=== PATIENT | female | born 1955 | race African-American/Black ===

== ENCOUNTER 2019-03-20 16:33 | Emergency (ER) | payer MEDICARE ==
[2019-03-20 16:55] VITALS: BP 130/78; PULSE 84; RESP 18; TEMP 97.9
[2019-03-20] MEDS ORDERED: MORPHINE SULFATE 4 MG/ML SYRINGE IM STA (16:59)
--- NOTE | 2019-03-20 17:27 | ED ---
Back Pain HPI - General Chief Complaint: Back Pain/Injury Stated Complaint: sciatic nerve pain Source: patient Limitations: no limitations - History of Present Illness Initial Comments: 64-year-old female with history of severe rheumatoid arthritis, right-sided sciatica chronic urinary continence presents emergency department for fall with increase right leg pain. Patient states she fell 2 days ago on her right side after her house shoe got caught on a vent. She states she fell onto her right side, hitting right shoulder, and falling on her bottom. Patient states she has been able to walk since, but has been having increased pain that radiates down the right leg. Patient states is sharp and feels like her sciatica she states begins in the middle of the buttock and radiates down. Patient has a near ankle pain denies any pain of the elbows or wrists. Patient does state that she has pain in the right shoulder from her baseline RA. Pain in area has no radiation and increases with overhead ROM. Patient denies loss of bowel control, patient states that she has had incontinence to bladder for the past year and often pees on her floor at home and has to use towels to clean it up, she has discussed this with her PCP who prescribed a $7500 medication per patient that insurance has $1500 deductible and she cannot afford the medication. Patient denies loss of sensation of the LE, IVDU, hx of cancer, vaginal numbness. Denies trauma to the head or neck, upper back. Remaining ROS (-). Upon arrival patient appears uncomfortable. - Related Data Previous Rx's Medication Instructions Recorded Cyclobenzaprine [Flexeril] 10 mg PO TID PRN 7 Days #21 tab 03/20/19 HYDROcodone/APAP 7.5-325MG [[place] 1 tab PO Q4H PRN 3 Days #18 tab 03/20/19 7.5-325] Allergies Allergy/AdvReac Type Severity Reaction Status Date / Time Penicillins Allergy Unknown Verified 03/20/19 16:55 Review of Systems ROS Statement: Those systems with pertinent positive or pertinent negative responses have been documented in the HPI. ROS Other: All systems not noted in ROS Statement are negative. Past Medical History Past Medical History: Asthma, Diabetes Mellitus, Hypertension, Rheumatoid Arthritis (RA) History of Any Multi-Drug Resistant Organisms: None Reported Past Surgical History: Section, Orthopedic Surgery Additional Past Surgical History / Comment(s): carpel tunnel Past Psychological History: Anxiety, Depression Smoking Status: Never smoker Past Alcohol Use History: None Reported Past Drug Use History: None Reported General Exam - General Exam Comments Initial Comments: General: The patient is awake and alert, in no distress, and does not appear acutely ill. Eye: +3 mm pupils are equal, round and reactive to light, extra-ocular movements are intact. No nystagmus. There is normal conjunctiva bilaterally. No signs of icterus. Ears, nose, mouth and throat: There are moist mucous membranes and no oral lesions. Neck: The neck is supple, there is no tenderness or JVD. Cardiovascular: There is a regular rate and rhythm. No murmur, rub or gallop is appreciated. Respiratory: Lungs are clear to auscultation, respirations are non-labored, breath sounds are equal. No wheezes, stridor, rales, or rhonchi. Gastrointestinal: Soft, non-distended, non-tender abdomen without masses or organomegaly noted. There is no rebound or guarding present. Musculoskeletal: Normal ROM, no tenderness. Strength 5/5. Sensation intact. Pulses equal bilaterally 2+. Neurological: A&O x 3. CN II-XII intact, There are no obvious motor or sensory deficits. Coordination appears grossly intact. Speech is normal. Skin: Skin is warm and dry and no rashes or lesions are noted. Psychiatric: Cooperative, appropriate mood & affect, normal judgment. Limitations: no limitations Course Vital Signs 03/20/19 16:51 Temperature 97.9 F Pulse Rate 84 Respiratory 18 Rate Blood Pressure 130/78 O2 Sat by Pulse 98 Oximetry Disposition Clinical Impression: Radiculopathy, Fall, Back pain, Right shoulder pain Disposition: HOME SELF-CARE Condition: Good Instructions (If sedation given, give patient instructions): Acute Low Back Pain (ED) Additional Instructions: Please use medication as discussed. Please follow-up with family doctor in the next 2 days. Please return to emergency room if the symptoms increase or worsen or for any other concerns. Prescriptions: Cyclobenzaprine [Flexeril] 10 mg PO TID PRN 7 Days #21 tab PRN Reason: Muscle Spasm HYDROcodone/APAP 7.5-325MG [[place] 7.5-325] 1 tab PO Q4H PRN 3 Days #18 tab PRN Reason: Pain Is patient prescribed a controlled substance at d/c from ED?: Yes When asked, does pt state using other controlled substances?: No If prescribed controlled substance>3 days was MAPS reviewed?: Prescribed <3 Days If opioid is for acute pain is fill amount 7 days or less?: Yes If Rx opioid, was Start Talking consent form obtained?: Yes Referrals: Mariluz Becker MD [Primary Care Provider] - 1-2 days Marvin Pardo DO [Doctor of Osteopathic Medicine] - 1-2 days Time of Disposition: 19:52
--- NOTE | 2019-03-20 17:51 | XR ---
EXAMINATION TYPE: XR shoulder complete RT DATE OF EXAM: 03/20/2019 COMPARISON: 08/08/2010 HISTORY: Pain. Fall. TECHNIQUE: 3 views FINDINGS: There is 2 cm large erosion at the greater tuberosity of the humerus. There is narrowing of the subacromial joint space. I see no fracture nor dislocation. There is some erosion and spurring a t the AC joint. IMPRESSION: No fracture seen. Large erosion at the greater tuberosity and also to a lesser extent the acromion could relate to inflammatory arthritis and is a change compared to old exam.
--- NOTE | 2019-03-20 17:51 | XR ---
EXAMINATION TYPE: XR Hip Complete RT DATE OF EXAM: 03/20/2019 COMPARISON: NONE HISTORY: Pain TECHNIQUE: 2 views FINDINGS: Hip joint space is fairly normal. I see no fracture nor dislocation. Sacroiliac joint is in tact. IMPRESSION: Negative right hip exam.
--- NOTE | 2019-03-20 17:53 | XR ---
EXAMINATION TYPE: XR lumbar spine 2 or 3V DATE OF EXAM: 03/20/2019 COMPARISON: 05/26/2011 HISTORY: Pain TECHNIQUE: 3 views FINDINGS: Vertebra have normal alignment. Posterior elements are intact. There is no compression frac ture. Sacroiliac joints are intact. IMPRESSION: Negative lumbar spine exam. No fracture. No significant change compared to old exam.
[2019-03-20] MEDS ORDERED: HYDROmorphone 0.5 MG/0.5 ML SYRINGE IVP STA (18:05)
[2019-03-20] MEDS ORDERED: DIAZEPAM 2 MG TAB PO STA (18:05)
[2019-03-20] MEDS ORDERED: HYDROmorphone 0.5 MG/0.5 ML SYRINGE IM STA (18:31)
[2019-03-20] MEDS ORDERED: DIAZEPAM 5 MG TAB PO STA (18:43)
[2019-03-20] MEDS ORDERED: HYDROcodone/APAP 7.5-325MG 1 EACH TAB PO ONE (19:55)
== END 2019-03-20 20:16 | disposition home or self-care (01) ==
LOC: EC 16:33
DX: M54.10 Radiculopathy, site unspecified (principal); M54.9 Dorsalgia, unspecified; M25.511 Pain in right shoulder; M79.601 Pain in right arm; Z87.39 Personal history of other diseases of the musculoskeletal system and connective tissue; Z88.0 Allergy status to penicillin; W19.XXXA Unspecified fall, initial encounter
CPT/HCPCS: 72100; 73502; 73030; 99283; 96372 ×2; J2270; J1170

== ENCOUNTER 2019-03-22 09:05 | Emergency (ER) | payer MEDICARE ==
[2019-03-22 09:09] VITALS: BP 133/71; PULSE 71; RESP 8; TEMP 98.4
[2019-03-22] MEDS ORDERED: CEPHALEXIN 500MG STARTER PACK 4 CAP BTL PO STA (09:52)
[2019-03-22] MEDS ORDERED: DIPH,PERTUS(ACELL)TETVAC-LF 0.5 ML VIAL IM ONE (09:52)
--- NOTE | 2019-03-22 09:52 | ED ---
General Adult HPI - General Chief complaint: Skin/Abscess/Foreign Body Stated complaint: Barn[place] pickers in leg & abd Time Seen by Provider: 03/22/19 09:26 Source: patient, RN notes reviewed, old records reviewed Mode of arrival: wheelchair Limitations: no limitations - History of Present Illness Initial comments: 64 year old female presents emergency department today for concern for a injury on her right thigh and groin and lower abdomen. Patient reports that she tripped and fell yesterday into a cactus that was in her yard. Patient reports that she has numerous cactus spines within the leg still. They attempted to remove these with tweezers or unsuccessful. They're not concerned for possible infection. Patient reports no other symptoms. - Related Data Home Medications Medication Instructions Recorded Confirmed Ascorbic Acid/Ascorbate Sodium 250 mg PO TID 03/22/19 03/22/19 [Vitamin C 250 mg Tablet Chew] Atorvastatin [Lipitor] 20 mg PO DAILY 03/22/19 03/22/19 Cyanocobalamin (Vitamin B-12) 1,000 mcg PO DAILY 03/22/19 03/22/19 [Vitamin B-12] Ferrous Sulfate [Feosol] 325 mg PO DAILY 03/22/19 03/22/19 Folic Acid 1 mg PO DAILY 03/22/19 03/22/19 Glimepiride [Amaryl] 1 mg PO BID 03/22/19 03/22/19 Magnesium Oxide [Magox 400] 400 mg PO DAILY 03/22/19 03/22/19 Montelukast [Singulair] 10 mg PO HS 03/22/19 03/22/19 Pregabalin [Lyrica] 100 mg PO TID 03/22/19 03/22/19 Sertraline [Zoloft] 100 mg PO DAILY 03/22/19 03/22/19 amLODIPine [Norvasc] 5 mg PO DAILY 03/22/19 03/22/19 predniSONE See Taper PO DIRECTED 03/22/19 03/22/19 Previous Rx's Medication Instructions Recorded Cyclobenzaprine [Flexeril] 10 mg PO TID PRN 7 Days #21 tab 03/20/19 HYDROcodone/APAP 7.5-325MG [[place] 1 tab PO Q4H PRN 3 Days #18 tab 03/20/19 7.5-325] Cephalexin [Keflex] 500 mg PO Q6HR #40 cap 03/22/19 Hydrocortisone Cream 1 applic TOPICAL TID #60 gm 03/22/19 [Hydrocortisone 1% Cream] Lidocaine 5% Oint [Xylocaine 5% 1 applic TOPICAL TID #60 oint...g. 03/22/19 Oint] Mupirocin 2% Oint [Bactroban 2% 1 applic TOPICAL TID #60 gm 03/22/19 Oint] Allergies Allergy/AdvReac Type Severity Reaction Status Date / Time Penicillins Allergy Unknown Verified 03/22/19 09:25 Review of Systems ROS Statement: Those systems with pertinent positive or pertinent negative responses have been documented in the HPI. ROS Other: All systems not noted in ROS Statement are negative. Past Medical History Past Medical History: Asthma, Diabetes Mellitus, Hypertension, Rheumatoid Arthritis (RA) History of Any Multi-Drug Resistant Organisms: None Reported Past Surgical History: Section, Orthopedic Surgery Additional Past Surgical History / Comment(s): carpel tunnel Past Psychological History: Anxiety, Depression Smoking Status: Never smoker Past Alcohol Use History: None Reported Past Drug Use History: None Reported General Exam - General Exam Comments Initial Comments: 64-year-old female. Alert and oriented 3. Limitations: no limitations General appearance: alert, in no apparent distress Head exam: Present: atraumatic, normocephalic, normal inspection Eye exam: Present: normal appearance, PERRL, EOMI. Absent: scleral icterus, conjunctival injection, periorbital swelling ENT exam: Present: normal exam, mucous membranes moist Neck exam: Present: normal inspection. Absent: tenderness, meningismus, lymphadenopathy Respiratory exam: Present: normal lung sounds bilaterally. Absent: respiratory distress, wheezes, rales, rhonchi, stridor Cardiovascular Exam: Present: regular rate, normal rhythm, normal heart sounds. Absent: systolic murmur, diastolic murmur, rubs, gallop, clicks GI/Abdominal exam: Present: soft, normal bowel sounds. Absent: distended, tenderness, guarding, rebound, rigid Neurological exam: Present: alert, oriented X3, CN II-XII intact Psychiatric exam: Present: normal affect, normal mood Skin exam: Present: warm, dry, intact, normal color, rash (Patient has been erythematous papular-like lesions over the right anterior and posterior thigh into the groin area. There is evidence of embedded small hair like needles from cacti within the skin.) Course Vital Signs 03/22/19 09:06 Temperature 98.4 F Pulse Rate 71 Respiratory 8 L Rate Blood Pressure 133/71 O2 Sat by Pulse 95 Oximetry Medical Decision Making - Medical Decision Making Patient 64-year-old female with a trip and fall injury into a cactus. She has thousands of her leg needles at times to the right anterior posterior thigh and in the groin. We attempted to remove these with multiple methods including tweezers, which is mildly successful but time-consuming, as well as eventually using duct tape to stick to the leg and removed majority of the cactus needles. Patient has some surrounding dermatitis from this area. I discussed putting the Patient on multiple creams including antibiotic cream and hydrocortisone cream as well as some lidocaine cream to stop the burning. Patient will be started on Keflex as well. I discussed the Patient she should return to the emergency department if any alarming signs or symptoms occur. Disposition Clinical Impression: Plant irritant contact dermatitis Disposition: HOME SELF-CARE Condition: Good Instructions (If sedation given, give patient instructions): Contact Dermatitis (ED) Additional Instructions: Patient advised to do gentle exfoliation over the skin. Patient should apply the antibiotic cream and lidocaine cream for pain relief. Recommended completing the antibiotic prescription. Return to emergency department if any alarming signs or symptoms occur. Prescriptions: Mupirocin 2% Oint [Bactroban 2% Oint] 1 applic TOPICAL TID #60 gm Hydrocortisone Cream [Hydrocortisone 1% Cream] 1 applic TOPICAL TID #60 gm Cephalexin [Keflex] 500 mg PO Q6HR #40 cap Lidocaine 5% Oint [Xylocaine 5% Oint] 1 applic TOPICAL TID #60 oint...g. Is patient prescribed a controlled substance at d/c from ED?: No Referrals: Mariluz Becker MD [Primary Care Provider] - 1-2 days Time of Disposition: 11:46
[2019-03-22] MEDS ORDERED: ACET/COD 300 MG/30 MG STARTER PACK 6 TAB BTL PO STA (11:45)
== END 2019-03-22 11:57 | disposition home or self-care (01) ==
LOC: EC 09:05
DX: L24.7 Irritant contact dermatitis due to plants, except food (principal); S70.351A Superficial foreign body, right thigh, initial encounter; S30.851A Superficial foreign body of abdominal wall, initial encounter; J45.909 Unspecified asthma, uncomplicated; E11.9 Type 2 diabetes mellitus without complications; I10 Essential (primary) hypertension; F41.9 Anxiety disorder, unspecified; F32.9 Major depressive disorder, single episode, unspecified; Z79.84 Long term (current) use of oral hypoglycemic drugs; Z79.52 Long term (current) use of systemic steroids; Z79.899 Other long term (current) drug therapy; Z88.0 Allergy status to penicillin; Z23 Encounter for immunization; W01.0XXA Fall on same level from slipping, tripping and stumbling without subsequent striking against object, initial encounter; Y92.096 Garden or yard of other non-institutional residence as the place of occurrence of the external cause
CPT/HCPCS: 90471; 90715; 99283

== ENCOUNTER 2020-04-11 15:33 | Inpatient (IN) | payer MEDICARE, OTHER ==
[2020-04-11] MEDS ORDERED: SODIUM CHLORIDE 0.9% 1,000 ML IV STA ×2 (16:10)
[2020-04-11] MEDS ORDERED: METOCLOPRAMIDE 5 MG/ML 2 ML VIAL IVP STA (16:10)
--- NOTE | 2020-04-11 16:22 | ED ---
Nausea/Vomiting/Diarrhea HPI - General Chief complaint: Nausea/Vomiting/Diarrhea Stated complaint: Nausea vomiting Time Seen by Provider: 04/11/20 15:53 Source: patient, EMS, RN notes reviewed Mode of arrival: EMS Limitations: no limitations - History of Present Illness Initial comments: This is a 65-year-old female who began having diarrhea 5 days ago and has yesterday started having nausea and this morning multiple shows a vomiting. She has generalized abdominal cramping. She feels lightheaded dizzy and weak she's had no food intake recently no reports of abdominal surgeries no recent bad food intake no recent exposures anyone with similar symptoms MD complaint: nausea, vomiting, diarrhea, abdominal pain - Related Data Home Medications Medication Instructions Recorded Confirmed Ascorbic Acid [Vitamin C 250 mg 250 mg PO TID 03/22/19 03/22/19 Tablet Chew] Atorvastatin [Lipitor] 20 mg PO DAILY 03/22/19 03/22/19 Cyanocobalamin (Vitamin B-12) 1,000 mcg PO DAILY 03/22/19 03/22/19 [Vitamin B-12] Ferrous Sulfate [Feosol] 325 mg PO DAILY 03/22/19 03/22/19 Folic Acid 1 mg PO DAILY 03/22/19 03/22/19 Glimepiride [Amaryl] 1 mg PO BID 03/22/19 03/22/19 Magnesium Oxide [Magox 400] 400 mg PO DAILY 03/22/19 03/22/19 Montelukast [Singulair] 10 mg PO HS 03/22/19 03/22/19 Pregabalin [Lyrica] 100 mg PO TID 03/22/19 03/22/19 Sertraline [Zoloft] 100 mg PO DAILY 03/22/19 03/22/19 amLODIPine [Norvasc] 5 mg PO DAILY 03/22/19 03/22/19 predniSONE See Taper PO DIRECTED 03/22/19 03/22/19 Previous Rx's Medication Instructions Recorded Cyclobenzaprine [Flexeril] 10 mg PO TID PRN 7 Days #21 tab 03/20/19 HYDROcodone/APAP 7.5-325MG [[place] 1 tab PO Q4H PRN 3 Days #18 tab 03/20/19 7.5-325] Cephalexin [Keflex] 500 mg PO Q6HR #40 cap 03/22/19 Hydrocortisone Cream 1 applic TOPICAL TID #60 gm 03/22/19 [Hydrocortisone 1% Cream] Lidocaine 5% Oint [Xylocaine 5% 1 applic TOPICAL TID #60 oint...g. 03/22/19 Oint] Mupirocin 2% Oint [Bactroban 2% 1 applic TOPICAL TID #60 gm 03/22/19 Oint] Allergies Allergy/AdvReac Type Severity Reaction Status Date / Time Penicillins Allergy Unknown Verified 04/11/20 17:58 Review of Systems ROS Statement: Those systems with pertinent positive or pertinent negative responses have been documented in the HPI. ROS Other: All systems not noted in ROS Statement are negative. Past Medical History Past Medical History: Asthma, Diabetes Mellitus, Hypertension, Rheumatoid Arthritis (RA) History of Any Multi-Drug Resistant Organisms: None Reported Past Surgical History: Section, Orthopedic Surgery Additional Past Surgical History / Comment(s): carpel tunnel Past Psychological History: Anxiety, Depression Smoking Status: Never smoker Past Alcohol Use History: None Reported Past Drug Use History: None Reported General Exam - General Exam Comments Initial Comments: Is a well-developed well-nourished awake alert oriented 3 female she was actively vomiting Limitations: no limitations General appearance: alert, anxious, in distress Head exam: Present: atraumatic, normocephalic, normal inspection Eye exam: Present: normal appearance, PERRL, EOMI. Absent: scleral icterus, conjunctival injection, periorbital swelling ENT exam: Present: mucous membranes dry Neck exam: Present: normal inspection, full ROM. Absent: tenderness, meningismus, lymphadenopathy Respiratory exam: Present: normal lung sounds bilaterally. Absent: respiratory distress, wheezes, rales, rhonchi, stridor Cardiovascular Exam: Present: regular rate, normal rhythm, normal heart sounds. Absent: systolic murmur, diastolic murmur, rubs, gallop, clicks GI/Abdominal exam: Present: soft, tenderness (Mild generalized tenderness no guarding no rebound masses or bruits hyperactive sounds noted), normal bowel sounds. Absent: distended, guarding, rebound, rigid Rectal exam: Present: deferred Extremities exam: Present: normal inspection, full ROM, normal capillary refill. Absent: tenderness, pedal edema, joint swelling, calf tenderness Back exam: Present: normal inspection Neurological exam: Present: alert, oriented X3, CN II-XII intact Psychiatric exam: Present: normal affect, anxious Skin exam: Present: warm, dry, intact, normal color. Absent: rash Course Vital Signs 04/11/20 04/11/20 15:35 16:43 Temperature 98.4 F Pulse Rate 85 79 Respiratory 20 18 Rate Blood Pressure 165/78 147/69 O2 Sat by Pulse 99 97 Oximetry Medical Decision Making - Medical Decision Making I did discuss findings the patient family members were present patient still feeling nauseated. Patient does demonstrate evidence of clinical dehydration as well as electronic also hypomagnesemia. Patient be admitted I did discuss case with Dr. Love - Lab Data Result diagrams: 04/11/20 16:27 04/11/20 16:27 Lab Results 04/11/20 04/11/20 04/11/20 Range/Units 16:27 16:27 16:27 WBC 7.7 (3.8-10.6) k/uL RBC 4.93 (3.80-5.40) m/uL Hgb 13.8 (11.4-16.0) gm/dL Hct 44.0 (34.0-46.0) % MCV 89.1 (80.0-100.0) fL MCH 27.9 (25.0-35.0) pg MCHC 31.3 (31.0-37.0) g/dL RDW 15.4 (11.5-15.5) % Plt Count 223 (150-450) k/uL Neutrophils % 84 % Lymphocytes % 10 % Monocytes % 4 % Eosinophils % 1 % Basophils % 0 % Neutrophils # 6.5 (1.3-7.7) k/uL Lymphocytes # 0.8 L (1.0-4.8) k/uL Monocytes # 0.3 (0-1.0) k/uL Eosinophils # 0.1 (0-0.7) k/uL Basophils # 0.0 (0-0.2) k/uL Sodium 140 (137-145) mmol/L Potassium 4.0 (3.5-5.1) mmol/L Chloride 101 (98-107) mmol/L Carbon Dioxide 27 (22-30) mmol/L Anion Gap 12 mmol/L BUN 7 (7-17) mg/dL Creatinine 0.46 L (0.52-1.04) mg/dL Est GFR (CKD-EPI)AfAm >90 (>60 ml/min/1.73 sqM) Est GFR (CKD-EPI)NonAf >90 (>60 ml/min/1.73 sqM) Glucose 281 H (74-99) mg/dL Plasma Lactic Acid Bill (0.7-2.0) mmol/L Calcium 9.6 (8.4-10.2) mg/dL Magnesium 1.2 L (1.6-2.3) mg/dL Total Bilirubin 1.0 (0.2-1.3) mg/dL AST 49 H (14-36) U/L ALT 28 (4-34) U/L Alkaline Phosphatase 84 (38-126) U/L Creatine Kinase 138 H (30-135) U/L Troponin I (0.000-0.034) ng/mL Total Protein 8.5 H (6.3-8.2) g/dL Albumin 4.9 (3.5-5.0) g/dL Lipase 37 (23-300) U/L Urine Color Light Yellow Urine Appearance Clear (Clear) Urine pH 7.0 (5.0-8.0) Ur Specific [place] 1.010 (1.001-1.035) Urine Protein Trace H (Negative) Urine Glucose (UA) 4+ H (Negative) Urine Ketones 3+ H (Negative) Urine Blood Negative (Negative) Urine Nitrite Negative (Negative) Urine Bilirubin Negative (Negative) Urine Urobilinogen <2.0 (<2.0) mg/dL Ur Leukocyte Esterase Negative (Negative) 04/11/20 04/11/20 Range/Units 16:27 16:27 WBC (3.8-10.6) k/uL RBC (3.80-5.40) m/uL Hgb (11.4-16.0) gm/dL Hct (34.0-46.0) % MCV (80.0-100.0) fL MCH (25.0-35.0) pg MCHC (31.0-37.0) g/dL RDW (11.5-15.5) % Plt Count (150-450) k/uL Neutrophils % % Lymphocytes % % Monocytes % % Eosinophils % % Basophils % % Neutrophils # (1.3-7.7) k/uL Lymphocytes # (1.0-4.8) k/uL Monocytes # (0-1.0) k/uL Eosinophils # (0-0.7) k/uL Basophils # (0-0.2) k/uL Sodium (137-145) mmol/L Potassium (3.5-5.1) mmol/L Chloride (98-107) mmol/L Carbon Dioxide (22-30) mmol/L Anion Gap mmol/L BUN (7-17) mg/dL Creatinine (0.52-1.04) mg/dL Est GFR (CKD-EPI)AfAm (>60 ml/min/1.73 sqM) Est GFR (CKD-EPI)NonAf (>60 ml/min/1.73 sqM) Glucose (74-99) mg/dL Plasma Lactic Acid Bill 2.0 (0.7-2.0) mmol/L Calcium (8.4-10.2) mg/dL Magnesium (1.6-2.3) mg/dL Total Bilirubin (0.2-1.3) mg/dL AST (14-36) U/L ALT (4-34) U/L Alkaline Phosphatase (38-126) U/L Creatine Kinase (30-135) U/L Troponin I <0.012 (0.000-0.034) ng/mL Total Protein (6.3-8.2) g/dL Albumin (3.5-5.0) g/dL Lipase (23-300) U/L Urine Color Urine Appearance (Clear) Urine pH (5.0-8.0) Ur Specific [place] (1.001-1.035) Urine Protein (Negative) Urine Glucose (UA) (Negative) Urine Ketones (Negative) Urine Blood (Negative) Urine Nitrite (Negative) Urine Bilirubin (Negative) Urine Urobilinogen (<2.0) mg/dL Ur Leukocyte Esterase (Negative) - EKG Data -: EKG Interpreted by Me EKG Comments: Sinus rhythm of 76. 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
[2020-04-11 16:40] LABS: Basophils % (A) 0 %; Eosinophils # (A) 0.1 k/uL (0-0.7); Eosinophils % (A) 1 %; HGB 13.8 gm/dL (11.4-16.0); Lymphocytes # (A) 0.8 k/uL (1.0-4.8); Lymphocytes % (A) 10 %; MCH 27.9 pg (25.0-35.0); MCHC 31.3 g/dL (31.0-37.0); MCV 89.1 fL (80.0-100.0); Mean Platelet Volume 8.7; Monocytes # (A) 0.3 k/uL (0-1.0); Monocytes % (A) 4 %; Neutrophils # (A) 6.5 k/uL (1.3-7.7); Neutrophils % (A) 84 %; Platelet Count 223 k/uL (150-450); RBC 4.93 m/uL (3.80-5.40); RDW 15.4 % (11.5-15.5); WBC 7.7 k/uL (3.8-10.6)
[2020-04-11 16:45] LABS: Appearance,Urine Clear (Clear); Bilirubin,Urine Negative (Negative); Blood,Urine Negative (Negative); Color,Urine Light Yellow; Glucose,Urine (UA) 4+ (Negative); Leukocyte Esterase,Urine Negative (Negative); Nitrite,Urine Negative (Negative); Protein,Urine Trace (Negative); Urobilinogen,Urine <2.0 mg/dL (<2.0)
[2020-04-11 16:47] LABS: ALT 28 U/L (4-34); AST 49 U/L (14-36); African American GFR (CKD) >90 (>60 ml/min/1.73 sqM); Albumin 4.9 g/dL (3.5-5.0); Alkaline Phosphatase 84 U/L (38-126); Anion Gap 12 mmol/L; Blood Urea Nitrogen 7 mg/dL (7-17); Calcium 9.6 mg/dL (8.4-10.2); Carbon Dioxide 27 mmol/L (22-30); Chloride 101 mmol/L (98-107); Creatine Kinase 138 U/L (30-135); Glucose 281 mg/dL (74-99); Lipase 37 U/L (23-300); Magnesium 1.2 mg/dL (1.6-2.3); Non-African American GFR(CKD) >90 (>60 ml/min/1.73 sqM); Sodium 140 mmol/L (137-145); Total Protein 8.5 g/dL (6.3-8.2)
[2020-04-11 16:53] LABS: Ketones,Urine 3+ (Negative)
--- NOTE | 2020-04-11 17:03 | XR ---
EXAMINATION TYPE: XR KUB DATE OF EXAM: 04/11/2020 COMPARISON: 08/09/2013 HISTORY: Nausea and vomiting TECHNIQUE: 2 views upright FINDINGS: There is no sign of intestinal obstruction or pneumoperitoneum. Fecal pattern is normal. Th ere is no sign of a mass. There are no pathologic calcifications over the kidneys. Lung bases are clear. IMPRESSION: Nonacute abdomen. No adverse change.
[2020-04-11] MEDS ORDERED: PROMETHAZINE INJ 25 MG in SODIUM CHLORIDE 0.9% 50 ML IVPB STA (17:45)
[2020-04-11] MEDS: MAGNESIUM SULFATE-D5W PMX 1 GM in DEXTROSE/WATER 1 100ML.BAG IVPB SCH ×2 (18:04→19:42)
[2020-04-11] MEDS ORDERED: KETOROLAC 15 MG/ML 1 ML VIAL IVP STA (18:19)
[2020-04-11] MEDS ORDERED: NALOXONE 0.4 MG/ML 1 ML VIAL IV PRN (18:23)
[2020-04-11] MEDS ORDERED: ONDANSETRON 4 MG/2 ML VIAL IVP PRN (18:23)
[2020-04-11] MEDS: SODIUM CHLORIDE 0.9% 1,000 ML IV SCH (19:05)
[2020-04-11 20:55] LABS: Glucose,Whole Blood 253 mg/dL (75-99)
[2020-04-11] MEDS: metFORMIN 850 MG TAB PO SCH (22:55)
[2020-04-11] MEDS: GABAPENTIN 300 MG CAP PO SCH (22:55)
[2020-04-12] MEDS: SODIUM CHLORIDE 0.9% 1,000 ML IV SCH ×3 (02:08→17:06)
[2020-04-12 06:08] LABS: Glucose,Whole Blood 145 mg/dL (75-99)
[2020-04-12] MEDS: INSULIN ASPART (NovoLOG) 100 UNIT/ML VIAL SQ SCH ×4 (08:09→20:29)
[2020-04-12] MEDS: PANTOPRAZOLE 40 MG/10 ML VIAL IV SCH (08:13)
[2020-04-12] MEDS: SERTRALINE 100 MG TAB PO SCH (08:13)
[2020-04-12] MEDS: GABAPENTIN 300 MG CAP PO SCH ×3 (08:13→21:14)
[2020-04-12] MEDS: metFORMIN 850 MG TAB PO SCH ×3 (08:13→21:14)
[2020-04-12 11:55] LABS: Glucose,Whole Blood 243 mg/dL (75-99)
[2020-04-12 16:53] LABS: Glucose,Whole Blood 157 mg/dL (75-99)
[2020-04-12 19:40] LABS: Glucose,Whole Blood 151 mg/dL (75-99)
--- NOTE | 2020-04-12 21:57 | P.HPIM ---
History of Present Illness H&P Date: 04/12/20 Chief Complaint: nausea, vomiting, diarrhea Eileen Ribeiro is a 65 yo F with PMH of T2DM, HTN, HLD who presented to the ED complaining of 1 week history of worsening nausea vomiting and diarrhea. She additionally complains of abdominal pain, denies fever, chills, chest pain, robin rtness of breath. She denies rectal bleeding. Pt states she had been eating a diet high in fast foods prior to onset of her symptoms. No sick contacts. On presentation she was hypertensive, labs show elevated AST at 49 and glucose 280. She required multiple IV antiemetics to control her nausea, today she is tolerating clear liquid diet. Review of Systems All systems: negative Constitutional: Denies chills, Denies fever Eyes: denies blurred vision, denies pain Ears, nose, mouth and throat: Denies headache, Denies sore throat Cardiovascular: Denies chest pain, Denies shortness of breath Respiratory: Denies cough Gastrointestinal: Reports abdominal pain, Reports diarrhea, Reports nausea, Reports vomiting Genitourinary: Denies dysuria, Denies hematuria Musculoskeletal: Denies myalgias Integumentary: Denies pruritus, Denies rash Neurological: Denies numbness, Denies weakness Psychiatric: Denies anxiety, Denies depression Endocrine: Denies fatigue, Denies weight change Past Medical History Past Medical History: Asthma, Diabetes Mellitus, Hypertension, Rheumatoid Arthritis (RA) History of Any Multi-Drug Resistant Organisms: None Reported Past Surgical History: Section, Orthopedic Surgery Additional Past Surgical History / Comment(s): carpel tunnel Past Anesthesia/Blood Transfusion Reactions: No Reported Reaction Past Psychological History: Anxiety, Depression Smoking Status: Never smoker Past Alcohol Use History: None Reported Past Drug Use History: None Reported Medications and Allergies Home Medications Medication Instructions Recorded Confirmed Type Atorvastatin [Lipitor] 20 mg PO DAILY 03/22/19 04/11/20 History Cyanocobalamin (Vitamin B-12) 1,000 mcg PO DAILY 03/22/19 04/11/20 History [Vitamin B-12] Ferrous Sulfate [Iron (65 MG 325 mg PO TID 03/22/19 04/11/20 History Elemental)] Folic Acid 1 mg PO DAILY 03/22/19 04/11/20 History Glimepiride [Amaryl] 1 mg PO DAILY 03/22/19 04/11/20 History Magnesium Oxide [Magox 400] 400 mg PO DAILY 03/22/19 04/11/20 History Montelukast [Singulair] 10 mg PO HS 03/22/19 04/11/20 History Sertraline [Zoloft] 100 mg PO DAILY 03/22/19 04/11/20 History amLODIPine [Norvasc] 5 mg PO DAILY 03/22/19 04/11/20 History Ascorbic Acid [Vitamin C] 250 mg PO TID 04/11/20 04/11/20 History Gabapentin 300 mg PO TID 04/11/20 04/11/20 History metFORMIN HCL [Glucophage] 850 mg PO TID 04/11/20 04/11/20 History metHOTREXate sodium [Methotrexate] 25 mg PO MO 04/11/20 04/11/20 History Allergies Allergy/AdvReac Type Severity Reaction Status Date / Time Penicillins Allergy Unknown Verified 04/11/20 17:58 Physical Exam Vitals: Vital Signs Temp Pulse Resp BP Pulse Ox 04/12/20 20:09 98.6 F 72 18 139/72 95 04/12/20 14:52 98.9 F 76 14 129/66 94 L 04/12/20 08:11 98.3 F 80 14 159/67 97 04/12/20 02:10 98.1 F 75 16 123/74 95 Intake and Output 04/12/20 04/12/20 04/12/20 06:59 14:59 22:59 Intake Total 1560 200 Balance 1560 200 Intake: Intake, IV Titration 1560 Amount Sodium Chloride 0.9% 1, 1560 000 ml @ 130 mls/hr IV . Q7H42M [facility] Rx#:[id number] Oral 200 Other: Voiding Method Bedside Commode Bedside Commode # Voids 1 1 General: well nourished, well developed, NAD. Vitals reviewed Eyes: PERRL, EOMI, conjunctiva normal HENT: normocephalic, mucus membranes moist Neck: supple, no JVD Lungs: normal respiratory effort, no wheezes or rales CV: Regular rate and rhythm, no murmur. Peripheral pulses 2+ Abdomen: soft, nondistended, no organomegaly. Mild generalized tenderness Lymph: no cervical or axillary LAD Skin: warm and dry. Neuro: A&Ox3, normal mood and affect Results CBC & Chem 7: 04/11/20 16:27 04/11/20 16:27 Labs: Abnormal Lab Results - Last 24 Hours (Table) 04/12/20 04/12/20 04/12/20 Range/Units 06:06 11:53 16:52 POC Glucose (mg/dL) 145 H 243 H 157 H (75-99) mg/dL 04/12/20 Range/Units 19:37 POC Glucose (mg/dL) 151 H (75-99) mg/dL Thrombosis Risk Factor Assmnt - Choose All That Apply Any of the Below Risk Factors Present?: Yes Each Factor Represents 1 point: Obesity (BMI >25) Other Risk Factors: Yes Each Risk Factor Represents 2 Points: Age 61-74 years Other congenital or acquired thrombophilia - If yes, enter type in comment: No Thrombosis Risk Factor Assessment Total Risk Factor Score: 3 Thrombosis Risk Factor Assessment Level: Moderate Risk Assessment and Plan (1) Intractable nausea and vomiting Current Visit: Yes Status: Acute Code(s): R11.2 - NAUSEA WITH VOMITING, UNSPECIFIED SNOMED Code(s): 391610414 (2) Type 2 diabetes mellitus Current Visit: Yes Status: Acute Code(s): E11.9 - TYPE 2 DIABETES MELLITUS WITHOUT COMPLICATIONS SNOMED Code(s): 27647119 (3) Essential hypertension Current Visit: Yes Status: Acute Code(s): I10 - ESSENTIAL (PRIMARY) HYPERTE NSION SNOMED Code(s): 31061812 (4) Hyperlipidemia Current Visit: Yes Status: Acute Code(s): E78.5 - HYPERLIPIDEMIA, UNSPECIFIED SNOMED Code(s): 05834021 (5) Dehydration Current Visit: Yes Status: Acute Code(s): E86.0 - DEHYDRATION SNOMED Code(s): 54963877 (6) Gastroenteritis Current Visit: Yes Status: Acute Code(s): K52.9 - NONINFECTIVE GASTROENTERITIS AND COLITIS, UNSPECIFIED SNOMED Code(s): 47178677 Plan: 1. Nausea, vomiting and diarrhea secondary to gastroenteritis, suspect viral. IV fluids, zofran. Advance diet today 2. T2DM. Continue metformin. Accuchecks and sliding scale 3. HLD. 4. HTN. Resume norvasc
[2020-04-13] MEDS: SODIUM CHLORIDE 0.9% 1,000 ML IV SCH ×3 (01:23→17:08)
[2020-04-13 07:00] LABS: Glucose,Whole Blood 205 mg/dL (75-99)
[2020-04-13] MEDS: HYDROmorphone 1 MG/ML 1 ML SYRINGE IVP PRN ×3 (07:05→15:08)
[2020-04-13] MEDS: PANTOPRAZOLE 40 MG/10 ML VIAL IV SCH (07:40)
[2020-04-13] MEDS: GABAPENTIN 300 MG CAP PO SCH ×3 (07:40→21:14)
[2020-04-13] MEDS: INSULIN ASPART (NovoLOG) 100 UNIT/ML VIAL SQ SCH ×5 (07:40→21:14)
[2020-04-13] MEDS: SERTRALINE 100 MG TAB PO SCH (07:41)
[2020-04-13] MEDS: metFORMIN 850 MG TAB PO SCH ×3 (07:41→21:14)
[2020-04-13 11:29] LABS: Glucose,Whole Blood 167 mg/dL (75-99)
--- NOTE | 2020-04-13 12:33 | P.PN ---
Subjective On-call hospitalist covering for Dr. Love over the weekend This is a pleasant 65 years old female with past medical history of diabetes mellitus, hypertension, asthma, rheumatoid arthritis, anxiety and depression. Presents on 04/11-04/12 with persistent nausea and vomiting. 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 Associated with loose bowel movement, today she had 3 bouts of watery bowel movement but no blood. Patient had diarrhea for more than 5 days. She denies fever. She denies recent use of antibiotics or hospitalization. No chest pain or dyspnea or dizziness. No rash. Patient denies suicidal ideation or homicidal agitation or hallucination although she is also done because of her illness Vitals are stable and patient is afebrile. CBC and BMP are unremarkable, AST slightly high at 49, ALT is normal 28, creatinine kinase minimally high at 138, troponin is negative less than 0.012. Lipase is normal at 37. Magnesium was low on admission at 1.2 Urine analysis is negative for infection. EKG: Normal Sinus Rhythm at 76 with QTC of 544. KUB: Nonobstructive Gas Pattern, No Acute Abdomen. Neurologist. Patient currently in normal sinus 0.3 mL per hour as well as Zofran, Protonix. Patient is still unable to leave this morning CONSTITUTIONAL: No fever, no malaise, no fatigue. HEENT: No recent visual problems or hearing problems. Denied any sore throat. CARDIOVASCULAR: No orthopnea, PND, no palpitations, no syncope. PULMONARY: No shortness of breath, no cough, no hemoptysis. -GASTROINTESTINAL: As above NEUROLOGICAL: No headaches, no weakness, no numbness. HEMATOLOGICAL: Denies any bleeding or petechiae. GENITOURINARY: Denies any burning micturition, frequency, or urgency. MUSCULOSKELETAL/RHEUMATOLOGICAL: Denies any joint pain, swelling, or any muscle pain. ENDOCRINE: Denies any polyuria or polydipsia. Active Medications Generic Name Dose Route Start Last Admin Trade Name Freq PRN Reason Stop Dose Admin Gabapentin 300 mg 04/11/20 22:00 04/13/20 07:40 Gabapentin 300 Mg Cap PO 300 mg TID ETIENNE Administration Hydromorphone HCl 1 mg 04/11/20 18:23 04/13/20 11:18 Hydromorphone 1 Mg/Ml 1 Ml Syringe IVP 1 mg Q3HR PRN Administration Severe Pain Sodium Chloride 1,000 mls @ 130 mls/hr 04/11/20 18:30 04/13/20 11:19 Saline 0.9% IV 130 mls/hr .Q7H42M ETIENNE Administration Insulin Aspart 0 unit 04/12/20 07:30 04/13/20 12:30 Insulin Aspart (Novolog) 100 Unit/Ml Vial SQ Not Given ACHS ETIENNE Protocol Metformin HCl 850 mg 04/11/20 22:00 04/13/20 07:41 Metformin 850 Mg Tab PO 850 mg TID ETIENNE Administration Naloxone HCl 0.2 mg 04/11/20 18:23 Naloxone 0.4 Mg/Ml 1 Ml Vial IV Q2M PRN Opioid Reversal Ondansetron HCl 4 mg 04/13/20 07:31 Ondansetron 4 Mg/2 Ml Vial IVP Q6HR PRN Nausea And Vomiting Pantoprazole Sodium 40 mg 04/12/20 09:00 04/13/20 07:40 Pantoprazole 40 Mg/10 Ml Vial IV 40 mg DAILY ETIENNE Administration Sertraline HCl 100 mg 04/12/20 09:00 04/13/20 07:41 Sertraline 100 Mg Tab PO 100 mg DAILY ETIENNE Administration Objective - Vital Signs Vital signs: Vital Signs Temp 98.3 F 04/13/20 07:51 Pulse 79 04/13/20 07:51 Resp 16 04/13/20 07:51 BP 142/78 04/13/20 07:51 Pulse Ox 98 04/13/20 07:51 Intake & Output 04/12/20 04/13/20 04/13/20 18:59 06:59 18:59 Intake Total 200 300 Balance 200 300 Intake: Oral 200 300 Other: Voiding Method Bedside Commode Toilet Toilet # Voids 1 - Exam GENERAL: The patient is alert and oriented x3, not in any acute distress. Well developed, well nourished. HEENT: Pupils are round and equally reacting to light. EOMI. No scleral icterus. No conjunctival pallor. Normocephalic, atraumatic. No pharyngeal erythema. No thyromegaly. CARDIOVASCULAR: S1 and S2 present. No murmurs, rubs, or gallops. PULMONARY: Chest is clear to auscultation, no wheezing or crackles. -ABDOMEN: Soft, no abdominal tenderness with no rebound tenderness or guarding,, nondistended, normoactive bowel sounds. No palpable organomegaly. MUSCULOSKELETAL: No joint swelling or deformity. EXTREMITIES: No cyanosis, clubbing, or pedal edema. NEUROLOGICAL: Gross neurological examination did not reveal any focal deficits. SKIN: No rashes. No petechiae - Labs CBC & Chem 7: 04/11/20 16:27 04/11/20 16:27 Labs: Abnormal Lab Results - Last 24 Hours (Table) 04/12/20 04/12/20 04/13/20 Range/Units 16:52 19:37 06:58 POC Glucose (mg/dL) 157 H 151 H 205 H (75-99) mg/dL 04/13/20 Range/Units 11:28 POC Glucose (mg/dL) 167 H (75-99) mg/dL Assessment and Plan Assessment: Abdominal pain with vomiting and area suspicious for gastroenteritis Persistent nausea vomiting Hypomagnesemia Dehydration Plan: this is a pleasant 65 years old female who presents with persistent nausea and vomiting and left lateral abnormality. Continue with normal saline, continue with symptomatic treatment. Monitor electrolytes. IV hydration Check stool culture and sensitivity, check stool for C. diff. Monitor labs and order pro-calcitonin. We'll order CT of the abdomen and pelvis with IV contrast if her creatinine is normal, risk of IV contrast including but not limited to ALLERGIC reaction and permanent nephrotoxicity are explained for the patient and she verbalized understanding and acceptance to do the test Labs and medication were reviewed.. Continue same treatment. Continue with symptomatic treatment. Resume home medication. Monitor lytes and vitals. DVT and GI prophylaxis. Further recommendations depends on the clinical course of the patient DVT prophylaxis: Subcutaneous heparin GI Prophylaxis: Pepcid Prognosis is guarded Patient will need to send the hospital for more than 2 nights
[2020-04-13] MEDS: ONDANSETRON 4 MG/2 ML VIAL IVP PRN (13:07)
[2020-04-13 13:12] LABS: Basophils % (A) 1 %; Eosinophils # (A) 0.1 k/uL (0-0.7); Eosinophils % (A) 2 %; HCT 39.9 % (34.0-46.0); HGB 12.6 gm/dL (11.4-16.0); Lymphocytes # (A) 1.3 k/uL (1.0-4.8); Lymphocytes % (A) 29 %; MCH 28.3 pg (25.0-35.0); MCHC 31.7 g/dL (31.0-37.0); MCV 89.2 fL (80.0-100.0); Mean Platelet Volume 8.3; Monocytes # (A) 0.2 k/uL (0-1.0); Monocytes % (A) 5 %; Neutrophils # (A) 2.6 k/uL (1.3-7.7); Neutrophils % (A) 61 %; Platelet Count 162 k/uL (150-450); RBC 4.47 m/uL (3.80-5.40); RDW 15.5 % (11.5-15.5); WBC 4.3 k/uL (3.8-10.6)
[2020-04-13 13:21] LABS: African American GFR (CKD) >90 (>60 ml/min/1.73 sqM); Anion Gap 6 mmol/L; Blood Urea Nitrogen 14 mg/dL (7-17); Calcium 8.7 mg/dL (8.4-10.2); Carbon Dioxide 28 mmol/L (22-30); Chloride 105 mmol/L (98-107); Glucose 164 mg/dL (74-99); Magnesium 1.4 mg/dL (1.6-2.3); Non-African American GFR(CKD) >90 (>60 ml/min/1.73 sqM); Potassium 3.4 mmol/L (3.5-5.1); Sodium 139 mmol/L (137-145)
[2020-04-13] MEDS ORDERED: Magnesium Replacement Protocol 1 EACH MISC MISCELLANE PRN ×2 (13:41→14:28)
[2020-04-13] MEDS ORDERED: IOPAMIDOL CONTRAST (ORAL USE) VIAL PO PRN (13:42)
[2020-04-13] MEDS ORDERED: Potassium Replacement Protocol 1 EACH MISC MISCELLANE PRN (14:30)
--- NOTE | 2020-04-13 16:11 | CT ---
EXAMINATION TYPE: CT abdomen pelvis w con DATE OF EXAM: 04/13/2020 COMPARISON: None HISTORY: Abdominal pain CT DLP: 2253.2 mGycm Automated exposure control for dose reduction was used. CONTRAST: Performed with IV Contrast, patient injected with 100 mL of Isovue 300. Images were obtained from the diaphragm to the floor the pelvis with oral and IV contrast. Lung bases are clear of consolidation. There is no pleural effusion. Heart is borderline enlarged. There is some mild fatty infiltration of the liver. There is 1 cm cyst in the right lobe of the liver . Spleen is intact. Stomach is intact. There is no pancreatic mass. Gallbladder appears normal. There is no adrenal mass. Kidneys show satisfactory contrast opacification. There is no hydronephrosi s. Delayed images show normal renal excretion. There is 3 cm cortical cyst posterior left kidney. The re is no retroperitoneal adenopathy. Bladder distends smoothly. There is no inguinal hernia. There is no free fluid in the pelvis. There are a few small sigmoid diverticula. There is no sign of divertic ulitis. Appendix appears normal. There is no mesenteric edema. There is no ascites or free air. There is no bowel obstruction. There i s normal contrast opacification of the small bowel. Lumbar vertebra have normal alignment. The posterior elements are intact. The bony pelvis is intact. I see no bony destructive process. There is a mild relative spinal stenosis at L4-5 with facet arthro chandler. IMPRESSION: No acute abnormality of the abdomen pelvis.
[2020-04-13] MEDS: POTASSIUM CHLORIDE ER 20 MEQ TAB.ER PO SCH ×2 (16:14→17:07)
[2020-04-13] MEDS: MAGNESIUM SULFATE-D5W PMX 1 GM in DEXTROSE/WATER 1 100ML.BAG IVPB SCH ×3 (16:15→18:23)
[2020-04-13 16:58] LABS: Glucose,Whole Blood 158 mg/dL (75-99)
[2020-04-13 19:52] LABS: Glucose,Whole Blood 197 mg/dL (75-99)
[2020-04-14] MEDS: SODIUM CHLORIDE 0.9% 1,000 ML IV SCH ×2 (00:35→14:52)
[2020-04-14 06:17] LABS: Glucose,Whole Blood 152 mg/dL (75-99)
[2020-04-14 07:38] LABS: Basophils % (A) 1 %; Eosinophils # (A) 0.1 k/uL (0-0.7); Eosinophils % (A) 4 %; HCT 38.3 % (34.0-46.0); HGB 12.1 gm/dL (11.4-16.0); Lymphocytes % (A) 28 %; MCH 28.4 pg (25.0-35.0); MCHC 31.7 g/dL (31.0-37.0); MCV 89.7 fL (80.0-100.0); Monocytes # (A) 0.2 k/uL (0-1.0); Monocytes % (A) 6 %; Neutrophils # (A) 2.1 k/uL (1.3-7.7); Neutrophils % (A) 59 %; Platelet Count 172 k/uL (150-450); RBC 4.26 m/uL (3.80-5.40); RDW 15.6 % (11.5-15.5); WBC 3.6 k/uL (3.8-10.6)
[2020-04-14 07:52] LABS: African American GFR (CKD) >90 (>60 ml/min/1.73 sqM); Anion Gap 5 mmol/L; Blood Urea Nitrogen 9 mg/dL (7-17); Calcium 8.9 mg/dL (8.4-10.2); Carbon Dioxide 27 mmol/L (22-30); Chloride 107 mmol/L (98-107); Glucose 166 mg/dL (74-99); Magnesium 1.7 mg/dL (1.6-2.3); Non-African American GFR(CKD) >90 (>60 ml/min/1.73 sqM); Potassium 3.9 mmol/L (3.5-5.1); Sodium 139 mmol/L (137-145)
[2020-04-14] MEDS: INSULIN ASPART (NovoLOG) 100 UNIT/ML VIAL SQ SCH ×4 (08:15→20:53)
[2020-04-14] MEDS: metFORMIN 850 MG TAB PO SCH ×3 (08:18→20:52)
[2020-04-14] MEDS: GABAPENTIN 300 MG CAP PO SCH ×3 (08:22→20:52)
[2020-04-14] MEDS: PANTOPRAZOLE 40 MG/10 ML VIAL IV SCH (08:23)
[2020-04-14] MEDS: SERTRALINE 100 MG TAB PO SCH (08:23)
[2020-04-14 11:02] LABS: Glucose,Whole Blood 175 mg/dL (75-99)
--- NOTE | 2020-04-14 12:42 | P.PN ---
Subjective On-call hospitalist covering for Dr. Love over the weekend This is a pleasant 65 years old female with past medical history of diabetes mellitus, hypertension, asthma, rheumatoid arthritis, anxiety and depression. Presents on 04/11-04/12 with persistent nausea and vomiting. 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 Associated with loose bowel movement, today she had 3 bouts of watery bowel movement but no blood. Patient had diarrhea for more than 5 days. She denies fever. She denies recent use of antibiotics or hospitalization. No chest pain or dyspnea or dizziness. No rash. Patient denies suicidal ideation or homicidal agitation or hallucination although she is also done because of her illness Vitals are stable and patient is afebrile. CBC and BMP are unremarkable, AST slightly high at 49, ALT is normal 28, creatinine kinase minimally high at 138, troponin is negative less than 0.012. Lipase is normal at 37. Magnesium was low on admission at 1.2 Urine analysis is negative for infection. EKG: Normal Sinus Rhythm at 76 with QTC of 544. KUB: Nonobstructive Gas Pattern, No Acute Abdomen. Neurologist. Patient currently in normal sinus 0.3 mL per hour as well as Zofran, Protonix. Patient is still unable to leave this morning 04/14/2020 Patient still complaining of from lower abdominal pain and tenderness although she feels better than yesterday, she is able to eat more this morning however her nausea was slightly worse . Her watery diarrhea was stopped but she had tied off stringy bowel movement as the patient described but bowel movement is not formed, or back to normal yet.She denies any vaginal symptoms or discharge CAT scan of the abdomen and pelvis was negative yesterday. Patient is afebrile. Vitals stable. Sugar controlled and labs are unremarkable. C. diff tests came back negative. Bladder scan checked by the staff it was 0. We will switch the patient to oral [place] and Bentyl Objective - Vital Signs Vital signs: Vital Signs Temp 98.6 F 04/14/20 07:26 Pulse 80 04/14/20 08:47 Resp 16 04/14/20 08:47 BP 141/62 04/14/20 07:26 Pulse Ox 97 04/14/20 07:26 Intake & Output 04/13/20 04/14/20 04/14/20 18:59 06:59 18:59 Intake Total 2920 200 Balance 2920 200 Intake: Intake, IV Titration 1040 Amount Sodium Chloride 0.9% 1, 1040 000 ml @ 75 mls/hr IV . [id number] [facility] Rx#:[id number] Oral 1880 200 Other: Voiding Method Toilet Toilet Toilet # Voids 2 2 - Exam GENERAL: The patient is alert and oriented x3, not in any acute distress. Well developed, well nourished. HEENT: Pupils are round and equally reacting to light. EOMI. No scleral icterus. No conjunctival pallor. Normocephalic, atraumatic. No pharyngeal erythema. No thyromegaly. CARDIOVASCULAR: S1 and S2 present. No murmurs, rubs, or gallops. PULMONARY: Chest is clear to auscultation, no wheezing or crackles. -ABDOMEN: Soft, no abdominal tenderness with no rebound tenderness or guarding,, nondistended, normoactive bowel sounds. No palpable organomegaly. MUSCULOSKELETAL: No joint swelling or deformity. EXTREMITIES: No cyanosis, clubbing, or pedal edema. NEUROLOGICAL: Gross neurological examination did not reveal any focal deficits. SKIN: No rashes. No petechiae - Labs CBC & Chem 7: 04/14/20 07:12 04/14/20 07:12 Labs: Abnormal Lab Results - Last 24 Hours (Table) 04/13/20 04/13/20 04/13/20 Range/Units 12:44 16:55 19:47 WBC (3.8-10.6) k/uL RDW (11.5-15.5) % Potassium 3.4 L (3.5-5.1) mmol/L Glucose 164 H (74-99) mg/dL POC Glucose (mg/dL) 158 H 197 H (75-99) mg/dL Magnesium 1.4 L (1.6-2.3) mg/dL 04/14/20 04/14/20 04/14/20 Range/Units 06:13 07:12 07:12 WBC 3.6 L (3.8-10.6) k/uL RDW 15.6 H (11.5-15.5) % Potassium (3.5-5.1) mmol/L Glucose 166 H (74-99) mg/dL POC Glucose (mg/dL) 152 H (75-99) mg/dL Magnesium (1.6-2.3) mg/dL 04/14/20 Range/Units 11:00 WBC (3.8-10.6) k/uL RDW (11.5-15.5) % Potassium (3.5-5.1) mmol/L Glucose (74-99) mg/dL POC Glucose (mg/dL) 175 H (75-99) mg/dL Magnesium (1.6-2.3) mg/dL Microbiology - Last 24 Hours (Table) 04/14/20 09:33 Stool Culture - Preliminary Stool Assessment and Plan Assessment: Abdominal pain with vomiting and area suspicious for gastroenteritis, most likely viral versus irritable bowel syndrome Persistent nausea vomiting Hypomagnesemia Dehydration Plan: this is a pleasant 65 years old female who presents with persistent nausea and vomiting and left lateral abnormality. Continue with normal saline, continue with symptomatic treatment. Monitor electrolytes. IV hydration. Start [place] and Bentyl Check stool culture and sensitivity We'll order CT of the abdomen and pelvis with IV contrast if her creatinine is normal, risk of IV contrast including but not limited to ALLERGIC reaction and permanent nephrotoxicity are explained for the patient and she verbalized understanding and acceptance to do the test Labs and medication were reviewed.. Continue same treatment. Continue with symptomatic treatment. Resume home medication. Monitor lytes and vitals. DVT and GI prophylaxis. Further recommendations depends on the clinical course of the patient DVT prophylaxis: Subcutaneous heparin GI Prophylaxis: Pepcid Prognosis is guarded Patient will need to send the hospital for more than 2 nights
[2020-04-14] MEDS: DICYCLOMINE 20 MG TAB PO SCH ×2 (13:11→20:52)
[2020-04-14] MEDS: ONDANSETRON 4 MG/2 ML VIAL IVP PRN (13:11)
[2020-04-14 15:34] VITALS: RESP 18
[2020-04-14 16:49] LABS: Glucose,Whole Blood 128 mg/dL (75-99)
[2020-04-14 20:02] LABS: Glucose,Whole Blood 137 mg/dL (75-99)
[2020-04-15] MEDS: SODIUM CHLORIDE 0.9% 1,000 ML IV SCH (02:43)
[2020-04-15 07:19] LABS: Glucose,Whole Blood 165 mg/dL (75-99)
[2020-04-15 07:20] LABS: Basophils % (A) 1 %; Eosinophils # (A) 0.1 k/uL (0-0.7); Eosinophils % (A) 4 %; HCT 39.4 % (34.0-46.0); HGB 12.4 gm/dL (11.4-16.0); Lymphocytes # (A) 1.3 k/uL (1.0-4.8); Lymphocytes % (A) 33 %; MCH 28.2 pg (25.0-35.0); MCHC 31.5 g/dL (31.0-37.0); MCV 89.6 fL (80.0-100.0); Mean Platelet Volume 7.9; Monocytes # (A) 0.2 k/uL (0-1.0); Monocytes % (A) 6 %; Neutrophils # (A) 2.2 k/uL (1.3-7.7); Neutrophils % (A) 55 %; Platelet Count 192 k/uL (150-450); RDW 15.5 % (11.5-15.5)
[2020-04-15 07:26] LABS: African American GFR (CKD) >90 (>60 ml/min/1.73 sqM); Anion Gap 5 mmol/L; Blood Urea Nitrogen 8 mg/dL (7-17); Carbon Dioxide 29 mmol/L (22-30); Chloride 106 mmol/L (98-107); Glucose 176 mg/dL (74-99); Magnesium 1.4 mg/dL (1.6-2.3); Non-African American GFR(CKD) >90 (>60 ml/min/1.73 sqM); Potassium 3.7 mmol/L (3.5-5.1); Sodium 140 mmol/L (137-145)
[2020-04-15] MEDS: INSULIN ASPART (NovoLOG) 100 UNIT/ML VIAL SQ SCH (07:55)
[2020-04-15] MEDS: GABAPENTIN 300 MG CAP PO SCH (08:01)
[2020-04-15] MEDS: PANTOPRAZOLE 40 MG/10 ML VIAL IV SCH (08:01)
[2020-04-15] MEDS: DICYCLOMINE 20 MG TAB PO SCH (08:01)
[2020-04-15] MEDS: metFORMIN 850 MG TAB PO SCH (08:02)
[2020-04-15] MEDS: SERTRALINE 100 MG TAB PO SCH (08:02)
[2020-04-15 08:48] VITALS: PULSE 96; TEMP 98.2
[2020-04-15] MEDS ORDERED: amLODIPine 5 MG TAB PO SCH (09:00)
[2020-04-15 11:09] VITALS: BP 144/86
--- NOTE | 2020-04-16 13:08 | P.DS ---
Providers Date of admission: 04/13/20 12:50 Expected date of discharge: 04/15/20 Attending physician: Edward Love MD [facility] [place] Course: Final Diagnoses: Gastroenteritis, resolved Dehydration secondary to nausea and vomiting and diarrhea related to the above, resolved Hypomagnesemia, secondary to the above Diabetes mellitus type 2 Hypertension Hyperlipidemia Hospital course:Eileen Ribeiro is a 65 yo F with PMH of T2DM, HTN, HLD who presented to the ED complaining of 1 week history of worsening nausea vomiting and diarrhea. She additionally complains of abdominal pain, denies fever, chills, chest pain, shortness of breath. She denies rectal bleeding. Pt states she had been eating a diet high in fast foods prior to onset of her symptoms. No sick contacts. On presentation she was hypertensive, labs show elevated AST at 49 and glucose 280. She required multiple IV antiemetics to control her nausea, today she is tolerating clear liquid diet. Maintain IV fluid hydration, bentyl. Stool studies negative for C. difficile and CT reported no acute abnormality of the abdomen pelvis. Stool positive for lactoferrin, probiotics recommended. Significant clinical improvement. Patient is being discharged home today in a stable condition with guarded prognosis. Follow up labs on CBC, BMP and magnesium level outpatient. The impression and plan of care has been dictated as directed. : I performed a history and examination of this patient, discussed the same with the dictator. I agree with the dictator's note ,documented as a scribe. Any additional findings or plans will be noted. Patient Condition at Discharge: Stable Plan - Discharge Summary New Discharge Prescriptions: Pernell Pantoprazole Sodium [Protonix] 40 mg PO DAILY #[address] tablet[address] Catrachito Olson & Ld [Lactinex] 1 packet PO DAILY #1 packet Continue Magnesium Oxide [Magox 400] 400 mg PO DAILY amLODIPine [Norvasc] 5 mg PO DAILY Glimepiride [Amaryl] 1 mg PO DAILY Cyanocobalamin (Vitamin B-12) [Vitamin B-12] 1,000 mcg PO DAILY Sertraline [Zoloft] 100 mg PO DAILY Montelukast [Singulair] 10 mg PO HS Folic Acid 1 mg PO DAILY Ferrous Sulfate [Iron (65 MG Elemental)] 325 mg PO TID Atorvastatin [Lipitor] 20 mg PO DAILY metFORMIN HCL [Glucophage] 850 mg PO TID Ascorbic Acid [Vitamin C] 250 mg PO TID Gabapentin 300 mg PO TID metHOTREXate sodium [Methotrexate] 25 mg PO MO Discharge Medication List Atorvastatin [Lipitor] 20 mg PO DAILY 03/22/19 [History] Cyanocobalamin (Vitamin B-12) [Vitamin B-12] 1,000 mcg PO DAILY 03/22/19 [History] Ferrous Sulfate [Iron (65 MG Elemental)] 325 mg PO TID 03/22/19 [History] Folic Acid 1 mg PO DAILY 03/22/19 [History] Glimepiride [Amaryl] 1 mg PO DAILY 03/22/19 [History] Magnesium Oxide [Magox 400] 400 mg PO DAILY 03/22/19 [History] Montelukast [Singulair] 10 mg PO HS 03/22/19 [History] Sertraline [Zoloft] 100 mg PO DAILY 03/22/19 [History] amLODIPine [Norvasc] 5 mg PO DAILY 03/22/19 [History] Ascorbic Acid [Vitamin C] 250 mg PO TID 04/11/20 [History] Gabapentin 300 mg PO TID 04/11/20 [History] metFORMIN HCL [Glucophage] 850 mg PO TID 04/11/20 [History] metHOTREXate sodium [Methotrexate] 25 mg PO MO 04/11/20 [History] Lactobacillus Acidoph & Bulgar [Lactinex] 1 packet PO DAILY #1 packet 04/15/20 [Rx] Pantoprazole Sodium [Protonix] 40 mg PO DAILY #30 tablet. 04/15/20 [Rx] Follow up Appointment(s)/Referral(s): [facility] [NON-STAFF] - As Needed Mariluz Becker MD [Primary Care Provider] - [address],[place] [NON-STAFF] - As Needed Patient Instructions/Handouts: Dehydration (DC) Activity/Diet/Wound Care/Special Instructions: activity as tolerated low fiber diet Discharge Disposition: HOME SELF-CARE
== END 2020-04-15 11:50 | disposition home or self-care (01) | DRG 392 ==
LOC: EC 15:33 → 1SOBS 18:23 → OBSVTOIN 04-13 12:50
PROVIDERS: ADMIT Family Medicine; ATTEND Family Medicine
DX: A08.4 Viral intestinal infection, unspecified (principal); I45.2 Bifascicular block; Z68.41 Body mass index [BMI] 40.0-44.9, adult; K58.0 Irritable bowel syndrome with diarrhea; F32.9 Major depressive disorder, single episode, unspecified; F41.9 Anxiety disorder, unspecified; E86.0 Dehydration; E83.42 Hypomagnesemia; E78.5 Hyperlipidemia, unspecified; I10 Essential (primary) hypertension; J45.909 Unspecified asthma, uncomplicated; M06.9 Rheumatoid arthritis, unspecified; Z79.84 Long term (current) use of oral hypoglycemic drugs; Z79.899 Other long term (current) drug therapy; E11.65 Type 2 diabetes mellitus with hyperglycemia; Z88.0 Allergy status to penicillin; I25.2 Old myocardial infarction; E66.9 Obesity, unspecified
CPT/HCPCS: 36415; 74018; 74177; 80048; 80053; 81003; 82550; 83605; 83630; 83690; 83735; 84145; 84484; 85025; 87045; 87046; 87324; 93005; 96361; 96365; 96366; 96368; 96375; 99285

== ENCOUNTER 2020-04-19 21:56 | Inpatient (IN) | payer MEDICARE, OTHER ==
[2020-04-19] MEDS ORDERED: SODIUM CHLORIDE 0.9% 1,000 ML IV STA (22:14)
[2020-04-19] MEDS ORDERED: ONDANSETRON 4 MG/2 ML VIAL IVP STA (22:14)
--- NOTE | 2020-04-19 22:16 | ED ---
Nausea/Vomiting/Diarrhea HPI - General Chief complaint: Abdominal Pain Stated complaint: VOMITTING Time Seen by Provider: 04/19/20 22:13 Source: patient, RN notes reviewed, old records reviewed Mode of arrival: wheelchair Limitations: no limitations - History of Present Illness Initial comments: This is a 65-year-old female DF for evaluation patient does have persistent nausea and vomiting (. Abdominal pain cramping not feeling well, patient is of recent hospital admission. Denying travel history sick contacts or fevers. Patient states she was feeling better prior to discharge his been home she is progressively gone downhill again unable to take down any fluids or liquids, on able take medications. No other family members similar complaint, again patient does have prior history of same MD complaint: nausea, vomiting, diarrhea, abdominal pain -: days(s) Description of Vomiting: food contents, watery Description of Diarrhea: water Associated Abdominal Pain: Yes Location: diffuse Radiation: none Severity: moderate Severity scale (1-10): 4 Quality: aching Consistency: constant Improves with: none Worsens with: none Associated Symptoms: loss of appetite, malaise, nausea/vomiting, weakness - Related Data Home Medications Medication Instructions Recorded Confirmed Atorvastatin [Lipitor] 20 mg PO DAILY 03/22/19 04/19/20 Cyanocobalamin (Vitamin B-12) 1,000 mcg PO DAILY 03/22/19 04/19/20 [Vitamin B-12] Ferrous Sulfate [Iron (65 MG 325 mg PO TID 03/22/19 04/19/20 Elemental)] Folic Acid 1 mg PO DAILY 03/22/19 04/19/20 Glimepiride [Amaryl] 1 mg PO DAILY 03/22/19 04/19/20 Magnesium Oxide [Magox 400] 400 mg PO DAILY 03/22/19 04/19/20 Montelukast [Singulair] 10 mg PO HS 03/22/19 04/19/20 Sertraline [Zoloft] 100 mg PO DAILY 03/22/19 04/19/20 amLODIPine [Norvasc] 5 mg PO DAILY 03/22/19 04/19/20 Ascorbic Acid [Vitamin C] 250 mg PO TID 04/11/20 04/19/20 Gabapentin 300 mg PO TID 04/11/20 04/19/20 metFORMIN HCL [Glucophage] 850 mg PO TID 04/11/20 04/19/20 metHOTREXate sodium [Methotrexate] 25 mg PO MO 04/11/20 04/19/20 Previous Rx's Medication Instructions Recorded Lactobacillus Acidoph & Bulgar 1 packet PO DAILY #1 packet 04/15/20 [Lactinex] Pantoprazole Sodium [Protonix] 40 mg PO DAILY #30 tablet. 04/15/20 Allergies Allergy/AdvReac Type Severity Reaction Status Date / Time Penicillins Allergy Unknown Verified 04/19/20 22:47 Review of Systems ROS Statement: Those systems with pertinent positive or pertinent negative responses have been documented in the HPI. ROS Other: All systems not noted in ROS Statement are negative. Past Medical History Past Medical History: Asthma, Diabetes Mellitus, Hypertension, Rheumatoid Arth ritis (RA) History of Any Multi-Drug Resistant Organisms: None Reported Past Surgical History: Section, Orthopedic Surgery Additional Past Surgical History / Comment(s): carpel tunnel Past Anesthesia/Blood Transfusion Reactions: No Reported Reaction Past Psychological History: Anxiety, Depression Smoking Status: Never smoker Past Alcohol Use History: None Reported Past Drug Use History: None Reported General Exam Limitations: no limitations General appearance: alert, in no apparent distress Head exam: Present: atraumatic, normocephalic, normal inspection Eye exam: Present: normal appearance, PERRL, EOMI. Absent: scleral icterus, conjunctival injection, periorbital swelling ENT exam: Present: normal exam, mucous membranes moist Neck exam: Present: normal inspection. Absent: tenderness, meningismus, lymphadenopathy Respiratory exam: Present: normal lung sounds bilaterally. Absent: respiratory distress, wheezes, rales, rhonchi, stridor Cardiovascular Exam: Present: regular rate, normal rhythm, normal heart sounds. Absent: systolic murmur, diastolic murmur, rubs, gallop, clicks GI/Abdominal exam: Present: soft, normal bowel sounds. Absent: distended, tenderness, guarding, rebound, rigid Extremities exam: Present: normal inspection, full ROM, normal capillary refill. Absent: tenderness, pedal edema, joint swelling, calf tenderness Back exam: Present: normal inspection Neurological exam: Present: alert, oriented X3, CN II-XII intact Psychiatric exam: Present: normal affect, normal mood Skin exam: Present: warm, dry, intact, normal color. Absent: rash Course Vital Signs 04/19/20 22:07 Temperature 99.0 F Pulse Rate 93 Respiratory 20 Rate Blood Pressure 189/95 O2 Sat by Pulse 97 Oximetry - Reevaluation(s) Reevaluation #1: 04/20/20 00:49 Medical record is reviewed Reevaluation #2: 04/20/20 00:49 Mild improvement in symptoms Reevaluation #3: 04/20/20 00:49 ER visit and inpatient hospitalization are reviewed Reevaluation #4: 04/20/20 00:49 Patient is difficult blood draw and IV start Medical Decision Making - Medical Decision Making 65 female DF for evaluation persistent nausea vomiting diarrhea abdominal pain. Patient will test for coronavirus, admit for symptom relief - Lab Data Result diagrams: 04/20/20 00:50 04/20/20 00:50 Lab Results 04/20/20 04/20/20 04/20/20 Range/Units 00:50 00:50 00:50 WBC 4.7 (3.8-10.6) k/uL RBC 4.88 (3.80-5.40) m/uL Hgb 13.3 (11.4-16.0) gm/dL Hct 42.9 (34.0-46.0) % MCV 87.9 (80.0-100.0) fL MCH 27.2 (25.0-35.0) pg MCHC 31.0 (31.0-37.0) g/dL RDW 15.3 (11.5-15.5) % Plt Count 221 (150-450) k/uL Neutrophils % 83 % Lymphocytes % 11 % Monocytes % 3 % Eosinophils % 2 % Basophils % 0 % Neutrophils # 3.9 (1.3-7.7) k/uL Lymphocytes # 0.5 L (1.0-4.8) k/uL Monocytes # 0.2 (0-1.0) k/uL Eosinophils # 0.1 (0-0.7) k/uL Basophils # 0.0 (0-0.2) k/uL PT 11.2 (9.0-12.0) sec INR 1.1 (<1.2) Sodium 139 (137-145) mmol/L Potassium 3.0 L (3.5-5.1) mmol/L Chloride 101 (98-107) mmol/L Carbon Dioxide 26 (22-30) mmol/L Anion Gap 12 mmol/L BUN 10 (7-17) mg/dL Creatinine 0.59 (0.52-1.04) mg/dL Est GFR (CKD-EPI)AfAm >90 (>60 ml/min/1.73 sqM) Est GFR (CKD-EPI)NonAf >90 (>60 ml/min/1.73 sqM) Glucose 277 H (74-99) mg/dL Plasma Lactic Acid Bill (0.7-2.0) mmol/L Calcium 9.3 (8.4-10.2) mg/dL Magnesium 1.3 L (1.6-2.3) mg/dL Total Bilirubin 0.5 (0.2-1.3) mg/dL AST 31 (14-36) U/L ALT 27 (4-34) U/L Alkaline Phosphatase 73 (38-126) U/L C-Reactive Protein <5.0 (<10.0) mg/L Total Protein 7.4 (6.3-8.2) g/dL Albumin 4.5 (3.5-5.0) g/dL 04/20/20 Range/Units 00:50 WBC (3.8-10.6) k/uL RBC (3.80-5.40) m/uL Hgb (11.4-16.0) gm/dL Hct (34.0-46.0) % MCV (80.0-100.0) fL MCH (25.0-35.0) pg MCHC (31.0-37.0) g/dL RDW (11.5-15.5) % Plt Count (150-450) k/uL Neutrophils % % Lymphocytes % % Monocytes % % Eosinophils % % Basophils % % Neutrophils # (1.3-7.7) k/uL Lymphocytes # (1.0-4.8) k/uL Monocytes # (0-1.0) k/uL Eosinophils # (0-0.7) k/uL Basophils # (0-0.2) k/uL PT (9.0-12.0) sec INR (<1.2) Sodium (137-145) mmol/L Potassium (3.5-5.1) mmol/L Chloride (98-107) mmol/L Carbon Dioxide (22-30) mmol/L Anion Gap mmol/L BUN (7-17) mg/dL Creatinine (0.52-1.04) mg/dL Est GFR (CKD-EPI)AfAm (>60 ml/min/1.73 sqM) Est GFR (CKD-EPI)NonAf (>60 ml/min/1.73 sqM) Glucose (74-99) mg/dL Plasma Lactic Acid Bill 1.0 (0.7-2.0) mmol/L Calcium (8.4-10.2) mg/dL Magnesium (1.6-2.3) mg/dL Total Bilirubin (0.2-1.3) mg/dL AST (14-36) U/L ALT (4-34) U/L Alkaline Phosphatase (38-126) U/L C-Reactive Protein (<10.0) mg/L Total Protein (6.3-8.2) g/dL Albumin (3.5-5.0) g/dL - EKG Data -: EKG Interpreted by Me (EKG shows NSR 75 NH 156 QRS 116 QTc 498) - Radiology Data Radiology results: report reviewed (X-ray abdominal series and chest is negative for acute disease), image reviewed Disposition Clinical Impression: Gastroenteritis, Dehydration, Intractable nausea and vomiting, Hypomagnesemia, Hypokalemia Disposition: ADMITTED IP TO THIS HOSP Condition: Fair Is patient prescribed a controlled substance at d/c from ED?: No
[2020-04-19] MEDS ORDERED: PANTOPRAZOLE 40 MG/10 ML VIAL IVP STA (22:26)
[2020-04-19] MEDS ORDERED: MORPHINE SULFATE 4 MG/ML SYRINGE IVP STA (22:26)
--- NOTE | 2020-04-19 23:36 | XR ---
EXAMINATION TYPE: XR abdomen acute w cxr DATE OF EXAM: 04/19/2020 COMPARISON: Abdomen x-ray 04/11/2020 HISTORY: Nausea and vomiting TECHNIQUE: FINDINGS: There is no heart failure nor confluent pneumonic infiltrate. Costophrenic angles are clear . Bowel gas pattern is normal. There is no sign of intestinal obstruction or pneumoperitoneum. Fecal pattern is normal. Exam limited by patient's size. There are no pathologic calcifications over the ki dneys. There is no evidence of abdominal mass. IMPRESSION: No active cardiopulmonary disease. Nonacute abdomen. No adverse change.
[2020-04-20] MEDS ORDERED: diphenhydrAMINE 50 MG/ML 1 ML VIAL IVP STA (00:50)
[2020-04-20] MEDS ORDERED: diphenhydrAMINE 50 MG/ML 1 ML VIAL IVP PRN (00:50)
[2020-04-20] MEDS ORDERED: METOCLOPRAMIDE 5 MG/ML 2 ML VIAL IVP PRN (00:50)
[2020-04-20] MEDS ORDERED: LORazepam 2 MG/ML INJ IV PRN (00:50)
[2020-04-20] MEDS ORDERED: SODIUM CHLORIDE 0.9% 1,000 ML IV ONE (00:50)
[2020-04-20] MEDS ORDERED: METOCLOPRAMIDE 5 MG/ML 2 ML VIAL IVP STA (00:50)
[2020-04-20 00:58] LABS: Basophils % (A) 0 %; Eosinophils # (A) 0.1 k/uL (0-0.7); Eosinophils % (A) 2 %; HCT 42.9 % (34.0-46.0); HGB 13.3 gm/dL (11.4-16.0); Lymphocytes # (A) 0.5 k/uL (1.0-4.8); Lymphocytes % (A) 11 %; MCH 27.2 pg (25.0-35.0); MCV 87.9 fL (80.0-100.0); Mean Platelet Volume 8.2; Monocytes # (A) 0.2 k/uL (0-1.0); Monocytes % (A) 3 %; Neutrophils # (A) 3.9 k/uL (1.3-7.7); Neutrophils % (A) 83 %; Platelet Count 221 k/uL (150-450); RBC 4.88 m/uL (3.80-5.40); RDW 15.3 % (11.5-15.5); WBC 4.7 k/uL (3.8-10.6)
[2020-04-20 01:03] LABS: INR 1.1 (<1.2); Prothrombin Time 11.2 sec (9.0-12.0)
[2020-04-20 01:10] LABS: ALT 27 U/L (4-34); AST 31 U/L (14-36); African American GFR (CKD) >90 (>60 ml/min/1.73 sqM); Albumin 4.5 g/dL (3.5-5.0); Alkaline Phosphatase 73 U/L (38-126); Anion Gap 12 mmol/L; Blood Urea Nitrogen 10 mg/dL (7-17); C Reactive Protein <5.0 mg/L (<10.0); Calcium 9.3 mg/dL (8.4-10.2); Carbon Dioxide 26 mmol/L (22-30); Chloride 101 mmol/L (98-107); Glucose 277 mg/dL (74-99); Magnesium 1.3 mg/dL (1.6-2.3); Non-African American GFR(CKD) >90 (>60 ml/min/1.73 sqM); Sodium 139 mmol/L (137-145); Total Bilirubin 0.5 mg/dL (0.2-1.3); Total Protein 7.4 g/dL (6.3-8.2)
[2020-04-20] MEDS: MAGNESIUM SULFATE-D5W PMX 1 GM in DEXTROSE/WATER 1 100ML.BAG IVPB SCH ×3 (02:21→04:11)
[2020-04-20] MEDS: POTASSIUM CHLORIDE 20 MEQ in WATER FOR INJECTION 1 100ML.BAG IVPB SCH ×4 (05:21→11:21)
[2020-04-20 06:18] LABS: Glucose,Whole Blood 226 mg/dL (75-99)
[2020-04-20] MEDS: PANTOPRAZOLE 40 MG/10 ML VIAL IVP SCH (07:36)
[2020-04-20] MEDS: MORPHINE SULFATE 4 MG/ML SYRINGE IVP PRN ×3 (07:50→23:11)
[2020-04-20 11:36] LABS: Glucose,Whole Blood 155 mg/dL (75-99)
[2020-04-20] MEDS: IOPAMIDOL CONTRAST (ORAL USE) VIAL PO PRN ×2 (13:42→14:27)
--- NOTE | 2020-04-20 13:58 | P.HPIM ---
History of Present Illness The risks [id number] female came in with comments of nausea vomiting abdominal pain she has abdominal pain in the superpubic area and denied any dysuria. Patient is a vomiting diarrhea resolved at this time patient was eval uated for similar symptoms recently was subsequently discharged last Wednesday patient started having symptoms again last Wednesday. Patient denied any body aches fever chills. Patient had a computed tomography scan during her previous hospital physician which is within normal limits patient is tearful and wanted to know what's going on with her because of which I'll obtain a computed tomography scan of the abdomen again will also obtain, urine analysis looking for any urinary tract infection because of her suprapubic pain. Gastroenterology was consulted as well. Patient is bit hypomagnesemic and hypokalemic these was supplemented will repeat those again patient is not in renal failure Review of Systems REVIEW OF SYSTEMS: CONSTITUTIONAL: No fever, no malaise, no fatigue. HEENT: No recent visual problems or hearing problems. Denied any sore throat. CARDIOVASCULAR: No chest pain, orthopnea, PND, no palpitations, no syncope. PULMONARY: No shortness of breath, no cough, no hemoptysis. GASTROINTESTINAL: As mentioned in HPI NEUROLOGICAL: No headaches, no weakness, no numbness. HEMATOLOGICAL: Denies any bleeding or petechiae. GENITOURINARY: Denies any burning micturition, frequency, or urgency. MUSCULOSKELETAL/RHEUMATOLOGICAL: Denies any joint pain, swelling, or any muscle pain. ENDOCRINE: Denies any polyuria or polydipsia. The rest of the 14-point review of systems is negative. Past Medical History Past Medical History: Asthma, Diabetes Mellitus, Hypertension, Rheumatoid Arthritis (RA) History of Any Multi-Drug Resistant Organisms: None Reported Past Surgical History: Section, Orthopedic Surgery Additional Past Surgical History / Comment(s): carpel tunnel Past Anesthesia/Blood Transfusion Reactions: No Reported Reaction Past Psychological History: Anxiety, Depression Smoking Status: Never smoker Past Alcohol Use History: None Reported Past Drug Use History: None Reported Medications and Allergies Home Medications Medication Instructions Recorded Confirmed Type Atorvastatin [Lipitor] 20 mg PO DAILY 03/22/19 04/19/20 History Cyanocobalamin (Vitamin B-12) 1,000 mcg PO DAILY 03/22/19 04/19/20 History [Vitamin B-12] Ferrous Sulfate [Iron (65 MG 325 mg PO TID 03/22/19 04/19/20 History Elemental)] Folic Acid 1 mg PO DAILY 03/22/19 04/19/20 History Glimepiride [Amaryl] 1 mg PO DAILY 03/22/19 04/19/20 History Magnesium Oxide [Magox 400] 400 mg PO DAILY 03/22/19 04/19/20 History Montelukast [Singulair] 10 mg PO HS 03/22/19 04/19/20 History Sertraline [Zoloft] 100 mg PO DAILY 03/22/19 04/19/20 History amLODIPine [Norvasc] 5 mg PO DAILY 03/22/19 04/19/20 History Ascorbic Acid [Vitamin C] 250 mg PO TID 04/11/20 04/19/20 History Gabapentin 300 mg PO TID 04/11/20 04/19/20 History metFORMIN HCL [Glucophage] 850 mg PO TID 04/11/20 04/19/20 History metHOTREXate sodium [Methotrexate] 25 mg PO MO 04/11/20 04/19/20 History Lactobacillus Acidoph & Bulgar 1 packet PO DAILY #1 packet 04/15/20 04/19/20 Rx [Lactinex] Pantoprazole Sodium [Protonix] 40 mg PO DAILY #30 tablet. 04/15/20 04/19/20 Rx Allergies Allergy/AdvReac Type Severity Reaction Status Date / Time Penicillins Allergy Unknown Verified 04/19/20 22:47 Physical Exam Vitals: Vital Signs Temp Pulse Pulse Resp BP BP Pulse Ox 04/20/20 07:29 98.2 F 76 16 129/71 97 04/20/20 03:00 98.1 F 83 17 105/54 96 04/20/20 01:44 90 18 182/80 96 04/20/20 01:14 98.2 F 83 17 105/54 95 04/19/20 22:07 99.0 F 93 20 189/95 97 Intake and Output 04/19/20 04/20/20 04/20/20 22:59 06:59 14:59 Intake Total 650 Balance 650 Intake: Intake, IV Titration 650 Amount Magnesium Sulfate-D5w Pmx 300 1 gm In Dextrose/Water 1 100ml.bag @ 100 mls/hr IVPB Q1H [facility] Rx#: [id number] Potassium Chloride 20 meq 50 In Water For Injection 1 100ml.bag @ 50 mls/hr IVPB Q2HR [facility] Rx#: [id number] Sodium Chloride 0.9% 1, 300 000 ml @ 100 mls/hr IV . Q10H [facility] Rx#:[id number] Other: Voiding Method Toilet Toilet Weight 112.491 kg 112.491 kg PHYSICAL EXAMINATION: GENERAL: The patient is alert and oriented x3, not in any acute distress. Well developed, well nourished. HEENT: Pupils are round and equally reacting to light. EOMI. No scleral icterus. No conjunctival pallor. Normocephalic, atraumatic. No pharyngeal erythema. No thyromegaly. CARDIOVASCULAR: S1 and S2 present. No murmurs, rubs, or gallops. PULMONARY: Chest is clear to auscultation, no wheezing or crackles. ABDOMEN: Soft, patient does have suprapubic tenderness, nondistended, normoactiv e bowel sounds. No palpable organomegaly. MUSCULOSKELETAL: No joint swelling or deformity. EXTREMITIES: No cyanosis, clubbing, or pedal edema. NEUROLOGICAL: Gross neurological examination did not reveal any focal deficits. SKIN: No rashes. Results CBC & Chem 7: 04/20/20 00:50 04/20/20 00:50 Labs: Abnormal Lab Results - Last 24 Hours (Table) 04/20/20 04/20/20 04/20/20 Range/Units 00:50 00:50 06:16 Lymphocytes # 0.5 L (1.0-4.8) k/uL Potassium 3.0 L (3.5-5.1) mmol/L Glucose 277 H (74-99) mg/dL POC Glucose (mg/dL) 226 H (75-99) mg/dL Magnesium 1.3 L (1.6-2.3) mg/dL 04/20/20 Range/Units 11:33 Lymphocytes # (1.0-4.8) k/uL Potassium (3.5-5.1) mmol/L Glucose (74-99) mg/dL POC Glucose (mg/dL) 155 H (75-99) mg/dL Magnesium (1.6-2.3) mg/dL Thrombosis Risk Factor Assmnt - Choose All That Apply Any of the Below Risk Factors Present?: Yes Each Factor Represents 1 point: Obesity (BMI >25) Other Risk Factors: Yes Each Risk Factor Represents 2 Points: Age 61-74 years Other congenital or acquired thrombophilia - If yes, enter type in comment: No Thrombosis Risk Factor Assessment Total Risk Factor Score: 3 Thrombosis Risk Factor Assessment Level: Moderate Risk Assessment and Plan Plan: -Abdominal pain nausea vomiting, diarrhea patient was treated for gastroenteritis in the recent past nausea vomiting diarrhea resolves still has some suprapubic pain urine analysis will obtain CAT scan of the abdomen will be obtained as well because of her persistent symptoms. -Hypomagnesemia magnesium will be submitted -Hypokalemia secondary to hypomagnesemia which will be replaced as well Asthma without any acute exacerbation -Type 2 diabetes mellitus Hypertension -Depression For above-mentioned chronic medical problems patient will be resumed on appropriate home medications
[2020-04-20 14:46] LABS: African American GFR (CKD) >90 (>60 ml/min/1.73 sqM); Anion Gap 8 mmol/L; Blood Urea Nitrogen 12 mg/dL (7-17); Carbon Dioxide 28 mmol/L (22-30); Chloride 105 mmol/L (98-107); Glucose 174 mg/dL (74-99); Magnesium 2.3 mg/dL (1.6-2.3); Non-African American GFR(CKD) 83 (>60 ml/min/1.73 sqM); Potassium 3.8 mmol/L (3.5-5.1); Sodium 141 mmol/L (137-145)
[2020-04-20] MEDS: FERROUS SULFATE 325 MG TAB PO SCH ×2 (15:50→19:52)
[2020-04-20] MEDS: GABAPENTIN 300 MG CAP PO SCH ×2 (15:50→19:52)
--- NOTE | 2020-04-20 15:50 | CT ---
EXAMINATION TYPE: CT abdomen pelvis wo/w con DATE OF EXAM: 04/20/2020 COMPARISON: 04/13/2020 HISTORY: Abdominal pain, NVD. CT DLP: 3299.7 mGycm Automated exposure control for dose reduction was used. CONTRAST: Performed with IV Contrast, patient injected with 100 mL of Isovue 300. There is oral contrast. There is subsegmental atelectasis at the lung bases. Heart is enlarged. There is no pleural effusion. There is 1 cm granuloma in the superior right lobe of the liver. Spleen is intact. There is no eviden ce of pancreatic mass. Stomach is intact. Gallbladder appears normal. There is 2 cm hypodensity in th e left lobe of the liver there is probably a cyst. Unchanged. There is no adrenal mass. There is 2 cm cyst in the posterior left kidney. There is no hydronephrosis . There is no retroperitoneal adenopathy. Bladder distends smoothly. There is no inguinal hernia. The re is no free fluid in the pelvis. There is normal contrast opacification of the small bowel. There is no evidence of a bowel obstructio n. Appendix has contrast and appears normal. There is no mesenteric edema. There is no ascites or free air. There is no evidence of a pelvic mass. Lumbar vertebra have normal alignment. Posterior elements are intact. There is no compression fracture. Bony pelvis is intact. Hip joints are intact. IMPRESSION: Mild subsegmental atelectasis at the lung bases unchanged. No acute abnormality of the abdomen pelvis . No adverse change compared to old exam.
[2020-04-20 16:19] LABS: Appearance,Urine Clear (Clear); Bilirubin,Urine Negative (Negative); Blood,Urine Negative (Negative); Color,Urine Yellow; Glucose,Urine (UA) Negative (Negative); Ketones,Urine 1+ (Negative); Leukocyte Esterase,Urine Negative (Negative); Nitrite,Urine Negative (Negative); PH, Urine 5.5 (5.0-8.0); Protein,Urine Negative (Negative); Specific Gravity,Urine 1.038 (1.001-1.035); Urobilinogen,Urine <2.0 mg/dL (<2.0)
[2020-04-20 16:38] LABS: Glucose,Whole Blood 204 mg/dL (75-99)
[2020-04-20] MEDS: INSULIN ASPART (NovoLOG) 100 UNIT/ML VIAL SQ SCH ×2 (18:13→19:52)
[2020-04-20 19:30] LABS: Glucose,Whole Blood 226 mg/dL (75-99)
[2020-04-21 06:17] LABS: Glucose,Whole Blood 142 mg/dL (75-99)
[2020-04-21 07:50] LABS: African American GFR (CKD) >90 (>60 ml/min/1.73 sqM); Anion Gap 4 mmol/L; Blood Urea Nitrogen 9 mg/dL (7-17); Calcium 8.3 mg/dL (8.4-10.2); Carbon Dioxide 30 mmol/L (22-30); Chloride 106 mmol/L (98-107); Glucose 150 mg/dL (74-99); Non-African American GFR(CKD) >90 (>60 ml/min/1.73 sqM); Potassium 3.3 mmol/L (3.5-5.1); Sodium 140 mmol/L (137-145)
[2020-04-21] MEDS: INSULIN ASPART (NovoLOG) 100 UNIT/ML VIAL SQ SCH ×4 (07:59→21:20)
[2020-04-21] MEDS: GABAPENTIN 300 MG CAP PO SCH ×3 (08:03→21:20)
[2020-04-21] MEDS: FERROUS SULFATE 325 MG TAB PO SCH ×3 (08:04→21:19)
[2020-04-21] MEDS: PANTOPRAZOLE 40 MG/10 ML VIAL IVP SCH ×2 (08:04→21:20)
[2020-04-21] MEDS: FOLIC ACID 1 MG TAB PO SCH (08:04)
[2020-04-21] MEDS: SERTRALINE 100 MG TAB PO SCH (08:04)
[2020-04-21] MEDS: ATORVASTATIN 20 MG TAB PO SCH (08:04)
[2020-04-21] MEDS ORDERED: Potassium Replacement Protocol 1 EACH MISC MISCELLANE PRN (08:23)
[2020-04-21] MEDS: POTASSIUM CHLORIDE 10 MEQ in WATER FOR INJECTION 1 100ML.BAG IVPB SCH ×4 (09:25→13:58)
[2020-04-21] MEDS: MORPHINE SULFATE 4 MG/ML SYRINGE IVP PRN (09:35)
[2020-04-21 11:39] LABS: Glucose,Whole Blood 260 mg/dL (75-99)
[2020-04-21 11:57] LABS: Hemoglobin A1C 8.3 % (4.0-6.0)
[2020-04-21] MEDS: DICYCLOMINE 20 MG TAB PO SCH ×3 (12:00→21:19)
[2020-04-21] MEDS: traMADol 50 MG TAB PO PRN ×2 (12:11→19:00)
--- NOTE | 2020-04-21 12:39 | P.CONS ---
History of Present Illness - Reason for Consult Consult date: 04/21/20 Nausea, vomiting, diarrhea, abdominal pain Requesting physician: Helio Perry - Chief Complaint Nausea, vomiting, abdominal pain, diarrhea - History of Present Illness 65-year-old female with a medical history significant for diabetes mellitus, hypertension and rheumatoid arthritis who presented to the hospital with complaints of nausea, vomiting, abdominal pain and diarrhea. The patient reports that symptoms have been present over the past few days. She reports frequent episodes of nonbloody emesis describing vomitus which was white, green and yellow in appearance. She reports decreased oral intake secondary to her symptoms. She also reports frequent episodes of loose watery bowel movements. She reports of bowel movements accompanied her vomiting. Patient also describes associated cramping lower abdominal pain. She denies any fevers but does report some chills. She denies any sick contacts, or unusual foods or other triggers which she could think of. Last colonoscopy approximately 5 years ago per the patient report and normal. No prior EGD. The patient was recently seen approximately a week ago for similar complaints with negative workup and imaging at that time. Because of her recurrent episode the patient had extensive laboratory evaluation with normal liver enzymes with total bilirubin 0.5, alkaline phosphatase 73, AST 31 and ALT 27, CRP less than 5, hemoglobin 13.3, platelet count 221,000 with a WBC of 4.7. Repeat computed tomography scan on current admission negative for any acute intra-abdominal pathology or findings to explain symptoms. X-ray of the abdomen negative for any acute intra- abdominal processes well. Review of Systems REVIEW OF SYSTEMS: CONSTITUTIONAL: Denies any fevers, weight change or fatigue, but does report fatigue. CARDIOVASCULAR: Denies any chest pain, palpitations high or low blood pressures RESPIRATORY: Denies any shortness of breath, hemoptysis or cough. GENITOURINARY: No dysuria or hematuria. MUSCULOSKELETAL: No weakness reported. SKIN: Denies any new rashes or lesions, jaundice or pallor. PSYCHIATRIC: Denies any depression or anxiety. NEUROLOGY: Denies headache, denies any new focal deficits. EARS/NOSE/THROAT: No recent hearing change, congestion, nasal discharge or sore throat. EYES: No pain in eyes, discharge or change in vision. GASTROINTESTINAL: As per HPI. Past Medical History Past Medical History: Asthma, Diabetes Mellitus, Hypertension, Rheumatoid Arthritis (RA) History of Any Multi-Drug Resistant Organisms: None Reported Past Surgical History: Section, Orthopedic Surgery Additional Past Surgical History / Comment(s): carpel tunnel Past Anesthesia/Blood Transfusion Reactions: No Reported Reaction Past Psychological History: Anxiety, Depression Smoking Status: Never smoker Past Alcohol Use History: None Reported Past Drug Use History: None Reported Additional History: Family history: Reviewed with the patient noncontributory to current medical presentation Medications and Allergies Home Medications Medication Instructions Recorded Confirmed Type Atorvastatin [Lipitor] 20 mg PO DAILY 03/22/19 04/19/20 History Cyanocobalamin (Vitamin B-12) 1,000 mcg PO DAILY 03/22/19 04/19/20 History [Vitamin B-12] Ferrous Sulfate [Iron (65 MG 325 mg PO TID 03/22/19 04/19/20 History Elemental)] Folic Acid 1 mg PO DAILY 03/22/19 04/19/20 History Glimepiride [Amaryl] 1 mg PO DAILY 03/22/19 04/19/20 History Magnesium Oxide [Magox 400] 400 mg PO DAILY 03/22/19 04/19/20 History Montelukast [Singulair] 10 mg PO HS 03/22/19 04/19/20 History Sertraline [Zoloft] 100 mg PO DAILY 03/22/19 04/19/20 History amLODIPine [Norvasc] 5 mg PO DAILY 03/22/19 04/19/20 History Ascorbic Acid [Vitamin C] 250 mg PO TID 04/11/20 04/19/20 History Gabapentin 300 mg PO TID 04/11/20 04/19/20 History metFORMIN HCL [Glucophage] 850 mg PO TID 04/11/20 04/19/20 History metHOTREXate sodium [Methotrexate] 25 mg PO MO 04/11/20 04/19/20 History Lactobacillus Acidoph & Bulgar 1 packet PO DAILY #1 packet 04/15/20 04/19/20 Rx [Lactinex] Pantoprazole Sodium [Protonix] 40 mg PO DAILY #30 tablet. 04/15/20 04/19/20 Rx Allergies Allergy/AdvReac Type Severity Reaction Status Date / Time Penicillins Allergy Unknown Verified 04/19/20 22:47 Physical Exam Vitals: Vital Signs Temp Pulse Pulse Pulse Pulse Resp BP 04/21/20 08:26 68 77 67 04/21/20 07:47 98.6 F 72 16 04/21/20 02:31 98.2 F 79 18 119/73 04/20/20 21:00 98.3 F 65 18 99/62 04/20/20 15:35 98.7 F 67 16 129/72 BP BP BP BP Pulse Ox 04/21/20 08:26 166/85 156/82 138/72 98 04/21/20 07:47 153/85 96 04/21/20 02:31 97 04/20/20 21:00 94 L 04/20/20 15:35 97 Intake and Output 04/20/20 04/21/20 04/21/20 22:59 06:59 14:59 Intake Total 1050 800 Balance 1050 800 Intake: Intake, IV Titration 800 800 Amount Sodium Chloride 0.9% 1, 800 800 000 ml @ 100 mls/hr IV . Q10H ONE Rx#:[id number] Oral 250 Other: Voiding Method Toilet Toilet Toilet # Voids 1 2 On physical examination, patient appears comfortable in no apparent distress. HEAD: Normocephalic, atraumatic. EYES: No scleral icterus. No conjunctival injection. MOUTH: No lesions, tongue midline. NECK: Trachea midline, no gross abnormalities. CHEST: Clear to auscultation with no wheezing or rhonchi appreciated. HEART: Regular rate and rhythm. ABDOMEN: Soft, obese, nontender to palpation. Bowel sounds are positive. No organomegaly. No guarding or rigidity. EXTREMITIES: No pedal edema. SKIN: No rashes, no jaundice. NEUROLOGIC: Alert and oriented x3. No focal deficits. Results CBC & Chem 7: 04/20/20 00:50 04/21/20 07:11 Labs: Abnormal Lab Results - Last 24 Hours (Table) 04/20/20 04/20/20 04/20/20 Range/Units 11:33 14:04 16:00 Potassium (3.5-5.1) mmol/L Glucose 174 H (74-99) mg/dL POC Glucose (mg/dL) 155 H (75-99) mg/dL Calcium (8.4-10.2) mg/dL Ur Specific [place] 1.038 H (1.001-1.035) Urine Ketones 1+ H (Negative) 04/20/20 04/20/20 04/21/20 Range/Units 16:35 19:29 06:15 Potassium (3.5-5.1) mmol/L Glucose (74-99) mg/dL POC Glucose (mg/dL) 204 H 226 H 142 H (75-99) mg/dL Calcium (8.4-10.2) mg/dL Ur Specific [place] (1.001-1.035) Urine Ketones (Negative) 04/21/20 Range/Units 07:11 Potassium 3.3 L (3.5-5.1) mmol/L Glucose 150 H (74-99) mg/dL POC Glucose (mg/dL) (75-99) mg/dL Calcium 8.3 L (8.4-10.2) mg/dL Ur Specific [place] (1.001-1.035) Urine Ketones (Negative) CT scan - abdomen: report reviewed (Computed tomography scan of the abdomen negative for any acute intra-abdominal pathology) Assessment and Plan (1) Abdominal pain Narrative/Plan: 65-year-old female with medical history significant for hypertension, diabetes mellitus and rheumatoid arthritis who presented to the hospital with recurrent episodes of nonbloody emesis, diarrhea and cramping lower abdominal pain. Patient has had computed tomography scan negative for any acute intra-abdominal pathology. Laboratory evaluation has been unremarkable. Unclear etiology, may be functional in nature, related to gastroenteritis, biopsy rule out IBS, GERD testing for Shin virus/Covid 19 is pending, or other etiology. Current Visit: Yes Status: Acute Code(s): R10.9 - UNSPECIFIED ABDOMINAL PAIN SNOMED Code(s): 39540352 (2) Diarrhea Current Visit: Yes Status: Acute Code(s): R19.7 - DIARRHEA, UNSPECIFIED SNOMED Code(s): 02336986 (3) Intractable nausea and vomiting Current Visit: Yes Status: Acute Code(s): R11.2 - NAUSEA WITH VOMITING, UNSPECIFIED SNOMED Code(s): 766775818 Plan: Supportive care Patient currently on consistent carbohydrate diet Protonix increased to twice daily Bentyl added [id number] Stool studies ordered Continue to monitor symptoms, currently reporting no further episodes of nausea or vomiting or diarrhea Computed tomography scan of the abdomen reviewed Further recommendations pending clinical course Thank you for allowing us to participate in the care of the patient we will continue to follow
[2020-04-21] MEDS: ONDANSETRON 4 MG/2 ML VIAL IVP PRN (14:04)
--- NOTE | 2020-04-21 15:10 | CT ---
EXAMINATION TYPE: CT iac wo con DATE OF EXAM: 04/21/2020 COMPARISON: None HISTORY: Vertigo and right ear pain. CT DLP: 234.2 mGycm Automated exposure control for dose reduction was used. Images were obtained from the top of the orbits to the base of the skull without contrast. There is normal aeration of the mastoid sinuses. There is some debris in the right external auditory canal. There is bilateral normal aeration of the epitympanic recess. There is normal aeration of the middle ear cavity. I see no bony destructive process. The cochlea and semicircular canals appear inta ct. Temporomandibular joints are intact. The internal auditory canals appear normal. There is no sign of cerebellopontine angle mass. Fourth ventricle is midline. There is large empty sella turcica. IMPRESSION: Negative CT scan of the temporal bones.
--- NOTE | 2020-04-21 15:32 | P.PN ---
Subjective 65-year-old female came in with comments of nausea vomiting abdominal pain she has abdominal pain in the superpubic area and denied any dysuria. Patient is a vomiting diarrhea resolved at this time patient was evaluated for similar symptoms recently was subsequently discharged last Wednesday patient started having symptoms again last Wednesday. Patient denied any body aches fever chills. Patient had a computed tomography scan during her previous hospital physician which is within normal limits patient is tearful and wanted to know what's going on with her because of which I'll obtain a computed tomography scan of the abdomen again will also obtain, urine analysis looking for any urinary tract infection because of her suprapubic pain. Gastroenterology was consulted as well. Patient is bit hypomagnesemic and hypokalemic these was supplemented will repeat those again patient is not in renal failure 04/21/2020 Patient had a computed tomography scan of the head which didn't show any significant abnormality patient was evaluated by gastroenterology and as per the patient homoeopath suggested her to have an upper andlower GI endoscopy. Bentyl was added because of her cramping abdominal pain.patient UA is not consistent with urinary tract infection. Patient is complaining of fullness in the right ears and vertiginous symptoms appears to have mastoiditis and there are labyrinthitis patient is already and anticollagen medications and his Benadryl an as-needed basis which will be continued if needed meclizine can be added. As patient does have tenderness in the right mastoid area patient will be started on antibiotics and sure whether this is infectious. I will also obtain imaging of this right mastoid today. Constitutional: Denied any fatigue denied any fever. Cardio vascular: denied any chest pain, palpitations Gastrointestinal as mentioned in HPI Pulmonary: Denied any shortness of breath cough Neurologic denied any new focal deficits All inpatient medications were reviewed and appropriate changes in these medications as dictated in the interval history and assessment and plan. Objective - Vital Signs Vital signs: Vital Signs Temp 99.2 F 04/21/20 15:11 Pulse 72 04/21/20 15:11 Resp 16 04/21/20 15:11 BP 114/75 04/21/20 15:11 Pulse Ox 94 L 04/21/20 15:11 Intake & Output 04/20/20 04/21/20 04/21/20 18:59 06:59 18:59 Intake Total 1850 Balance 1850 Intake: Intake, IV Titration 1600 Amount Sodium Chloride 0.9% 1, 1600 000 ml @ 100 mls/hr IV . Q10H ONE Rx#:[id number] Oral 250 Other: Voiding Method Toilet Toilet Toilet # Voids 2 1 - Exam PHYSICAL EXAMINATION: GENERAL: The patient is alert and oriented x3, not in any acute distress.obese HEENT: Pupils are round and equally reacting to light. EOMI. No scleral icterus. No conjunctival pallor. Normocephalic, atraumatic. No pharyngeal erythema. No thyromegaly. tenderness in the right mastoid area CARDIOVASCULAR: S1 and S2 present. No murmurs, rubs, or gallops. PULMONARY: Chest is clear to auscultation, no wheezing or crackles. ABDOMEN: Soft, mild tenderness in suprapubic area, nondistended, normoactive bowel sounds. No palpable organomegaly. MUSCULOSKELETAL: No joint swelling or deformity. EXTREMITIES: No cyanosis, clubbing, or pedal edema. NEUROLOGICAL: Gross neurological examination did not reveal any focal deficits. SKIN: No rashes. - Labs CBC & Chem 7: 04/20/20 00:50 04/21/20 07:11 Labs: Abnormal Lab Results - Last 24 Hours (Table) 04/20/20 04/20/20 04/20/20 Range/Units 16:00 16:35 19:29 Potassium (3.5-5.1) mmol/L Glucose (74-99) mg/dL POC Glucose (mg/dL) 204 H 226 H (75-99) mg/dL Hemoglobin A1c (4.0-6.0) % Calcium (8.4-10.2) mg/dL Ur Specific [place] 1.038 H (1.001-1.035) Urine Ketones 1+ H (Negative) 04/21/20 04/21/20 04/21/20 Range/Units 06:15 07:11 07:11 Potassium 3.3 L (3.5-5.1) mmol/L Glucose 150 H (74-99) mg/dL POC Glucose (mg/dL) 142 H (75-99) mg/dL Hemoglobin A1c 8.3 H (4.0-6.0) % Calcium 8.3 L (8.4-10.2) mg/dL Ur Specific [place] (1.001-1.035) Urine Ketones (Negative) 04/21/20 Range/Units 11:36 Potassium (3.5-5.1) mmol/L Glucose (74-99) mg/dL POC Glucose (mg/dL) 260 H (75-99) mg/dL Hemoglobin A1c (4.0-6.0) % Calcium (8.4-10.2) mg/dL Ur Specific [place] (1.001-1.035) Urine Ketones (Negative) Assessment and Plan Plan: -Abdominal pain nausea vomiting, diarrhea patient was treated for gastroenteritis her symptoms of nausea vomiting diarrhea resolved the patient is still having abdominal pain all the workup isn't as mentioned above gastroenterology evaluated the patient patient may end up having an endoscopy -Vertigo secondary to labyrinthitis patient is already on Benadryl if needed meclizine can be added. -Possible mastoiditis patient will be started on Ceftin -Hypomagnesemia magnesiumwas replaced -Hypokalemia secondary to hypomagnesemia improved Asthma without any acute exacerbation -Type 2 diabetes mellitus Hypertension -Depression
[2020-04-21 16:41] LABS: Glucose,Whole Blood 141 mg/dL (75-99)
[2020-04-21 21:13] LABS: Glucose,Whole Blood 178 mg/dL (75-99)
[2020-04-22] MEDS: MORPHINE SULFATE 4 MG/ML SYRINGE IVP PRN ×3 (02:41→23:40)
[2020-04-22] MEDS: ONDANSETRON 4 MG/2 ML VIAL IVP PRN ×3 (02:41→13:54)
[2020-04-22 06:42] LABS: Glucose,Whole Blood 188 mg/dL (75-99)
[2020-04-22] MEDS: PANTOPRAZOLE 40 MG/10 ML VIAL IVP SCH ×2 (09:13→21:06)
[2020-04-22] MEDS: INSULIN ASPART (NovoLOG) 100 UNIT/ML VIAL SQ SCH ×4 (09:16→21:04)
[2020-04-22] MEDS: FOLIC ACID 1 MG TAB PO SCH (09:16)
[2020-04-22] MEDS: GABAPENTIN 300 MG CAP PO SCH ×3 (09:16→21:06)
[2020-04-22] MEDS: FERROUS SULFATE 325 MG TAB PO SCH ×3 (09:16→21:06)
[2020-04-22] MEDS: ATORVASTATIN 20 MG TAB PO SCH (09:16)
[2020-04-22] MEDS: SERTRALINE 100 MG TAB PO SCH (09:18)
[2020-04-22] MEDS: DICYCLOMINE 20 MG TAB PO SCH ×4 (09:18→21:16)
[2020-04-22] MEDS: LACTOBACILLUS ACIDOPH & BULGAR 1 EACH PACKET PO SCH ×3 (10:24→21:17)
[2020-04-22 11:21] LABS: Glucose,Whole Blood 146 mg/dL (75-99)
[2020-04-22] MEDS ORDERED: PEG 3350-NA SULF,BICARB,CL/KCL 4,000 ML BOTTLE PO ONE (13:06)
--- NOTE | 2020-04-22 13:20 | P.PN ---
Subjective Progress Note Date: 04/22/20 This is 65-year-old female admitted with recurrent nausea with nonbloody emesis, diarrhea and associated cramping. Complains of bilateral lower quadrant pain, worse on the left. CT of abdomen and pelvis reported non acute, no change. Also complains of dizziness, negative CT of the temporal bones. This morning reports persistent nausea, no emesis, loose soft bowel movement-jellylike stools over the last week. Evaluated by GI, stool studies ordered, discussing potential endoscopy. Maintained on Rocephin. Objective - Vital Signs Vital signs: Vital Signs Temp 98.5 F 04/22/20 08:29 Pulse 90 04/22/20 08:29 Resp 18 04/22/20 08:29 BP 161/87 04/22/20 08:29 Pulse Ox 97 04/22/20 08:29 Intake & Output 04/21/20 04/22/20 04/22/20 18:59 06:59 18:59 Other: Voiding Method Toilet Toilet # Voids 1 2 2 # Bowel Movements 1 - Exam GENERAL: The patient is alert and oriented x3, not in any acute distress, anxious HEENT: Pupils are round and equally reacting to light. EOMI. No scleral icterus. No conjunctival pallor. Normocephalic, atraumatic. No pharyngeal erythema. No thyromegaly. tenderness in the right mastoid area CARDIOVASCULAR: S1 and S2 present. No murmurs, rubs, or gallops. PULMONARY: Chest is clear to auscultation, no wheezing or crackles. ABDOMEN: Soft, mild tenderness in bilateral lower quadrants, greatest on the left, nondistended, hyperactive bowel sounds. No palpable organomegaly. EXTREMITIES: No cyanosis, clubbing, or pedal edema. NEUROLOGICAL: Gross neurological examination did not reveal any focal deficits. SKIN: Warm and dry, No rashes. - Labs CBC & Chem 7: 04/20/20 00:50 04/21/20 07:11 Labs: Abnormal Lab Results - Last 24 Hours (Table) 04/21/20 04/21/20 04/21/20 Range/Units 07:11 11:36 16:38 POC Glucose (mg/dL) 260 H 141 H (75-99) mg/dL Hemoglobin A1c 8.3 H (4.0-6.0) % 04/21/20 04/22/20 Range/Units 21:11 06:41 POC Glucose (mg/dL) 178 H 188 H (75-99) mg/dL Hemoglobin A1c (4.0-6.0) % Assessment and Plan Assessment: Abdominal pain, nausea vomiting, diarrhea, possible gastroenteritis, possible diverticulitis, possible IBS Vertigo, possible mastoiditis Hypokalemia hypomagnesemia Atelectasis, bibasilar 1 cm granuloma in the superior right lobe of the liver, 2 cm hypodensity in the left lobe of the liver, possible cyst reported per CT-unchanged. Morbid obesity, BMI 41.3 Hypertension Diabetes mellitus Rheumatoid arthritis plan: Continue on current medication regime ,monitoring and symptomatic treatment .maintain PPI, Bentyl .stool studies in progress .endoscopy currently being discussed per GI . Probiotics initiated. Labs pending. The impression and plan of care has been dictated as directed. : I performed a history and examination of this patient, discussed the same with the dictator. I agree with the dictator's note ,documented as a scribe. Any additional findings or plans will be noted.
[2020-04-22 14:28] LABS: HCT 38.9 % (34.0-46.0); HGB 12.3 gm/dL (11.4-16.0); MCHC 31.5 g/dL (31.0-37.0); Mean Platelet Volume 8.4; Platelet Count 190 k/uL (150-450); RBC 4.38 m/uL (3.80-5.40); RDW 14.8 % (11.5-15.5); WBC 4.2 k/uL (3.8-10.6)
[2020-04-22 14:43] LABS: African American GFR (CKD) >90 (>60 ml/min/1.73 sqM); Anion Gap 5 mmol/L; Blood Urea Nitrogen 4 mg/dL (7-17); Calcium 8.7 mg/dL (8.4-10.2); Carbon Dioxide 32 mmol/L (22-30); Chloride 104 mmol/L (98-107); Glucose 159 mg/dL (74-99); Magnesium 1.3 mg/dL (1.6-2.3); Non-African American GFR(CKD) >90 (>60 ml/min/1.73 sqM); Potassium 3.7 mmol/L (3.5-5.1); Sodium 141 mmol/L (137-145)
[2020-04-22] MEDS ORDERED: Magnesium Replacement Protocol 1 EACH MISC MISCELLANE PRN ×2 (14:50→14:57)
--- NOTE | 2020-04-22 15:27 | P.PN ---
Subjective Progress Note Date: 04/22/20 Principal diagnosis: Nausea, vomiting, abdominal pain, and diarrhea This is a 65-year-old female patient who was recently admitted for nausea vomiting and abdominal pain, and returned with the same complaints. She states she was having multiple episodes of nonbloody, bilious vomiting along with diarrhea. Previous clostridium difficile was negative on 04/14/2020. CT of the abdomen last admission and this admission are unremarkable. The patient reports that starting yesterday she started having dizziness, she notes it increases with position changes. She also reports increased nausea with the dizziness. She states her diarrhea has improved some, is soft but not watery. She is having lower abdominal cramping, with decreased appetite today. She den ies any vomiting today, however remains nauseated. Objective - Vital Signs Vital signs: Vital Signs Temp 98.5 F 04/22/20 15:00 Pulse 72 04/22/20 15:00 Resp 16 04/22/20 15:00 BP 171/88 04/22/20 15:00 Pulse Ox 97 04/22/20 15:00 Intake & Output 04/21/20 04/22/20 04/22/20 18:59 06:59 18:59 Intake Total 930 Balance 930 Intake: Intake, IV Titration 50 Amount cefTRIAXone 1 gm In 50 Sodium Chloride 0.9% 50 ml @ 100 mls/hr IVPB Q24HR [facility] Rx#:[id number] Oral 880 Other: Voiding Method Toilet Toilet Toilet # Voids 1 2 2 # Bowel Movements 1 - Exam General appearance: The patient is alert, oriented, in no acute distress. HET: Head is normocephalic and atraumatic. Conjunctiva pink. Sclera anicteric. Neck: Supple without lymphadenopathy. Abdomen: Soft, left-sided and lower abdominal tenderness, nondistended with bowel sounds. No guarding or rigidity. Extremities: Normal skin color and turgor. No pedal edema Neurological: No focal deficits. Alert and oriented 3. - Labs CBC & Chem 7: 04/22/20 13:50 04/22/20 13:50 Labs: Abnormal Lab Results - Last 24 Hours (Table) 04/21/20 04/21/20 04/22/20 Range/Units 16:38 21:11 06:41 Carbon Dioxide (22-30) mmol/L BUN (7-17) mg/dL Creatinine (0.52-1.04) mg/dL Glucose (74-99) mg/dL POC Glucose (mg/dL) 141 H 178 H 188 H (75-99) mg/dL Magnesium (1.6-2.3) mg/dL 04/22/20 04/22/20 Range/Units 11:19 13:50 Carbon Dioxide 32 H (22-30) mmol/L BUN 4 L (7-17) mg/dL Creatinine 0.51 L (0.52-1.04) mg/dL Glucose 159 H (74-99) mg/dL POC Glucose (mg/dL) 146 H (75-99) mg/dL Magnesium 1.3 L (1.6-2.3) mg/dL Assessment and Plan (1) Abdominal pain Narrative/Plan: 65-year-old female with medical history significant for hypertension, diabetes mellitus and rheumatoid arthritis who presented to the hospital with recurrent episodes of nonbloody emesis, diarrhea and cramping lower abdominal pain. Patient has had computed tomography scan negative for any acute intra-abdominal pathology. Laboratory evaluation has been unremarkable. Unclear etiology, may be functional in nature, related to gastroenteritis, biopsy rule out IBS, GERD testing for Shin virus/Covid 19 is pending, or other etiology. Current Visit: Yes Status: Acute Code(s): R10.9 - UNSPECIFIED ABDOMINAL PAIN SNOMED Code(s): 76408511 (2) Diarrhea Current Visit: Yes Status: Acute Code(s): R19.7 - DIARRHEA, UNSPECIFIED SNOMED Code(s): 11528174 (3) Intractable nausea and vomiting Current Visit: Yes Status: Acute Code(s): R11.2 - NAUSEA WITH VOMITING, UNSPECIFIED SNOMED Code(s): 260960537 Plan: Supportive care Clear Liquid diet, nothing by mouth after midnight Bowel prep Patient is scheduled for EGD and colonoscopy tomorrow Protonix increased to twice daily Bentyl added [id number] Zofran as needed for nausea Stool studies ordered, pending Continue to monitor symptoms Computed tomography scan of the abdomen reviewed Further recommendations pending clinical course Thank you for allowing us to participate in the care of the patient we will continue to follow The impression and plan of care has been dictated as directed. Dr. Sven Ndiaye I performed a history and examination of this patient, discussed the same with the dictator. I agree with the dictator's note ,documented as a scribe. Any additional findings or plans will be noted.
[2020-04-22] MEDS: MAGNESIUM OXIDE 400 MG TAB PO SCH (15:39)
[2020-04-22] MEDS: amLODIPine 5 MG TAB PO SCH (15:40)
[2020-04-22] MEDS: MAGNESIUM SULFATE-D5W PMX 1 GM in DEXTROSE/WATER 1 100ML.BAG IVPB SCH ×3 (15:40→17:54)
[2020-04-22 17:05] LABS: Glucose,Whole Blood 175 mg/dL (75-99)
[2020-04-22 20:04] LABS: Glucose,Whole Blood 167 mg/dL (75-99)
[2020-04-22] MEDS: MONTELUKAST 10 MG TAB PO SCH (21:06)
[2020-04-22] MEDS: metroNIDAZOLE-NS PMX 500 MG in SALINE 1 100ML.BAG IVPB SCH (23:26)
[2020-04-23] MEDS: metroNIDAZOLE-NS PMX 500 MG in SALINE 1 100ML.BAG IVPB SCH ×3 (00:32→18:10)
[2020-04-23] MEDS: MORPHINE SULFATE 4 MG/ML SYRINGE IVP PRN ×3 (04:11→12:41)
[2020-04-23 06:17] LABS: Glucose,Whole Blood 148 mg/dL (75-99)
[2020-04-23] MEDS: INSULIN ASPART (NovoLOG) 100 UNIT/ML VIAL SQ SCH ×4 (07:17→20:29)
[2020-04-23] MEDS: ONDANSETRON 4 MG/2 ML VIAL IVP PRN ×2 (07:39→16:43)
[2020-04-23] MEDS: GABAPENTIN 300 MG CAP PO SCH ×3 (07:40→20:30)
[2020-04-23] MEDS: amLODIPine 5 MG TAB PO SCH (07:40)
[2020-04-23] MEDS: FERROUS SULFATE 325 MG TAB PO SCH ×3 (07:40→20:30)
[2020-04-23] MEDS: FOLIC ACID 1 MG TAB PO SCH (07:40)
[2020-04-23] MEDS: PANTOPRAZOLE 40 MG/10 ML VIAL IVP SCH ×2 (07:40→20:30)
[2020-04-23] MEDS: MAGNESIUM OXIDE 400 MG TAB PO SCH (07:41)
[2020-04-23] MEDS: ATORVASTATIN 20 MG TAB PO SCH (07:44)
[2020-04-23] MEDS: SERTRALINE 100 MG TAB PO SCH (08:06)
[2020-04-23] MEDS: DICYCLOMINE 20 MG TAB PO SCH ×4 (08:06→20:30)
[2020-04-23 08:25] LABS: Basophils % (A) 1 %; Eosinophils # (A) 0.1 k/uL (0-0.7); Eosinophils % (A) 4 %; HCT 40.5 % (34.0-46.0); HGB 13.2 gm/dL (11.4-16.0); Lymphocytes % (A) 31 %; MCH 28.9 pg (25.0-35.0); MCHC 32.5 g/dL (31.0-37.0); MCV 88.8 fL (80.0-100.0); Mean Platelet Volume 8.2; Monocytes # (A) 0.2 k/uL (0-1.0); Monocytes % (A) 6 %; Neutrophils # (A) 1.8 k/uL (1.3-7.7); Neutrophils % (A) 56 %; Platelet Count 190 k/uL (150-450); RBC 4.56 m/uL (3.80-5.40); RDW 14.9 % (11.5-15.5); WBC 3.2 k/uL (3.8-10.6)
[2020-04-23 08:43] LABS: Anion Gap 6 mmol/L; Calcium 8.8 mg/dL (8.4-10.2); Carbon Dioxide 36 mmol/L (22-30); Chloride 99 mmol/L (98-107); Glucose 168 mg/dL (74-99); Magnesium 1.6 mg/dL (1.6-2.3); Potassium 3.2 mmol/L (3.5-5.1); Sodium 141 mmol/L (137-145)
[2020-04-23 08:45] LABS: African American GFR (CKD) >90 (>60 ml/min/1.73 sqM); Blood Urea Nitrogen 2 mg/dL (7-17); Non-African American GFR(CKD) >90 (>60 ml/min/1.73 sqM)
[2020-04-23] MEDS ORDERED: metroNIDAZOLE 500 MG TAB PO SCH (09:00)
[2020-04-23] MEDS: LACTOBACILLUS ACIDOPH & BULGAR 1 EACH PACKET PO SCH ×3 (09:23→20:30)
[2020-04-23] MEDS ORDERED: Magnesium Replacement Protocol 1 EACH MISC MISCELLANE PRN ×2 (09:35→16:44)
[2020-04-23] MEDS: 0.9% NACL WITH KCL 40 MEQ/L 1,000 ML IV SCH (10:24)
[2020-04-23] MEDS: POTASSIUM CHLORIDE 20 MEQ in WATER FOR INJECTION 1 100ML.BAG IVPB SCH ×3 (11:40→20:27)
[2020-04-23 12:00] LABS: Glucose,Whole Blood 165 mg/dL (75-99)
--- NOTE | 2020-04-23 13:02 | P.PN ---
Subjective Progress Note Date: 04/23/20 Principal diagnosis: Nausea, vomiting, abdominal pain, and diarrhea The patient was seen and examined at the bedside. The patient was scheduled to undergo an upper and lower endoscopy today, however the patient was unable to tolerate her prep. Is also found that her stool sample came back positive for Giardia. Patient is being treated with Flagyl. She states she still has continued nausea, however is only vomiting with the prep. She is denying any melena or rectal bleeding. Objective - Vital Signs Vital signs: Vital Signs Temp 98.6 F 04/23/20 07:19 Pulse 72 04/23/20 07:19 Resp 16 04/23/20 07:19 BP 155/70 04/23/20 07:19 Pulse Ox 94 L 04/23/20 07:19 Intake & Output 04/22/20 04/23/20 04/23/20 18:59 06:59 18:59 Intake Total 930 600 Balance 930 600 Intake: Intake, IV Titration 50 Amount cefTRIAXone 1 gm In 50 Sodium Chloride 0.9% 50 ml @ 100 mls/hr IVPB Q24HR [facility] Rx#:[id number] Oral 880 600 Other: Voiding Method Toilet Toilet Toilet # Voids 2 # Bowel Movements 1 - Exam General appearance: The patient is alert, oriented, in no acute distress. HET: Head is normocephalic and atraumatic. Conjunctiva pink. Sclera anicteric. Neck: Supple without lymphadenopathy. Abdomen: Soft, left-sided and lower abdominal tenderness, nondistended with bowel sounds. No guarding or rigidity. Extremities: Normal skin color and turgor. No pedal edema Neurological: No focal deficits. Alert and oriented 3. - Labs CBC & Chem 7: 04/23/20 07:58 04/23/20 07:58 Labs: Abnormal Lab Results - Last 24 Hours (Table) 04/22/20 04/22/20 04/22/20 Range/Units 09:00 13:50 17:03 WBC (3.8-10.6) k/uL Potassium (3.5-5.1) mmol/L Carbon Dioxide 32 H (22-30) mmol/L BUN 4 L (7-17) mg/dL Creatinine 0.51 L (0.52-1.04) mg/dL Glucose 159 H (74-99) mg/dL POC Glucose (mg/dL) 175 H (75-99) mg/dL Magnesium 1.3 L (1.6-2.3) mg/dL Stl Giardia Antigen Positive H (Negative) 04/22/20 04/23/20 04/23/20 Range/Units 19:59 06:11 07:58 WBC 3.2 L (3.8-10.6) k/uL Potassium (3.5-5.1) mmol/L Carbon Dioxide (22-30) mmol/L BUN (7-17) mg/dL Creatinine (0.52-1.04) mg/dL Glucose (74-99) mg/dL POC Glucose (mg/dL) 167 H 148 H (75-99) mg/dL Magnesium (1.6-2.3) mg/dL Stl Giardia Antigen (Negative) 04/23/20 04/23/20 Range/Units 07:58 11:59 WBC (3.8-10.6) k/uL Potassium 3.2 L (3.5-5.1) mmol/L Carbon Dioxide 36 H (22-30) mmol/L BUN 2 L (7-17) mg/dL Creatinine (0.52-1.04) mg/dL Glucose 168 H (74-99) mg/dL POC Glucose (mg/dL) 165 H (75-99) mg/dL Magnesium (1.6-2.3) mg/dL Stl Giardia Antigen (Negative) Microbiology - Last 24 Hours (Table) 04/22/20 09:00 Stool Culture - Preliminary Stool Assessment and Plan (1) Abdominal pain Narrative/Plan: 65-year-old female with medical history significant for hypertension, diabetes mellitus and rheumatoid arthritis who presented to the hospital with recurrent episodes of nonbloody emesis, diarrhea and cramping lower abdominal pain. Patient has had computed tomography scan negative for any acute intra-abdominal pathology. Laboratory evaluation has been unremarkable. Unclear etiology, may be functional in nature, related to gastroenteritis, biopsy rule out IBS, GERD testing for Shin virus/Covid 19 is pending, or other etiology. Current Visit: Yes Status: Acute Code(s): R10.9 - UNSPECIFIED ABDOMINAL PAIN SNOMED Code(s): 29200929 (2) Diarrhea Current Visit: Yes Status: Acute Code(s): R19.7 - DIARRHEA, UNSPECIFIED SNOMED Code(s): 29630991 (3) Intractable nausea and vomiting Current Visit: Yes Status: Acute Code(s): R11.2 - NAUSEA WITH VOMITING, UNSPECIFIED SNOMED Code(s): 096100483 Plan: Supportive care Clear Liquid diet EGD and colonoscopy canceled, can reschedule as an outpatient if symptoms do not improve. Continue protonix Bentyl added [id number] Zofran as needed for nausea Stool studies ordered, Giardia positive, Flagyl IV started Continue with IV antibiotics Continue to monitor symptoms Computed tomography scan of the abdomen reviewed If tolerating diet and vomiting/diarrhea improve okay for discharge home with follow up The impression and plan of care has been dictated as directed. Dr. Sven Ndiaye I performed a history and examination of this patient, discussed the same with the dictator. I agree with the dictator's note ,documented as a scribe. Any additional findings or plans will be noted.
--- NOTE | 2020-04-23 15:07 | P.PN ---
Subjective Progress Note Date: 04/23/20 This is 65-year-old female admitted with recurrent nausea with nonbloody emesis, diarrhea and associated cramping. Complains of bilateral lower quadrant pain, worse on the left. CT of abdomen and pelvis reported non acute, no change. Also complains of dizziness, negative CT of the temporal bones. This morning reports persistent nausea, no emesis, loose soft bowel movement-jellylike stools over the last week. Evaluated by GI, stool studies ordered, discussing potential endoscopy. Maintained on Rocephin. 04/23/2020 reports nausea with vomiting after taking morning meds .NPO, initially scheduled for both EGD and colonoscopy today, but prep not completed.Endoscopies cancelled. Potassium 3.2.Stool culture reported Giardia, Flagyl initiated last night .denies recent camping, denies drinking well water. Ambulating to and from bathroom, tolerating exertion well. Dizziness significantly improved. Denies chest pain, palpitations or shortness of breath. Objective - Vital Signs Vital signs: Vital Signs Temp 98.6 F 04/23/20 07:19 Pulse 72 04/23/20 07:19 Resp 16 04/23/20 07:19 BP 155/70 04/23/20 07:19 Pulse Ox 94 L 04/23/20 07:19 Intake & Output 04/22/20 04/23/20 04/23/20 18:59 06:59 18:59 Intake Total 930 600 Balance 930 600 Intake: Intake, IV Titration 50 Amount cefTRIAXone 1 gm In 50 Sodium Chloride 0.9% 50 ml @ 100 mls/hr IVPB Q24HR [facility] Rx#:[id number] Oral 880 600 Other: Voiding Method Toilet Toilet Toilet # Voids 2 # Bowel Movements 1 - Exam GENERAL: The patient is alert and oriented x3, not in any acute distress HEENT: Pupils are round and equally reacting to light. EOMI. No scleral icterus. No conjunctival pallor. Normocephalic, atraumatic. No pharyngeal erythema. No thyromegaly. CARDIOVASCULAR: S1 and S2 present. No murmurs, rubs, or gallops. PULMONARY: Chest is clear to auscultation, no wheezing or crackles. ABDOMEN: Soft, mild left-sided abdominal tenderness ,nondistended, positive bowel sounds. No palpable organomegaly. EXTREMITIES: No cyanosis, clubbing, or pedal edema. NEUROLOGICAL: Gross neurological examination did not reveal any focal deficits. SKIN: Warm and dry, No rashes. - Labs CBC & Chem 7: 04/23/20 07:58 04/23/20 07:58 Labs: Abnormal Lab Results - Last 24 Hours (Table) 04/22/20 04/22/20 04/22/20 Range/Units 09:00 11:19 13:50 WBC (3.8-10.6) k/uL Carbon Dioxide 32 H (22-30) mmol/L BUN 4 L (7-17) mg/dL Creatinine 0.51 L (0.52-1.04) mg/dL Glucose 159 H (74-99) mg/dL POC Glucose (mg/dL) 146 H (75-99) mg/dL Magnesium 1.3 L (1.6-2.3) mg/dL Stl Giardia Antigen Positive H (Negative) 04/22/20 04/22/20 04/23/20 Range/Units 17:03 19:59 06:11 WBC (3.8-10.6) k/uL Carbon Dioxide (22-30) mmol/L BUN (7-17) mg/dL Creatinine (0.52-1.04) mg/dL Glucose (74-99) mg/dL POC Glucose (mg/dL) 175 H 167 H 148 H (75-99) mg/dL Magnesium (1.6-2.3) mg/dL Stl Giardia Antigen (Negative) 04/23/20 Range/Units 07:58 WBC 3.2 L (3.8-10.6) k/uL Carbon Dioxide (22-30) mmol/L BUN (7-17) mg/dL Creatinine (0.52-1.04) mg/dL Glucose (74-99) mg/dL POC Glucose (mg/dL) (75-99) mg/dL Magnesium (1.6-2.3) mg/dL Stl Giardia Antigen (Negative) Microbiology - Last 24 Hours (Table) 04/22/20 09:00 Stool Culture - Preliminary Stool Assessment and Plan Assessment: Abdominal pain, nausea vomiting, diarrhea, secondary to Giardia. Vertigo, possible mastoiditis, improving. Hypokalemia hypomagnesemia Atelectasis, bibasilar 1 cm granuloma in the superior right lobe of the liver, 2 cm hypodensity in the left lobe of the liver, possible cyst reported per CT-unchanged. Morbid obesity, BMI 41.3 Hypertension Diabetes mellitus Rheumatoid arthritis plan: Continue on current medication regime ,monitoring and symptomatic treatment. Potassium supplementation as ordered. Continue with Flagyl.. Discharge planning in progress for later today pending follow-up potassium level within normal limits. The impression and plan of care has been dictated as directed. : I performed a history and examination of this patient, discussed the same with the dictator. I agree with the dictator's note ,documented as a scribe. Any additional findings or plans will be noted.
[2020-04-23 17:07] LABS: Glucose,Whole Blood 169 mg/dL (75-99)
[2020-04-23 19:55] LABS: Glucose,Whole Blood 157 mg/dL (75-99)
[2020-04-23] MEDS ORDERED: fentaNYL (PF) 50 MCG/ML 2 ML AMP IV PRN (20:04)
[2020-04-23] MEDS ORDERED: MIDAZOLAM 2 MG/2 ML VIAL IV PRN (20:04)
[2020-04-23] MEDS: MONTELUKAST 10 MG TAB PO SCH (20:29)
[2020-04-24] MEDS: MAGNESIUM SULFATE-D5W PMX 1 GM in DEXTROSE/WATER 1 100ML.BAG IVPB SCH ×2 (01:09→03:02)
[2020-04-24] MEDS: metroNIDAZOLE-NS PMX 500 MG in SALINE 1 100ML.BAG IVPB SCH ×3 (04:06→17:39)
[2020-04-24] MEDS: LACTATED RINGERS 1,000 ML IV SCH (04:12)
[2020-04-24] MEDS: 0.9% NACL WITH KCL 40 MEQ/L 1,000 ML IV SCH (05:06)
[2020-04-24 06:08] LABS: Glucose,Whole Blood 153 mg/dL (75-99)
[2020-04-24] MEDS: INSULIN ASPART (NovoLOG) 100 UNIT/ML VIAL SQ SCH ×4 (07:47→21:23)
[2020-04-24] MEDS: GABAPENTIN 300 MG CAP PO SCH ×3 (08:06→21:32)
[2020-04-24] MEDS: MAGNESIUM OXIDE 400 MG TAB PO SCH (08:06)
[2020-04-24] MEDS: amLODIPine 5 MG TAB PO SCH (08:06)
[2020-04-24] MEDS: DICYCLOMINE 20 MG TAB PO SCH ×4 (08:06→21:31)
[2020-04-24] MEDS: ATORVASTATIN 20 MG TAB PO SCH (08:06)
[2020-04-24] MEDS: FERROUS SULFATE 325 MG TAB PO SCH ×3 (08:06→21:32)
[2020-04-24] MEDS: LACTOBACILLUS ACIDOPH & BULGAR 1 EACH PACKET PO SCH ×3 (08:06→21:32)
[2020-04-24] MEDS: SERTRALINE 100 MG TAB PO SCH (08:06)
[2020-04-24] MEDS: FOLIC ACID 1 MG TAB PO SCH (08:06)
[2020-04-24] MEDS: PANTOPRAZOLE 40 MG/10 ML VIAL IVP SCH ×2 (08:18→21:31)
[2020-04-24] MEDS: ONDANSETRON 4 MG/2 ML VIAL IVP PRN (08:18)
[2020-04-24] MEDS: MORPHINE SULFATE 4 MG/ML SYRINGE IVP PRN ×3 (08:18→19:52)
[2020-04-24] MEDS ORDERED: POTASSIUM CHLORIDE 20 MEQ in WATER FOR INJECTION 1 100ML.BAG IVPB STA (08:22)
[2020-04-24] MEDS ORDERED: Potassium Replacement Protocol 1 EACH MISC MISCELLANE PRN ×2 (08:42→15:45)
[2020-04-24 09:34] LABS: African American GFR (CKD) >90 (>60 ml/min/1.73 sqM); Anion Gap 6 mmol/L; Blood Urea Nitrogen 3 mg/dL (7-17); Calcium 8.7 mg/dL (8.4-10.2); Carbon Dioxide 29 mmol/L (22-30); Chloride 104 mmol/L (98-107); Glucose 159 mg/dL (74-99); Non-African American GFR(CKD) >90 (>60 ml/min/1.73 sqM); Potassium 3.3 mmol/L (3.5-5.1); Sodium 139 mmol/L (137-145)
[2020-04-24] MEDS ORDERED: methylPREDNISolone ACETATE 80 MG/ML 1 ML VIAL IM STA (09:47)
[2020-04-24] MEDS: METOCLOPRAMIDE 5 MG/ML 2 ML VIAL IVP SCH ×2 (10:35→17:38)
--- NOTE | 2020-04-24 11:03 | P.PN ---
Subjective Progress Note Date: 04/24/20 This is 65-year-old female admitted with recurrent nausea with nonbloody emesis, diarrhea and associated cramping. Complains of bilateral lower quadrant pain, worse on the left. CT of abdomen and pelvis reported non acute, no change. Also complains of dizziness, negative CT of the temporal bones. This morning reports persistent nausea, no emesis, loose soft bowel movement-jellylike stools over the last week. Evaluated by GI, stool studies ordered, discussing potential endoscopy. Maintained on Rocephin. 04/23/2020 reports nausea with vomiting after taking morning meds .NPO, initially scheduled for both EGD and colonoscopy today, but prep not completed.Endoscopies cancelled. Potassium 3.2.Stool culture reported Giardia, Flagyl initiated last night .denies recent camping, denies drinking well water. Ambulating to and from bathroom, tolerating exertion well. Dizziness significantly improved. Denies chest pain, palpitations or shortness of breath. 04/24/2020 Maintained on IV fluid hydration, Zofran and IV Flagyl .Continues to have nausea, emesis, diarrhea. Small bilious appearing emesis this morning. Receiving potassium replacement for potassium 3.4. Denies chest pain, palpitati ons or shortness of breath. Objective - Vital Signs Vital signs: Vital Signs Temp 98.9 F 04/24/20 08:12 Pulse 81 04/24/20 08:12 Resp 16 04/24/20 08:12 BP 152/85 04/24/20 08:12 Pulse Ox 94 L 04/24/20 08:12 Intake & Output 04/23/20 04/24/20 04/24/20 18:59 06:59 18:59 Intake Total 1120 Balance 1120 Intake: Intake, IV Titration 620 Amount 0.9% NaCl with KCl 40 Meq 320 /l 1,000 ml @ 50 mls/hr IV .Q20H [facility] Rx#: [id number] Potassium Chloride 20 meq 200 In Water For Injection 1 100ml.bag @ 50 mls/hr IVPB Q2H [facility] Rx#: [id number] metroNIDAZOLE-NS PMX 500 100 mg In Saline 1 100ml.bag @ 100 mls/hr IVPB Q8H [facility] Rx#:[id number] Oral 500 Other: Voiding Method Toilet Toilet Toilet # Voids 1 1 # Bowel Movements 2 2 - Exam GENERAL: The patient is alert and oriented x3, NAD HEENT: Pupils are round and equally reacting to light. EOMI. No scleral icterus. No conjunctival pallor. Normocephalic, atraumatic. No pharyngeal erythema. No thyromegaly. CARDIOVASCULAR: S1 and S2 present. No murmurs, rubs, or gallops. PULMONARY: Chest is essentially clear no rhonchi, wheezing or crackles. ABDOMEN: Soft, diffuse abdominal tenderness ,nondistended, positive bowel sounds. No palpable organomegaly. EXTREMITIES: No cyanosis, clubbing, or pedal edema. NEUROLOGICAL: Gross neurological examination did not reveal any focal deficits. SKIN: Warm and dry, No rashes. - Labs CBC & Chem 7: 04/23/20 07:58 04/24/20 06:15 Labs: Abnormal Lab Results - Last 24 Hours (Table) 04/23/20 04/23/20 04/23/20 Range/Units 11:59 17:06 19:53 Potassium (3.5-5.1) mmol/L BUN (7-17) mg/dL Creatinine (0.52-1.04) mg/dL Glucose (74-99) mg/dL POC Glucose (mg/dL) 165 H 169 H 157 H (75-99) mg/dL 04/24/20 04/24/20 04/24/20 Range/Units 01:47 06:06 06:15 Potassium 3.4 L 3.3 L (3.5-5.1) mmol/L BUN 3 L (7-17) mg/dL Creatinine 0.49 L (0.52-1.04) mg/dL Glucose 159 H (74-99) mg/dL POC Glucose (mg/dL) 153 H (75-99) mg/dL Assessment and Plan Assessment: Abdominal pain, nausea vomiting, diarrhea, secondary to Giardia. Vertigo, possible mastoiditis, improving. Hypokalemia hypomagnesemia Atelectasis, bibasilar 1 cm granuloma in the superior right lobe of the liver, 2 cm hypodensity in the left lobe of the liver, possible cyst reported per CT-unchanged. Morbid obesity, BMI 41.3 Hypertension Diabetes mellitus Rheumatoid arthritis plan: Continue on current medication regime ,monitoring and symptomatic treatment. Reglan added to antibiotic regimen. Depo-Medrol X1. IV fluid hydration. Continue with Potassium supplementation as ordered in addition to potassium replacement protocol. Continue with Flagyl.. Discharge planning in progress for tomorrow pending clinical improvement. The impression and plan of care has been dictated as directed. : I performed a history and examination of this patient, discussed the same with the dictator. I agree with the dictator's note ,documented as a scribe. Any additional findings or plans will be noted.
[2020-04-24 11:27] LABS: Glucose,Whole Blood 142 mg/dL (75-99)
--- NOTE | 2020-04-24 11:47 | P.PN ---
Subjective Progress Note Date: 04/24/20 Principal diagnosis: Nausea, vomiting, abdominal pain, and diarrhea The patient was seen and examined at the bedside. Patient is reporting abdominal pain, nausea, vomiting, and diarrhea. Patient states she did pretty well through the night, however this morning she had bilous emesis and diarrhea she states is still very loose. Her stool sample came back positive for Giardia . Patient is being treated with Flagyl. She is denying any melena or rectal bleeding. Her potassium has been low 3.3, and is on potassium replacement protocol. Objective - Vital Signs Vital signs: Vital Signs Temp 98.9 F 04/24/20 08:12 Pulse 81 04/24/20 08:12 Resp 16 04/24/20 08:12 BP 152/85 04/24/20 08:12 Pulse Ox 94 L 04/24/20 08:12 Intake & Output 04/23/20 04/24/20 04/24/20 18:59 06:59 18:59 Intake Total 1120 Balance 1120 Intake: Intake, IV Titration 620 Amount 0.9% NaCl with KCl 40 Meq 320 /l 1,000 ml @ 50 mls/hr IV .Q20H [facility] Rx#: [id number] Potassium Chloride 20 meq 200 In Water For Injection 1 100ml.bag @ 50 mls/hr IVPB Q2H [facility] Rx#: [id number] metroNIDAZOLE-NS PMX 500 100 mg In Saline 1 100ml.bag @ 100 mls/hr IVPB Q8H [facility] Rx#:[id number] Oral 500 Other: Voiding Method Toilet Toilet Toilet # Voids 1 1 # Bowel Movements 2 2 - Exam General appearance: The patient is alert, oriented, in no acute distress. HET: Head is normocephalic and atraumatic. Conjunctiva pink. Sclera anicteric. Neck: Supple without lymphadenopathy. Abdomen: Soft, left-sided and lower abdominal tenderness, nondistended with bowel sounds. No guarding or rigidity. Extremities: Normal skin color and turgor. No pedal edema Neurological: No focal deficits. Alert and oriented 3. - Labs CBC & Chem 7: 04/23/20 07:58 04/24/20 06:15 Labs: Abnormal Lab Results - Last 24 Hours (Table) 10/27/20 10/27/20 10/27/20 Range/Units 11:59 17:06 19:53 Potassium (3.5-5.1) mmol/L POC Glucose (mg/dL) 165 H 169 H 157 H (75-99) mg/dL 04/24/20 04/24/20 Range/Units 01:47 06:06 Potassium 3.4 L (3.5-5.1) mmol/L POC Glucose (mg/dL) 153 H (75-99) mg/dL Assessment and Plan (1) Abdominal pain Narrative/Plan: 65-year-old female with medical history significant for hypertension, diabetes mellitus and rheumatoid arthritis who presented to the hospital with recurrent episodes of nonbloody emesis, diarrhea and cramping lower abdominal pain. Patient has had computed tomography scan negative for any acute intra-abdominal pathology. Potassium 3.3, patient was found to have seen him replacement protocol. Stool Studies were completed, she was positive for Giardia. She has been started on IV Flagyl. Current Visit: Yes Status: Acute Code(s): R10.9 - UNSPECIFIED ABDOMINAL PAIN SNOMED Code(s): 20897259 (2) Diarrhea Current Visit: Yes Status: Acute Code(s): R19.7 - DIARRHEA, UNSPECIFIED SNOMED Code(s): 24570923 (3) Intractable nausea and vomiting Current Visit: Yes Status: Acute Code(s): R11.2 - NAUSEA WITH VOMITING, UNSPECIFIED SNOMED Code(s): 502110327 Plan: Supportive care Advance to full liquid diet NPO after midnight Possible EGD tomorrow if no improvement in symptoms Continue protonix Bentyl added [id number] Zofran as needed for nausea Reglan ordered ATC Stool studies ordered, Giardia positive, Flagyl IV started Continue with IV antibiotics Continue to monitor symptoms Computed tomography scan of the abdomen reviewed If tolerating diet and vomiting/diarrhea improve okay for discharge home with follow up The impression and plan of care has been dictated as directed. Dr. Sven Ndiaye I performed a history and examination of this patient, discussed the same with the dictator. I agree with the dictator's note ,documented as a scribe. Any additional findings or plans will be noted.
[2020-04-24] MEDS ORDERED: POTASSIUM CHLORIDE ER 20 MEQ TAB.ER PO SCH (16:00)
[2020-04-24 17:05] LABS: Glucose,Whole Blood 178 mg/dL (75-99)
[2020-04-24] MEDS ORDERED: POTASSIUM CHLORIDE ER 20 MEQ TAB.ER PO STA ×2 (20:18)
[2020-04-24 21:12] LABS: Glucose,Whole Blood 119 mg/dL (75-99)
[2020-04-24] MEDS: MONTELUKAST 10 MG TAB PO SCH (21:31)
[2020-04-25] MEDS: METOCLOPRAMIDE 5 MG/ML 2 ML VIAL IVP SCH ×4 (00:17→17:17)
[2020-04-25] MEDS: metroNIDAZOLE-NS PMX 500 MG in SALINE 1 100ML.BAG IVPB SCH ×3 (01:19→17:18)
[2020-04-25] MEDS: 0.9% NACL WITH KCL 40 MEQ/L 1,000 ML IV SCH (01:19)
[2020-04-25 07:06] LABS: Glucose,Whole Blood 151 mg/dL (75-99)
[2020-04-25] MEDS: INSULIN ASPART (NovoLOG) 100 UNIT/ML VIAL SQ SCH ×3 (07:09→19:08)
[2020-04-25 07:53] LABS: ALT 24 U/L (4-34); AST 30 U/L (14-36); African American GFR (CKD) >90 (>60 ml/min/1.73 sqM); Albumin 3.9 g/dL (3.5-5.0); Alkaline Phosphatase 71 U/L (38-126); Anion Gap 7 mmol/L; Blood Urea Nitrogen 4 mg/dL (7-17); Carbon Dioxide 27 mmol/L (22-30); Chloride 105 mmol/L (98-107); Glucose 169 mg/dL (74-99); Non-African American GFR(CKD) >90 (>60 ml/min/1.73 sqM); Sodium 139 mmol/L (137-145); Total Bilirubin 0.4 mg/dL (0.2-1.3); Total Protein 6.8 g/dL (6.3-8.2)
[2020-04-25] MEDS: SERTRALINE 100 MG TAB PO SCH (08:32)
[2020-04-25] MEDS: FERROUS SULFATE 325 MG TAB PO SCH ×2 (08:33→16:02)
[2020-04-25] MEDS: GABAPENTIN 300 MG CAP PO SCH ×2 (08:33→16:02)
[2020-04-25] MEDS: DICYCLOMINE 20 MG TAB PO SCH ×3 (08:33→16:02)
[2020-04-25] MEDS: ATORVASTATIN 20 MG TAB PO SCH (08:34)
[2020-04-25] MEDS: LACTOBACILLUS ACIDOPH & BULGAR 1 EACH PACKET PO SCH ×2 (08:34→16:01)
[2020-04-25] MEDS: PANTOPRAZOLE 40 MG/10 ML VIAL IVP SCH (08:34)
[2020-04-25] MEDS: LACTATED RINGERS 1,000 ML IV SCH (08:38)
[2020-04-25] MEDS: MAGNESIUM OXIDE 400 MG TAB PO SCH (09:28)
[2020-04-25] MEDS: amLODIPine 5 MG TAB PO SCH (09:28)
[2020-04-25] MEDS: FOLIC ACID 1 MG TAB PO SCH (09:28)
[2020-04-25] MEDS: MORPHINE SULFATE 4 MG/ML SYRINGE IVP PRN (10:03)
[2020-04-25 12:21] VITALS: RESP 16
[2020-04-25 12:30] LABS: Glucose,Whole Blood 163 mg/dL (75-99)
[2020-04-25 13:04] VITALS: BMI 41.2
--- NOTE | 2020-04-25 13:59 | P.DS ---
Providers Date of admission: 04/20/20 00:51 Expected date of discharge: 04/25/20 Attending physician: Edward Love MD Consults: 04/20/20 13:19 Consult Physician Routine Consulting Provider: Philippe Dubois Consult Reason/Comments: Nausea, Vominting, dirrhea Do you want consulting provider notified?: Yes Primary care physician: [facility] Course: Final Diagnoses: Abdominal pain, nausea vomiting, diarrhea, secondary to Giardia. EGD pending Vertigo, possible mastoiditis, improving. Hypokalemia hypomagnesemia Atelectasis, bibasilar 1 cm granuloma in the superior right lobe of the liver, 2 cm hypodensity in the left lobe of the liver, possible cyst reported per CT-unchanged. Morbid obesity, BMI 41.3 Hypertension Diabetes mellitus Rheumatoid arthritis Hospital course:This is 65-year-old female admitted with recurrent nausea with nonbloody emesis, diarrhea and associated cramping. Complains of bilateral lower quadrant pain, worse on the left. CT of abdomen and pelvis reported non acute, no change. Also complains of dizziness, negative CT of the temporal bones. This morning reports persistent nausea, no emesis, loose soft bowel movement-jellylike stools over the last week. Evaluated by GI, stool studies ordered, discussing potential endoscopy. Maintained on Rocephin. 04/23/2020 reports nausea with vomiting after taking morning meds .NPO, in itially scheduled for both EGD and colonoscopy today, but prep not completed.Endoscopies cancelled. Potassium 3.2.Stool culture reported Giardia, Flagyl initiated last night .denies recent camping, denies drinking well water. Ambulating to and from bathroom, tolerating exertion well. Dizziness significantly improved. Denies chest pain, palpitations or shortness of breath. 04/24/2020 Maintained on IV fluid hydration, Zofran and IV Flagyl .Continues to have nausea, emesis, diarrhea. Small bilious appearing emesis this morning. Receiving potassium replacement for potassium 3.4. Denies chest pain, palpitations or shortness of breath. Significant clinical improvement. Diarrhea improving, becoming more formed, no nausea or emesis. Denies chills. Right lower quadrant tenderness impro ving.NPO, scheduled for EGD this morning. Patient will be discharged home today in a stable condition with guarded prognosis pending EGD results, final DC recommendations and clearance from GI. The impression and plan of care has been dictated as directed. : I performed a history and examination of this patient, discussed the same with the dictator. I agree with the dictator's note ,documented as a scribe. Any additional findings or plans will be noted. Patient Condition at Discharge: Stable Plan - Discharge Summary Discharge Rx Participant: Yes New Discharge Prescriptions: New metroNIDAZOLE [Flagyl] 500 mg PO TID #15 tab Continue Magnesium Oxide [Magox 400] 400 mg PO DAILY amLODIPine [Norvasc] 5 mg PO DAILY Glimepiride [Amaryl] 1 mg PO DAILY Cyanocobalamin (Vitamin B-12) [Vitamin B-12] 1,000 mcg PO DAILY Sertraline [Zoloft] 100 mg PO DAILY Montelukast [Singulair] 10 mg PO HS Folic Acid 1 mg PO DAILY Ferrous Sulfate [Iron (65 MG Elemental)] 325 mg PO TID Atorvastatin [Lipitor] 20 mg PO DAILY metFORMIN HCL [Glucophage] 850 mg PO TID Ascorbic Acid [Vitamin C] 250 mg PO TID Gabapentin 300 mg PO TID metHOTREXate sodium [Methotrexate] 25 mg PO MO Pantoprazole Sodium [Protonix] 40 mg PO DAILY #30 tablet.dr Catrachito Olson & Ld [Lactinex] 1 packet PO DAILY #1 packet Discharge Medication List Atorvastatin [Lipitor] 20 mg PO DAILY 03/22/19 [History] Cyanocobalamin (Vitamin B-12) [Vitamin B-12] 1,000 mcg PO DAILY 03/22/19 [History] Ferrous Sulfate [Iron (65 MG Elemental)] 325 mg PO TID 03/22/19 [History] Folic Acid 1 mg PO DAILY 03/22/19 [History] Glimepiride [Amaryl] 1 mg PO DAILY 03/22/19 [History] Magnesium Oxide [Magox 400] 400 mg PO DAILY 03/22/19 [History] Montelukast [Singulair] 10 mg PO HS 03/22/19 [History] Sertraline [Zoloft] 100 mg PO DAILY 03/22/19 [History] amLODIPine [Norvasc] 5 mg PO DAILY 03/22/19 [History] Ascorbic Acid [Vitamin C] 250 mg PO TID 04/11/20 [History] Gabapentin 300 mg PO TID 04/11/20 [History] metFORMIN HCL [Glucophage] 850 mg PO TID 04/11/20 [History] metHOTREXate sodium [Methotrexate] 25 mg PO MO 04/11/20 [History] Lactobacillus Acidoph & Bulgar [Lactinex] 1 packet PO DAILY #1 packet 04/15/20 [Rx] Pantoprazole Sodium [Protonix] 40 mg PO DAILY #30 tablet. 04/15/20 [Rx] metroNIDAZOLE [Flagyl] 500 mg PO TID #15 tab 04/23/20 [Rx] Follow up Appointment(s)/Referral(s): [facility] [facility] [NON-STAFF] - Edward Love MD [STAFF PHYSICIAN] - [address],[place] [NON-STAFF] - Activity/Diet/Wound Care/Special Instructions: Pending EGD results, final DC recommendations and clearance from [facility] at discharge for rx
[2020-04-25] MEDS ORDERED: PROPOFOL 10 MG/ML 20 ML VIAL IV ONE (14:55)
[2020-04-25] MEDS ORDERED: LIDOCAINE 1% INJ 10MG/ML (20 ML MDV) ONE (14:55)
--- NOTE | 2020-04-25 15:06 | P.PCN ---
Date of Procedure: 04/25/20 Procedure(s) Performed: BRIEF HISTORY: Patient is a 66-year-old, pleasant, white female admitted hospital with acute onset of nausea, vomiting abdominal pain and diarrhea for the last few days duration. While in the hospital she was subsequently diagnosed with Giardia started on Flagyl 500 mg 3 times daily.. She continues to remain symptomatic/intermittent nausea vomiting and hence scheduled for an upper endoscopy to evaluate further. PROCEDURE PERFORMED: Esophagogastroduodenoscopy with biopsy. PREOPERATIVE DIAGNOSIS: Acute onset of nausea vomiting for the last 1 week duration. IV sedation per anesthesia. PROCEDURE: After informed consent was obtained, the patient was brought into the endoscopy unit. IV sedation was administered by Anesthesia under continuous monitoring. Initially the Olympus GIF-140 video endoscope was inserted into the mouth. Esophagus intubated without any difficulty. It was gradually advanced into the stomach and duodenum and carefully examined. The bulb and the second part of the duodenum appeared normal. I see were done from the duodenum. The scope at this time was withdrawn to the stomach, adequately insufflated with air, and upon careful examination, mucosa of the antrum, diffuse gastritis and biopsies were done from this area. The body, cardia and the fundus appeared normal. The scope was then withdrawn into the esophagus. The GE junction was located at 39 cm from the incisors. Moderate size hiatal hernia noted. The esophagus appeared normal. There were no erosions or ulcerations seen and the patient tolerated the procedure well. IMPRESSION: 1. Moderate size hiatal hernia. 2. Diffuse antral gastritis. RECOMMENDATIONS: The findings of this examination were discussed with the patient well as her family. She was advised to follow with the biopsy results. Diet will be advanced as tolerated. Continue with Protonix and antiemetics as needed..
[2020-04-25 17:06] VITALS: TEMP 98.1
[2020-04-25 17:25] VITALS: BP 150/70; PULSE 73
== END 2020-04-25 20:17 | disposition home or self-care (01) | DRG 372 ==
LOC: EC 21:56 → OBSVTOIN 04-20 00:51 → 1SOBS 04-20 00:51 → 6PED 04-24 19:08
PROVIDERS: ADMIT Family Medicine; ATTEND Family Medicine
PROC: 0DB78ZX Excision of Stomach, Pylorus, Via Natural or Artificial Opening Endoscopic, Diagnostic (ICD-10-PCS; principal; 2020-04-25 13:20)
DX: A07.1 Giardiasis [lambliasis] (principal); J98.11 Atelectasis; Z68.41 Body mass index [BMI] 40.0-44.9, adult; H70.90 Unspecified mastoiditis, unspecified ear; K76.89 Other specified diseases of liver; E11.9 Type 2 diabetes mellitus without complications; E66.01 Morbid (severe) obesity due to excess calories; Z20.828 Contact with and (suspected) exposure to other viral communicable diseases; E83.42 Hypomagnesemia; E86.0 Dehydration; E87.6 Hypokalemia; F32.9 Major depressive disorder, single episode, unspecified; F41.9 Anxiety disorder, unspecified; H83.09 Labyrinthitis, unspecified ear; I10 Essential (primary) hypertension; J45.909 Unspecified asthma, uncomplicated; K29.70 Gastritis, unspecified, without bleeding; K44.9 Diaphragmatic hernia without obstruction or gangrene; M06.9 Rheumatoid arthritis, unspecified; R42 Dizziness and giddiness; Z79.84 Long term (current) use of oral hypoglycemic drugs; Z79.899 Other long term (current) drug therapy; Z88.0 Allergy status to penicillin; Z98.890 Other specified postprocedural states
CPT/HCPCS: 36415; 43239; 70480; 74022; 74178; 80048; 80053; 81003; 83036; 83605; 83630; 83735; 84132; 85025; 85027; 85610; 86140; 87045; 87046; 87324; 87328; 87329; 88305; 93005; 96361; 96374; 96375; 99285

== ENCOUNTER → 2020-05-20 | Outpatient (CLI) | payer MEDICARE, OTHER | END | disposition home or self-care (01) | LOC: LABWHC1 12:55 | PROVIDERS: ATTEND Family Medicine | DX: A07.1 Giardiasis [lambliasis] (principal) | CPT/HCPCS: 87329 ==

== ENCOUNTER 2020-08-08 14:03 | Emergency (ER) | payer MEDICARE, OTHER ==
[2020-08-08 14:27] VITALS: TEMP 98.9
[2020-08-08] MEDS ORDERED: SODIUM CHLORIDE 0.9% 500 ML 500 ML IV STA (15:18)
[2020-08-08] MEDS ORDERED: MORPHINE SULFATE 4 MG/ML SYRINGE IVP STA (15:22)
--- NOTE | 2020-08-08 15:25 | ED ---
General Adult HPI - General Chief complaint: Fall Stated complaint: fall Time Seen by Provider: 08/08/20 14:58 Source: patient Mode of arrival: wheelchair Limitations: no limitations - History of Present Illness Initial comments: 65-year-old female with a past medical history of asthma, diabetes mellitus, hypertension, rheumatoid arthritis presents to the emergency room for several complaints. Patient reports that she fell 4 days ago while in the bathtub. Since she has bruising to her right buttock and pain in her tailbone. States her left foot is also hurting her. Patient states she did hit her head, denies loss of consciousness or blood thinners. Patient reports that yesterday she started to have nausea vomiting diarrhea. States she was up all night with this. States the diarrhea appears black. Patient saw her primary care provider today who recommended she come to the emergency room. Patient denies fevers. Admits to generalized slight abdominal pain. Denies cough or shortness of breath.Patient has no other complaints at this time including shortness of breath, chest pain, headache, or visual changes. - Related Data Home Medications Medication Instructions Recorded Confirmed Cyanocobalamin (Vitamin B-12) 1,000 mcg PO DAILY 03/22/19 08/08/20 [Vitamin B-12] Ferrous Sulfate [Iron (65 MG 325 mg PO TID 03/22/19 08/08/20 Elemental)] Folic Acid 1 mg PO DAILY 03/22/19 08/08/20 Glimepiride [Amaryl] 1 mg PO BID 03/22/19 08/08/20 Magnesium Oxide [Magox 400] 400 mg PO DAILY 03/22/19 08/08/20 Montelukast [Singulair] 10 mg PO HS 03/22/19 08/08/20 Sertraline [Zoloft] 100 mg PO DAILY 03/22/19 08/08/20 amLODIPine [Norvasc] 5 mg PO DAILY 03/22/19 08/08/20 Ascorbic Acid [Vitamin C] 250 mg PO TID 04/11/20 08/08/20 Gabapentin 300 mg PO TID 04/11/20 08/08/20 metFORMIN HCL [Glucophage] 850 mg PO TID 04/11/20 08/08/20 metHOTREXate sodium [Methotrexate] 25 mg PO MO 04/11/20 08/08/20 predniSONE See Taper PO DAILY 08/08/20 08/08/20 Previous Rx's Medication Instructions Recorded Ondansetron [Zofran ODT] 4 mg PO Q8HR PRN #15 tab 08/08/20 Allergies Allergy/AdvReac Type Severity Reaction Status Date / Time Penicillins Allergy Unknown Verified 08/08/20 15:52 Review of Systems ROS Statement: Those systems with pertinent positive or pertinent negative responses have been documented in the HPI. ROS Other: All systems not noted in ROS Statement are negative. Past Medical History Past Medical History: Asthma, Diabetes Mellitus, Hypertension, Rheumatoid Arthritis (RA) History of Any Multi-Drug Resistant Organisms: None Reported Past Surgical History: Section, Orthopedic Surgery Additional Past Surgical History / Comment(s): carpel tunnel Past Anesthesia/Blood Transfusion Reactions: No Reported Reaction Past Psychological History: Anxiety, Depression Smoking Status: Never smoker Past Alcohol Use History: None Reported Past Drug Use History: None Reported General Exam - General Exam Comments Initial Comments: Left foot: Patient has medial deviation of the left second toe with erythema. DP pulse 2+. No tenderness in the rest of the left foot. Full range of motion of the left lower extremity, sensation intact. Patient has ecchymosis noted of the left buttock with tenderness. Limitations: no limitations General appearance: alert, in no apparent distress Head exam: Present: atraumatic Eye exam: Present: normal appearance, PERRL, EOMI. Absent: scleral icterus ENT exam: Present: normal exam, mucous membranes moist Neck exam: Present: normal inspection, full ROM. Absent: tenderness Respiratory exam: Present: normal lung sounds bilaterally. Absent: respiratory distress, wheezes Cardiovascular Exam: Present: regular rate, normal rhythm, normal heart sounds GI/Abdominal exam: Present: soft, tenderness (Minimal generalized abdominal tenderness.), normal bowel sounds. Absent: distended, guarding, rebound, rigid Back exam: Absent: CVA tenderness (R), CVA tenderness (L), vertebral tenderness Neurological exam: Present: alert Course Vital Signs 08/08/20 08/08/20 14:21 17:15 Temperature 98.9 F Pulse Rate 95 96 Respiratory 20 18 Rate Blood Pressure 100/60 155/87 O2 Sat by Pulse 99 96 Oximetry Medical Decision Making - Medical Decision Making Vitals are stable. Patient is well-appearing. She does have some bruising to her buttock. Diffuse scattered bruises on the legs however ambulatory without pain here. CBC obtained, unremarkable. Hemoglobin 15.5. White blood cell count was normal. CMP is unremarkable. Slight hypokalemia, treated orally. Patient does have hyperglycemia with a history of diabetes. She was given fluids. Urinalysis does show some mild evidence of dehydration. Rotavirus negative and occult blood is negative. CT brain shows no acute fracture or dislocation, no acute intracranial hemorrhage mass effect or midline shift. X- ray of the left toe shows an acute second toe proximal phalanx fracture. Checks x-ray reveals no acute process. No acute displaced fracture of the pelvis or sacrum/coccyx CT abdomen and pelvis showed a questionable nondisplaced fracture of the coccyx otherwise no acute abnormality. This is clinically consistent with patient's presentation. At this time patient was reevaluated after pain medication and had significant improvement in symptoms. Tolerating oral intake. Patient is comfortably discharged home to follow-up with her primary care provider tomorrow. She likely has a gastroenteritis. She will return here for any worsening symptoms. She'll be given Zofran for home as well as pain medication. I discussed this case with attending Dr. Jeffrey who agrees with this assessment and treatment plan. - Lab Data Result diagrams: 08/08/20 16:27 08/08/20 16:26 Lab Results 08/08/20 08/08/20 08/08/20 Range/Units 16:00 16:26 16:26 WBC (3.8-10.6) k/uL RBC (3.80-5.40) m/uL Hgb (11.4-16.0) gm/dL Hct (34.0-46.0) % MCV (80.0-100.0) fL MCH (25.0-35.0) pg MCHC (31.0-37.0) g/dL RDW (11.5-15.5) % Plt Count (150-450) k/uL MPV Neutrophils % % Lymphocytes % % Monocytes % % Eosinophils % % Basophils % % Neutrophils # (1.3-7.7) k/uL Lymphocytes # (1.0-4.8) k/uL Monocytes # (0-1.0) k/uL Eosinophils # (0-0.7) k/uL Basophils # (0-0.2) k/uL Anisocytosis Sodium 138 (137-145) mmol/L Potassium 3.3 L (3.5-5.1) mmol/L Chloride 97 L (98-107) mmol/L Carbon Dioxide 27 (22-30) mmol/L Anion Gap 14 mmol/L BUN 15 (7-17) mg/dL Creatinine 1.01 (0.52-1.04) mg/dL Est GFR (CKD-EPI)AfAm 67 (>60 ml/min/1.73 sqM) Est GFR (CKD-EPI)NonAf 58 (>60 ml/min/1.73 sqM) Glucose 259 H (74-99) mg/dL Plasma Lactic Acid Bill (0.7-2.0) mmol/L Calcium 10.0 (8.4-10.2) mg/dL Total Bilirubin 0.9 (0.2-1.3) mg/dL AST 37 H (14-36) U/L ALT 37 H (4-34) U/L Alkaline Phosphatase 100 (38-126) U/L NT-Pro-B Natriuret Pep pg/mL Total Protein 9.0 H (6.3-8.2) g/dL Albumin 5.1 H (3.5-5.0) g/dL Amylase 80 (30-110) U/L Lipase 52 (23-300) U/L Urine Color Yellow Urine Appearance Cloudy H (Clear) Urine pH 6.0 (5.0-8.0) Ur Specific Clements 1.020 (1.001-1.035) Urine Protein 3+ H (Negative) Urine Glucose (UA) 3+ H (Negative) Urine Ketones 1+ H (Negative) Urine Blood Small H (Negative) Urine Nitrite Negative (Negative) Urine Bilirubin 1+ H (Negative) Urine Urobilinogen 2.0 (<2.0) mg/dL Ur Leukocyte Esterase Negative (Negative) Urine RBC 4 (0-5) /hpf Urine WBC 9 H (0-5) /hpf Ur Squamous Epith Cells 6 H (0-4) /hpf Hyaline Casts 58 H (0-2) /lpf Urine Mucus Few H (None) /hpf Stool Occult Blood (Negative) Coronavirus (PCR) Not Detected (Not Detectd) 08/08/20 08/08/20 08/08/20 Range/Units 16:26 16:26 16:27 WBC 8.3 (3.8-10.6) k/uL RBC 5.57 H (3.80-5.40) m/uL Hgb 15.5 (11.4-16.0) gm/dL Hct 46.9 H (34.0-46.0) % MCV 84.2 (80.0-100.0) fL MCH 27.8 (25.0-35.0) pg MCHC 33.0 (31.0-37.0) g/dL RDW 16.6 H (11.5-15.5) % Plt Count 195 (150-450) k/uL MPV 7.8 Neutrophils % 82 % Lymphocytes % 11 % Monocytes % 5 % Eosinophils % 2 % Basophils % 0 % Neutrophils # 6.8 (1.3-7.7) k/uL Lymphocytes # 0.9 L (1.0-4.8) k/uL Monocytes # 0.4 (0-1.0) k/uL Eosinophils # 0.1 (0-0.7) k/uL Basophils # 0.0 (0-0.2) k/uL Anisocytosis Slight Sodium (137-145) mmol/L Potassium (3.5-5.1) mmol/L Chloride (98-107) mmol/L Carbon Dioxide (22-30) mmol/L Anion Gap mmol/L BUN (7-17) mg/dL Creatinine (0.52-1.04) mg/dL Est GFR (CKD-EPI)AfAm (>60 ml/min/1.73 sqM) Est GFR (CKD-EPI)NonAf (>60 ml/min/1.73 sqM) Glucose (74-99) mg/dL Plasma Lactic Acid Bill 2.0 (0.7-2.0) mmol/L Calcium (8.4-10.2) mg/dL Total Bilirubin (0.2-1.3) mg/dL AST (14-36) U/L ALT (4-34) U/L Alkaline Phosphatase (38-126) U/L NT-Pro-B Natriuret Pep 258 pg/mL Total Protein (6.3-8.2) g/dL Albumin (3.5-5.0) g/dL Amylase (30-110) U/L Lipase (23-300) U/L Urine Color Urine Appearance (Clear) Urine pH (5.0-8.0) Ur Specific Clements (1.001-1.035) Urine Protein (Negative) Urine Glucose (UA) (Negative) Urine Ketones (Negative) Urine Blood (Negative) Urine Nitrite (Negative) Urine Bilirubin (Negative) Urine Urobilinogen (<2.0) mg/dL Ur Leukocyte Esterase (Negative) Urine RBC (0-5) /hpf Urine WBC (0-5) /hpf Ur Squamous Epith Cells (0-4) /hpf Hyaline Casts (0-2) /lpf Urine Mucus (None) /hpf Stool Occult Blood (Negative) Coronavirus (PCR) (Not Detectd) 08/08/20 Range/Units 16:27 WBC (3.8-10.6) k/uL RBC (3.80-5.40) m/uL Hgb (11.4-16.0) gm/dL Hct (34.0-46.0) % MCV (80.0-100.0) fL MCH (25.0-35.0) pg MCHC (31.0-37.0) g/dL RDW (11.5-15.5) % Plt Count (150-450) k/uL MPV Neutrophils % % Lymphocytes % % Monocytes % % Eosinophils % % Basophils % % Neutrophils # (1.3-7.7) k/uL Lymphocytes # (1.0-4.8) k/uL Monocytes # (0-1.0) k/uL Eosinophils # (0-0.7) k/uL Basophils # (0-0.2) k/uL Anisocytosis Sodium (137-145) mmol/L Potassium (3.5-5.1) mmol/L Chloride (98-107) mmol/L Carbon Dioxide (22-30) mmol/L Anion Gap mmol/L BUN (7-17) mg/dL Creatinine (0.52-1.04) mg/dL Est GFR (CKD-EPI)AfAm (>60 ml/min/1.73 sqM) Est GFR (CKD-EPI)NonAf (>60 ml/min/1.73 sqM) Glucose (74-99) mg/dL Plasma Lactic Acid Bill (0.7-2.0) mmol/L Calcium (8.4-10.2) mg/dL Total Bilirubin (0.2-1.3) mg/dL AST (14-36) U/L ALT (4-34) U/L Alkaline Phosphatase (38-126) U/L NT-Pro-B Natriuret Pep pg/mL Total Protein (6.3-8.2) g/dL Albumin (3.5-5.0) g/dL Amylase (30-110) U/L Lipase (23-300) U/L Urine Color Urine Appearance (Clear) Urine pH (5.0-8.0) Ur Specific Clements (1.001-1.035) Urine Protein (Negative) Urine Glucose (UA) (Negative) Urine Ketones (Negative) Urine Blood (Negative) Urine Nitrite (Negative) Urine Bilirubin (Negative) Urine Urobilinogen (<2.0) mg/dL Ur Leukocyte Esterase (Negative) Urine RBC (0-5) /hpf Urine WBC (0-5) /hpf Ur Squamous Epith Cells (0-4) /hpf Hyaline Casts (0-2) /lpf Urine Mucus (None) /hpf Stool Occult Blood Negative (Negative) Coronavirus (PCR) (Not Detectd) Disposition Clinical Impression: Fall, Fracture of coccyx, Diarrhea, Toe fracture, left Disposition: HOME SELF-CARE Condition: Good Instructions (If sedation given, give patient instructions): Acute Diarrhea (ED), Coccyx Injury (ED) Additional Instructions: Please take Tylenol [address] while taking this as it may make you drowsy. Please take Zofran as needed for nausea. You can guilherme tape your toes together for comfort as you did break your second toe. Follow-up with Dr. Becker tomorrow morning. If you are having worsening symptoms make sure you return to the emergency room. Prescriptions: Ondansetron [Zofran ODT] 4 mg PO Q8HR PRN #15 tab PRN Reason: Nausea Is patient prescribed a controlled substance at d/c from ED?: No Referrals: Mariluz Becker MD [Primary Care Provider] - 1-2 days Time of Disposition: 18:58
[2020-08-08 16:31] LABS: Anisocytosis Slight; Basophils % (A) 0 %; Eosinophils # (A) 0.1 k/uL (0-0.7); Eosinophils % (A) 2 %; HCT 46.9 % (34.0-46.0); HGB 15.5 gm/dL (11.4-16.0); Lymphocytes # (A) 0.9 k/uL (1.0-4.8); Lymphocytes % (A) 11 %; MCH 27.8 pg (25.0-35.0); MCV 84.2 fL (80.0-100.0); Mean Platelet Volume 7.8; Monocytes # (A) 0.4 k/uL (0-1.0); Monocytes % (A) 5 %; Neutrophils # (A) 6.8 k/uL (1.3-7.7); Neutrophils % (A) 82 %; Platelet Count 195 k/uL (150-450); RBC 5.57 m/uL (3.80-5.40); RDW 16.6 % (11.5-15.5); WBC 8.3 k/uL (3.8-10.6)
[2020-08-08 16:40] LABS: Albumin 5.1 g/dL (3.5-5.0); Potassium 3.3 mmol/L (3.5-5.1); Total Bilirubin 0.9 mg/dL (0.2-1.3)
--- NOTE | 2020-08-08 16:57 | CT ---
EXAMINATION TYPE: CT brain cspine wo con DATE OF EXAM: 08/08/2020 COMPARISON: None available. HISTORY: Fall with head and neck pain. CT DLP: 1636.6 mGycm Automated exposure control for dose reduction was used. TECHNIQUE: CT scan of the head and cervical spine are performed without contrast. FINDINGS: There is no acute intracranial hemorrhage, mass effect, or midline shift identified. The ventricles and sulci are within normal limits in size. The globes are intact and the visualized sin uses are clear. Cervical spine is visualized in its entirety from C1 through upper thoracic levels and demonstrates s atisfactory alignment without evidence of acute fracture or dislocation. Prevertebral soft tissue ap pears within normal limits. The C1-C2 articulation is unremarkable. There is mild cervical spondylo sis. IMPRESSION: 1. There is no acute fracture or dislocation evident in the cervical spine. 2. No acute intracranial hemorrhage, mass effect, or midline shift is seen.
--- NOTE | 2020-08-08 16:58 | XR ---
EXAMINATION TYPE: XR chest 1V portable DATE OF EXAM: 08/08/2020 COMPARISON: NONE HISTORY: Pain status post fall. TECHNIQUE: Single frontal view of the chest is obtained. FINDINGS: There is no focal air space opacity, pleural effusion, or pneumothorax seen. The cardiac silhouette size is within normal limits. The osseous structures are without acute abnormality. Mode rate to severe degenerative changes of the left glenohumeral joint is seen. IMPRESSION: No acute process.
--- NOTE | 2020-08-08 17:02 | XR ---
RESULT: HISTORY: pain TECHNIQUE: 3 views of the left foot were obtained. COMPARISON: None. FINDINGS: There is acute minimally displaced fracture of the second toe proximal phalangeal shaft. There are sc attered moderate to severe degenerative changes most notable of the first MTP joint. Also degenerativ e medial subluxation of the first and second MTP joint. There is moderate plantar calcaneal enthesopa thy. Pes planus is seen. IMPRESSION: Acute second toe proximal phalanx fracture.
--- NOTE | 2020-08-08 17:08 | XR ---
RESULT: HISTORY: fall TECHNIQUE: AP view of pelvis. 4 views of the sacrum/coccyx. COMPARISON: None. FINDINGS: There is limited evaluation of the sacrum/coccyx due to overlapping soft tissues. There is no acute d isplaced fracture or dislocation of the pelvis, sacrum or coccyx. There are mild degenerative changes of the bilateral hips. IMPRESSION: No acute displaced fracture.
[2020-08-08 17:20] VITALS: RESP 18
[2020-08-08 17:36] LABS: Appearance,Urine Cloudy (Clear); Bilirubin,Urine 1+ (Negative); Blood,Urine Small (Negative); Color,Urine Yellow; Glucose,Urine (UA) 3+ (Negative); Hyaline Casts,Urine 58 /lpf (0-2); Ketones,Urine 1+ (Negative); Leukocyte Esterase,Urine Negative (Negative); Mucus,Urine Few /hpf; Nitrite,Urine Negative (Negative); Protein,Urine 3+ (Negative); RBC,Urine 4 /hpf (0-5); Squamous Epithelial Cell,Urine 6 /hpf (0-4); WBC,Urine 9 /hpf (0-5)
--- NOTE | 2020-08-08 18:19 | CT ---
EXAMINATION TYPE: CT abdomen pelvis w con DATE OF EXAM: 08/08/2020 COMPARISON: 04/20/2020. HISTORY: Pain after fall on back. CT DLP: 1399.5 mGycm Automated exposure control for dose reduction was used. TECHNIQUE: Helical acquisition of images was performed from the lung bases through the pelvis. CONTRAST: Performed without Oral Contrast and with IV Contrast, patient injected with 80 mL of Isovue 300. FINDINGS: LUNG BASES: No significant abnormality is appreciated. LIVER/GB: No acute abnormality is appreciated. 2 low attenuating hepatic foci compatible with benign cysts and measuring up to 1.8 cm. PANCREAS: No significant abnormality is seen. SPLEEN: No acute abnormality is seen. A 1.1 cm isoattenuating cystic structure within the posterior s pleen are without suspicious features, most compatible with benign etiology such as cyst. ADRENALS: No significant abnormality is seen. KIDNEYS: No significant abnormality is seen. A benign-appearing 2.2 cm left renal cyst is present. FREE AIR: No free air is visualized. RETROPERITONEAL ADENOPATHY: None visualized REPRODUCTIVE ORGANS: No significant abnormality is seen URINARY BLADDER: Partially decompressed with moderate wall thickening. PELVIC ADENOPATHY: None visualized. OSSEOUS STRUCTURES: Questionable nondisplaced fracture of the second coccyx. BOWEL: No significant abnormality is seen. OTHER: None. IMPRESSION: Questionable nondisplaced fracture of the coccyx. OTHERWISE NO ACUTE ABNORMALITY. CHRONIC AND INCIDENTAL FINDINGS ABOVE.
[2020-08-08] MEDS ORDERED: ACET/COD 300 MG/30 MG STARTER PACK 6 TAB BTL PO STA (19:00)
[2020-08-08] MEDS ORDERED: POTASSIUM CHLORIDE ER 20 MEQ TAB.ER PO STA (19:02)
[2020-08-08 19:33] VITALS: BP 153/77; PULSE 92
== END 2020-08-08 19:33 | disposition home or self-care (01) ==
LOC: EC 14:03 → SUPCPDRO 14:03 → EC 19:33
DX: S32.2XXA Fracture of coccyx, initial encounter for closed fracture (principal); S92.512A Displaced fracture of proximal phalanx of left lesser toe(s), initial encounter for closed fracture; R19.7 Diarrhea, unspecified; E11.65 Type 2 diabetes mellitus with hyperglycemia; J45.909 Unspecified asthma, uncomplicated; I10 Essential (primary) hypertension; M06.9 Rheumatoid arthritis, unspecified; F41.9 Anxiety disorder, unspecified; F32.9 Major depressive disorder, single episode, unspecified; Z79.52 Long term (current) use of systemic steroids; Z79.899 Other long term (current) drug therapy; Z79.84 Long term (current) use of oral hypoglycemic drugs; Z88.0 Allergy status to penicillin; W17.89XA Other fall from one level to another, initial encounter; Y93.89 Activity, other specified
CPT/HCPCS: 36415; 83880; 80053; 82150; 83605; 83690; 85025; 82272; 81001; 87635; 72170; 72220; 73630; 71045; 72125; 70450; 74177; 99284; 96374; J2270; Q9967

== ENCOUNTER 2020-11-25 15:16 | Inpatient (IN) | payer MEDICARE, OTHER ==
[2020-11-25] MEDS ORDERED: METOCLOPRAMIDE 5 MG/ML 2 ML VIAL IVP STA (16:06)
[2020-11-25] MEDS ORDERED: SODIUM CHLORIDE 0.9% 1,000 ML IV STA ×2 (16:06→19:54)
[2020-11-25] MEDS ORDERED: FAMOTIDINE 20 MG/2 ML VIAL IV STA (16:08)
--- NOTE | 2020-11-25 16:18 | ED ---
Nausea/Vomiting/Diarrhea HPI - General Source: patient, RN notes reviewed Mode of arrival: ambulatory Limitations: no limitations - History of Present Illness MD complaint: nausea, vomiting, diarrhea -: hour(s) (8) Description of Vomiting: bilious Description of Diarrhea: water Associated Abdominal Pain: Yes Location: RLQ, epigastric Radiation: none Severity: severe Severity scale (1-10): 8 Quality: other ("hurting") Consistency: constant Improves with: none Worsens with: other (Abdominal palpation) Associated Symptoms: nausea/vomiting <Gen Pradhan - Last Filed: 11/25/20 19:45> <Hubert Jeffrey - Last Filed: 11/25/20 20:12> - General Chief complaint: Nausea/Vomiting/Diarrhea Stated complaint: N/V/D Time Seen by Provider: 11/25/20 15:28 - History of Present Illness Initial comments: 65-year-old female presents to the emergency room with nausea vomiting and diarrhea that started at 8:00 this morning. Patient states that she has vomited twice here in the ER, but 10 times prior. has had at least 5 episodes of diarrhea at home. Patient denies hematochezia or hematemesis. States has not been able to eat at all today. Vomit is yellow in color and watery. Patient describes the pain as "hurting". Cramping to the right lower quadrant. Denies sick exposures, lives alone. Patient received the Covid vaccine in September. Patient has a history of asthma, diabetes, hypertension, rheumatoid arthritis. Patient denies any history of gallbladder disease. Patient is afebrile at 98.2, heart rate 86, blood pressure 151/81, oxygen saturation 98%. (Gen Pradhan) - Related Data Home Medications Medication Instructions Recorded Confirmed Cyanocobalamin (Vitamin B-12) 1,000 mcg PO DAILY 03/22/19 08/08/20 [Vitamin B-12] Ferrous Sulfate [Iron (65 MG 325 mg PO TID 03/22/19 08/08/20 Elemental)] Folic Acid 1 mg PO DAILY 03/22/19 08/08/20 Glimepiride [Amaryl] 1 mg PO BID 03/22/19 08/08/20 Magnesium Oxide [Magox 400] 400 mg PO DAILY 03/22/19 08/08/20 Montelukast [Singulair] 10 mg PO HS 03/22/19 08/08/20 Sertraline [Zoloft] 100 mg PO DAILY 03/22/19 08/08/20 amLODIPine [Norvasc] 5 mg PO DAILY 03/22/19 08/08/20 Ascorbic Acid [Vitamin C] 250 mg PO TID 04/11/20 08/08/20 Gabapentin 300 mg PO TID 04/11/20 08/08/20 metFORMIN HCL [Glucophage] 850 mg PO TID 04/11/20 08/08/20 metHOTREXate sodium [Methotrexate] 25 mg PO MO 04/11/20 08/08/20 predniSONE See Taper PO DAILY 08/08/20 08/08/20 Previous Rx's Medication Instructions Recorded Ondansetron [Zofran ODT] 4 mg PO Q8HR PRN #15 tab 08/08/20 Allergies Allergy/AdvReac Type Severity Reaction Status Date / Time Penicillins Allergy Unknown Verified 11/25/20 15:26 Review of Systems ROS Other: All systems not noted in ROS Statement are negative. <Gen Pradhan - Last Filed: 11/25/20 19:45> ROS Other: All systems not noted in ROS Statement are negative. <Hubert Jeffrey - Last Filed: 11/25/20 20:12> ROS Statement: Those systems with pertinent positive or pertinent negative responses have been documented in the HPI. Past Medical History Past Medical History: Asthma, Diabetes Mellitus, Hypertension, Rheumatoid Arthritis (RA) History of Any Multi-Drug Resistant Organisms: None Reported Past Surgical History: Section, Orthopedic Surgery Additional Past Surgical History / Comment(s): carpel tunnel Past Anesthesia/Blood Transfusion Reactions: No Reported Reaction Past Psychological History: Anxiety, Depression Smoking Status: Never smoker Past Alcohol Use History: None Reported Past Drug Use History: None Reported <Gen Pradhan - Last Filed: 11/25/20 19:45> General Exam Limitations: no limitations General appearance: alert, obese Head exam: Present: atraumatic, normocephalic, normal inspection Eye exam: Present: normal appearance, PERRL, EOMI. Absent: scleral icterus, conjunctival injection, periorbital swelling ENT exam: Present: normal exam, mucous membranes moist Neck exam: Present: normal inspection, full ROM. Absent: tenderness, meningismus, lymphadenopathy Respiratory exam: Present: normal lung sounds bilaterally, decreased breath sounds (Diminished at bases due to poor respiratory effort). Absent: respiratory distress, wheezes, rales, rhonchi, stridor Cardiovascular Exam: Present: regular rate, normal rhythm, normal heart sounds. Absent: systolic murmur, diastolic murmur, rubs, gallop, clicks, JVD GI/Abdominal exam: Present: soft, tenderness (Right lower quadrant), normal bowel sounds. Absent: distended, guarding, rebound, rigid, mass, pulsatile mass, hernia Rectal exam: Present: deferred Extremities exam: Present: normal inspection, full ROM, normal capillary refill. Absent: tenderness, pedal edema, joint swelling, calf tenderness Back exam: Present: normal inspection. Absent: full ROM, tenderness, CVA tenderness (R), CVA tenderness (L), paraspinal tenderness, vertebral tenderness, rash noted Neurological exam: Present: alert, oriented X3, CN II-XII intact Psychiatric exam: Present: normal affect, normal mood Skin exam: Present: warm, dry, intact, normal color. Absent: rash, cyanosis, diaphoretic, erythema, pallor, mottled <Gen Pradhan - Last Filed: 11/25/20 19:45> Course - Reevaluation(s) Time: 18:00 Time: 19:21 <Gen Pradhan - Last Filed: 11/25/20 19:45> Vital Signs 11/25/20 15:23 Temperature 98.2 F Pulse Rate 86 Respiratory 18 Rate Blood Pressure 151/81 O2 Sat by Pulse 98 Oximetry - Reevaluation(s) Reevaluation #1: 11/25/20 18:17 Phlebotomy at bedside, and labs (Gen Pradhan) Reevaluation #2: 11/25/20 19:21 Patient continues to have nausea. CT and labs within normal limits. Will check magnesium level of prolonged QTC of 0.559. Patient is on Mag-Ox. Troponin is negative at 0.012. Patient states if we can get her nausea and vomiting under control she be willing to be discharged home (Gen Pradhan) Medical Decision Making - Lab Data Result diagrams: 11/25/20 17:47 11/25/20 17:47 - EKG Data EKG shows normal: sinus rhythm, intervals (Ventricular rate of 85, TX interval of 0.176, QRS 0.156, prolonged QTC 0.559 in 03/2020 QTC 0.498) When compared to previous EKG there are: no significant change, other (Review by Dr. Jeffrey) <Gen Pradhan - Last Filed: 11/25/20 19:45> - Lab Data Result diagrams: 11/25/20 17:47 11/25/20 17:47 <Hubert Jeffrey - Last Filed: 11/25/20 20:12> - Medical Decision Making CT the abdomen and pelvis shows diverticulosis without diverticulitis, no other organomegaly no hydronephrosis, a normal appendix, no bowel obstruction. Patient has a hiatal hernia which she is aware of. WBC count 6.5, hemoglobin and hematocrit is 12 and 38 respectively, potassium is 3.5 and a troponin is negative at 0.012. EKG is sinus rhythm with a prolonged QTC 0.559, patient has a previous QTC of 0.498 in March 2020.. Magnesium is 1.4.. Lactic acid is negative at 1.0. Glucose is 219. Patient is a diabetic. Patient is afebrile and 98.2 blood pressures 151/81. Patient chart reviewed and shows in March 2020, Dr. Cheema seen patient for similar complaints of nausea vomiting diarrhea secondary to Giardia. Was scheduled for EGD at that time. Patient had biopsy 03/2020 showing benign esophageal mucosa. Pt signed out to Dr Jeffrey to follow at 1940. (Gen Pradhan) Patient care was signed out to me by Doctorate of nursing, nurse practitioner Gen Pradhan. Patient today presents with intractable nausea and vomiting. Her emesis is bilious. Laboratory evaluation showed mild leukocytosis likely secondary to stress. No concerns for infection given that she had a benign computed tomography scan of the abdomen and pelvis. Repeat EKG was performed showing confirmation of prolonged QT. Her magnesium is slightly low at 1.4. He is concerned that perhaps her prolonged QT is secondary to electrolyte derangement. Patient will be admitted for QT monitoring, IV hydration, nausea c ontrol. Case discussed with Dr. Love who is willing to accept patients care. Request that patient be tested for giardiasis. Cardiology will be consulted for prolonged qt. (Hubert Jeffrey) - Lab Data Lab Results 11/25/20 11/25/20 11/25/20 Range/Units 17:47 17:47 17:47 WBC 6.5 (3.8-10.6) k/uL RBC 4.51 (3.80-5.40) m/uL Hgb 12.6 (11.4-16.0) gm/dL Hct 38.9 (34.0-46.0) % MCV 86.2 (80.0-100.0) fL MCH 28.0 (25.0-35.0) pg MCHC 32.5 (31.0-37.0) g/dL RDW 16.1 H (11.5-15.5) % Plt Count 239 (150-450) k/uL MPV 9.7 Neutrophils % 81 % Lymphocytes % 10 % Monocytes % 7 % Eosinophils % 0 % Basophils % 0 % Neutrophils # 5.3 (1.3-7.7) k/uL Lymphocytes # 0.7 L (1.0-4.8) k/uL Monocytes # 0.5 (0-1.0) k/uL Eosinophils # 0.0 (0-0.7) k/uL Basophils # 0.0 (0-0.2) k/uL Anisocytosis Slight PT 10.5 (9.0-12.0) sec INR 1.0 (<1.2) APTT 21.4 L (22.0-30.0) sec Sodium 139 (137-145) mmol/L Potassium 3.5 (3.5-5.1) mmol/L Chloride 101 (98-107) mmol/L Carbon Dioxide 24 (22-30) mmol/L Anion Gap 14 mmol/L BUN 11 (7-17) mg/dL Creatinine 0.44 L (0.52-1.04) mg/dL Est GFR (CKD-EPI)AfAm >90 (>60 ml/min/1.73 sqM) Est GFR (CKD-EPI)NonAf >90 (>60 ml/min/1.73 sqM) Glucose 219 H (74-99) mg/dL Plasma Lactic Acid Bill (0.7-2.0) mmol/L Calcium 10.0 (8.4-10.2) mg/dL Magnesium (1.6-2.3) mg/dL Total Bilirubin 0.5 (0.2-1.3) mg/dL AST 30 (14-36) U/L ALT 19 (4-34) U/L Alkaline Phosphatase 92 (38-126) U/L Troponin I (0.000-0.034) ng/mL Total Protein 8.0 (6.3-8.2) g/dL Albumin 5.0 (3.5-5.0) g/dL Amylase 57 (30-110) U/L Lipase 40 (23-300) U/L 11/25/20 11/25/20 11/25/20 Range/Units 17:47 17:47 17:47 WBC (3.8-10.6) k/uL RBC (3.80-5.40) m/uL Hgb (11.4-16.0) gm/dL Hct (34.0-46.0) % MCV (80.0-100.0) fL MCH (25.0-35.0) pg MCHC (31.0-37.0) g/dL RDW (11.5-15.5) % Plt Count (150-450) k/uL MPV Neutrophils % % Lymphocytes % % Monocytes % % Eosinophils % % Basophils % % Neutrophils # (1.3-7.7) k/uL Lymphocytes # (1.0-4.8) k/uL Monocytes # (0-1.0) k/uL Eosinophils # (0-0.7) k/uL Basophils # (0-0.2) k/uL Anisocytosis PT (9.0-12.0) sec INR (<1.2) APTT (22.0-30.0) sec Sodium (137-145) mmol/L Potassium (3.5-5.1) mmol/L Chloride (98-107) mmol/L Carbon Dioxide (22-30) mmol/L Anion Gap mmol/L BUN (7-17) mg/dL Creatinine (0.52-1.04) mg/dL Est GFR (CKD-EPI)AfAm (>60 ml/min/1.73 sqM) Est GFR (CKD-EPI)NonAf (>60 ml/min/1.73 sqM) Glucose (74-99) mg/dL Plasma Lactic Acid Bill 1.0 (0.7-2.0) mmol/L Calcium (8.4-10.2) mg/dL Magnesium 1.4 L (1.6-2.3) mg/dL Total Bilirubin (0.2-1.3) mg/dL AST (14-36) U/L ALT (4-34) U/L Alkaline Phosphatase (38-126) U/L Troponin I <0.012 (0.000-0.034) ng/mL Total Protein (6.3-8.2) g/dL Albumin (3.5-5.0) g/dL Amylase (30-110) U/L Lipase (23-300) U/L Disposition <Gen Pradhan - Last Filed: 11/25/20 19:45> <Hubert Jeffrey - Last Filed: 11/25/20 20:12> Clinical Impression: Intractable nausea and vomiting, Prolonged QT interval Clinical Impression: (Ruled Out): Viral gastroenteritis Disposition: ADMITTED IP TO THIS HOSP Condition: Fair Referrals: Mariluz Becker MD [Primary Care Provider] - 1-2 days
[2020-11-25 18:21] LABS: ALT 19 U/L (4-34); AST 30 U/L (14-36); African American GFR (CKD) >90 (>60 ml/min/1.73 sqM); Alkaline Phosphatase 92 U/L (38-126); Amylase 57 U/L (30-110); Anion Gap 14 mmol/L; Blood Urea Nitrogen 11 mg/dL (7-17); Carbon Dioxide 24 mmol/L (22-30); Chloride 101 mmol/L (98-107); Glucose 219 mg/dL (74-99); Lipase 40 U/L (23-300); Non-African American GFR(CKD) >90 (>60 ml/min/1.73 sqM); Potassium 3.5 mmol/L (3.5-5.1); Sodium 139 mmol/L (137-145); Total Bilirubin 0.5 mg/dL (0.2-1.3)
[2020-11-25 18:26] LABS: Partial Thromboplastin Time 21.4 sec (22.0-30.0); Prothrombin Time 10.5 sec (9.0-12.0)
[2020-11-25 18:27] LABS: Anisocytosis Slight; Basophils % (A) 0 %; Eosinophils % (A) 0 %; HCT 38.9 % (34.0-46.0); HGB 12.6 gm/dL (11.4-16.0); Lymphocytes # (A) 0.7 k/uL (1.0-4.8); Lymphocytes % (A) 10 %; MCHC 32.5 g/dL (31.0-37.0); MCV 86.2 fL (80.0-100.0); Mean Platelet Volume 9.7; Monocytes # (A) 0.5 k/uL (0-1.0); Monocytes % (A) 7 %; Neutrophils # (A) 5.3 k/uL (1.3-7.7); Neutrophils % (A) 81 %; Platelet Count 239 k/uL (150-450); RBC 4.51 m/uL (3.80-5.40); RDW 16.1 % (11.5-15.5); WBC 6.5 k/uL (3.8-10.6)
--- NOTE | 2020-11-25 18:38 | CT ---
EXAMINATION TYPE: CT abdomen pelvis wo con DATE OF EXAM: 11/25/2020 COMPARISON: 08/08/2020 HISTORY: Abdominal pain, nausea, vomiting, and diarrhea. CT DLP: 928.6 mGycm Automated exposure control for dose reduction was used. TECHNIQUE: Helical acquisition of images was performed from the lung bases through the pelvis. CONTRAST: Performed without Oral Contrast and without intravenous contrast. Lack of contrast limits evaluation of the abdominal pelvic viscera and the vasculature. FINDINGS: LUNG BASES: Normal. LIVER: Hepatic cysts. BILIARY SYSTEM: Normal. PANCREAS: Normal. SPLEEN: Normal. ADRENALS: Normal. KIDNEYS: No hydronephrosis or nephrolithiasis. Redemonstrated left renal cyst. BOWEL: Small to moderate hiatal hernia. No evidence of bowel obstruction. Colonic diverticulosis. No acute diverticulitis. Normal appendix. PERITONEUM: No pneumoperitoneum. No free fluid. Redemonstrated round benign-appearing calcifications near the diaphragmatic crura and left upper quadrant mesentery. LYMPH NODES: Nonenlarged prominent inguinal and external iliac lymph nodes redemonstrated. PELVIS: Normal urinary bladder. Status post hysterectomy. VASCULATURE: No abdominal aortic aneurysm. MUSCULOSKELETAL: Degenerative changes of the spine.. 1 anterolisthesis of L4 on L5. IMPRESSION: 1. Small to moderate hiatal hernia. 2. Colonic diverticulosis. No acute diverticulitis.
[2020-11-25] MEDS ORDERED: TRIMETHOBENZAMIDE 100 MG/ML 2 ML VIAL IM STA (19:15)
[2020-11-25] MEDS ORDERED: NALOXONE 0.4 MG/ML 1 ML VIAL IV PRN (20:09)
[2020-11-25] MEDS: MAGNESIUM SULFATE-D5W PMX 1 GM in DEXTROSE/WATER 1 100ML.BAG IVPB SCH ×2 (20:17→22:38)
[2020-11-25 23:18] LABS: Appearance,Urine Clear (Clear); Bilirubin,Urine Negative (Negative); Blood,Urine Negative (Negative); Color,Urine Light Yellow; Glucose,Urine (UA) 3+ (Negative); Hyaline Casts,Urine 1 /lpf (0-2); Leukocyte Esterase,Urine Negative (Negative); Mucus,Urine Rare /hpf; Nitrite,Urine Negative (Negative); PH, Urine 5.5 (5.0-8.0); Protein,Urine 1+ (Negative); Specific Gravity,Urine 1.018 (1.001-1.035); Squamous Epithelial Cell,Urine <1 /hpf (0-4); Urobilinogen,Urine <2.0 mg/dL (<2.0); WBC,Urine <1 /hpf (0-5)
[2020-11-25 23:36] LABS: Ketones,Urine 4+ (Negative)
[2020-11-26] MEDS ORDERED: ONDANSETRON 4 MG/2 ML VIAL IVP PRN (08:57)
[2020-11-26] MEDS ORDERED: SERTRALINE 100 MG TAB PO SCH (09:00)
[2020-11-26 09:07] LABS: Glucose,Whole Blood 158 mg/dL (75-99)
[2020-11-26] MEDS: amLODIPine 5 MG TAB PO SCH (09:49)
[2020-11-26] MEDS: MAGNESIUM OXIDE 400 MG TAB PO SCH (09:49)
[2020-11-26] MEDS: GABAPENTIN 400 MG CAP PO SCH ×3 (09:49→21:44)
[2020-11-26] MEDS: HYDROcodone/APAP 5-325MG 1 EACH TAB PO SCH ×3 (09:49→21:45)
[2020-11-26] MEDS: GLIMEPIRIDE 1 MG TAB PO SCH ×2 (09:49→21:44)
[2020-11-26] MEDS: HYOSCYAMINE SULFATE 0.125 MG TAB PO SCH ×4 (09:49→21:44)
[2020-11-26 11:07] LABS: Glucose,Whole Blood 142 mg/dL (75-99)
[2020-11-26 11:22] LABS: African American GFR (CKD) >90 (>60 ml/min/1.73 sqM); Anion Gap 10 mmol/L; Blood Urea Nitrogen 11 mg/dL (7-17); C Reactive Protein <0.5 mg/dL (<1.0); Calcium 9.7 mg/dL (8.4-10.2); Carbon Dioxide 28 mmol/L (22-30); Chloride 101 mmol/L (98-107); Glucose 154 mg/dL (74-99); Non-African American GFR(CKD) >90 (>60 ml/min/1.73 sqM); Potassium 3.5 mmol/L (3.5-5.1); Sodium 139 mmol/L (137-145)
--- NOTE | 2020-11-26 13:13 | P.CRDCN ---
History of Present Illness History of present illness: HISTORY OF PRESENTING ILLNESS This is a pleasant 65-year-old -Al[place]ian female past medical history significant for hypertension, diabetes mellitus, asthma and rheumatoid arthritis. She denies prior history of coronary artery disease and does not follow in the office with a associate professor of theology. We have been asked to see in consultation for prolonged QT. She presented to the hospital with symptoms of nausea, vomiting and diarrhea for the previous 24 hours. She denies symptoms of chest pain, shortness of breath, dizziness or palpitations. She has no history of syncope. EKG on arrival reveals sinus mechanism heart rate of 85 with right bundle branch block and QTC of [address] of abdomen and pelvis reveals a small to moderate hiatal hernia with colonic diverticulosis and no acute diverticulitis. Laboratory data reviewed, CBC unremarkable, sodium 139, potassium 3.5, creatinine 0.51, magnesium 1.4, troponin negative 1. REVIEW OF SYSTEMS At the time of my exam: CONSTITUTIONAL: Denies fever or chills. CARDIOVASCULAR: Denies chest pain, shortness of breath, orthopnea, PND or palpitations. RESPIRATORY: Denies cough. GASTROINTESTINAL: Complains of abdominal pain, nausea, vomiting and diarrhea. Denies constipation. MUSCULOSKELETAL: Denies myalgias. NEUROLOGIC: Denies numbness, tingling, headacbe or weakness. ENDOCRINE: Denies fatigue, weight change, polydipsia or polyurina. GENITOURINARY: Denies burning, hematuria or urgency with micturation. HEMATOLOGIC: Denies history of anemia or bleeding. PHYSICAL EXAMINATION Blood pressure 164/85 heart rate 107 afebrile and maintaining oxygen saturation on room air. CONSTITUTIONAL: No apparent distress. HEENT: Head is normocephalic. Pupils are equal, round. Sclerae anicteric. Mucous membranes of the mouth are moist. No JVD. No carotid bruit. CHEST EXAMINATION: Lungs are clear to auscultation. No chest wall tenderness is noted on palpation or with deep breathing. HEART EXAMINATION: Regular rate and rhythm. S1, S2 heard. No murmurs, gallops or rub. ABDOMEN: Soft, nontender. Positive bowel sounds. EXTREMITIES: 2+ peripheral pulses, no lower extremity edema and no calf tenderness. NEUROLOGIC EXAMINATION: Patient is awake, alert and oriented x3. ASSESSMENT Prolonged QT interval Hypomagnesemia Vomiting and diarrhea Dehydration Hypertension Diabetes mellitus PLAN Avoid QT prolonging medications such as zoloft and zofran. Apply shelter monitor. Repeat EKG in the morning. Obtain 2D echocardiogram and doppler study to assess cardiac structure and function. Given her history of diabetes mellitus, recommend initiation of atorvastatin 40 mg daily and lisinopril 5 mg daily. Further recommendations to follow based on clinical course. Thank you kindly for this consultation. Nurse Practitioner note has been reviewed, I agree with a documented findings and plan of care. Patient was seen and examined. Past Medical History Past Medical History: Asthma, Diabetes Mellitus, Hypertension, Rheumatoid Arthritis (RA) History of Any Multi-Drug Resistant Organisms: None Reported Past Surgical History: Section, Orthopedic Surgery Additional Past Surgical History / Comment(s): carpel tunnel Past Anesthesia/Blood Transfusion Reactions: No Reported Reaction Past Psychological History: Anxiety, Depression Smoking Status: Never smoker Past Alcohol Use History: None Reported Past Drug Use History: None Reported - Past Family History Mother Family Medical History: CVA/TIA, Dementia Medications and Allergies Home Medications Medication Instructions Recorded Confirmed Type Cyanocobalamin (Vitamin B-12) 1,000 mcg PO DAILY 03/22/19 11/25/20 History [Vitamin B-12] Ferrous Sulfate [Iron (65 MG 325 mg PO TID 03/22/19 11/25/20 History Elemental)] Folic Acid 1 mg PO DAILY 03/22/19 11/25/20 History Glimepiride [Amaryl] 1 mg PO BID 03/22/19 11/25/20 History Magnesium Oxide [Magox 400] 400 mg PO DAILY 03/22/19 11/25/20 History Montelukast [Singulair] 10 mg PO HS 03/22/19 11/25/20 History Sertraline [Zoloft] 100 mg PO DAILY 03/22/19 11/25/20 History amLODIPine [Norvasc] 5 mg PO DAILY 03/22/19 11/25/20 History Ascorbic Acid [Vitamin C] 250 mg PO TID 04/11/20 11/25/20 History metFORMIN HCL [Glucophage] 850 mg PO TID 04/11/20 11/25/20 History Gabapentin [Neurontin] 400 mg PO TID 11/25/20 11/25/20 History HYDROcodone/APAP 5-325MG [[place] 1 tab PO TID 11/25/20 11/25/20 History 5-325] Allergies Allergy/AdvReac Type Severity Reaction Status Date / Time Penicillins Allergy Unknown Verified 11/25/20 21:12 Physical Exam Vitals: Vital Signs Temp Pulse Pulse Resp BP BP Pulse Ox 11/26/20 09:20 98.8 F 107 H 19 164/85 97 11/26/20 07:55 101 H 18 159/83 94 L 11/25/20 23:04 88 16 177/76 97 11/25/20 15:23 98.2 F 86 18 151/81 98 Intake and Output 11/25/20 11/26/20 11/26/20 22:59 06:59 14:59 Other: Weight 98.43 kg Results 11/25/20 17:47 11/26/20 10:31 Cardiac Enzymes 11/25/20 11/25/20 Range/Units 17:47 17:47 AST 30 (14-36) U/L Troponin I <0.012 (0.000-0.034) ng/mL Coagulation 11/25/20 Range/Units 17:47 PT 10.5 (9.0-12.0) sec APTT 21.4 L (22.0-30.0) sec CBC 11/25/20 Range/Units 17:47 WBC 6.5 (3.8-10.6) k/uL RBC 4.51 (3.80-5.40) m/uL Hgb 12.6 (11.4-16.0) gm/dL Hct 38.9 (34.0-46.0) % Plt Count 239 (150-450) k/uL Comprehensive Metabolic Panel 11/25/20 11/26/20 Range/Units 17:47 10:31 Sodium 139 139 (137-145) mmol/L Potassium 3.5 3.5 (3.5-5.1) mmol/L Chloride 101 101 (98-107) mmol/L Carbon Dioxide 24 28 (22-30) mmol/L BUN 11 11 (7-17) mg/dL Creatinine 0.44 L 0.51 L (0.52-1.04) mg/dL Glucose 219 H 154 H (74-99) mg/dL Calcium 10.0 9.7 (8.4-10.2) mg/dL AST 30 (14-36) U/L ALT 19 (4-34) U/L Alkaline Phosphatase 92 (38-126) U/L Total Protein 8.0 (6.3-8.2) g/dL Albumin 5.0 (3.5-5.0) g/dL Current Medications Generic Name Dose Route Start Last Admin Trade Name Freq PRN Reason Stop Dose Admin Hydrocodone Bitart/Acetaminophen 1 each 11/26/20 09:00 11/26/20 09:49 Hydrocodone/Apap 5-325mg 1 Each Tab PO Not Given TID [facility] Amlodipine Besylate 5 mg 11/26/20 09:00 11/26/20 09:49 Amlodipine 5 Mg Tab PO Not Given DAILY ETIENNE Gabapentin 400 mg 11/26/20 09:00 11/26/20 09:49 Gabapentin 400 Mg Cap PO Not Given TID ETIENNE Glimepiride 1 mg 11/26/20 09:00 11/26/20 09:49 Glimepiride 1 Mg Tab PO Not Given BID ETIENNE Hyoscyamine 0.125 mg 11/26/20 09:00 11/26/20 09:49 Hyoscyamine Sulfate 0.125 Mg Tab PO Not Given Q4H [facility] Magnesium Oxide 400 mg 11/26/20 09:00 11/26/20 09:49 Magnesium Oxide 400 Mg Tab PO Not Given DAILY [facility] Montelukast Sodium 10 mg 11/26/20 21:00 Montelukast 10 Mg Tab PO HS [facility] Naloxone HCl 0.2 mg 11/25/20 20:09 Naloxone 0.4 Mg/Ml 1 Ml Vial IV Q2M PRN Opioid Reversal Intake and Output 11/25/20 11/26/20 11/26/20 22:59 06:59 14:59 Other: Weight 98.43 kg 11/25/20 17:47 11/26/20 10:31
[2020-11-26] MEDS: lisinopriL 5 MG TAB PO SCH (13:47)
[2020-11-26 16:45] LABS: Glucose,Whole Blood 161 mg/dL (75-99)
--- NOTE | 2020-11-26 17:25 | ECHOF ---
Referral Reason:prolonged QT MEASUREMENTS -------- HEIGHT: 167.6 cm WEIGHT: 98.4 kg BP: 164/85 RVIDd: 4.2 cm (< 3.3) IVSd: 1.4 cm (0.6 - 1.1) LVIDd: 4.0 cm (3.9 - 5.3) LVPWd: 1.7 cm (0.6 - 1.1) IVSs: 1.8 cm LVIDs: 2.2 cm LVPWs: 1.7 cm LAESV Index (A-L): 29.16 ml/m MV EXCURSION: 18.162 mm (> 18.000) MV EF SLOPE: 62 mm/s (70 - 150) EPSS: 0.8 cm MV E Janak: 0.42 m/s MV DecT: 193 ms MV A Janak: 1.06 m/s MV E/A Ratio: 0.39 RAP: 5.00 mmHg RVSP: 15.95 mmHg FINDINGS -------- This was a technically adequate study. The left ventricular size is normal. There is moderate concentric left ventricular hypertrophy. O verall left ventricular systolic function is normal with, an EF between 55 - 60 %. The right ventricle is moderately enlarged. LA is midly dilated 29-33ml/m2. The right atrial size is normal. Interatrial and interventricular septum intact. There is no evidence of aortic regurgitation. There is no evidence of aortic stenosis. No mitral regurgitation. Mild tricuspid regurgitation present. There is no evidence of pulmonary hypertension. The right v entricular systolic pressure, as measured by Doppler, is 15.95mmHg. There is no pulmonic regurgitation present. The aortic root size is normal. IVC Not well visulized. There is no pericardial effusion. CONCLUSIONS -------- 1. The left ventricular size is normal. 2. There is moderate concentric left ventricular hypertrophy. 3. Overall left ventricular systolic function is normal with, an EF between 55 - 60 %. 4. The right ventricle is moderately enlarged. 5. LA is midly dilated 29-33ml/m2. 6. Mild tricuspid regurgitation present. CUTTER OPERATOR HELPER: Mamta Arellano [facility]
[2020-11-26 21:33] LABS: Glucose,Whole Blood 157 mg/dL (75-99)
[2020-11-26] MEDS: MONTELUKAST 10 MG TAB PO SCH (21:44)
[2020-11-26] MEDS: ATORVASTATIN 40 MG TAB PO SCH (21:44)
--- NOTE | 2020-11-26 22:51 | P.HPIM ---
History of Present Illness H&P Date: 11/26/20 Eileen Ribeiro is a 65 yo F with PMH of T2DM, RA who presented to the ED complaining of 1 day history of severe nausea, vomiting and diarrhea. She complains that she experience nausea with multiple episodes of vomiting throughout the day as well as diarrhea. She denies bloody stool, fever, chills or malaise. She denies any worsening of her symptoms with food. On presentation vitals stable, labs signifi cant for WBC 6.5k, CRP <0.5, lipase, amylase wnl. CT abd/pelvis showing diverticulosis without diverticulitis. Review of Systems All systems: negative Constitutional: Reports malaise, Reports weakness, Denies chills, Denies fever Eyes: denies blurred vision, denies pain Ears, nose, mouth and throat: Denies headache, Denies sore throat Cardiovascular: Denies chest pain, Denies shortness of breath Respiratory: Denies cough Gastrointestinal: Reports abdominal pain, Reports nausea, Reports vomiting, Denies diarrhea Genitourinary: Denies dysuria, Denies hematuria Musculoskeletal: Denies myalgias Integumentary: Denies pruritus, Denies rash Neurological: Denies numbness, Denies weakness Psychiatric: Denies anxiety, Denies depression Endocrine: Denies fatigue, Denies weight change Past Medical History Past Medical History: Asthma, Diabetes Mellitus, Hypertension, Rheumatoid Arthritis (RA) History of Any Multi-Drug Resistant Organisms: None Reported Past Surgical History: Section, Orthopedic Surgery Additional Past Surgical History / Comment(s): carpel tunnel Past Anesthesia/Blood Transfusion Reactions: No Reported Reaction Past Psychological History: Anxiety, Depression Smoking Status: Never smoker Past Alcohol Use History: None Reported Past Drug Use History: None Reported - Past Family History Mother Family Medical History: CVA/TIA, Dementia Medications and Allergies Home Medications Medication Instructions Recorded Confirmed Type Cyanocobalamin (Vitamin B-12) 1,000 mcg PO DAILY 03/22/19 11/25/20 History [Vitamin B-12] Ferrous Sulfate [Iron (65 MG 325 mg PO TID 03/22/19 11/25/20 History Elemental)] Folic Acid 1 mg PO DAILY 03/22/19 11/25/20 History Glimepiride [Amaryl] 1 mg PO BID 03/22/19 11/25/20 History Magnesium Oxide [Magox 400] 400 mg PO DAILY 03/22/19 11/25/20 History Montelukast [Singulair] 10 mg PO HS 03/22/19 11/25/20 History Sertraline [Zoloft] 100 mg PO DAILY 03/22/19 11/25/20 History amLODIPine [Norvasc] 5 mg PO DAILY 03/22/19 11/25/20 History Ascorbic Acid [Vitamin C] 250 mg PO TID 04/11/20 11/25/20 History metFORMIN HCL [Glucophage] 850 mg PO TID 04/11/20 11/25/20 History Gabapentin [Neurontin] 400 mg PO TID 11/25/20 11/25/20 History HYDROcodone/APAP 5-325MG [[place] 1 tab PO TID 11/25/20 11/25/20 History 5-325] Allergies Allergy/AdvReac Type Severity Reaction Status Date / Time Penicillins Allergy Unknown Verified 11/25/20 21:12 Physical Exam Vitals: Vital Signs Temp Pulse Pulse Resp BP BP Pulse Ox 11/26/20 20:00 98.3 F 87 18 158/86 96 11/26/20 14:00 98.4 F 80 18 150/82 93 L 11/26/20 09:20 98.8 F 107 H 19 164/85 97 11/26/20 07:55 101 H 18 159/83 94 L 11/25/20 23:04 88 16 177/76 97 Intake and Output 11/26/20 11/26/20 11/26/20 06:59 14:59 22:59 Intake Total 0 Balance 0 Intake: Oral 0 Other: # Voids 3 General: well nourished, well developed, NAD. Vitals reviewed Eyes: PERRL, EOMI, conjunctiva normal HENT: normocephalic, mucus membranes moist Neck: supple, no JVD Lungs: normal respiratory effort, no wheezes or rales CV: Regular rate and rhythm, no murmur. Peripheral pulses 2+ Abdomen: soft, nondistended, no organomegaly. Tenderness diffuse Lymph: no cervical or axillary LAD Skin: warm and dry. Neuro: A&Ox3, normal mood and affect Results CBC & Chem 7: 11/25/20 17:47 11/26/20 10:31 Labs: Abnormal Lab Results - Last 24 Hours (Table) 11/25/20 11/26/20 11/26/20 Range/Units 23:04 09:06 10:31 Creatinine 0.51 L (0.52-1.04) mg/dL Glucose 154 H (74-99) mg/dL POC Glucose (mg/dL) 158 H (75-99) mg/dL Urine Protein 1+ H (Negative) Urine Glucose (UA) 3+ H (Negative) Urine Ketones 4+ H (Negative) Urine Mucus Rare H (None) /hpf 11/26/20 11/26/20 11/26/20 Range/Units 11:06 16:43 21:32 Creatinine (0.52-1.04) mg/dL Glucose (74-99) mg/dL POC Glucose (mg/dL) 142 H 161 H 157 H (75-99) mg/dL Urine Protein (Negative) Urine Glucose (UA) (Negative) Urine Ketones (Negative) Urine Mucus (None) /hpf Thrombosis Risk Factor Assmnt - Choose All That Apply Any of the Below Risk Factors Present?: Yes Each Factor Represents 1 point: Obesity (BMI >25) Other Risk Factors: Yes Each Risk Factor Represents 2 Points: Age 61-74 years Other congenital or acquired thrombophilia - If yes, enter type in comment: No Thrombosis Risk Factor Assessment Total Risk Factor Score: 3 Thrombosis Risk Factor Assessment Level: Moderate Risk Assessment and Plan Plan: 1. Abdominal pain. Suspect functional, check stool studies, consider HIDA scan. Cardiology consult for further evaluation 2. T2DM. Continue home medications 3. RA. Continue home [place]
[2020-11-27] MEDS: HYOSCYAMINE SULFATE 0.125 MG TAB PO SCH ×6 (00:55→21:58)
[2020-11-27 06:57] LABS: Glucose,Whole Blood 142 mg/dL (75-99)
[2020-11-27] MEDS: HYDROcodone/APAP 5-325MG 1 EACH TAB PO SCH ×3 (08:26→21:59)
[2020-11-27] MEDS: amLODIPine 5 MG TAB PO SCH (08:26)
[2020-11-27] MEDS: GABAPENTIN 400 MG CAP PO SCH ×3 (08:26→21:58)
[2020-11-27] MEDS: SENNOSIDES 8.6 MG TAB PO SCH (08:26)
[2020-11-27] MEDS: lisinopriL 5 MG TAB PO SCH (08:26)
[2020-11-27] MEDS: MAGNESIUM OXIDE 400 MG TAB PO SCH (08:26)
[2020-11-27] MEDS: GLIMEPIRIDE 1 MG TAB PO SCH ×2 (08:27→21:59)
[2020-11-27 11:34] LABS: Glucose,Whole Blood 124 mg/dL (75-99)
[2020-11-27] MEDS: polyethylene glycoL 3350 17 GM POWD.PACK PO SCH ×2 (11:49→21:58)
[2020-11-27] MEDS: PANTOPRAZOLE 40 MG/10 ML VIAL IVP SCH ×2 (11:49→21:59)
--- NOTE | 2020-11-27 12:32 | P.PN ---
Subjective HISTORY OF PRESENTING ILLNESS This is a pleasant 65-year-old -[place] female past medical history significant for hypertension, diabetes mellitus, asthma and rheumatoid arthritis. 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 We have been asked to see in consultation for prolonged QT. She presented to the hospital with symptoms of nausea, vomiting and diarrhea for the previous 24 hours. She denies symptoms of chest pain, shortness of breath, dizziness or palpitations. She has no history of syncope. EKG on arrival reveals sinus mechanism heart rate of 85 with right bundle branch block and QTC of [address] of abdomen and pelvis reveals a small to moderate hiatal hernia with colonic diverticulosis and no acute diverticulitis. Laboratory data reviewed, CBC unremarkable, sodium 139, potassium 3.5, creatinine 0.51, magnesium 1.4, troponin negative 1. 11/27/2020 Patient seen and examined laying flat resting comfortably in bed in no acute distress. Repeat EKG this morning reveals ongoing QT prolongation greater than 500 ms. The patient denies symptoms of dizziness or syncope. She did have an episode this morning of discomfort in the chest described as sharp sensation that was exacerbated by deep breathing. Echocardiogram obtained revealed preserved LV systolic function with EF 55-60% with mild TR. PHYSICAL EXAMINATION CONSTITUTIONAL: No apparent distress. HEENT: Head is normocephalic. Pupils are equal, round. Sclerae anicteric. Mucous membranes of the mouth are moist. No JVD. No carotid bruit. CHEST EXAMINATION: Lungs are clear to auscultation. No chest wall tenderness is noted on palpation or with deep breathing. HEART EXAMINATION: Regular rate and rhythm. S1, S2 heard. No murmurs, gallops or rub. EXTREMITIES: 2+ peripheral pulses, no lower extremity edema and no calf tenderness. ASSESSMENT Prolonged QT interval Hypomagnesemia Vomiting and diarrhea Dehydration Hypertension Diabetes mellitus PLAN Avoid QT prolonging medications such as zoloft and zofran. If the patient is medially stable she can be discharged from cardiac perspective as well. If she is still here we will repeat an EKG in the morning. Follow up with Dr. Ndiaye in the office upon discharge for repeat EKG. Nurse Practitioner note has been reviewed, I agree with a documented findings and plan of care. Patient was seen and examined. Objective - Vital Signs Vital signs: Vital Signs Temp 98.5 F 11/27/20 07:37 Pulse 97 11/27/20 08:42 Resp 17 11/27/20 07:37 BP 114/77 11/27/20 08:42 Pulse Ox 98 11/27/20 08:42 Intake & Output 11/26/20 11/27/20 11/27/20 18:59 06:59 18:59 Intake Total 0 Balance 0 Intake: Oral 0 Other: Voiding Method Bedside Commode Bedside Commode # Voids 3 - Labs CBC & Chem 7: 11/25/20 17:47 11/26/20 10:31 Labs: Abnormal Lab Results - Last 24 Hours (Table) 11/26/20 11/26/20 11/27/20 Range/Units 16:43 21:32 06:44 POC Glucose (mg/dL) 161 H 157 H 142 H (75-99) mg/dL 11/27/20 Range/Units 11:31 POC Glucose (mg/dL) 124 H (75-99) mg/dL
--- NOTE | 2020-11-27 15:36 | P.PN ---
Subjective Progress Note Date: 11/27/20 Eileen Ribeiro is a 65 yo F with PMH of T2DM, RA who presented to the ED complaining of 1 day history of severe nausea, vomiting and diarrhea. She complains that she experience nausea with multiple episodes of vomiting throughout the day as well as diarrhea. She denies bloody stool, fever, chills or malaise. She denies any worsening of her symptoms with food. On presentation vitals stable, labs significant for WBC 6.5k, CRP <0.5, lipase, amylase wnl. CT abd/pelvis showing diverticulosis without diverticulitis. 11/27/2020 complains of ongoing abdominal pain with eating, history of hiatal hernia. Denies nausea, vomiting or diarrhea. Complains of constipation, reports no bowel movement since admission, dry heaves. Earlier this morning, staff reported chest pain times a few minutes, burped, resolved. Repeat EKG pending. Echo reporting moderate concentric left ventricle hypertrophy, normal LV function, EF 55-60%. Currently denies chest pain, palpitations, shortness of breath. Denies lightheadedness dizziness or focal deficits. Objective - Vital Signs Vital signs: Vital Signs Temp 98.9 F 11/27/20 14:00 Pulse 78 11/27/20 14:00 Resp 17 11/27/20 14:00 BP 98/61 11/27/20 14:00 Pulse Ox 96 11/27/20 14:00 Intake & Output 11/26/20 11/27/20 11/27/20 18:59 06:59 18:59 Intake Total 0 Balance 0 Intake: Oral 0 Other: Voiding Method Bedside Commode Bedside Commode # Voids 3 - Exam General: Sitting up in chair, NAD. Vitals reviewed Eyes: PERRL, EOMI, conjunctiva normal HENT: normocephalic, mucus membranes moist Neck: supple, no JVD Lungs: normal respiratory effort,CTA, no wheezes or rales CV: Regular rate and rhythm, no murmur. Peripheral pulses 2+, no edema. Abdomen: soft, nondistended, no organomegaly. Mid epigastric tenderness radiating to suprapubic and RLQ, positive bowel sounds Skin: warm and dry. Neuro: A&Ox3, normal mood and affect - Labs CBC & Chem 7: 11/25/20 17:47 11/26/20 10:31 Labs: Abnormal Lab Results - Last 24 Hours (Table) 11/26/20 11/26/20 11/27/20 Range/Units 16:43 21:32 06:44 POC Glucose (mg/dL) 161 H 157 H 142 H (75-99) mg/dL 11/27/20 Range/Units 11:31 POC Glucose (mg/dL) 124 H (75-99) mg/dL Assessment and Plan Assessment: Abdominal pain in a patient with history of small umbilical hernia Complaints of vomiting and diarrhea initially prior to admission, resolved. Constipation, possibly opioid-induced Diabetes mellitus type 2 Rheumatoid arthritis Prolonged QT interval, Zoloft, Zofran discontinued Hypertension Hypomagnesemia Plan: Continue on current medication regime ,monitoring and symptomatic treatment. Follow magnesium level ordered. MiraLAX ordered for constipation .GI consulted /evaluated patient with recommendations noted and appreciated; surgical consult initiated, PPI twice a day. The impression and plan of care has been dictated as directed. : I performed a history and examination of this patient, discussed the same with the dictator. I agree with the dictator's note ,documented as a scribe. Any additional findings or plans will be noted.
[2020-11-27 16:36] LABS: Glucose,Whole Blood 113 mg/dL (75-99)
[2020-11-27 20:48] LABS: Glucose,Whole Blood 164 mg/dL (75-99)
[2020-11-27] MEDS: MONTELUKAST 10 MG TAB PO SCH (21:58)
[2020-11-27] MEDS: ATORVASTATIN 40 MG TAB PO SCH (21:59)
--- NOTE | 2020-11-27 22:17 | P.CONS ---
History of Present Illness - Reason for Consult Consult date: 11/27/20 Abdominal pain Requesting physician: Edward Love - Chief Complaint Abdominal pain - History of Present Illness 65-year-old female with a medical history significant for diabetes mellitus, rheumatoid arthritis, hiatal hernia and gastritis who presented to the hospital due to complaints of abdominal pain. The patient described 3 days of abdominal pain occurring in the epigastric region of her abdomen in the periumbilical region. She complains of she described as abdominal muscle pain worse with movement and mowing the lawn. She also reported some recent episodes of nonbloody nonbilious emesis occurring approximately 3 days ago with some associated dry heaving. She recently also suffered from some constipation and subsequently some loose bowel movements which she reports has resolved. Previously she has undergone EGD in 03/2020 with findings of a moderate size hiatal hernia and diffuse antral gastritis. Laboratory evaluation on presentation significant for WBC of 6.5, hemoglobin 12.6, platelet count 239,000, total bilirubin 0.5, alkaline phosphatase 92, AST 30 and ALT 19. Computed tomography scan of the abdomen performed evaluation showed a small to moderate size hiatal hernia with colonic diverticulosis. Review of Systems REVIEW OF SYSTEMS: CONSTITUTIONAL: Denies any fevers, chills, weight change or fatigue. CARDIOVASCULAR: Denies any chest pain, palpitations high or low blood pressures RESPIRATORY: Denies any shortness of breath, hemoptysis or cough. GENITOURINARY: No dysuria or hematuria. MUSCULOSKELETAL: No weakness reported, but she does report joint pain. SKIN: Denies any new rashes or lesions, jaundice or pallor. PSYCHIATRIC: Denies any depression or anxiety. NEUROLOGY: Denies headache, denies any new focal deficits. EARS/NOSE/THROAT: No recent hearing change, congestion, nasal discharge or sore throat. EYES: No pain in eyes, discharge or change in vision. GASTROINTESTINAL: As per HPI. Past Medical History Past Medical History: Asthma, Diabetes Mellitus, Hypertension, Rheumatoid Arthritis (RA) History of Any Multi-Drug Resistant Organisms: None Reported Past Surgical History: Section, Orthopedic Surgery Additional Past Surgical History / Comment(s): carpel tunnel Past Anesthesia/Blood Transfusion Reactions: No Reported Reaction Past Psychological History: Anxiety, Depression Smoking Status: Never smoker Past Alcohol Use History: None Reported Past Drug Use History: None Reported - Past Family History Mother Family Medical History: CVA/TIA, Dementia Medications and Allergies Home Medications Medication Instructions Recorded Confirmed Type Cyanocobalamin (Vitamin B-12) 1,000 mcg PO DAILY 03/22/19 11/25/20 History [Vitamin B-12] Ferrous Sulfate [Iron (65 MG 325 mg PO TID 03/22/19 11/25/20 History Elemental)] Folic Acid 1 mg PO DAILY 03/22/19 11/25/20 History Glimepiride [Amaryl] 1 mg PO BID 03/22/19 11/25/20 History Magnesium Oxide [Magox 400] 400 mg PO DAILY 03/22/19 11/25/20 History Montelukast [Singulair] 10 mg PO HS 03/22/19 11/25/20 History Sertraline [Zoloft] 100 mg PO DAILY 03/22/19 11/25/20 History amLODIPine [Norvasc] 5 mg PO DAILY 03/22/19 11/25/20 History Ascorbic Acid [Vitamin C] 250 mg PO TID 04/11/20 11/25/20 History metFORMIN HCL [Glucophage] 850 mg PO TID 04/11/20 11/25/20 History Gabapentin [Neurontin] 400 mg PO TID 11/25/20 11/25/20 History HYDROcodone/APAP 5-325MG [[place] 1 tab PO TID 11/25/20 11/25/20 History 5-325] Allergies Allergy/AdvReac Type Severity Reaction Status Date / Time Penicillins Allergy Unknown Verified 11/25/20 21:12 Physical Exam Vitals: Vital Signs Temp Pulse Pulse Resp BP BP Pulse Ox 11/27/20 14:00 98.9 F 78 17 98/61 96 11/27/20 08:42 97 114/77 98 11/27/20 07:37 98.5 F 87 17 111/76 95 11/27/20 01:08 98.8 F 84 152/79 94 L 11/26/20 20:00 98.3 F 87 18 158/86 96 Intake and Output 11/27/20 11/27/20 11/27/20 06:59 14:59 22:59 Other: Voiding Method Bedside Commode # Voids 4 On physical examination, patient appears comfortable in no apparent distress. HEAD: Normocephalic, atraumatic. EYES: No scleral icterus. No conjunctival injection. MOUTH: No lesions, tongue midline. NECK: Trachea midline, no gross abnormalities. CHEST: Clear to auscultation with no wheezing or rhonchi appreciated. HEART: Regular rate and rhythm. ABDOMEN: Soft, obese, with a small umbilical hernia noted with some tenderness on palpation as well as a small ventral wall hernia. Bowel sounds are positive. No organomegaly. No guarding or rigidity. EXTREMITIES: No pedal edema. SKIN: No rashes, no jaundice. NEUROLOGIC: Alert and oriented x3. No focal deficits. Results CBC & Chem 7: 11/25/20 17:47 11/26/20 10:31 Labs: Abnormal Lab Results - Last 24 Hours (Table) 11/26/20 11/27/20 11/27/20 Range/Units 21:32 06:44 11:31 POC Glucose (mg/dL) 157 H 142 H 124 H (75-99) mg/dL 11/27/20 Range/Units 16:31 POC Glucose (mg/dL) 113 H (75-99) mg/dL CT scan - abdomen: report reviewed (Computed tomography scan of the abdomen with findings of small to moderate sized hiatal hernia and colonic diverticulosis) Assessment and Plan (1) Abdominal pain Narrative/Plan: 65-year-old female presenting to the hospital with complaints of abdominal pain in the periumbilical and epigastric region of her abdomen described as worse with movement such as depression along more. She had some vomiting approximately 3 days ago and was also suffering from some constipation followed by diarrhea which is resolved. Computed tomography scan of the abdomen on pre sentation showed a small to moderate size hiatal hernia with colonic diverticulosis. Previous EGD performed in 03/2020 significant for moderate size hiatal hernia with diffuse antral gastritis. Normal liver enzymes and hemoglobin on presentation. Physical exam was significant for a small umbilical hernia with what appeared to be a ventral wall hernia both tender to palpation. Unclear etiology of symptoms, may be related to uncontrolled reflux in the setting of hiatal hernia, gastroenteritis, pain from the above-noted umbilical and ventral hernia or other etiology. Current Visit: No Status: Acute Code(s): R10.9 - UNSPECIFIED ABDOMINAL PAIN SNOMED Code(s): 27720489 (2) Nausea and vomiting Current Visit: Yes Status: Acute Code(s): R11.2 - NAUSEA WITH VOMITING, UNSPECIFIED SNOMED Code(s): 19913022 (3) Gastritis Current Visit: Yes Status: Acute Code(s): K29.70 - GASTRITIS, UNSPECIFIED, WITHOUT BLEEDING SNOMED Code(s): 6166904 (4) Hiatal hernia Current Visit: Yes Status: Acute Code(s): K44.9 - DIAPHRAGMATIC HERNIA WITHOUT OBSTRUCTION OR GANGRENE SNOMED Code(s): 93346753 (5) Type 2 diabetes mellitus Current Visit: No Status: Acute Code(s): E11.9 - TYPE 2 DIABETES MELLITUS WITHOUT COMPLICATIONS SNOMED Code(s): 26318231 Plan: Supportive care Okay for diet as tolerated Continue to monitor CBC, BMP, LFTs Protonix 40 mg twice daily added MiraLAX bowel regimen CT imaging reviewed Report from EGD in 04/16 reviewed Surgical consult, await the recommendations Thank you for allowing us to participate in the care of the patient
[2020-11-28] MEDS: HYOSCYAMINE SULFATE 0.125 MG TAB PO SCH ×6 (01:08→20:34)
[2020-11-28 07:05] LABS: Glucose,Whole Blood 159 mg/dL (75-99)
[2020-11-28] MEDS: lisinopriL 5 MG TAB PO SCH (07:53)
[2020-11-28] MEDS: amLODIPine 5 MG TAB PO SCH (07:53)
[2020-11-28] MEDS: PANTOPRAZOLE 40 MG/10 ML VIAL IVP SCH ×2 (08:43→20:34)
[2020-11-28] MEDS: polyethylene glycoL 3350 17 GM POWD.PACK PO SCH ×2 (08:43→20:34)
[2020-11-28] MEDS: HYDROcodone/APAP 5-325MG 1 EACH TAB PO SCH ×3 (08:43→22:26)
[2020-11-28] MEDS: GABAPENTIN 400 MG CAP PO SCH ×3 (08:43→22:26)
[2020-11-28] MEDS: MAGNESIUM OXIDE 400 MG TAB PO SCH (08:43)
[2020-11-28] MEDS: SENNOSIDES 8.6 MG TAB PO SCH (08:43)
[2020-11-28] MEDS: SODIUM CHLORIDE 0.9% 1,000 ML IV SCH ×2 (08:44→20:32)
[2020-11-28 09:00] LABS: African American GFR (CKD) 16 (>60 ml/min/1.73 sqM); Anion Gap 10 mmol/L; Blood Urea Nitrogen 49 mg/dL (7-17); Carbon Dioxide 28 mmol/L (22-30); Chloride 96 mmol/L (98-107); Glucose 135 mg/dL (74-99); Non-African American GFR(CKD) 14 (>60 ml/min/1.73 sqM); Potassium 3.5 mmol/L (3.5-5.1); Sodium 134 mmol/L (137-145)
[2020-11-28] MEDS: GLIMEPIRIDE 1 MG TAB PO SCH ×2 (10:12→20:33)
[2020-11-28] MEDS ORDERED: LEVOFLOXACIN 500MG-D5W PMX 500 MG in DEXTROSE/WATER 1 100ML.BAG IVPB ONE (11:00)
[2020-11-28 11:43] LABS: Glucose,Whole Blood 195 mg/dL (75-99)
--- NOTE | 2020-11-28 11:51 | P.GSCN ---
History of Present Illness Consult date: 11/28/20 History of present illness: 65-year-old female with a medical history significant for diabetes mellitus, rheumatoid arthritis, hiatal hernia and gastritis who presented to the hospital due to complaints of abdominal pain. She states that for a few days prior to her arrival in the emergency department, she was having nausea and vomiting along with loose stool. She states that after she began having nausea and vomiting, she began noticing pain in the epigastrium and periumbilical region. Patient states that nausea has improved since yesterday and she is now tomas ating a diet. CT of the abdomen and pelvis was also performed that did show a small hiatal hernia and colonic diverticulosis. She is being followed by gastroenterology and cardiology. Currently, patient states she has had some improvement of pain. She states that she did have a bowel movement today. She has no additional complaints at this time. Review of Systems All systems: negative Past Medical History Past Medical History: Asthma, Diabetes Mellitus, Hypertension, Rheumatoid Arthritis (RA) History of Any Multi-Drug Resistant Organisms: None Reported Past Surgical History: Section, Orthopedic Surgery Additional Past Surgical History / Comment(s): carpel tunnel Past Anesthesia/Blood Transfusion Reactions: No Reported Reaction Past Psychological History: Anxiety, Depression Smoking Status: Never smoker Past Alcohol Use History: None Reported Past Drug Use History: None Reported - Past Family History Mother Family Medical History: CVA/TIA, Dementia Medications and Allergies Home Medications Medication Instructions Recorded Confirmed Type Cyanocobalamin (Vitamin B-12) 1,000 mcg PO DAILY 03/22/19 11/25/20 History [Vitamin B-12] Ferrous Sulfate [Iron (65 MG 325 mg PO TID 03/22/19 11/25/20 History Elemental)] Folic Acid 1 mg PO DAILY 03/22/19 11/25/20 History Glimepiride [Amaryl] 1 mg PO BID 03/22/19 11/25/20 History Magnesium Oxide [Magox 400] 400 mg PO DAILY 03/22/19 11/25/20 History Montelukast [Singulair] 10 mg PO HS 03/22/19 11/25/20 History Sertraline [Zoloft] 100 mg PO DAILY 03/22/19 11/25/20 History amLODIPine [Norvasc] 5 mg PO DAILY 03/22/19 11/25/20 History Ascorbic Acid [Vitamin C] 250 mg PO TID 04/11/20 11/25/20 History metFORMIN HCL [Glucophage] 850 mg PO TID 04/11/20 11/25/20 History Gabapentin [Neurontin] 400 mg PO TID 11/25/20 11/25/20 History HYDROcodone/APAP 5-325MG [[place] 1 tab PO TID 11/25/20 11/25/20 History 5-325] Allergies Allergy/AdvReac Type Severity Reaction Status Date / Time Penicillins Allergy Unknown Verified 11/25/20 21:12 Surgical - Exam Osteopathic Statement: *. No significant issues noted on an osteopathic structural exam other than those noted in the History and Physical/Consult. Vital Signs Temp Pulse Resp BP Pulse Ox 98.2 F 86 18 151/81 98 11/25/20 15:23 11/25/20 15:23 11/25/20 15:23 11/25/20 15:23 11/25/20 15:23 - General well developed, well nourished, no distress - Eyes PERRL - ENT no hearing loss - Neck trachea midline - Respiratory normal respiratory effort - Abdomen Soft, nontender, nondistended, no rebound, no guarding, diastases recti noted, small umbilical hernia noted that is palpable and reducible - Psychiatric oriented to time, oriented to person, oriented to place Results - Labs 11/25/20 17:47 11/28/20 07:07 Abnormal Lab Results - Last 24 Hours (Table) 11/27/20 11/27/20 11/28/20 Range/Units 16:31 20:46 06:46 Sodium (137-145) mmol/L Chloride (98-107) mmol/L BUN (7-17) mg/dL Creatinine (0.52-1.04) mg/dL Glucose (74-99) mg/dL POC Glucose (mg/dL) 113 H 164 H 159 H (75-99) mg/dL 11/28/20 11/28/20 Range/Units 07:07 11:35 Sodium 134 L (137-145) mmol/L Chloride 96 L (98-107) mmol/L BUN 49 H (7-17) mg/dL Creatinine 3.34 H (0.52-1.04) mg/dL Glucose 135 H (74-99) mg/dL POC Glucose (mg/dL) 195 H (75-99) mg/dL Diabetes panel 11/28/20 Range/Units 07:07 Sodium 134 L (137-145) mmol/L Potassium 3.5 (3.5-5.1) mmol/L Chloride 96 L (98-107) mmol/L Carbon Dioxide 28 (22-30) mmol/L BUN 49 H (7-17) mg/dL Creatinine 3.34 H (0.52-1.04) mg/dL Glucose 135 H (74-99) mg/dL Calcium 9.0 (8.4-10.2) mg/dL Calcium panel 11/28/20 Range/Units 07:07 Calcium 9.0 (8.4-10.2) mg/dL Pituitary panel 11/28/20 Range/Units 07:07 Sodium 134 L (137-145) mmol/L Potassium 3.5 (3.5-5.1) mmol/L Chloride 96 L (98-107) mmol/L Carbon Dioxide 28 (22-30) mmol/L BUN 49 H (7-17) mg/dL Creatinine 3.34 H (0.52-1.04) mg/dL Glucose 135 H (74-99) mg/dL Calcium 9.0 (8.4-10.2) mg/dL Adrenal panel 11/28/20 Range/Units 07:07 Sodium 134 L (137-145) mmol/L Potassium 3.5 (3.5-5.1) mmol/L Chloride 96 L (98-107) mmol/L Carbon Dioxide 28 (22-30) mmol/L BUN 49 H (7-17) mg/dL Creatinine 3.34 H (0.52-1.04) mg/dL Glucose 135 H (74-99) mg/dL Calcium 9.0 (8.4-10.2) mg/dL Assessment and Plan Plan: 65-year-old female with recent nausea, vomiting and loose stool. She has had improvement in her nausea and vomiting episodes. She is now tolerating a diet. Surgery was consulted based on concern for a small periumbilical hernia. This is noted and is palpable and reducible. Based on CT findings, there does not appear to be any bowel contained within the hernia. She also was noted to have a diastases. She has some soreness in the epigastrium that could be related to musculoskeletal his comfort after nausea and vomiting for [address] an abdominal binder for comfort. Periumbilical hernia can be treated as an outpatient. Patient was agreeable with this plan. She is to follow-up with me once discharged to discuss surgical planning for umbilical hernia repair.
[2020-11-28 12:11] LABS: Basophils # (A) 0.03 X 10*3/uL (0.00-0.10); Basophils % (A) 0.6 %; Eosinophils # (A) 0.15 X 10*3/uL (0.04-0.35); Eosinophils % (A) 2.8 %; HCT 38.2 % (37.2-46.3); Lymphocytes # (A) 1.34 X 10*3/uL (0.90-5.00); Lymphocytes % (A) 25.4 %; MCH 27.3 pg (27.0-32.0); MCHC 31.4 g/dL (32.0-37.0); Mean Platelet Volume 10.6 fL (9.5-12.2); Monocytes % (A) 9.5 %; Neutrophils # (A) 3.25 X 10*3/uL (1.80-7.70); Neutrophils % (A) 61.5 %; Platelet Count 298 X 10*3/uL (140-440); RBC 4.39 X 10*6/uL (4.10-5.20); RDW 15.9 % (11.5-14.5); WBC 5.28 X 10*3/uL (4.50-10.00)
--- NOTE | 2020-11-28 12:27 | P.PN ---
Subjective HISTORY OF PRESENTING ILLNESS This is a pleasant 65-year-old -[place] female past medical history significant for hypertension, diabetes mellitus, asthma and rheumatoid arthritis. She denies prior history of coronary artery disease and does not follow in the office with a log chain feeder. We have been asked to see in consultation for prolonged QT. She presented to the hospital with symptoms of nausea, vomiting and diarrhea for the previous 24 hours. She denies symptoms of chest pain, shortness of breath, dizziness or palpitations. She has no history of syncope. EKG on arrival reveals sinus mechanism heart rate of 85 with right bundle branch block and QTC of [address] of abdomen and pelvis reveals a small to moderate hiatal hernia with colonic diverticulosis and no acute diverticulitis. Laboratory data reviewed, CBC unremarkable, sodium 139, potassium 3.5, creatinine 0.51, magnesium 1.4, troponin negative 1. 11/27/2020 Patient seen and examined laying flat resting comfortably in bed in no acute distress. Repeat EKG this morning reveals improved QTc at 450 ms. She denies chest pain, dizziness, shortness of breath or palpitations. Blood pressure 85/56 heart rate 78 afebrile and maintaining oxygen saturation on room air. Laboratory data reviewed, WBC 5.2, hgb 12, plt 298, sodium 1345, potassium 3.5, creatinine 3.34 PHYSICAL EXAMINATION CONSTITUTIONAL: No apparent distress. HEENT: Head is normocephalic. Pupils are equal, round. Sclerae anicteric. Mucous membranes of the mouth are moist. No JVD. No carotid bruit. CHEST EXAMINATION: Lungs are clear to auscultation. No chest wall tenderness is noted on palpation or with deep breathing. HEART EXAMINATION: Regular rate and rhythm. S1, S2 heard. No murmurs, gallops or rub. EXTREMITIES: 2+ peripheral pulses, no lower extremity edema and no calf tenderness. ASSESSMENT Prolonged QT interval Hypomagnesemia Vomiting and diarrhea Acute kidney injury Dehydration Hypertension Diabetes mellitus PLAN Avoid QT prolonging medications such as zoloft and zofran. Discontinue lisinopril due to RED. Hold amlodipine secondary to hypotension. Surgical consult pending. Stable for discharge from a cardiac perspective. We will follow along as needed, follow up in the office with Dr. Ndiaye. Nurse Practitioner note has been reviewed, I agree with a documented findings and plan of care. Patient was seen and examined. Objective - Vital Signs Vital signs: Vital Signs Temp 98.4 F 11/28/20 07:35 Pulse 78 11/28/20 07:35 Resp 17 11/28/20 07:35 BP 85/56 11/28/20 07:35 Pulse Ox 97 11/28/20 07:35 Intake & Output 11/27/20 11/28/20 11/28/20 18:59 06:59 18:59 Other: Voiding Method Bedside Commode Bedside Commode # Voids 4 - Labs CBC & Chem 7: 11/28/20 07:07 11/28/20 07:07 Labs: Abnormal Lab Results - Last 24 Hours (Table) 11/27/20 11/27/20 11/28/20 Range/Units 16:31 20:46 06:46 MCHC (32.0-37.0) g/dL RDW (11.5-14.5) % Sodium (137-145) mmol/L Chloride (98-107) mmol/L BUN (7-17) mg/dL Creatinine (0.52-1.04) mg/dL Glucose (74-99) mg/dL POC Glucose (mg/dL) 113 H 164 H 159 H (75-99) mg/dL 11/28/20 11/28/20 11/28/20 Range/Units 07:07 07:07 11:35 MCHC 31.4 L (32.0-37.0) g/dL RDW 15.9 H (11.5-14.5) % Sodium 134 L (137-145) mmol/L Chloride 96 L (98-107) mmol/L BUN 49 H (7-17) mg/dL Creatinine 3.34 H (0.52-1.04) mg/dL Glucose 135 H (74-99) mg/dL POC Glucose (mg/dL) 195 H (75-99) mg/dL
--- NOTE | 2020-11-28 12:36 | P.PN ---
Subjective Progress Note Date: 11/28/20 Principal diagnosis: abdominal pain She is seen and examined lying in bed. States she just got up and she felt a little bit dizzy otherwise no complaints. She states that she has no further nausea or vomiting. She ate breakfast this morning without any problems. She still says she has abdominal pain it is in the ventral region and umbilical mostly with movement. Objective - Vital Signs Vital signs: Vital Signs Temp 98.4 F 11/28/20 07:35 Pulse 78 11/28/20 07:35 Resp 17 11/28/20 07:35 BP 85/56 11/28/20 07:35 Pulse Ox 97 11/28/20 07:35 Intake & Output 11/27/20 11/28/20 11/28/20 18:59 06:59 18:59 Other: Voiding Method Bedside Commode Bedside Commode # Voids 4 - Exam General appearance: The patient is alert, oriented, appears in no acute distress. HET: Head is normocephalic and atraumatic. Conjunctiva pink. Sclera anicteric. Neck: Supple without lymphadenopathy. Abdomen: Soft, umbilical tenderness and mid abdomen tenderness, small umbilical hernia reducible, as well as ventral wall hernia nondistended with bowel sounds. No guarding or rigidity. Extremities: Normal skin color and turgor. No pedal edema Skin: No rashes, no jaundice Neurological: No focal deficits. Alert and oriented 3. - Labs CBC & Chem 7: 11/28/20 07:07 11/28/20 07:07 Labs: Abnormal Lab Results - Last 24 Hours (Table) 11/27/20 11/27/20 11/27/20 Range/Units 11:31 16:31 20:46 Sodium (137-145) mmol/L Chloride (98-107) mmol/L BUN (7-17) mg/dL Creatinine (0.52-1.04) mg/dL Glucose (74-99) mg/dL POC Glucose (mg/dL) 124 H 113 H 164 H (75-99) mg/dL 11/28/20 11/28/20 Range/Units 06:46 07:07 Sodium 134 L (137-145) mmol/L Chloride 96 L (98-107) mmol/L BUN 49 H (7-17) mg/dL Creatinine 3.34 H (0.52-1.04) mg/dL Glucose 135 H (74-99) mg/dL POC Glucose (mg/dL) 159 H (75-99) mg/dL Assessment and Plan (1) Abdominal pain Narrative/Plan: 65-year-old female presented to the hospital with complaints of abdominal pain in the. Umbilical and epigastric region for abdomen described as worse with movement such as with pushing her lawnmower. She did have some vomiting approximately 2-3 days ago along with constipation followed by diarrhea which is resolved. CT scan of the abdomen on presentation showed small to moderate size hiatal hernia with colonic diverticulosis. Previous EGD performed in 03/2020 which was significant for moderate size hiatal hernia with diffuse antral gastritis. Normal liver enzymes and hemoglobin on presentation. Physical exam was significant for a small umbilical hernia and what appeared to be a ventral wall hernia both tender to palpation. Unclear etiology of symptoms, may be related to uncontrolled reflux in the setting of hiatal hernia, gastroenteritis, pain from the above-noted umbilical and ventral hernia or other etiology. Current Visit: No Status: Acute Code(s): R10.9 - UNSPECIFIED ABDOMINAL PAIN SNOMED Code(s): 67584270 Plan: 1. Surgical services consult, appreciate their recommendations 2. Diabetes tolerated 3. Continue Protonix 40 mg twice a day 4. Patient underwent recent endoscopic evaluation in April 2020, reports reviewed 5. No plans on endoscopic evaluation, abdominal pain likely musculoskeletal and hernia related Thank you for this consultation, we will sign off at this time Dr. Dubois I agree with the dictator's note, documented as a scribe by Mariluz Bobo.
[2020-11-28] MEDS: metroNIDAZOLE-NS PMX 500 MG in SALINE 1 100ML.BAG IVPB SCH ×3 (12:48→23:58)
[2020-11-28 12:49] LABS: African American GFR (CKD) 15 (>60 ml/min/1.73 sqM); Anion Gap 11 mmol/L; Blood Urea Nitrogen 56 mg/dL (7-17); Calcium 9.1 mg/dL (8.4-10.2); Carbon Dioxide 28 mmol/L (22-30); Chloride 95 mmol/L (98-107); Glucose 145 mg/dL (74-99); Non-African American GFR(CKD) 13 (>60 ml/min/1.73 sqM); Potassium 3.8 mmol/L (3.5-5.1); Sodium 134 mmol/L (137-145)
[2020-11-28 16:16] LABS: Glucose,Whole Blood 150 mg/dL (75-99)
--- NOTE | 2020-11-28 17:36 | P.PN ---
Subjective Progress Note Date: 11/28/20 Eileen Ribeiro is a 65 yo F with PMH of T2DM, RA who presented to the ED complaining of 1 day history of severe nausea, vomiting and diarrhea. She complains that she experience nausea with multiple episodes of vomiting throughout the day as well as diarrhea. She denies bloody stool, fever, chills or malaise. She denies any worsening of her symptoms with food. On presentation vitals stable, labs significant for WBC 6.5k, CRP <0.5, lipase, amylase wnl. CT abd/pelvis showing diverticulosis without diverticulitis. 11/27/2020 complains of ongoing abdominal pain with eating, history of hiatal hernia. Denies nausea, vomiting or diarrhea. Complains of constipation, reports no bowel movement since admission, dry heaves. Earlier this morning, staff reported chest pain times a few minutes, burped, resolved. Repeat EKG pending. Echo reporting moderate concentric left ventricle hypertrophy, normal LV function, EF 55-60%. Currently denies chest pain, palpitations, shortness of breath. Denies lightheadedness dizziness or focal deficits. 11/28/2020 abdominal pain unchanged, umbilical & bilateral lower quadrants. Positive bowel movement this morning. Tolerated diet with no nausea vomiting or diarrhea. Renal function worsened, creatinine up to 3.34. Reports urine dark. Asymptomatic hypotension with systolic blood pressure this morning currently in the 80s to 90s. Reports cold sweats during the night. Afebrile, normal WBC. Objective - Vital Signs Vital signs: Vital Signs Temp 98.5 F 11/28/20 14:00 Pulse 79 11/28/20 14:00 Resp 17 11/28/20 14:00 BP 102/64 11/28/20 14:00 Pulse Ox 94 L 11/28/20 14:00 Intake & Output 11/27/20 11/28/20 11/28/20 18:59 06:59 18:59 Other: Voiding Method Bedside Commode Bedside Commode # Voids 4 1 # Bowel Movements 1 - Exam General: Sitting up in chair, NAD. Vitals reviewed Eyes: PERRL, EOMI, conjunctiva normal HENT: normocephalic, mucus membranes moist Neck: supple, no JVD Lungs: normal respiratory effort,CTA, no wheezes or rales CV: Regular rate and rhythm, no murmur. Peripheral pulses 2+, no edema. Abdomen: soft, nondistended, no organomegaly. Mid epigastric tenderness radiating to suprapubic and bilateral lower quadrants, positive bowel sounds Skin: warm and dry. Neuro: A&Ox3, normal mood and affect - Labs CBC & Chem 7: 11/28/20 07:07 11/28/20 11:44 Labs: Abnormal Lab Results - Last 24 Hours (Table) 11/27/20 11/28/20 11/28/20 Range/Units 20:46 06:46 07:07 MCHC 31.4 L (32.0-37.0) g/dL RDW 15.9 H (11.5-14.5) % Sodium (137-145) mmol/L Chloride (98-107) mmol/L BUN (7-17) mg/dL Creatinine (0.52-1.04) mg/dL Glucose (74-99) mg/dL POC Glucose (mg/dL) 164 H 159 H (75-99) mg/dL 11/28/20 11/28/20 11/28/20 Range/Units 07:07 11:35 11:44 MCHC (32.0-37.0) g/dL RDW (11.5-14.5) % Sodium 134 L 134 L (137-145) mmol/L Chloride 96 L 95 L (98-107) mmol/L BUN 49 H 56 H (7-17) mg/dL Creatinine 3.34 H 3.44 H (0.52-1.04) mg/dL Glucose 135 H 145 H (74-99) mg/dL POC Glucose (mg/dL) 195 H (75-99) mg/dL 11/28/20 Range/Units 16:11 MCHC (32.0-37.0) g/dL RDW (11.5-14.5) % Sodium (137-145) mmol/L Chloride (98-107) mmol/L BUN (7-17) mg/dL Creatinine (0.52-1.04) mg/dL Glucose (74-99) mg/dL POC Glucose (mg/dL) 150 H (75-99) mg/dL Assessment and Plan Assessment: Abdominal pain in a patient with history of small umbilical hernia, possible acute diverticulitis. Asymptomatic hypotension Complaints of vomiting and diarrhea initially prior to admission, resolved. Constipation, possibly opioid-induced Diabetes mellitus type 2 Rheumatoid arthritis Prolonged QT interval, Zoloft, Zofran discontinued Hypertension Hypomagnesemia Plan: Continue on current medication regime , PPI, monitoring and symptomatic treatment. IV fluid bolus ordered. Repeat BMP at noon regarding increased creatinine. Surgical evaluation pending. Flagyl and Levaquin initiated for possible diverticulitis. The impression and plan of care has been dictated as directed. : I performed a history and examination of this patient, discussed the same with the dictator. I agree with the dictator's note ,documented as a scribe. Any additional findings or plans will be noted.
[2020-11-28 20:20] LABS: Glucose,Whole Blood 116 mg/dL (75-99)
[2020-11-28] MEDS: ATORVASTATIN 40 MG TAB PO SCH (20:33)
[2020-11-28] MEDS: MONTELUKAST 10 MG TAB PO SCH (20:34)
[2020-11-29] MEDS: HYOSCYAMINE SULFATE 0.125 MG TAB PO SCH ×5 (01:28→20:52)
[2020-11-29] MEDS: SODIUM CHLORIDE 0.9% 1,000 ML IV SCH ×2 (05:19→18:42)
[2020-11-29 07:13] LABS: Glucose,Whole Blood 134 mg/dL (75-99)
[2020-11-29] MEDS: MAGNESIUM OXIDE 400 MG TAB PO SCH (07:59)
[2020-11-29] MEDS: PANTOPRAZOLE 40 MG/10 ML VIAL IVP SCH ×2 (07:59→20:52)
[2020-11-29] MEDS: HYDROcodone/APAP 5-325MG 1 EACH TAB PO SCH ×3 (07:59→20:53)
[2020-11-29] MEDS: GABAPENTIN 400 MG CAP PO SCH ×3 (07:59→20:53)
[2020-11-29] MEDS: metroNIDAZOLE-NS PMX 500 MG in SALINE 1 100ML.BAG IVPB SCH ×2 (07:59→17:33)
[2020-11-29] MEDS: SENNOSIDES 8.6 MG TAB PO SCH (07:59)
[2020-11-29] MEDS: polyethylene glycoL 3350 17 GM POWD.PACK PO SCH ×2 (08:00→20:53)
[2020-11-29] MEDS: GLIMEPIRIDE 1 MG TAB PO SCH ×2 (08:00→20:52)
[2020-11-29] MEDS ORDERED: LEVOFLOXACIN 250MG-D5W PMX 250 MG in DEXTROSE/WATER 1 50ML.BAG IVPB SCH (09:00)
[2020-11-29 11:37] LABS: Glucose,Whole Blood 123 mg/dL (75-99)
[2020-11-29 16:54] LABS: Glucose,Whole Blood 94 mg/dL (75-99)
--- NOTE | 2020-11-29 20:04 | P.PN ---
Subjective Progress Note Date: 11/29/20 Eileen Ribeiro is a 65 yo F with PMH of T2DM, RA who presented to the ED complaining of 1 day history of severe nausea, vomiting and diarrhea. She complains that she experience nausea with multiple episodes of vomiting throughout the day as well as diarrhea. She denies bloody stool, fever, chills or malaise. She denies any worsening of her symptoms with food. On presentation vitals stable, labs significant for WBC 6.5k, CRP <0.5, lipase, amylase wnl. CT abd/pelvis showing diverticulosis without diverticulitis. 11/27/2020 complains of ongoing abdominal pain with eating, history of hiatal hernia. Denies nausea, vomiting or diarrhea. Complains of constipation, reports no bowel movement since admission, dry heaves. Earlier this morning, staff reported chest pain times a few minutes, burped, resolved. Repeat EKG pending. Echo reporting moderate concentric left ventricle hypertrophy, normal LV function, EF 55-60%. Currently denies chest pain, palpitations, shortness of breath. Denies lightheadedness dizziness or focal deficits. 11/28/2020 abdominal pain unchanged, umbilical & bilateral lower quadrants. Positive bowel movement this morning. Tolerated diet with no nausea vomiting or diarrhea. Renal function worsened, creatinine up to 3.34. Reports urine dark. Asymptomatic hypotension with systolic blood pressure this morning currently in the 80s to 90s. Reports cold sweats during the night. Afebrile, normal WBC. 11/29/2020 labs pending. Maintained on Flagyl for suspected div erticulitis/Levaquin discontinued related to prolongation QT properties. Evaluated by surgery with recommendations noted and appreciated. Wearing an abdominal binder. Feels better with this morning. Reports less abdominal pain. Tolerating diet with no nausea vomiting or diarrhea. Denies chest pain, palpitations or shortness of breath. Afebrile. Vital signs stable, maintaining O2 sats in the 90s on room air. Objective - Vital Signs Vital signs: Vital Signs Temp 98 F 11/29/20 14:00 Pulse 72 11/29/20 14:00 Resp 16 11/29/20 14:00 BP 109/66 11/29/20 14:00 Pulse Ox 100 11/29/20 14:00 Intake & Output 11/29/20 11/29/20 11/30/20 06:59 18:59 06:59 Intake Total 800 708 Output Total 300 Balance 500 708 Intake: Intake, IV Titration 800 Amount Sodium Chloride 0.9% 1, 800 000 ml @ 100 mls/hr IV . Q10H ETIENNE Rx#:[id number] Oral 708 Output: Urine 300 Other: Voiding Method Bedside Commode # Voids 1 1 - Labs CBC & Chem 7: 11/28/20 07:07 11/28/20 11:44 Labs: Abnormal Lab Results - Last 24 Hours (Table) 11/28/20 11/29/20 11/29/20 Range/Units 20:10 07:12 11:35 POC Glucose (mg/dL) 116 H 134 H 123 H (75-99) mg/dL Assessment and Plan Assessment: Abdominal pain in a patient with history of small umbilical hernia, possible acute diverticulitis. Small periumbilical hernia, diastasis, Gen. surgery following. Further follow- up with surgery outpatient. Asymptomatic hypotension, resolved Complaints of vomiting and diarrhea initially prior to admission, resolved. Constipation, possibly opioid-induced, resolved Diabetes mellitus type 2, controlled Rheumatoid arthritis Prolonged QT interval, Zoloft, Zofran discontinued Hypertension Hypomagnesemia Plan: Continue on current medication regime , PPI, monitoring and symptomatic treatment. Labs/creatinine pending. Continue on Flagyl for suspected diverticulitis. Increase activity as tolerated. Discharge planning in progress possibly this weekend. The impression and plan of care has been dictated as directed. : I performed a history and examination of this patient, discussed the same with the dictator. I agree with the dictator's note ,documented as a scribe. Any additional findings or plans will be noted.
[2020-11-29] MEDS: MONTELUKAST 10 MG TAB PO SCH (20:52)
[2020-11-29] MEDS: ATORVASTATIN 40 MG TAB PO SCH (20:52)
[2020-11-29 21:06] LABS: Glucose,Whole Blood 177 mg/dL (75-99)
[2020-11-29 21:54] LABS: African American GFR (CKD) >90 (>60 ml/min/1.73 sqM); Non-African American GFR(CKD) 79 (>60 ml/min/1.73 sqM)
[2020-11-30] MEDS: metroNIDAZOLE-NS PMX 500 MG in SALINE 1 100ML.BAG IVPB SCH ×3 (00:22→16:09)
[2020-11-30] MEDS: SODIUM CHLORIDE 0.9% 1,000 ML IV SCH ×3 (00:23→21:14)
[2020-11-30] MEDS: HYOSCYAMINE SULFATE 0.125 MG TAB PO SCH ×6 (01:29→21:15)
[2020-11-30 04:12] LABS: African American GFR (CKD) 45.3 (60.0-200.0); Anion Gap 14.5 mmol/L (4.00-12.00); BUN/Creat Ratio 36.43 Ratio (12.00-20.00); Calcium 8.3 mg/dL (8.7-10.3); Carbon Dioxide 23.5 mmol/L (21.6-31.8); Non-African American GFR(CKD) 39.1 (60.0-200.0); Potassium 3.3 mmol/L (3.5-5.5)
[2020-11-30 06:50] LABS: Glucose,Whole Blood 107 mg/dL (75-99)
[2020-11-30] MEDS: MAGNESIUM OXIDE 400 MG TAB PO SCH (08:28)
[2020-11-30] MEDS: PANTOPRAZOLE 40 MG/10 ML VIAL IVP SCH ×2 (08:28→21:14)
[2020-11-30] MEDS: GLIMEPIRIDE 1 MG TAB PO SCH ×2 (08:29→21:14)
[2020-11-30] MEDS: GABAPENTIN 400 MG CAP PO SCH ×3 (08:29→21:14)
[2020-11-30] MEDS: SENNOSIDES 8.6 MG TAB PO SCH (08:29)
[2020-11-30] MEDS: HYDROcodone/APAP 5-325MG 1 EACH TAB PO SCH ×3 (08:29→21:14)
[2020-11-30] MEDS: polyethylene glycoL 3350 17 GM POWD.PACK PO SCH ×2 (08:30→21:14)
[2020-11-30 09:29] LABS: African American GFR (CKD) >90 (>60 ml/min/1.73 sqM); Anion Gap 8 mmol/L; Blood Urea Nitrogen 24 mg/dL (7-17); Carbon Dioxide 25 mmol/L (22-30); Chloride 109 mmol/L (98-107); Glucose 191 mg/dL (74-99); Non-African American GFR(CKD) >90 (>60 ml/min/1.73 sqM); Potassium 3.6 mmol/L (3.5-5.1); Sodium 142 mmol/L (137-145)
[2020-11-30 11:46] LABS: Glucose,Whole Blood 91 mg/dL (75-99)
--- NOTE | 2020-11-30 15:51 | PN ---
PROGRESS NOTE DATE OF SERVICE: 11/30/2020 I am covering for Dr. Love. INTERVAL HISTORY: This is a 65-year-old woman who was admitted with abdominal pain and possible acute diverticulitis. The patient is being closely monitored. No chest pain. No palpitation. Surgery has also seen the patient for small umbilical hernia, as well as Gastroenterology. PHYSICAL EXAMINATION: GENERAL: Patient is alert and oriented times three. VITAL SIGNS: Pulse 93, blood pressure 143/88, respirations 18, temperature 97.8, pulse ox 100% on room air. HEENT: Conjunctivae normal. Oral mucosa moist. NECK: No jugular venous distention. No carotid bruits. No lymph node enlargement. RESPIRATORY: Breath sounds diminished at the bases. No rhonchi, no crackles. HEART: S1 and S2, muffled. ABDOMEN: Soft, mild diffuse tenderness. EXTREMITIES: No edema, no swelling. NERVOUS: No focal deficits. LABORATORY DATA: CBC within normal limits. Potassium 3.6 and creatinine were 0.56. ASSESSMENT: 1. Abdominal pain with possible acute diverticulitis. 2. Small periumbilical hernia. 3. Asymptomatic hypotension. 4. Constipation. 5. Diabetes mellitus type 2. 6. Rheumatoid arthritis. 7. Prolonged QT interval. 8. Hypertension. 9. Hypomagnesemia. 10.Hyponatremia, mild. 11.History of asthma. 12.Diabetes mellitus type 2. 13.History of rheumatoid arthritis. 14.History of anxiety and depression. 15.FULL CODE. 16.Obesity with body mass index of 35. RECOMMENDATION AND DISCUSSION: This is a 65-year-old woman who presented with multiple complex medical issues, we will monitor the patient closely. Continue the current management and symptomatic treatment. The patient is on Flagyl. Will continue to monitor. Continue the proton pump inhibitors. Further recommendations to follow. Repeat labs will be ordered tomorrow. MMODL / IJN: [id number] /
[2020-11-30 16:33] LABS: Glucose,Whole Blood 109 mg/dL (75-99)
[2020-11-30 20:38] LABS: Glucose,Whole Blood 133 mg/dL (75-99)
[2020-11-30] MEDS: MONTELUKAST 10 MG TAB PO SCH (21:14)
[2020-11-30] MEDS: ATORVASTATIN 40 MG TAB PO SCH (21:14)
[2020-12-01] MEDS: HYOSCYAMINE SULFATE 0.125 MG TAB PO SCH ×7 (00:01→23:00)
[2020-12-01] MEDS: metroNIDAZOLE-NS PMX 500 MG in SALINE 1 100ML.BAG IVPB SCH ×4 (00:02→23:00)
[2020-12-01] MEDS: SODIUM CHLORIDE 0.9% 1,000 ML IV SCH ×2 (04:59→16:07)
[2020-12-01 07:07] LABS: Glucose,Whole Blood 107 mg/dL (75-99)
[2020-12-01] MEDS: FOLIC ACID 1 MG TAB PO SCH (08:04)
[2020-12-01] MEDS: MAGNESIUM OXIDE 400 MG TAB PO SCH (08:04)
[2020-12-01] MEDS: SENNOSIDES 8.6 MG TAB PO SCH (08:04)
[2020-12-01] MEDS: GLIMEPIRIDE 1 MG TAB PO SCH ×2 (08:04→19:58)
[2020-12-01] MEDS: GABAPENTIN 400 MG CAP PO SCH ×3 (08:04→19:58)
[2020-12-01] MEDS: CYANOCOBALAMIN 500 MCG TAB PO SCH (08:04)
[2020-12-01] MEDS: PANTOPRAZOLE 40 MG/10 ML VIAL IVP SCH (08:05)
[2020-12-01] MEDS: HYDROcodone/APAP 5-325MG 1 EACH TAB PO SCH ×3 (08:05→19:58)
[2020-12-01] MEDS: polyethylene glycoL 3350 17 GM POWD.PACK PO SCH ×2 (08:08→19:58)
[2020-12-01 11:32] LABS: Glucose,Whole Blood 161 mg/dL (75-99)
[2020-12-01 12:24] LABS: Basophils # (A) 0.03 X 10*3/uL (0.00-0.10); Basophils % (A) 0.8 %; Eosinophils # (A) 0.23 X 10*3/uL (0.04-0.35); Eosinophils % (A) 6.1 %; HGB 10.4 g/dL (12.0-15.0); Lymphocytes # (A) 1.16 X 10*3/uL (0.90-5.00); Lymphocytes % (A) 30.6 %; MCH 27.6 pg (27.0-32.0); MCHC 30.6 g/dL (32.0-37.0); MCV 90.2 fL (80.0-97.0); Mean Platelet Volume 11.6 fL (9.5-12.2); Monocytes # (A) 0.31 X 10*3/uL (0.20-1.00); Monocytes % (A) 8.2 %; Neutrophils # (A) 2.05 X 10*3/uL (1.80-7.70); Platelet Count 231 X 10*3/uL (140-440); RBC 3.77 X 10*6/uL (4.10-5.20); RDW 15.5 % (11.5-14.5); WBC 3.79 X 10*3/uL (4.50-10.00)
[2020-12-01 12:47] LABS: African American GFR (CKD) 116.9 (60.0-200.0); Albumin 3.7 g/dL (3.80-4.90); Albumin/Globulin Ratio 1.48 (1.60-3.17); Anion Gap 8.5 mmol/L (4.00-12.00); Calcium 8.8 mg/dL (8.7-10.3); Carbon Dioxide 28.5 mmol/L (21.6-31.8); Globulin 2.5 g/dL (1.6-3.3); Non-African American GFR(CKD) 100.9 (60.0-200.0); Potassium 3.5 mmol/L (3.5-5.5); Total Bilirubin 0.3 mg/dL (0.3-1.2); Total Protein 6.2 g/dL (6.2-8.2)
[2020-12-01 16:26] LABS: Glucose,Whole Blood 127 mg/dL (75-99)
[2020-12-01] MEDS: PANTOPRAZOLE 40 MG TABLET PO SCH (17:00)
[2020-12-01] MEDS: ATORVASTATIN 40 MG TAB PO SCH (19:58)
[2020-12-01] MEDS: MONTELUKAST 10 MG TAB PO SCH (19:58)
--- NOTE | 2020-12-01 20:54 | PN ---
PROGRESS NOTE DATE OF SERVICE: 12/01/2020 I am covering for Dr. Love. This 65-year-old woman who was being admitted with abdominal pain, possible acute diverticulitis is being closely monitored. No chest pain. No palpitations. No fever. The patient is on antibiotics. PHYSICAL EXAMINATION: Alert and oriented times three. Pulse 74, blood pressure 112/75, respirations 17, temperature 98.2, pulse ox 94% on room air. HEENT: Conjunctivae normal. NECK: No JVD. CARDIOVASCULAR: S1, S2, muffled. No S3, no S4, RESPIRATORY: Breath sounds diminished at the bases. No rhonchi. No crackles. ABDOMEN: Soft, mild diffuse tenderness. Legs: No edema. No swelling. NERVOUS SYSTEM: No focal deficits. LABS: WBC 3.7, hemoglobin 10.4. Other labs are noted. ASSESSMENT: 1. Abdominal pain with possible acute diverticulitis. 2. Small periumbilical hernia. 3. Symptomatic hypotension. 4. Constipation. 5. Diabetes mellitus type 2. 6. Rheumatoid arthritis. 7. Prolonged QT interval. 8. Hypertension. 9. Hypomagnesemia. 10.Hyponatremia, mild. 11.History of asthma. 12.Diabetes mellitus type 2. 13.History of rheumatoid arthritis. 14.History of anxiety, depression. 15.Obesity with body mass index of 35. 16.FULL CODE. RECOMMENDATIONS AND DISCUSSION: Recommend to continue current medications, symptomatic treatment. Otherwise at this time I recommend continue the antibiotics and Dr. Love will follow in the morning. Further recommendations to follow. Patient copy dictation my office thank you know no C[facility]. Creatinine. #3 the coagulopathy treatment would be injury about the kidney failure and also the report x5 right PE. The lungs are reviewed: A small 1 monitoring and negative for any bright red blood with the current therapy and came indications for surgery. The right symptomatic because of the high I had CT scan showed no rhonchi abdomen: No swelling. The cephalic and swelling lighting were the following medications and continue to monitor. I would avoid this partly like medical treatment and monitor creatinine. #2 and for the bed no other going to both [facility] in the rehab otherwise and all other medications Vitamin E 400 mg daily and by the day and 09/15/2019 09/16/2011 the date is April 05 0 6. This is a 57 on the day and oriented during this is aortic root is 600 mg 4 mg IV daily for the next week for the patient's other CV no family they exam we do not being Cardiology RO PE in the last 40 minute. Dorothy in the ED labs improved medically. CP. The pain closely so he is maintained surgery. Any med for of surgery is CAD an about 28 medications: Please see above: [facility] admitted 5 proper. #2 recent this fall in the in the alf: Intact. 1. .. MMODL / IJN: [id number] /
[2020-12-01 21:34] LABS: Glucose,Whole Blood 143 mg/dL (75-99)
[2020-12-02] MEDS: HYOSCYAMINE SULFATE 0.125 MG TAB PO SCH ×5 (05:43→21:37)
[2020-12-02 06:47] LABS: Glucose,Whole Blood 112 mg/dL (75-99)
[2020-12-02] MEDS: PANTOPRAZOLE 40 MG TABLET PO SCH ×2 (07:55→16:46)
[2020-12-02] MEDS: CYANOCOBALAMIN 500 MCG TAB PO SCH (07:57)
[2020-12-02] MEDS: FOLIC ACID 1 MG TAB PO SCH (07:57)
[2020-12-02] MEDS: SENNOSIDES 8.6 MG TAB PO SCH (07:57)
[2020-12-02] MEDS: HYDROcodone/APAP 5-325MG 1 EACH TAB PO SCH ×3 (07:57→21:38)
[2020-12-02] MEDS: GABAPENTIN 400 MG CAP PO SCH ×3 (07:59→21:38)
[2020-12-02] MEDS: MAGNESIUM OXIDE 400 MG TAB PO SCH (07:59)
[2020-12-02] MEDS: polyethylene glycoL 3350 17 GM POWD.PACK PO SCH ×2 (07:59→21:39)
[2020-12-02] MEDS: metroNIDAZOLE-NS PMX 500 MG in SALINE 1 100ML.BAG IVPB SCH (08:00)
[2020-12-02] MEDS: GLIMEPIRIDE 1 MG TAB PO SCH ×2 (08:04→21:37)
[2020-12-02 11:56] LABS: Glucose,Whole Blood 151 mg/dL (75-99)
--- NOTE | 2020-12-02 13:17 | P.PN ---
Subjective Progress Note Date: 12/02/20 Eileen Ribeiro is a 65 yo F with PMH of T2DM, RA who presented to the ED complaining of 1 day history of severe nausea, vomiting and diarrhea. She complains that she experience nausea with multiple episodes of vomiting throughout the day as well as diarrhea. She denies bloody stool, fever, chills or malaise. She denies any worsening of her symptoms with food. On presentation vitals stable, labs significant for WBC 6.5k, CRP <0.5, lipase, amylase wnl. CT abd/pelvis showing diverticulosis without diverticulitis. 11/27/2020 complains of ongoing abdominal pain with eating, history of hiatal hernia. Denies nausea, vomiting or diarrhea. Complains of constipation, reports no bowel movement since admission, dry heaves. Earlier this morning, staff reported chest pain times a few minutes, burped, resolved. Repeat EKG pending. Echo reporting moderate concentric left ventricle hypertrophy, normal LV function, EF 55-60%. Currently denies chest pain, palpitations, shortness of breath. Denies lightheadedness dizziness or focal deficits. 11/28/2020 abdominal pain unchanged, umbilical & bilateral lower quadrants. Positive bowel movement this morning. Tolerated diet with no nausea vomiting or diarrhea. Renal function worsened, creatinine up to 3.34. Reports urine dark. Asymptomatic hypotension with systolic blood pressure this morning currently in the 80s to 90s. Reports cold sweats during the night. Afebrile, normal WBC. 11/29/2020 labs pending. Maintained on Flagyl for suspected div erticulitis/Levaquin discontinued related to prolongation QT properties. Evaluated by surgery with recommendations noted and appreciated. Wearing an abdominal binder. Feels better with this morning. Reports less abdominal pain. Tolerating diet with no nausea vomiting or diarrhea. Denies chest pain, palpitations or shortness of breath. Afebrile. Vital signs stable, maintaining O2 sats in the 90s on room air. 12/12/2020 maintained on Flagyl.significant clinical improvement. Labs pending. Abdominal pain improved. Good diet intake with no nausea vomiting or diarrhea. Continues on MiraLAX, reports positive bowel movement this morning. Denies chest pain, palpitations or shortness of breath. Objective - Vital Signs Vital signs: Vital Signs Temp 98.4 F 12/02/20 08:18 Pulse 80 12/02/20 08:18 Resp 16 12/02/20 08:18 BP 144/85 12/02/20 08:18 Pulse Ox 98 12/02/20 08:18 Intake & Output 12/01/20 12/02/20 12/02/20 18:59 06:59 18:59 Intake Total 400 Output Total 300 Balance 100 Intake: Intake, IV Titration 100 Amount metroNIDAZOLE-NS PMX 500 100 mg In Saline 1 100ml.bag @ 100 mls/hr IVPB Q8HR ETIENNE Rx#:[id number] Oral 300 Output: Urine 300 Other: Voiding Method Bedside Commode # Voids 3 2 # Bowel Movements 1 - Exam General: Sitting up in chair, NAD. Vitals reviewed Eyes: PERRL, EOMI, conjunctiva normal HENT: normocephalic, mucus membranes moist Neck: supple, no JVD Lungs: normal respiratory effort,CTA, no wheezes or rales CV: Regular rate and rhythm, no murmur. Peripheral pulses 2+, no edema. Abdomen: soft, nondistended, no organomegaly. minimal mid epigastric tenderness radiating to suprapubic and bilateral lower quadrants, positive bowel sounds Skin: warm and dry. Neuro: A&Ox3, normal mood and affect - Labs CBC & Chem 7: 12/01/20 06:41 12/01/20 06:41 Labs: Abnormal Lab Results - Last 24 Hours (Table) 12/01/20 12/01/20 12/02/20 Range/Units 16:25 21:32 06:46 POC Glucose (mg/dL) 127 H 143 H 112 H (75-99) mg/dL 12/02/20 Range/Units 11:54 POC Glucose (mg/dL) 151 H (75-99) mg/dL Assessment and Plan Assessment: Abdominal pain , possible acute diverticulitis. Small periumbilical hernia, diastasis, Gen. surgery following. Further follow- up with surgery outpatient. Asymptomatic hypotension, resolved Acute renal failure, resolved Complaints of vomiting and diarrhea initially prior to admission, resolved. Constipation, possibly opioid-induced, resolved Diabetes mellitus type 2, controlled Rheumatoid arthritis Prolonged QT interval, Zoloft, Zofran discontinued Hypertension Hypomagnesemia Plan: Continue on current medication regime , PPI, monitoring and symptomatic treatment. Labs pending. Continue on Flagyl for suspected diverticulitis. Increase activity as tolerated. Completed antibiotic therapy, Flagyl discontinued. Discharge planning in progress for tomorrow. The impression and plan of care has been dictated as directed. : I performed a history and examination of this patient, discussed the same with the dictator. I agree with the dictator's note ,documented as a scribe. Any additional findings or plans will be noted.
[2020-12-02 13:51] LABS: African American GFR (CKD) >90 (>60 ml/min/1.73 sqM); Anion Gap 6 mmol/L; Blood Urea Nitrogen 14 mg/dL (7-17); Calcium 9.7 mg/dL (8.4-10.2); Carbon Dioxide 32 mmol/L (22-30); Chloride 101 mmol/L (98-107); Glucose 156 mg/dL (74-99); Non-African American GFR(CKD) >90 (>60 ml/min/1.73 sqM); Potassium 4.3 mmol/L (3.5-5.1); Sodium 139 mmol/L (137-145)
[2020-12-02 13:59] VITALS: BMI 35.0
[2020-12-02 16:55] LABS: Glucose,Whole Blood 104 mg/dL (75-99)
[2020-12-02 21:14] LABS: Glucose,Whole Blood 120 mg/dL (75-99)
[2020-12-02] MEDS: ATORVASTATIN 40 MG TAB PO SCH (21:38)
[2020-12-02] MEDS: MONTELUKAST 10 MG TAB PO SCH (21:38)
[2020-12-02 22:10] LABS: Hemoglobin A1C 6.9 % (4.0-6.0)
[2020-12-03] MEDS: HYOSCYAMINE SULFATE 0.125 MG TAB PO SCH ×3 (01:24→09:00)
[2020-12-03 01:30] VITALS: RESP 18
[2020-12-03 07:00] LABS: Glucose,Whole Blood 124 mg/dL (75-99)
[2020-12-03] MEDS: CYANOCOBALAMIN 500 MCG TAB PO SCH (09:00)
[2020-12-03] MEDS: FOLIC ACID 1 MG TAB PO SCH (09:00)
[2020-12-03] MEDS: MAGNESIUM OXIDE 400 MG TAB PO SCH (09:00)
[2020-12-03] MEDS: HYDROcodone/APAP 5-325MG 1 EACH TAB PO SCH (09:00)
[2020-12-03] MEDS: GLIMEPIRIDE 1 MG TAB PO SCH (09:00)
[2020-12-03] MEDS: PANTOPRAZOLE 40 MG TABLET PO SCH (09:00)
[2020-12-03] MEDS: GABAPENTIN 400 MG CAP PO SCH (09:00)
[2020-12-03] MEDS: SENNOSIDES 8.6 MG TAB PO SCH (09:00)
[2020-12-03] MEDS: polyethylene glycoL 3350 17 GM POWD.PACK PO SCH (09:00)
[2020-12-03 10:07] VITALS: BP 146/79; PULSE 73; TEMP 98.1
[2020-12-03 11:02] LABS: Basophils # (A) 0.02 X 10*3/uL (0.00-0.10); Basophils % (A) 0.5 %; Eosinophils # (A) 0.17 X 10*3/uL (0.04-0.35); Eosinophils % (A) 4.5 %; HCT 33.3 % (37.2-46.3); HGB 10.3 g/dL (12.0-15.0); Lymphocytes # (A) 1.14 X 10*3/uL (0.90-5.00); Lymphocytes % (A) 30.2 %; MCH 27.6 pg (27.0-32.0); MCHC 30.9 g/dL (32.0-37.0); MCV 89.3 fL (80.0-97.0); Mean Platelet Volume 11.6 fL (9.5-12.2); Monocytes # (A) 0.37 X 10*3/uL (0.20-1.00); Monocytes % (A) 9.8 %; Neutrophils # (A) 2.06 X 10*3/uL (1.80-7.70); Neutrophils % (A) 54.5 %; Platelet Count 227 X 10*3/uL (140-440); RBC 3.73 X 10*6/uL (4.10-5.20); RDW 15.3 % (11.5-14.5); WBC 3.78 X 10*3/uL (4.50-10.00)
[2020-12-03 12:28] LABS: African American GFR (CKD) 104.6 (60.0-200.0); Anion Gap 9.2 mmol/L (4.00-12.00); BUN/Creat Ratio 24.29 Ratio (12.00-20.00); Calcium 9.2 mg/dL (8.7-10.3); Carbon Dioxide 29.8 mmol/L (21.6-31.8); Non-African American GFR(CKD) 90.3 (60.0-200.0)
--- NOTE | 2020-12-04 18:02 | P.DS ---
Providers Date of admission: 11/25/20 20:09 Expected date of discharge: 12/03/20 Attending physician: Edward Love MD Consults: 11/25/20 19:53 Consult Physician Routine Consulting Provider: David Horner Consult Reason/Comments: prolonged qt Do you want consulting provider notified?: Yes 11/27/20 10:16 Consult Physician Urgent Consulting Provider: Josephine Aldrich Consult Reason/Comments: abdominal pain, small umbilical hernia, hx of moderate HH Do you want consulting provider notified?: Yes Primary care physician: [facility] Course: Final Diagnoses: Abdominal pain , possible acute diverticulitis-completed antibiotic therapy. Small periumbilical hernia, diastasis, Gen. surgery following. Further follow- up with surgery outpatient. Asymptomatic hypotension, resolved Acute renal failure, resolved Complaints of vomiting and diarrhea initially prior to admission, resolved. Constipation, possibly opioid-induced, resolved Diabetes mellitus type 2, controlled Rheumatoid arthritis Prolonged QT interval, Zoloft, Zofran discontinued Hypertension Hypomagnesemia Hospital course:Eileen Ribeiro is a 65 yo F with PMH of T2DM, RA who presented to the ED complaining of 1 day history of severe nausea, vomiting and diarrhea. She complains that she experience nausea with multiple episodes of vomiting throughout the day as well as diarrhea. She denies bloody stool, fever, chills or malaise. She denies any worsening of her symptoms with food. On presentation vitals stable, labs significant for WBC 6.5k, CRP <0.5, lipase, amylase wnl. CT abd/pelvis showing diverticulosis without diverticulitis. 11/27/2020 complains of ongoing abdominal pain with eating, history of hiatal hernia. Denies nausea, vomiting or diarrhea. Complains of constipation, reports no bowel movement since admission, dry heaves. Earlier this morning, staff reported chest pain times a few minutes, burped, resolved. Repeat EKG pending. Echo reporting moderate concentric left ventricle hypertrophy, normal LV function, EF 55-60%. Currently denies chest pain, palpitations, shortness of breath. Denies lightheadedness dizziness or focal deficits. 11/28/2020 abdominal pain unchanged, umbilical & bilateral lower quadrants. Positive bowel movement this morning. Tolerated diet with no nausea vomiting or diarrhea. Renal function worsened, creatinine up to 3.34. Reports urine dark. Asymptomatic hypotension with systolic blood pressure this morning currently in the 80s to 90s. Reports cold sweats during the night. Afebrile, normal WBC. 11/29/2020 labs pending. Maintained on Flagyl for suspected diverticulitis/Levaquin discontinued related to prolongation QT properties. Evaluated by surgery with recommendations noted and appreciated. Wearing an abdominal binder. Feels better with this morning. Reports less abdominal pain. Tolerating diet with no nausea vomiting or diarrhea. Denies chest pain, palpitations or shortness of breath. Afebrile. Vital signs stable, maintaining O2 sats in the 90s on room air. 12/12/2020 maintained on Flagyl.significant clinical improvement. Labs pending. Abdominal pain improved. Good diet intake with no nausea vomiting or diarrhea. Continues on MiraLAX, reports positive bowel movement this morning. Denies chest pain, palpitations or shortness of breath. Significant clinical improvement. Cleared by all consults for discharge. Patient has completed antibiotic therapy. Patient will be discharged home today in a stable condition with guarded prognosis. The impression and plan of care has been dictated as directed. : I performed a history and examination of this patient, discussed the same with the dictator. I agree with the dictator's note ,documented as a scribe. Any additional findings or plans will be noted. Patient Condition at Discharge: Stable Plan - Discharge Summary Discharge Rx Participant: Yes New Discharge Prescriptions: New Pantoprazole [Protonix] 40 mg PO AC-BID #60 tablet. Atorvastatin [Lipitor] 40 mg PO HS #30 tab polyethylene glycoL 3350 [Miralax] 17 gm PO Q48H powd.pack Sennosides [Senokot] 8.6 mg PO DAILY tab Continue Magnesium Oxide [Magox 400] 400 mg PO DAILY amLODIPine [Norvasc] 5 mg PO DAILY Glimepiride [Amaryl] 1 mg PO BID Cyanocobalamin (Vitamin B-12) [Vitamin B-12] 1,000 mcg PO DAILY Sertraline [Zoloft] 100 mg PO DAILY Montelukast [Singulair] 10 mg PO HS Folic Acid 1 mg PO DAILY Ferrous Sulfate [Iron (65 MG Elemental)] 325 mg PO TID metFORMIN HCL [Glucophage] 850 mg PO TID Ascorbic Acid [Vitamin C] 250 mg PO TID Gabapentin [Neurontin] 400 mg PO TID HYDROcodone/APAP 5-325MG [[place] 5-325] 1 tab PO TID Discharge Medication List Cyanocobalamin (Vitamin B-12) [Vitamin B-12] 1,000 mcg PO DAILY 03/22/19 [History] Ferrous Sulfate [Iron (65 MG Elemental)] 325 mg PO TID 03/22/19 [History] Folic Acid 1 mg PO DAILY 03/22/19 [History] Glimepiride [Amaryl] 1 mg PO BID 03/22/19 [History] Magnesium Oxide [Magox 400] 400 mg PO DAILY 03/22/19 [History] Montelukast [Singulair] 10 mg PO HS 03/22/19 [History] Sertraline [Zoloft] 100 mg PO DAILY 03/22/19 [History] amLODIPine [Norvasc] 5 mg PO DAILY 03/22/19 [History] Ascorbic Acid [Vitamin C] 250 mg PO TID 04/11/20 [History] metFORMIN HCL [Glucophage] 850 mg PO TID 04/11/20 [History] Gabapentin [Neurontin] 400 mg PO TID 11/25/20 [History] HYDROcodone/APAP 5-325MG [[place] 5-325] 1 tab PO TID 11/25/20 [History] Atorvastatin [Lipitor] 40 mg PO HS #30 tab 12/03/20 [Rx] Pantoprazole [Protonix] 40 mg PO AC-BID #60 tablet.dr 12/03/20 [Rx] Sennosides [Senokot] 8.6 mg PO DAILY tab 12/03/20 [Rx] polyethylene glycoL 3350 [Miralax] 17 gm PO Q48H powd.pack 12/03/20 [Rx] Follow up Appointment(s)/Referral(s): Edward Love MD [STAFF PHYSICIAN] - 3 Days [facility], [NON-STAFF] - Josephine Aldrich DO [Doctor of Osteopathic Medicine] - 12/18/20 10:00 am Augusto Ndiaye MD [STAFF PHYSICIAN] - 2 Weeks (office unavailable at this time patient to call and schedule appointment after D/C) Activity/Diet/Wound Care/Special Instructions: Completed antibiotic tx. Discharge Disposition: HOME SELF-CARE
== END 2020-12-03 11:09 | disposition home or self-care (01) | DRG 392 ==
LOC: EC 15:16 → 4SSUR 20:09
PROVIDERS: ADMIT Family Medicine; ATTEND Family Medicine
DX: K57.30 Diverticulosis of large intestine without perforation or abscess without bleeding (principal); E87.1 Hypo-osmolality and hyponatremia; N17.9 Acute kidney failure, unspecified; K59.03 Drug induced constipation; E11.9 Type 2 diabetes mellitus without complications; M06.9 Rheumatoid arthritis, unspecified; J45.909 Unspecified asthma, uncomplicated; F32.9 Major depressive disorder, single episode, unspecified; K44.9 Diaphragmatic hernia without obstruction or gangrene; Z20.822 Contact with and (suspected) exposure to COVID-19; Z79.84 Long term (current) use of oral hypoglycemic drugs; E83.42 Hypomagnesemia; E86.0 Dehydration; I95.9 Hypotension, unspecified; K42.9 Umbilical hernia without obstruction or gangrene; E66.9 Obesity, unspecified; Z68.35 Body mass index [BMI] 35.0-35.9, adult; I44.0 Atrioventricular block, first degree; T40.605A Adverse effect of unspecified narcotics, initial encounter; I45.10 Unspecified right bundle-branch block; I11.9 Hypertensive heart disease without heart failure; F41.9 Anxiety disorder, unspecified; Z79.899 Other long term (current) drug therapy
CPT/HCPCS: 36415; 74176; 80048; 80053; 81001; 82150; 82565; 83036; 83605; 83690; 83735; 84484; 85025; 85610; 85730; 86140; 87635; 93005; 93306; 96361; 96372; 96374; 96375; 99285

== ENCOUNTER 2022-10-24 04:44 | Inpatient (IN) | payer MEDICARE, OTHER ==
[2022-10-24] MEDS ORDERED: ALBUTEROL NEBULIZED 2.5 MG/3 ML INHALATION STA (05:26)
[2022-10-24] MEDS ORDERED: MORPHINE SULFATE 4 MG/ML SYRINGE IV STA ×2 (05:26→08:52)
--- NOTE | 2022-10-24 05:29 | ED ---
General Adult HPI - General Chief complaint: Upper Respiratory Infection Stated complaint: cough Time Seen by Provider: 10/24/22 05:18 Source: patient Mode of arrival: ambulatory Limitations: no limitations - History of Present Illness Initial comments: 's patient is a 67-year-old woman who presents with respiratory complaints that she states is been going on for nearly a week's time. She initially had onset of cough, this was followed by shortness of breath and now she is having bilateral rib pains associated with cough. She states that the cough went from being productive of some yellowish sputum now it is bringing up some light pink sputum. She has not noted fever or chills. There is no chest pain prior to the onset of the rib pain. She states she is also having some associated leg swelling. She has not had change in urination or bowel movements. -: days(s) Location: chest Quality: aching Consistency: constant Improves with: none Worsens with: other (Cough) Associated Symptoms: cough, shortness of breath - Related Data Home Medications Medication Instructions Recorded Confirmed Ferrous Sulfate [Iron (65 MG 325 mg PO DAILY 03/22/19 10/24/22 Elemental)] Folic Acid 1 mg PO DAILY 03/22/19 10/24/22 Magnesium Oxide [Magox 400] 400 mg PO HS 03/22/19 10/24/22 Montelukast [Singulair] 10 mg PO HS 03/22/19 10/24/22 Gabapentin [Neurontin] 400 mg PO TID 11/25/20 10/24/22 Ascorbic Acid [Vitamin C] 500 mg PO DAILY 10/24/22 10/24/22 Cholecalciferol [Vitamin D3 (25 50 mcg PO DAILY 10/24/22 10/24/22 Mcg = 1000 Iu)] Ergocalciferol (Vitamin D2) 1,250 mcg PO WE 10/24/22 10/24/22 [Drisdol (50,000 Iu)] Furosemide [Lasix] 40 mg PO DAILY 10/24/22 10/24/22 HYDROcodone/APAP 10-325MG [[place] 1 tab PO TID 10/24/22 10/24/22 10-325] carBAMazepine [carBAMazepine ER] 100 mg PO BID 10/24/22 10/24/22 Previous Rx's Medication Instructions Recorded Budesonide-Formot 160-4.5 Mcg 2 puff INHALATION RT-BID 30 Days 10/30/22 [Symbicort 160-4.5 Mcg Inhaler] #1 each Insulin Detemir (Levemir) [Levemir] 40 unit SQ DAILY@0700 30 Days #5 10/30/22 each Lactulose [Cephulac] 10 gm PO DAILY #300 ml 10/30/22 amLODIPine [Norvasc] 5 mg PO DAILY #30 tab 10/30/22 guaiFENesin SYRUP 100MG/5ML 200 mg PO Q6HR PRN #240 ml 10/30/22 [Robitussin] predniSONE 10 mg PO DIRECTED #30 tab 10/30/22 Allergies Allergy/AdvReac Type Severity Reaction Status Date / Time Penicillins Allergy Rash/Hives/ Verified 10/24/22 11:27 Itching Review of Systems ROS Statement: Those systems with pertinent positive or pertinent negative responses have been documented in the HPI. ROS Other: All systems not noted in ROS Statement are negative. Constitutional: Denies: fever, chills Respiratory: Reports: cough, dyspnea, wheezes, hemoptysis Cardiovascular: Reports: chest pain, orthopnea, edema. Denies: palpitations, syncope Gastrointestinal: Denies: abdominal pain, nausea, vomiting Genitourinary: Denies: dysuria, hematuria Musculoskeletal: Denies: back pain Skin: Denies: rash Neurological: Denies: headache, weakness, numbness Past Medical History Past Medical History: Asthma, Diabetes Mellitus, Hypertension, Rheumatoid Arthritis (RA) History of Any Multi-Drug Resistant Organisms: None Reported Past Surgical History: Section, Joint Replacement, Orthopedic Surgery Additional Past Surgical History / Comment(s): carpel tunnel, bilat knee replace ment Past Anesthesia/Blood Transfusion Reactions: No Reported Reaction Past Psychological History: Anxiety, Depression Smoking Status: Never smoker Past Alcohol Use History: None Reported Past Drug Use History: None Reported - Past Family History Mother Family Medical History: CVA/TIA, Dementia General Exam Limitations: no limitations General appearance: alert, in no apparent distress Head exam: Present: atraumatic, normocephalic Eye exam: Present: normal appearance. Absent: scleral icterus, conjunctival injection Respiratory exam: Present: wheezes, chest wall tenderness, accessory muscle use, decreased breath sounds. Absent: respiratory distress, rales, rhonchi, stridor Cardiovascular Exam: Present: regular rate, normal rhythm, normal heart sounds. Absent: systolic murmur, diastolic murmur, rubs, gallop GI/Abdominal exam: Present: soft. Absent: distended, tenderness, guarding, rebound, rigid, mass Extremities exam: Present: normal inspection, normal capillary refill, pedal edema. Absent: calf tenderness Back exam: Present: normal inspection. Absent: CVA tenderness (R), CVA tenderness (L) Neurological exam: Present: alert Skin exam: Present: warm, dry, intact, normal color. Absent: rash Course Vital Signs 10/24/22 10/24/22 10/24/22 04:58 05:18 05:59 Temperature 99.2 F 98.8 F Pulse Rate 87 87 80 Respiratory 18 19 Rate Blood Pressure 135/81 145/84 O2 Sat by Pulse 94 L 94 L Oximetry 10/24/22 10/24/22 10/24/22 06:03 06:11 06:42 Temperature 98.5 F Pulse Rate 79 84 Respiratory 20 20 Rate Blood Pressure 118/58 O2 Sat by Pulse 92 L Oximetry 10/24/22 10/24/22 10/24/22 10:00 11:35 11:48 Temperature Pulse Rate 76 74 71 Respiratory 20 Rate Blood Pressure 123/56 O2 Sat by Pulse 95 Oximetry 10/24/22 10/24/22 10/24/22 15:20 15:32 17:30 Temperature 98.3 F Pulse Rate 76 76 74 Respiratory 22 Rate Blood Pressure 142/76 O2 Sat by Pulse 95 Oximetry EKG Findings - EKG Results: EKG: interpreted by ERMD, sinus rhythm (Rate 83 bpm) - Blocks, [place], Hypertrophy, ST Abn: AV and intraventricular conduction: right bundle branch block (fixed/intermittent, complete/incomplete), left anterior fascicular block - [place], Pacemaker, Normal: Myocardial infarction: inferior OK (old age indeterminate) Medical Decision Making - Medical Decision Making This patient is 67-year-old woman with respiratory symptoms whose workup here included chest x-ray that I interpreted as showing basilar infiltrate. The patient is admitted to the medical service with consultation to pulmonology. In addition computed tomography scan was pending at the time of shift change to rule out pulmonary embolism. Was pt. sent in by a medical professional or institution (, PA, PROJECT SCIENTIST, urgent care, hospital, or long term...) When possible be specific @ -[No] Did you speak to anyone other than the patient for history (EMS, parent, family, police, friend...)? What history was obtained from this source @ -[No] Did you review nursing and triage notes (agree or disagree)? Why? @ -[I reviewed and agree with nursing and triage notes] Were old charts reviewed (outside hosp., previous admission, EMS record, old EKG, old radiological studies, urgent care reports/EKG's, long term records)? Report findings @ -[No old charts were reviewed] Differential Diagnosis (chest pain, altered mental status, abdominal pain women, abdominal pain men, vaginal bleeding, weakness, fever, dyspnea, syncope, headache, dizziness, GI bleed, back pain, seizure, CVA, palpatations, mental health, musculoskeletal)? @ -[Differential Dyspnea: Coronary syndrome, arrhythmia, tamponade, asthma, COPD, pulmonary embolism, pneumonia, pneumothorax, pulmonary effusion, anaphylaxis, diabetic ketoacidosis, flailed chest, pulmonary contusion, diaphragmatic rupture, anemia, neuromuscular, this is not meant to be an all-inclusive list. EKG interpreted by me (3pts min.). @ -[As above] X-rays interpreted by me (1pt min.). @ -[As above CT interpreted by me (1pt min.). @ -[None done] U/S interpreted by me (1pt. min.). @ -[None done] What testing was considered but not performed or refused? (CT, X-rays, U/S, labs)? Why? @ -[None] What meds were considered but not given or refused? Why? @ -[None] Did you discuss the management of the patient with other professionals (professionals i.e. , PA, PROJECT SCIENTIST, lab, RT, psych nurse, certified social workers in health care, blasting gang miner, te acher, police officer crime prevention, watch caser)? Give summary @ -[Admitting physician Was smoking cessation discussed for >3mins.? @ -[No] Was critical care preformed (if so, how long)? @ -[No] Were there social determinants of health that impacted care today? How? (Homelessness, low income, unemployed, alcoholism, drug addiction, transportation, low edu. Level, literacy, decrease access to med. care, penitentiary, rehab)? @ -[No] Was there de-escalation of care discussed even if they declined (Discuss DNR or withdrawal of care, Hospice)? DNR status @ -[No] What co-morbidities impacted this encounter? (DM, HTN, Smoking, COPD, CAD, Cancer, CVA, ARF, Chemo, Hep., AIDS, mental health diagnosis, sleep apnea, morbid obesity)? @ -[None] Was patient admitted / discharged? Hospital course, mention meds given and route, prescriptions, significant lab abnormalities, going to OR and other pertinent info. @ -[Patient is admitted for antibiotic therapy and pulmonology consultation Undiagnosed new problem with uncertain prognosis? @ -[No] Drug Therapy requiring intensive monitoring for toxicity (Heparin, Nitro, Insulin, Cardizem)? @ -[No] Were any procedures done? @ -[No] Diagnosis/symptom? @ -[Acute pneumonia Hyperglycemia Acute, or Chronic, or Acute on Chronic? @ -[default] Uncomplicated (without systemic symptoms) or Complicated (systemic symptoms)? @ -[Uncomplicated Side effects of treatment? @ -[No] Exacerbation, Progression, or Severe Exacerbation? @ -[No] Poses a threat to life or bodily function? How? (Chest pain, [place], [place], pneumonia, PE, COPD, DKA, ARF, appy, cholecystitis, CVA, Diverticulitis, Homicidal, Suicidal, threat to staff... and all critical care pts) @ -[No] - Lab Data Result diagrams: 10/26/22 06:20 10/26/22 06:20 Lab Results 10/24/22 10/24/22 10/24/22 Range/Units 05:33 05:33 05:33 WBC 9.3 (3.8-10.6) k/uL RBC 4.65 (3.80-5.40) m/uL Hgb 13.4 (11.4-16.0) gm/dL Hct 39.7 (34.0-46.0) % MCV 85.4 (80.0-100.0) fL MCH 28.8 (25.0-35.0) pg MCHC 33.7 (31.0-37.0) g/dL RDW 14.7 (11.5-15.5) % Plt Count 143 L (150-450) k/uL MPV 8.9 Neutrophils % 77 % Lymphocytes % 14 % Monocytes % 4 % Eosinophils % 3 % Basophils % 0 % Neutrophils # 7.2 (1.3-7.7) k/uL Lymphocytes # 1.3 (1.0-4.8) k/uL Monocytes # 0.3 (0-1.0) k/uL Eosinophils # 0.3 (0-0.7) k/uL Basophils # 0.0 (0-0.2) k/uL PT 10.2 (9.0-12.0) sec INR 1.0 (<1.2) APTT 19.6 L (22.0-30.0) sec D-Dimer 1.39 H (<0.60) mg/L FEU Sodium (137-145) mmol/L Potassium (3.5-5.1) mmol/L Chloride (98-107) mmol/L Carbon Dioxide (22-30) mmol/L Anion Gap mmol/L BUN (7-17) mg/dL Creatinine (0.52-1.04) mg/dL Est GFR (CKD-EPI)AfAm (>60 ml/min/1.73 sqM) Est GFR (CKD-EPI)NonAf (>60 ml/min/1.73 sqM) Glucose (74-99) mg/dL Estimated Ave Glu mg/dL Hemoglobin A1c (0.0-6.0) % Plasma Lactic Acid Bill (0.7-2.0) mmol/L Calcium (8.4-10.2) mg/dL Total Bilirubin (0.2-1.3) mg/dL AST (14-36) U/L ALT (4-34) U/L Alkaline Phosphatase (38-126) U/L Troponin I (0.000-0.034) ng/mL Total Protein (6.3-8.2) g/dL Albumin (3.5-5.0) g/dL Procalcitonin (0.02-0.09) ng/mL Influenza Type A (PCR) Not Detected (Not Detectd) Influenza Type B (PCR) Not Detected (Not Detectd) RSV (PCR) Not Detected (Not Detectd) SARS-CoV-2 (PCR) Not Detected (Not Detectd) 10/24/22 10/24/22 10/24/22 Range/Units 05:33 05:33 05:33 WBC (3.8-10.6) k/uL RBC (3.80-5.40) m/uL Hgb (11.4-16.0) gm/dL Hct (34.0-46.0) % MCV (80.0-100.0) fL MCH (25.0-35.0) pg MCHC (31.0-37.0) g/dL RDW (11.5-15.5) % Plt Count (150-450) k/uL MPV Neutrophils % % Lymphocytes % % Monocytes % % Eosinophils % % Basophils % % Neutrophils # (1.3-7.7) k/uL Lymphocytes # (1.0-4.8) k/uL Monocytes # (0-1.0) k/uL Eosinophils # (0-0.7) k/uL Basophils # (0-0.2) k/uL PT (9.0-12.0) sec INR (<1.2) APTT (22.0-30.0) sec D-Dimer (<0.60) mg/L FEU Sodium 135 L (137-145) mmol/L Potassium 4.4 (3.5-5.1) mmol/L Chloride 98 (98-107) mmol/L Carbon Dioxide 31 H (22-30) mmol/L Anion Gap 6 mmol/L BUN 13 (7-17) mg/dL Creatinine 0.46 L (0.52-1.04) mg/dL Est GFR (CKD-EPI)AfAm >90 (>60 ml/min/1.73 sqM) Est GFR (CKD-EPI)NonAf >90 (>60 ml/min/1.73 sqM) Glucose 288 H (74-99) mg/dL Estimated Ave Glu mg/dL Hemoglobin A1c (0.0-6.0) % Plasma Lactic Acid Bill 2.0 (0.7-2.0) mmol/L Calcium 8.7 (8.4-10.2) mg/dL Total Bilirubin 0.7 (0.2-1.3) mg/dL AST 39 H (14-36) U/L ALT 32 (4-34) U/L Alkaline Phosphatase 88 (38-126) U/L Troponin I 0.027 (0.000-0.034) ng/mL Total Protein 6.7 (6.3-8.2) g/dL Albumin 3.9 (3.5-5.0) g/dL Procalcitonin (0.02-0.09) ng/mL Influenza Type A (PCR) (Not Detectd) Influenza Type B (PCR) (Not Detectd) RSV (PCR) (Not Detectd) SARS-CoV-2 (PCR) (Not Detectd) 10/24/22 10/24/22 Range/Units 05:33 05:33 WBC (3.8-10.6) k/uL RBC (3.80-5.40) m/uL Hgb (11.4-16.0) gm/dL Hct (34.0-46.0) % MCV (80.0-100.0) fL MCH (25.0-35.0) pg MCHC (31.0-37.0) g/dL RDW (11.5-15.5) % Plt Count (150-450) k/uL MPV Neutrophils % % Lymphocytes % % Monocytes % % Eosinophils % % Basophils % % Neutrophils # (1.3-7.7) k/uL Lymphocytes # (1.0-4.8) k/uL Monocytes # (0-1.0) k/uL Eosinophils # (0-0.7) k/uL Basophils # (0-0.2) k/uL PT (9.0-12.0) sec INR (<1.2) APTT (22.0-30.0) sec D-Dimer (<0.60) mg/L FEU Sodium (137-145) mmol/L Potassium (3.5-5.1) mmol/L Chloride (98-107) mmol/L Carbon Dioxide (22-30) mmol/L Anion Gap mmol/L BUN (7-17) mg/dL Creatinine (0.52-1.04) mg/dL Est GFR (CKD-EPI)AfAm (>60 ml/min/1.73 sqM) Est GFR (CKD-EPI)NonAf (>60 ml/min/1.73 sqM) Glucose (74-99) mg/dL Estimated Ave Glu mg/dL 318 Hemoglobin A1c 12.7 H (0.0-6.0) % Plasma Lactic Acid Bill (0.7-2.0) mmol/L Calcium (8.4-10.2) mg/dL Total Bilirubin (0.2-1.3) mg/dL AST (14-36) U/L ALT (4-34) U/L Alkaline Phosphatase (38-126) U/L Troponin I (0.000-0.034) ng/mL Total Protein (6.3-8.2) g/dL Albumin (3.5-5.0) g/dL Procalcitonin 0.10 H (0.02-0.09) ng/mL Influenza Type A (PCR) (Not Detectd) Influenza Type B (PCR) (Not Detectd) RSV (PCR) (Not Detectd) SARS-CoV-2 (PCR) (Not Detectd) Disposition Clinical Impression: Pneumonia Disposition: ADMITTED IP TO THIS HOSP Condition: Fair
[2022-10-24 06:25] LABS: Basophils % (A) 0 %; Eosinophils # (A) 0.3 k/uL (0-0.7); Eosinophils % (A) 3 %; HCT 39.7 % (34.0-46.0); HGB 13.4 gm/dL (11.4-16.0); Lymphocytes # (A) 1.3 k/uL (1.0-4.8); Lymphocytes % (A) 14 %; MCH 28.8 pg (25.0-35.0); MCHC 33.7 g/dL (31.0-37.0); MCV 85.4 fL (80.0-100.0); Mean Platelet Volume 8.9; Monocytes # (A) 0.3 k/uL (0-1.0); Monocytes % (A) 4 %; Neutrophils # (A) 7.2 k/uL (1.3-7.7); Neutrophils % (A) 77 %; Platelet Count 143 k/uL (150-450); RBC 4.65 m/uL (3.80-5.40); RDW 14.7 % (11.5-15.5); WBC 9.3 k/uL (3.8-10.6)
[2022-10-24 06:58] LABS: ALT 32 U/L (4-34); African American GFR (CKD) >90 (>60 ml/min/1.73 sqM); Anion Gap 6 mmol/L; Blood Urea Nitrogen 13 mg/dL (7-17); Calcium 8.7 mg/dL (8.4-10.2); Carbon Dioxide 31 mmol/L (22-30); Chloride 98 mmol/L (98-107); Glucose 288 mg/dL (74-99); Non-African American GFR(CKD) >90 (>60 ml/min/1.73 sqM); Sodium 135 mmol/L (137-145); Total Bilirubin 0.7 mg/dL (0.2-1.3)
[2022-10-24 07:03] LABS: Prothrombin Time 10.2 sec (9.0-12.0)
[2022-10-24 07:06] LABS: Partial Thromboplastin Time 19.6 sec (22.0-30.0)
[2022-10-24 07:30] LABS: Potassium 4.4 mmol/L (3.5-5.1)
[2022-10-24 07:31] LABS: AST 39 U/L (14-36); Albumin 3.9 g/dL (3.5-5.0); Alkaline Phosphatase 88 U/L (38-126); Total Protein 6.7 g/dL (6.3-8.2)
--- NOTE | 2022-10-24 07:32 | XR ---
EXAM: XR Chest, 2 Views CLINICAL HISTORY: ITS.REASON XR Reason: cough TECHNIQUE: Frontal and lateral views of the chest. COMPARISON: August 08, 2020 FINDINGS: Lungs: Consolidative opacity at the right lung base consistent with pneumonia. Pleural space: No pleural effusion. No pneumothorax. Heart: Unremarkable. No cardiomegaly. Bones/joints: Unremarkable. No fracture or malalignment. IMPRESSION: Consolidative opacity at the right lung base consistent with pneumonia.
[2022-10-24] MEDS ORDERED: PNEUMONIA PROTOCOL UTILIZED 1 EACH MISC PO PRN (07:46)
[2022-10-24] MEDS ORDERED: DEXTROSE 50% SYRINGE 50 ML IVP PRN ×2 (07:55)
--- NOTE | 2022-10-24 09:10 | P.HPIM ---
History of Present Illness This is a pleasant 67 years old female with past medical history of anxiety depression, Asthma, Diabetes Mellitus, Hypertension, Rheumatoid Arthritis Patient presents because of dyspnea and recurrent severe and is bothering the patient she is in mild distress due to pain Also she is coughing and bringing up pinkish phlegm. She denies change in urine or bowel habits. Neurologic dizziness weakness or numbness She denies smoking alcohol or illicit drugs She is not on home oxygen Also patient complaining of from bilateral leg pain and swelling Patient is saturating 92% on room air. Postop Vitas looks stable. She has unremarkable CBC, BMP and liver enzymes. Glucose is elevated to 88. D-dimer is 1.39 elevated. Bilirubin and liver enzymes not significantly elevated. Troponin is negative. Viruses and detected including influenza,RSV, sanchez vv Chest x-ray showing significant right lower lobe infiltrate suspicious for p neumonia Patient was started on antibiotic and sent for CTA of the chest which is pending for now Review of Systems Review of systems CONSTITUTIONAL: No fever, no malaise, no fatigue. HEENT: No recent visual problems or hearing problems. Denied any sore throat. CARDIOVASCULAR: No orthopnea, PND, no palpitations, no syncope. PULMONARY: No chest wall tenderness, no hemoptysis. GASTROINTESTINAL: No diarrhea, no nausea, no vomiting, no abdominal pain. Normoactive bowel sounds. NEUROLOGICAL: No headaches, no weakness, no numbness. HEMATOLOGICAL: Denies any bleeding or petechiae. GENITOURINARY: Denies any burning micturition, frequency, or urgency. MUSCULOSKELETAL/RHEUMATOLOGICAL: Denies any joint pain, swelling, or any muscle pain. ENDOCRINE: Denies any polyuria or polydipsia. Past Medical History Past Medical History: Asthma, Diabetes Mellitus, Hypertension, Rheumatoid Arthritis (RA) History of Any Multi-Drug Resistant Organisms: None Reported Past Surgical History: Section, Joint Replacement, Orthopedic Surgery Additional Past Surgical History / Comment(s): carpel tunnel, bilat knee replacement Past Anesthesia/Blood Transfusion Reactions: No Reported Reaction Past Psychological History: Anxiety, Depression Smoking Status: Never smoker Past Alcohol Use History: None Reported Past Drug Use History: None Reported - Past Family History Mother Family Medical History: CVA/TIA, Dementia Medications and Allergies Home Medications Medication Instructions Recorded Confirmed Type Cyanocobalamin (Vitamin B-12) 1,000 mcg PO DAILY 03/22/19 11/25/20 History [Vitamin B-12] Ferrous Sulfate [Iron (65 MG 325 mg PO TID 03/22/19 11/25/20 History Elemental)] Folic Acid 1 mg PO DAILY 03/22/19 11/25/20 History Glimepiride [Amaryl] 1 mg PO BID 03/22/19 11/25/20 History Magnesium Oxide [Magox 400] 400 mg PO DAILY 03/22/19 11/25/20 History Montelukast [Singulair] 10 mg PO HS 03/22/19 11/25/20 History Sertraline [Zoloft] 100 mg PO DAILY 03/22/19 11/25/20 History amLODIPine [Norvasc] 5 mg PO DAILY 03/22/19 11/25/20 History Ascorbic Acid [Vitamin C] 250 mg PO TID 04/11/20 11/25/20 History metFORMIN HCL [Glucophage] 850 mg PO TID 04/11/20 11/25/20 History Gabapentin [Neurontin] 400 mg PO TID 11/25/20 11/25/20 History HYDROcodone/APAP 5-325MG [[place] 1 tab PO TID 11/25/20 11/25/20 History 5-325] Atorvastatin [Lipitor] 40 mg PO HS #30 tab 12/03/20 Rx Pantoprazole [Protonix] 40 mg PO AC-BID #60 tablet.dr 12/03/20 Rx Sennosides [Senokot] 8.6 mg PO DAILY tab 12/03/20 Rx polyethylene glycoL 3350 [Miralax] 17 gm PO Q48H powd.pack 12/03/20 Rx Allergies Allergy/AdvReac Type Severity Reaction Status Date / Time Penicillins Allergy Unknown Verified 11/25/20 21:12 Physical Exam Vitals: Vital Signs Temp Pulse Resp BP Pulse Ox 10/24/22 06:42 20 10/24/22 06:11 84 10/24/22 06:03 98.5 F 79 20 118/58 92 L 10/24/22 05:59 80 10/24/22 05:18 98.8 F 87 19 145/84 94 L 10/24/22 04:58 99.2 F 87 18 135/81 94 L Intake and Output 10/23/22 10/24/22 10/24/22 22:59 06:59 14:59 Other: Weight 102.058 kg -GENERAL: The patient is alert and oriented x3, not in any acute distress. Obese HEENT: Pupils are round and equally reacting to light. EOMI. No scleral icterus. No conjunctival pallor. Normocephalic, atraumatic. No pharyngeal erythema. No thyromegaly. CARDIOVASCULAR: S1 and S2 present. No murmurs, rubs, or gallops. -PULMONARY: Chest is clear to auscultation, no crackles. Expiratory wheezing ABDOMEN: Soft, nontender, nondistended, normoactive bowel sounds. No palpable organomegaly. MUSCULOSKELETAL: No joint swelling or deformity. EXTREMITIES: No cyanosis, clubbing, or pedal edema. NEUROLOGICAL: Gross neurological examination did not reveal any focal deficits. SKIN: No rashes. no petechiae. Results CBC & Chem 7: 10/24/22 05:33 10/24/22 05:33 Labs: Abnormal Lab Results - Last 24 Hours (Table) 10/24/22 10/24/22 10/24/22 Range/Units 05:33 05:33 05:33 Plt Count 143 L (150-450) k/uL APTT 19.6 L (22.0-30.0) sec D-Dimer 1.39 H (<0.60) mg/L FEU Sodium 135 L (137-145) mmol/L Carbon Dioxide 31 H (22-30) mmol/L Creatinine 0.46 L (0.52-1.04) mg/dL Glucose 288 H (74-99) mg/dL AST 39 H (14-36) U/L Assessment and Plan Assessment: Right lower lobe pneumonia, community-acquired Acute hypoxic respiratory failure secondary to above Diabetes mellitus Hypertension History of rheumatoid arthritis History of asthma History of anxiety and depression Plan: continue with ceftriaxone and Zithromax. Steroids, start Solu-Medrol Continue with gentle hydration Follow-up CTA of the chest Pain management Check ultrasound of the leg Pulmonary consult Labs and medication were reviewed.. Continue same treatment. Continue with symptomatic treatment. Resume home medication. Monitor labs and vitals. DVT and GI prophylaxis. Further recommendations as per clinical course of the patient DVT prophylaxis: Subcutaneous heparin GI Prophylaxis: Pepcid PT/OT: Pending Prognosis is guarded
--- NOTE | 2022-10-24 09:22 | CT ---
EXAMINATION TYPE: CT chest angio for PE DATE OF EXAM: 10/24/2022 COMPARISON: None HISTORY: Difficulty breathing, elevated d-dimer CT DLP: 832 mGycm Automated exposure control for dose reduction was used. CONTRAST: CT Chest for pulmonary embolism performed with with IV Contrast, patient injected with 100 mL of Isov ue 370. The post processing was performed. FINDINGS: There are large consolidative airspace densities in the right mid lower lung zones consistent with pn eumonia. There is a small right pleural effusion. The left lung is clear. The great vessels chest are normal and there is no mediastinal, hilar or axillary adenopathy There are no filling defects within the pulmonary artery or branches to suggest pulmonary embolism. Limited scanning the upper abdomen reveals no gross abnormality. The osseous structures are intact. IMPRESSION: 1. No evidence of pulmonary embolus. 2. Consolidative infiltrates in the right mid and lower lung zone with small pleural effusion. Findin gs most consistent with a pneumonic process and clinical correlation is recommended.
[2022-10-24] MEDS: SODIUM CHLORIDE 0.9% 1,000 ML IV SCH ×2 (09:36→10:04)
[2022-10-24 09:44] LABS: Glucose,Whole Blood 266 mg/dL (70-110)
[2022-10-24] MEDS: INSULIN ASPART (NovoLOG) 100 UNIT/ML VIAL SQ SCH ×4 (10:30→21:43)
[2022-10-24] MEDS: FAMOTIDINE 20 MG/2 ML VIAL IV SCH ×2 (10:31→21:43)
[2022-10-24] MEDS: methylPREDNISolone SOD SUCCI 40 MG/ML 1 ML VIAL IV SCH ×3 (10:31→23:39)
[2022-10-24] MEDS: AZITHROMYCIN 500 MG TAB PO SCH (10:32)
[2022-10-24] MEDS: HEPARIN SODIUM,PORCINE/PF 5,000 UNIT/0.5 ML SYRINGE SQ SCH ×3 (10:36→23:39)
--- NOTE | 2022-10-24 10:42 | US ---
EXAMINATION TYPE: US venous doppler duplex LE DATE OF EXAM: 10/24/2022 10:25 AM COMPARISON: NONE CLINICAL INDICATION: Female, 67 years old with history of leg swelling; Leg swelling x 1 month, no h/ o dvt SIDE PERFORMED: Bilateral TECHNIQUE: The lower extremity deep venous system is examined utilizing real time linear array sonog kyara with graded compression, doppler sonography and color-flow sonography. VESSELS IMAGED: Common Femoral Vein Deep Femoral Vein Greater Saphenous Vein * Femoral Vein Popliteal Vein Small Saphenous Vein * Proximal Calf Veins (* superficial vessels) Limited views in left groin due to pain and unable to visualize peroneal vs bilaterally due to edema. Right Leg: Negative for DVT Left Leg: Negative for DVT IMPRESSION: 1. Limited evaluation left groin due to groin pain and limited evaluation of the calf veins due to ed sandra. 2. Within the limits of the exam there is no evidence of lower extremity DVT.
[2022-10-24] MEDS: IPRATROPIUM-ALBUTEROL 3 ML NEB INHALATION SCH ×4 (11:34→19:58)
[2022-10-24 12:23] LABS: Glucose,Whole Blood 259 mg/dL (70-110)
--- NOTE | 2022-10-24 12:54 | P.CNPUL ---
History of Present Illness Consult date: 10/24/22 Requesting physician: Luis Meyer Reason for consult: dyspnea, abnormal CXR/CT Chief complaint: Shortness of breath, chills, productive cough History of present illness: This is a pleasant 67-year-old female patient who has a history of asthma, diabetes mellitus, hypertension, rheumatoid arthritis maintained on methotrexate and Orencia infusions, anxiety/depression. Lifelong nonsmoker. She presented here to the emergency room early this morning with complaints of bilateral rib pain, back pain, cough congestion and pink productive sputum. This started 1-2 days prior. Chest x-ray reveals a consolidative opacity in the right lung base. Computed tomography scan revealed no evidence of pulmonary embolism. There is consolidative infiltrates in the right mid and lower lung kline. Small pleural effusion. Dopplers of the bilateral lower extremities ruled out DVT. White count 9.3. Hemoglobin 13.4. Platelets 143. D-dimer 1.39. Sodium 135. Potassium 4.4. Bicarb 31. BUN 13. Creatinine 0.46. Glucose 288. AST 39. ALT 32. Troponin 0.027. Influenza screen negative. RSV screen negative. COVID-19 screen negative. She's been initiated on ceftriaxone and azithromycin along with bronchodilators and IV Solu-Medrol. Heparin for DVT prophylaxis. We'll saline at 75 ML's per hour. She is seen today in consultation in the emergency department. She is currently resting fairly comfortable on the stretcher. She is maintaining O2 saturation in the 90s on 3 L/m per nasal cannula. She's afebrile. Hemodynamically stable. Review of Systems REVIEW OF SYSTEMS: CONSTITUTIONAL: Denies any recent significant weight loss or weight gain. EYES: Denies change in vision. EARS, NOSE, MOUTH, THROAT: Denies headaches, denies sore throat. CARDIOVASCULAR: Positive for rib and chest pain, no palpitations or syncopal episodes. RESPIRATORY: Positive for shortness of breath, cough, congestion no hemoptysis. GASTROINTESTINAL: Denies change in appetite, denies abdominal pain GENITOURINARY: Denies hematuria, denies infections. MUSKULOSKELETAL: Denies pain, denies swelling. INTEGUMENTARY: Denies rash, denies eczema. NEUROLOGICAL: Denies recent memory loss, no recent seizure activity. PSYCHIATRIC: Denies anxiety, denies depression. HEMATOLOGIC/LYMPHATIC: Denies anemia, denies enlarged lymph nodes. Past Medical History Past Medical History: Asthma, Diabetes Mellitus, Hypertension, Rheumatoid Arthritis (RA) History of Any Multi-Drug Resistant Organisms: None Reported Past Surgical History: Section, Joint Replacement, Orthopedic Surgery Additional Past Surgical History / Comment(s): carpel tunnel, bilat knee replacement Past Anesthesia/Blood Transfusion Reactions: No Reported Reaction Past Psychological History: Anxiety, Depression Smoking Status: Never smoker Past Alcohol Use History: None Reported Past Drug Use History: None Reported - Past Family History Mother Family Medical History: CVA/TIA, Dementia Medications and Allergies Home Medications Medication Instructions Recorded Confirmed Type Ferrous Sulfate [Iron (65 MG 325 mg PO DAILY 03/22/19 10/24/22 History Elemental)] Folic Acid 1 mg PO DAILY 03/22/19 10/24/22 History Magnesium Oxide [Magox 400] 400 mg PO HS 03/22/19 10/24/22 History Montelukast [Singulair] 10 mg PO HS 03/22/19 10/24/22 History Gabapentin [Neurontin] 400 mg PO TID 11/25/20 10/24/22 History Ascorbic Acid [Vitamin C] 500 mg PO DAILY 10/24/22 10/24/22 History Cholecalciferol [Vitamin D3 (25 50 mcg PO DAILY 10/24/22 10/24/22 History Mcg = 1000 Iu)] Ergocalciferol (Vitamin D2) 1,250 mcg PO WE 10/24/22 10/24/22 History [Drisdol (50,000 Iu)] Furosemide [Lasix] 40 mg PO DAILY 10/24/22 10/24/22 History HYDROcodone/APAP 10-325MG [[place] 1 tab PO TID 10/24/22 10/24/22 History 10-325] carBAMazepine [carBAMazepine ER] 100 mg PO BID 10/24/22 10/24/22 History Allergies Allergy/AdvReac Type Severity Reaction Status Date / Time Penicillins Allergy Rash/Hives/ Verified 10/24/22 11:27 Itching Physical Exam Vitals: Vital Signs Temp Pulse Resp BP Pulse Ox 10/24/22 11:48 71 10/24/22 11:35 74 10/24/22 06:42 20 10/24/22 06:11 84 10/24/22 06:03 98.5 F 79 20 118/58 92 L 10/24/22 05:59 80 10/24/22 05:18 98.8 F 87 19 145/84 94 L 10/24/22 04:58 99.2 F 87 18 135/81 94 L Intake and Output 10/23/22 10/24/22 10/24/22 22:59 06:59 14:59 Other: Weight 102.058 kg GENERAL EXAM: Alert, pleasant 67-year-old female, on 3 L nasal cannula, comfortable in no apparent distress. HEAD: Normocephalic. EYES: Normal reaction of pupils, equal size. NOSE: Clear with pink turbinates. THROAT: No erythema or exudates. NECK: No masses, no JVD. CHEST: No chest wall deformity. LUNGS: Equal air entry with crackles in the right lung base CVS: S1 and S2 normal with no audible murmur, regular rhythm. ABDOMEN: No hepatosplenomegaly, normal bowel sounds, no guarding or rigidity. SPINE: No scoliosis or deformity SKIN: No rashes CENTRAL NERVOUS SYSTEM: No focal deficits, tone is normal in all 4 extremities. EXTREMITIES: There is no peripheral edema. No clubbing, no cyanosis. Peripheral pulses are intact. Results - Laboratory Findings CBC and BMP: 10/24/22 05:33 10/24/22 05:33 PT/INR, D-dimer PT 10.2 sec (9.0-12.0) 10/24/22 05:33 INR 1.0 (<1.2) 10/24/22 05:33 D-Dimer 1.39 mg/L FEU (<0.60) H 10/24/22 05:33 Abnormal lab findings: Abnormal Labs 10/24/22 10/24/22 10/24/22 05:33 05:33 05:33 Plt Count 143 L APTT 19.6 L D-Dimer 1.39 H Sodium 135 L Carbon Dioxide 31 H Creatinine 0.46 L Glucose 288 H POC Glucose (mg/dL) AST 39 H 10/24/22 10/24/22 09:34 12:18 Plt Count APTT D-Dimer Sodium Carbon Dioxide Creatinine Glucose POC Glucose (mg/dL) 266 H 259 H AST - Diagnostic Findings Chest x-ray: image reviewed CT scan - chest: image reviewed Assessment and Plan Assessment: Acute hypoxemic respiratory failure secondary to acute community-acquired pneumonia involving the right mid and lower lung Rheumatoid arthritis maintained on methotrexate and Orencia Lifelong nonsmoker History of asthma History of diabetes mellitus Hypertension History of anxiety/depression Plan: The patient was seen and evaluated Chest x-ray, CAT scan, medications and labs reviewed Procalcitonin pending Continue ceftriaxone and azithromycin Continue bronchodilators and steroids Titrate the FiO2 as tolerated Obtain a sputum sample We will continue to follow and make further recommendations based on her clinical status I have personally seen and examined the patient, performed the documentation and the assessment and plan as written. Number of minutes spent on the visit: 20.
[2022-10-24 16:35] LABS: Glucose,Whole Blood 382 mg/dL (70-110)
[2022-10-24] MEDS: MORPHINE SULFATE 4 MG/ML SYRINGE IV PRN (19:45)
[2022-10-24 20:40] LABS: Glucose,Whole Blood 364 mg/dL (70-110)
[2022-10-24] MEDS: carBAMazepine 100 MG TAB.ER.12H PO SCH (21:43)
[2022-10-24] MEDS: GABAPENTIN 400 MG CAP PO SCH (21:43)
[2022-10-24] MEDS: MONTELUKAST 10 MG TAB PO SCH (21:43)
[2022-10-25] MEDS: SODIUM CHLORIDE 0.9% 1,000 ML IV SCH ×3 (05:03→17:23)
[2022-10-25] MEDS: MORPHINE SULFATE 4 MG/ML SYRINGE IV PRN ×5 (05:04→23:49)
[2022-10-25 05:24] LABS: Glucose,Whole Blood 331 mg/dL (70-110)
[2022-10-25] MEDS: INSULIN ASPART (NovoLOG) 100 UNIT/ML VIAL SQ SCH ×4 (06:37→21:35)
--- NOTE | 2022-10-25 07:04 | XR ---
EXAMINATION TYPE: XR chest 1V portable DATE OF EXAM: 10/25/2022 COMPARISON: 10/24/2022 HISTORY: Follow-up pneumonia TECHNIQUE: Single frontal view of the chest is obtained. FINDINGS: There is a persistent consolidative opacity in the right mid and lower lung zone essentially unchange d compared to previous. There is minimal atelectasis in the left lung base. There is prominence right hilum which could reflect adenopathy. The heart and pulmonary vasculature are normal. There are marked degenerative changes of the glenohum eral joints. IMPRESSION: 1. No change in the right lung infiltrate. 2. Prominence of the right hilum adenopathy. Clinical correlation and short-term follow-up to [facility], [place] is recommended. Consider CT chest for further evaluation.
[2022-10-25] MEDS: GABAPENTIN 400 MG CAP PO SCH ×3 (07:46→21:35)
[2022-10-25] MEDS: FOLIC ACID 1 MG TAB PO SCH (07:46)
[2022-10-25] MEDS: FERROUS SULFATE 325 MG TAB PO SCH (07:46)
[2022-10-25] MEDS: carBAMazepine 100 MG TAB.ER.12H PO SCH ×2 (07:46→21:35)
[2022-10-25] MEDS: CHOLECALCIFEROL 25 MCG (1000 IU) TABLET PO SCH (07:46)
[2022-10-25] MEDS: ASCORBIC ACID 500 MG TAB PO SCH (07:46)
[2022-10-25] MEDS: HEPARIN SODIUM,PORCINE/PF 5,000 UNIT/0.5 ML SYRINGE SQ SCH ×3 (07:46→23:28)
[2022-10-25] MEDS: AZITHROMYCIN 500 MG TAB PO SCH (07:46)
[2022-10-25] MEDS: FUROSEMIDE 40 MG TAB PO SCH (07:46)
[2022-10-25] MEDS: methylPREDNISolone SOD SUCCI 40 MG/ML 1 ML VIAL IV SCH ×3 (08:08→23:29)
[2022-10-25] MEDS: FAMOTIDINE 20 MG/2 ML VIAL IV SCH ×2 (09:08→21:35)
[2022-10-25] MEDS: amLODIPine 5 MG TAB PO SCH (09:08)
[2022-10-25] MEDS ORDERED: INSULIN DETEMIR (LEVEMIR) 100 UNIT/ML SYR SQ SCH (09:30)
[2022-10-25] MEDS: IPRATROPIUM-ALBUTEROL 3 ML NEB INHALATION SCH ×4 (10:15→21:38)
[2022-10-25] MEDS: guaiFENesin-DM 100-10MG/5ML 10 ML CUP PO SCH ×3 (11:09→23:49)
[2022-10-25 11:32] LABS: Glucose,Whole Blood 360 mg/dL (70-110)
--- NOTE | 2022-10-25 12:09 | P.PN ---
Subjective Progress Note Date: 10/25/22 This is a pleasant 67-year-old female patient who has a history of asthma, diabetes mellitus, hypertension, rheumatoid arthritis maintained on methotrexate and Orencia infusions, anxiety/depression. Lifelong nonsmoker. She presented here to the emergency room early this morning with complaints of bilateral rib pain, back pain, cough congestion and pink productive sputum. This started 1-2 days prior. Chest x-ray reveals a consolidative opacity in the right lung base. Computed tomography scan revealed no evidence of pulmonary embolism. There is consolidative infiltrates in the right mid and lower lung kline. Small pleural effusion. Dopplers of the bilateral lower extremities ruled out DVT. White count 9.3. Hemoglobin 13.4. Platelets 143. D-dimer 1.39. Sodium 135. Potassium 4.4. Bicarb 31. BUN 13. Creatinine 0.46. Glucose 288. AST 39. ALT 32. Troponin 0.027. Influenza screen negative. RSV screen negative. COVID-19 screen negative. She's been initiated on ceftriaxone and azithromycin along with bronchodilators and IV Solu-Medrol. Heparin for DVT prophylaxis. We'll saline at 75 ML's per hour. She is seen today in consultation in the emergency department. She is currently resting fairly comfortable on the stretcher. She is maintaining O2 saturation in the 90s on 3 L/m per nasal cannula. She's afebrile. Hemodynamically stable. The patient is seen today 10/25/2022 in follow-up on the regular medical floor. She is awake and alert in no acute distress. She is maintaining O2 saturations in the 90s on 2 L/m per nasal cannula. Follow-up chest x-ray reveals no change in the right lung infiltrate. Prominence of the right hilum adenopathy noted. She has normal saline at 30 MLS per hour. Her pro-calcitonin was 0.10. Blood glucose 360. She is being treated for right mid and lower lung pneumonia. She is continued on ceftriaxone and azithromycin along with bronchodilators and IV Solu-Medrol. Heparin for DVT prophylaxis. Remains on oral diuretics. Objective - Vital Signs Vital signs: Vital Signs Temp 98.2 F 10/25/22 06:57 Pulse 76 10/25/22 10:54 Resp 20 10/25/22 06:57 BP 155/95 10/25/22 06:57 Pulse Ox 94 L 10/25/22 10:44 FiO2 Intake & Output 10/24/22 10/25/22 10/25/22 18:59 06:59 18:59 Intake Total 720 Balance 720 Weight 102.058 kg Intake: Oral 240 Blood Product 480 Other: Voiding Method Bedside Commode # Voids 1 1 # Bowel Movements 1 - Exam GENERAL EXAM: Alert, oriented 67-year-old female, on 2 L nasal cannula, comfortable in no apparent distress. HEAD: Normocephalic. EYES: Normal reaction of pupils, equal size. NOSE: Clear with pink turbinates. THROAT: No erythema or exudates. NECK: No masses, no JVD. CHEST: No chest wall deformity. LUNGS: Equal air entry with crackles in the right lung base CVS: S1 and S2 normal with no audible murmur, regular rhythm. ABDOMEN: No hepatosplenomegaly, normal bowel sounds, no guarding or rigidity. SPINE: No scoliosis or deformity SKIN: No rashes CENTRAL NERVOUS SYSTEM: No focal deficits, tone is normal in all 4 extremities. EXTREMITIES: There is no peripheral edema. No clubbing, no cyanosis. Periphera l pulses are intact. - Labs CBC & Chem 7: 10/24/22 05:33 10/24/22 05:33 Labs: Abnormal Lab Results - Last 24 Hours (Table) 10/24/22 10/24/22 10/24/22 Range/Units 05:33 05:33 12:18 POC Glucose (mg/dL) 259 H (70-110) mg/dL Hemoglobin A1c 12.7 H (0.0-6.0) % Procalcitonin 0.10 H (0.02-0.09) ng/mL 10/24/22 10/24/22 10/25/22 Range/Units 16:34 20:38 05:23 POC Glucose (mg/dL) 382 H 364 H 331 H (70-110) mg/dL Hemoglobin A1c (0.0-6.0) % Procalcitonin (0.02-0.09) ng/mL 10/25/22 Range/Units 11:31 POC Glucose (mg/dL) 360 H (70-110) mg/dL Hemoglobin A1c (0.0-6.0) % Procalcitonin (0.02-0.09) ng/mL Assessment and Plan Assessment: Acute hypoxemic respiratory failure secondary to acute community-acquired pne umonia involving the right mid and lower lung. Pro-calcitonin 0.10. Currently on ceftriaxone and azithromycin Rheumatoid arthritis maintained on methotrexate and Orencia Lifelong nonsmoker History of asthma History of diabetes mellitus Hypertension History of anxiety/depression Plan: The patient was seen and evaluated Medications, chest x-ray and labs reviewed Continue ceftriaxone and azithromycin Continue bronchodilators and steroids Titrate the FiO2 as tolerated We will continue to follow I have personally seen and examined the patient, performed the documentation and the assessment and plan as written. Number of minutes spent on the visit: 10.
--- NOTE | 2022-10-25 15:56 | P.PN ---
Subjective This is a pleasant 67 years old female with past medical history of anxiety depression, Asthma, Diabetes Mellitus, Hypertension, Rheumatoid Arthritis Patient presents because of dyspnea and recurrent severe and is bothering the patient she is in mild distress due to pain Also she is coughing and bringing up pinkish phlegm. She denies change in urine or bowel habits. Neurologic dizziness weakness or numbness She denies smoking alcohol or illicit drugs She is not on home oxygen Also patient complaining of from bilateral leg pain and swelling Patient is saturating 92% on room air. Postop Vitas looks stable. She has unremarkable CBC, BMP and liver enzymes. Glucose is elevated to 88. D-dimer is 1.39 elevated. Bilirubin and liver enzymes not significantly elevated. Troponin is negative. Viruses and detected including influenza,RSV, sanchez vv Chest x-ray showing significant right lower lobe infiltrate suspicious for pneumonia Patient was started on antibiotic and sent for CTA of the chest which is pending for now 10/25/2022 Patient breathing is better, her oxygen saturation is acceptable 95% on 3 L. She still have extensive coughing, almost on the stump and she still have wheezing. She still feels weak and malaise. Treatments once ceftriaxone and Zithromax and normal saline 75 mm/h, also she is on Solu-Medrol 40 mg We added Robitussin for her coughing. Also started her on Levemir 15 units while she is on steroids for hyperglycemia and added Norvasc 5 mg for high blood pressure. Objective - Vital Signs Vital signs: Vital Signs Temp 98.2 F 10/25/22 06:57 Pulse 72 10/25/22 10:44 Resp 20 10/25/22 06:57 BP 155/95 10/25/22 06:57 Pulse Ox 94 L 10/25/22 10:44 FiO2 Intake & Output 10/24/22 10/25/22 10/25/22 18:59 06:59 18:59 Intake Total 720 Balance 720 Weight 102.058 kg Intake: Oral 240 Blood Product 480 Other: Voiding Method Bedside Commode # Voids 1 1 # Bowel Movements 1 - Exam -GENERAL: The patient is alert and oriented x3, not in any acute distress. Obese HEENT: Pupils are round and equally reacting to light. EOMI. No scleral icterus. No conjunctival pallor. Normocephalic, atraumatic. No pharyngeal erythema. No thyromegaly. CARDIOVASCULAR: S1 and S2 present. No murmurs, rubs, or gallops. -PULMONARY: Chest is clear to auscultation, no crackles. Expiratory wheezing ABDOMEN: Soft, nontender, nondistended, normoactive bowel sounds. No palpable organomegaly. MUSCULOSKELETAL: No joint swelling or deformity. EXTREMITIES: No cyanosis, clubbing, or pedal edema. NEUROLOGICAL: Gross neurological examination did not reveal any focal deficits. SKIN: No rashes. no petechiae. - Labs CBC & Chem 7: 10/24/22 05:33 10/24/22 05:33 Labs: Abnormal Lab Results - Last 24 Hours (Table) 10/24/22 10/24/22 10/24/22 Range/Units 05:33 05:33 12:18 POC Glucose (mg/dL) 259 H (70-110) mg/dL Hemoglobin A1c 12.7 H (0.0-6.0) % Procalcitonin 0.10 H (0.02-0.09) ng/mL 10/24/22 10/24/22 10/25/22 Range/Units 16:34 20:38 05:23 POC Glucose (mg/dL) 382 H 364 H 331 H (70-110) mg/dL Hemoglobin A1c (0.0-6.0) % Procalcitonin (0.02-0.09) ng/mL Assessment and Plan Assessment: Right lower lobe pneumonia, community-acquired Acute hypoxic respiratory failure secondary to above Diabetes mellitus Hypertension History of rheumatoid arthritis History of asthma History of anxiety and depression Plan: continue with ceftriaxone and Zithromax. Steroids, start Solu-Medrol Continue with gentle hydration Pain management Pulmonary consult Labs and medication were reviewed.. Continue same treatment. Continue with symptomatic treatment. Resume home medication. Monitor labs and vitals. DVT and GI prophylaxis. Further recommendations as per clinical course of the patient DVT prophylaxis: Subcutaneous heparin GI Prophylaxis: Pepcid PT/OT: Pending Prognosis is guarded
[2022-10-25] MEDS ORDERED: INSULIN DETEMIR (LEVEMIR) 100 UNIT/ML SYR SQ ONE (16:16)
[2022-10-25 16:34] LABS: Glucose,Whole Blood 416 mg/dL (70-110)
[2022-10-25 21:26] LABS: Glucose,Whole Blood 475 mg/dL (70-110)
[2022-10-25] MEDS: MONTELUKAST 10 MG TAB PO SCH (21:35)
[2022-10-25 23:07] LABS: Glucose,Whole Blood 517 mg/dL (70-110)
[2022-10-25] MEDS ORDERED: INSULIN ASPART (NovoLOG) 100 UNIT/ML VIAL SQ ONE (23:10)
[2022-10-26] MEDS: ALBUTEROL NEBULIZED 2.5 MG/3 ML INHALATION PRN ×2 (00:45→04:52)
[2022-10-26 01:42] LABS: Glucose,Whole Blood 395 mg/dL (70-110)
[2022-10-26] MEDS: MORPHINE SULFATE 4 MG/ML SYRINGE IV PRN ×4 (06:02→20:28)
[2022-10-26] MEDS: guaiFENesin-DM 100-10MG/5ML 10 ML CUP PO SCH ×4 (06:03→20:47)
[2022-10-26] MEDS: SODIUM CHLORIDE 0.9% 1,000 ML IV SCH ×3 (06:04→21:14)
[2022-10-26 06:12] LABS: Glucose,Whole Blood 358 mg/dL (70-110)
[2022-10-26] MEDS: INSULIN ASPART (NovoLOG) 100 UNIT/ML VIAL SQ SCH ×6 (06:35→20:48)
[2022-10-26] MEDS ORDERED: INSULIN DETEMIR (LEVEMIR) 100 UNIT/ML SYR SQ SCH (07:00)
[2022-10-26] MEDS: methylPREDNISolone SOD SUCCI 40 MG/ML 1 ML VIAL IV SCH ×2 (08:24→16:00)
[2022-10-26] MEDS: FAMOTIDINE 20 MG/2 ML VIAL IV SCH ×2 (08:24→21:13)
[2022-10-26] MEDS: carBAMazepine 100 MG TAB.ER.12H PO SCH ×2 (08:25→20:48)
[2022-10-26] MEDS: FUROSEMIDE 40 MG TAB PO SCH (08:25)
[2022-10-26] MEDS: CHOLECALCIFEROL 25 MCG (1000 IU) TABLET PO SCH (08:25)
[2022-10-26] MEDS: FOLIC ACID 1 MG TAB PO SCH (08:25)
[2022-10-26] MEDS: ASCORBIC ACID 500 MG TAB PO SCH (08:25)
[2022-10-26] MEDS: amLODIPine 5 MG TAB PO SCH (08:25)
[2022-10-26] MEDS: GABAPENTIN 400 MG CAP PO SCH ×3 (08:25→20:48)
[2022-10-26] MEDS: FERROUS SULFATE 325 MG TAB PO SCH (08:25)
[2022-10-26] MEDS: HEPARIN SODIUM,PORCINE/PF 5,000 UNIT/0.5 ML SYRINGE SQ SCH ×2 (08:25→17:05)
[2022-10-26] MEDS: AZITHROMYCIN 500 MG TAB PO SCH (08:25)
[2022-10-26] MEDS: IPRATROPIUM-ALBUTEROL 3 ML NEB INHALATION SCH ×4 (09:44→21:31)
[2022-10-26 11:07] LABS: Basophils # (A) 0.03 X 10*3/uL (0.00-0.10); Basophils % (A) 0.3 %; Eosinophils # (A) 0.14 X 10*3/uL (0.04-0.35); Eosinophils % (A) 1.2 %; HCT 38.7 % (37.2-46.3); HGB 12.5 g/dL (12.0-15.0); Immature Grans, Automated 1.3 %; Lymphocytes # (A) 1.03 X 10*3/uL (0.90-5.00); Lymphocytes % (A) 9.1 %; MCH 28.5 pg (27.0-32.0); MCHC 32.3 g/dL (32.0-37.0); MCV 88.4 fL (80.0-97.0); Mean Platelet Volume 11.9 fL (9.5-12.2); Monocytes # (A) 0.37 X 10*3/uL (0.20-1.00); Monocytes % (A) 3.3 %; NRBC Per 100 WBC 0 /100 WBCS (0.0-0.0); Neutrophils # (A) 9.58 X 10*3/uL (1.80-7.70); Neutrophils % (A) 84.8 %; Platelet Count 178 X 10*3/uL (140-440); RBC 4.38 X 10*6/uL (4.10-5.20); RDW 14.1 % (11.5-14.5)
[2022-10-26 11:22] LABS: African American GFR (CKD) 112.3 (60.0-200.0); Anion Gap 12.6 mmol/L (10.00-18.00); BUN/Creat Ratio 31.24 Ratio (12.00-20.00); Blood Urea Nitrogen 16.9 mg/dL (9.0-27.0); Calcium 8.9 mg/dL (8.7-10.3); Carbon Dioxide 26.7 mmol/L (20.0-27.5); Non-African American GFR(CKD) 96.9 (60.0-200.0); Potassium 4.4 mmol/L (3.5-5.5)
[2022-10-26 12:13] LABS: Glucose,Whole Blood 444 mg/dL (70-110)
[2022-10-26] MEDS ORDERED: DEXTROSE 50% SYRINGE 50 ML IVP PRN ×2 (12:18)
[2022-10-26] MEDS ORDERED: INSULIN DETEMIR (LEVEMIR) 100 UNIT/ML SYR SQ ONE (12:30)
[2022-10-26 12:32] VITALS: BMI 42.5
--- NOTE | 2022-10-26 14:29 | P.PN ---
Subjective Progress Note Date: 10/26/22 This is a 67-year-old female with history of rheumatoid arthritis ,admitted with right lower lobe pneumonia, community-acquired, acute hypoxic respiratory failure multiple other medical issues. Maintained on ceftriaxone ,Zithromax, IV steroids. Blood sugars uncontrolled.Breathing improving, oxygen requirements decreased to 2 L nasal cannula maintaining O2 sats in the 90s. Afebrile. Objective - Vital Signs Vital signs: Vital Signs Temp 97.7 F 10/26/22 07:41 Pulse 80 10/26/22 12:54 Resp 18 10/26/22 07:41 BP 120/65 10/26/22 07:41 Pulse Ox 94 L 10/26/22 09:49 FiO2 Intake & Output 10/25/22 10/26/22 10/26/22 18:59 06:59 18:59 Weight 102.058 kg Other: Voiding Method Bedside Commode # Voids 3 3 # Bowel Movements 1 - Exam -GENERAL: Well-nourished, alert and oriented x3, NAD. HEENT: Normocephalic, atraumatic ,Pupils are round and equal,reacting to light,conjunctival normal CARDIOVASCULAR: S1 and S2 present. No murmurs, rubs, or gallops. -PULMONARY: Unlabored, equal air entry, scattered rhonchi ABDOMEN: Soft, nontender, nondistended, normoactive bowel sounds. No guarding, no rigidity. EXTREMITIES: No cyanosis, clubbing, or pedal edema. NEUROLOGICAL: Cranial nerves II through XII grossly intact, no focal deficits. SKIN: No rashes noted, warm and dry. - Labs CBC & Chem 7: 10/26/22 06:20 10/26/22 06:20 Labs: Abnormal Lab Results - Last 24 Hours (Table) 10/25/22 10/25/22 10/25/22 Range/Units 16:31 21:23 23:04 WBC (4.50-10.00) X 10*3/uL Immature Gran # (0.00-0.04) X 10*3/uL Neutrophils # (1.80-7.70) X 10*3/uL Creatinine (0.6-1.5) mg/dL BUN/Creatinine Ratio (12.00-20.00) Ratio Glucose (70-110) mg/dL POC Glucose (mg/dL) 416 H 475 H 517 H (70-110) mg/dL 10/26/22 10/26/22 10/26/22 Range/Units 01:41 06:10 06:20 WBC 11.30 H (4.50-10.00) X 10*3/uL Immature Gran # 0.15 H (0.00-0.04) X 10*3/uL Neutrophils # 9.58 H (1.80-7.70) X 10*3/uL Creatinine (0.6-1.5) mg/dL BUN/Creatinine Ratio (12.00-20.00) Ratio Glucose (70-110) mg/dL POC Glucose (mg/dL) 395 H 358 H (70-110) mg/dL 10/26/22 10/26/22 Range/Units 06:20 12:11 WBC (4.50-10.00) X 10*3/uL Immature Gran # (0.00-0.04) X 10*3/uL Neutrophils # (1.80-7.70) X 10*3/uL Creatinine 0.5 L (0.6-1.5) mg/dL BUN/Creatinine Ratio 31.24 H (12.00-20.00) Ratio Glucose 355 H (70-110) mg/dL POC Glucose (mg/dL) 444 H (70-110) mg/dL Microbiology - Last 24 Hours (Table) 10/25/22 10:55 Gram Stain - Preliminary Sputum Sputum Culture - Preliminary 10/24/22 09:15 Blood Culture - Preliminary Blood 10/24/22 09:30 Blood Culture - Preliminary Blood 10/25/22 10:56 Legionella Culture - Preliminary Sputum Assessment and Plan Assessment: Acute right mid and lower lobe pneumonia, community-acquired Acute hypoxic respiratory failure secondary to the above Diabetes mellitus, hyperglycemic, multifactorial including steroids Hypertension History of rheumatoid arthritis, maintained on methotrexate, Orencia History of asthma Anxiety Depression Plan: Continue on current medication regime ,monitoring and symptomatic treatment. Aggressive pulmonary toileting, continue with nebulized bronchodilators, steroids, antibiotics. Incentive spirometer ordered. Dictator control of blood sugars, NovoLog added. Female with parameters in addition to sliding scale, Lantus dose increased, close monitoring of Accu-Cheks. The impression and plan of care has been dictated as directed. : I performed a history and examination of this patient, discussed the same with the dictator. I agree with the dictator's note ,documented as a scribe. Any additional findings or plans will be noted.
--- NOTE | 2022-10-26 15:52 | P.PN ---
Subjective Progress Note Date: 10/26/22 Principal diagnosis: Pneumonia. This is a pleasant 67-year-old female patient who has a history of asthma, diabetes mellitus, hypertension, rheumatoid arthritis maintained on methotrexate and Orencia infusions, anxiety/depression. Lifelong nonsmoker. She presented here to the emergency room early this morning with complaints of bilateral rib pain, back pain, cough congestion and pink productive sputum. This started 1-2 days prior. Chest x-ray reveals a consolidative opacity in the right lung base. Computed tomography scan revealed no evidence of pulmonary embolism. There is consolidative infiltrates in the right mid and lower lung kline. Small pleural effusion. Dopplers of the bilateral lower extremities ruled out DVT. White count 9.3. Hemoglobin 13.4. Platelets 143. D-dimer 1.39. Sodium 135. Potassium 4.4. Bicarb 31. BUN 13. Creatinine 0.46. Glucose 288. AST 39. ALT 32. Troponin 0.027. Influenza screen negative. RSV screen negative. COVID-19 screen negative. She's been initiated on ceftriaxone and azithromycin along with bronchodilators and IV Solu-Medrol. Heparin for DVT prophylaxis. We'll saline at 75 ML's per hour. She is seen today in consultation in the emergency department. She is currently resting fairly comfortable on the stretcher. She is maintaining O2 saturation in the 90s on 3 L/m per nasal cannula. She's afebrile. Hemodynamically stable. The patient is seen today 10/25/2022 in follow-up on the regular medical floor. She is awake and alert in no acute distress. She is maintaining O2 saturations in the 90s on 2 L/m per nasal cannula. Follow-up chest x-ray reveals no change in the right lung infiltrate. Prominence of the right hilum adenopathy noted. She has normal saline at 30 MLS per hour. Her pro-calcitonin was 0.10. Blood glucose 360. She is being treated for right mid and lower lung pneumonia. She is continued on ceftriaxone and azithromycin along with bronchodilators and IV Solu-Medrol. Heparin for DVT prophylaxis. Remains on oral diuretics. Progress note dated 10/26/2022. The patient is seen today in room 456. She remains on oxygen at 3 L. She's getting saline at 75 mL an hour. She was admitted with a diagnosis of possible right middle lobe and right lower lobe pneumonia. The patient continues to have a very harsh cough. Her pro-calcitonin level was 0.10. She continues on appropriate medications including Rocephin, azithromycin, and bronchodilators. The patient is admitting to pain in the right chest, when she coughs. Today's labs include a white count of 0.3, hemoglobin 12.5, hematocrit 38.7, and a normal platelet count. Sodium 136, potassium 4.4, chlorides 97, CO2 27, BUN 17, creatinine 0.5. Glucose is 355. Thus far, culture data is negative. X-rays are reviewed. Objective - Vital Signs Vital signs: Vital Signs Temp 97.9 F 10/26/22 14:51 Pulse 90 10/26/22 14:51 Resp 18 10/26/22 14:51 BP 167/77 10/26/22 14:51 Pulse Ox 94 L 10/26/22 14:51 FiO2 Intake & Output 10/25/22 10/26/22 10/26/22 18:59 06:59 18:59 Weight 102.058 kg Other: Voiding Method Bedside Commode # Voids 3 3 3 # Bowel Movements 1 - Exam No acute distress, oriented 3. The patient has a very harsh, paroxysmal cough. HEENT examination is grossly unremarkable. Neck supple. Full range of motion. No adenopathy thyromegaly or neck vein distention. Cardiovascular examination reveals regular rhythm rate. S1-S2 normal. No S3 or S4. No discernible murmur noted. Heart sounds are distant. Heart rate 80 bpm. Lungs reveal scattered rhonchi and wheezes, particularly in the right lung, and right lower lobe. No crackles. Left lung is relatively clear. 3 L saturation is 94%. Abdomen soft bowel sounds are heard. No masses or tenderness. Extremities are intact. No cyanosis clubbing or edema. Skin is without rash or lesion. Neurologic examination is brief but nonfocal. - Labs CBC & Chem 7: 10/26/22 06:20 10/26/22 06:20 Labs: Abnormal Lab Results - Last 24 Hours (Table) 10/25/22 10/25/22 10/25/22 Range/Units 16:31 21:23 23:04 WBC (4.50-10.00) X 10*3/uL Immature Gran # (0.00-0.04) X 10*3/uL Neutrophils # (1.80-7.70) X 10*3/uL Creatinine (0.6-1.5) mg/dL BUN/Creatinine Ratio (12.00-20.00) Ratio Glucose (70-110) mg/dL POC Glucose (mg/dL) 416 H 475 H 517 H (70-110) mg/dL 10/26/22 10/26/22 10/26/22 Range/Units 01:41 06:10 06:20 WBC 11.30 H (4.50-10.00) X 10*3/uL Immature Gran # 0.15 H (0.00-0.04) X 10*3/uL Neutrophils # 9.58 H (1.80-7.70) X 10*3/uL Creatinine (0.6-1.5) mg/dL BUN/Creatinine Ratio (12.00-20.00) Ratio Glucose (70-110) mg/dL POC Glucose (mg/dL) 395 H 358 H (70-110) mg/dL 10/26/22 10/26/22 Range/Units 06:20 12:11 WBC (4.50-10.00) X 10*3/uL Immature Gran # (0.00-0.04) X 10*3/uL Neutrophils # (1.80-7.70) X 10*3/uL Creatinine 0.5 L (0.6-1.5) mg/dL BUN/Creatinine Ratio 31.24 H (12.00-20.00) Ratio Glucose 355 H (70-110) mg/dL POC Glucose (mg/dL) 444 H (70-110) mg/dL Microbiology - Last 24 Hours (Table) 10/25/22 10:55 Gram Stain - Preliminary Sputum Sputum Culture - Preliminary 10/24/22 09:15 Blood Culture - Preliminary Blood 10/24/22 09:30 Blood Culture - Preliminary Blood 10/25/22 10:56 Legionella Culture - Preliminary Sputum Assessment and Plan Assessment: Acute hypoxemic respiratory failure secondary to acute community-acquired pneumonia involving the right mid and lower lung. Rheumatoid arthritis maintained on methotrexate and Orencia. Lifelong nonsmoker. History of asthma. History of diabetes mellitus. Hypertension. History of anxiety/depression. Plan: Plan dated 10/26/2022. The patient continues on antibiotics, bronchodilators, and corticosteroids. She remains on 2-3 L of oxygen. The patient complains of pain when she coughs, particularly the right lower chest area. Her adventitious lung sounds are located in the right lower lung area. We will continue to follow, and make recommendations along the way. Prognosis is guarded. She remains on appropriate medications. Time with Patient: Less than 30
[2022-10-26 16:15] LABS: Glucose,Whole Blood 485 mg/dL (70-110)
[2022-10-26] MEDS ORDERED: INSULIN ASPART (NovoLOG) 100 UNIT/ML VIAL SQ ONE (16:40)
[2022-10-26] MEDS: HYDROcodone/APAP 10-325MG 1 EACH TAB PO SCH ×2 (17:03→20:47)
[2022-10-26 20:25] LABS: Glucose,Whole Blood 384 mg/dL (70-110)
[2022-10-26] MEDS: MONTELUKAST 10 MG TAB PO SCH (20:47)
[2022-10-26] MEDS: FORMOTEROL FUMARATE 20 MCG/2 ML NEBU INHALATION SCH (21:31)
[2022-10-26] MEDS: BUDESONIDE 1 MG/2 ML NEBU INHALATION SCH (21:31)
[2022-10-27] MEDS: MORPHINE SULFATE 4 MG/ML SYRINGE IV PRN ×4 (00:22→17:50)
[2022-10-27] MEDS: guaiFENesin-DM 100-10MG/5ML 10 ML CUP PO SCH ×5 (00:23→23:34)
[2022-10-27] MEDS: methylPREDNISolone SOD SUCCI 40 MG/ML 1 ML VIAL IV SCH ×4 (00:23→23:34)
[2022-10-27] MEDS: HEPARIN SODIUM,PORCINE/PF 5,000 UNIT/0.5 ML SYRINGE SQ SCH ×4 (00:23→23:34)
[2022-10-27 06:00] LABS: Glucose,Whole Blood 474 mg/dL (70-110)
[2022-10-27] MEDS ORDERED: INSULIN ASPART (NovoLOG) 100 UNIT/ML VIAL SQ ONE (06:09)
[2022-10-27] MEDS: INSULIN ASPART (NovoLOG) 100 UNIT/ML VIAL SQ SCH ×7 (06:14→20:56)
[2022-10-27] MEDS: INSULIN DETEMIR (LEVEMIR) 100 UNIT/ML SYR SQ SCH (06:39)
[2022-10-27] MEDS ORDERED: INSULIN DETEMIR (LEVEMIR) 100 UNIT/ML SYR SQ SCH (07:00)
[2022-10-27] MEDS: FAMOTIDINE 20 MG/2 ML VIAL IV SCH ×2 (07:57→22:10)
[2022-10-27] MEDS: GABAPENTIN 400 MG CAP PO SCH ×3 (07:58→20:55)
[2022-10-27] MEDS: HYDROcodone/APAP 10-325MG 1 EACH TAB PO SCH ×3 (07:58→20:55)
[2022-10-27] MEDS: FUROSEMIDE 40 MG TAB PO SCH (07:58)
[2022-10-27] MEDS: FOLIC ACID 1 MG TAB PO SCH (08:00)
[2022-10-27] MEDS: CHOLECALCIFEROL 25 MCG (1000 IU) TABLET PO SCH (08:00)
[2022-10-27] MEDS: amLODIPine 5 MG TAB PO SCH (08:02)
[2022-10-27] MEDS: FERROUS SULFATE 325 MG TAB PO SCH (08:02)
[2022-10-27] MEDS: ASCORBIC ACID 500 MG TAB PO SCH (08:03)
[2022-10-27] MEDS: carBAMazepine 100 MG TAB.ER.12H PO SCH ×2 (08:03→20:55)
--- NOTE | 2022-10-27 08:13 | XR ---
EXAMINATION TYPE: XR chest 2V DATE OF EXAM: 10/27/2022 7:06 AM COMPARISON: Chest radiographs from 10/25/2022 TECHNIQUE: XR chest 2V Frontal and lateral views of the chest. CLINICAL INDICATION:Female, 67 years old with history of Right lung pneumonia; FINDINGS: Lungs/Pleura: Improved aeration of lungs on today's exam with persistent airspace opacities scattered throughout right lower lung. No evidence of pneumothorax or large pleural effusion. Pulmonary vascularity: Unremarkable. Heart/mediastinum: Cardiomediastinal silhouette is unremarkable. Musculoskeletal: No acute osseous pathology. IMPRESSION: Improved aeration of the right lower lung with persistent multifocal airspace opacities.
[2022-10-27] MEDS: IPRATROPIUM-ALBUTEROL 3 ML NEB INHALATION SCH ×4 (09:06→20:33)
[2022-10-27] MEDS: FORMOTEROL FUMARATE 20 MCG/2 ML NEBU INHALATION SCH ×2 (09:06→20:33)
[2022-10-27] MEDS: BUDESONIDE 1 MG/2 ML NEBU INHALATION SCH ×2 (09:06→20:34)
--- NOTE | 2022-10-27 11:06 | P.PN ---
Subjective Progress Note Date: 10/27/22 This is a 67-year-old female with history of rheumatoid arthritis ,admitted with right lower lobe pneumonia, community-acquired, acute hypoxic respiratory failure multiple other medical issues. Maintained on ceftriaxone ,Zithromax, IV steroids. Blood sugars uncontrolled.Breathing improving, oxygen requirements decreased to 2 L nasal cannula maintaining O2 sats in the 90s. Afebrile. 10/27/22 maintained on nebulized medical dilators, IV steroids, antibiotics with breathing improving, but still tight. Reports chest tightness with deep breaths.Nonproductive cough; bronchospasms with deep inspiration. Oxygen requirements have decreased ,maintaining O2 sats of 94-95% on room air. Afebrile. Hyperglycemic, in a patient with hemoglobin A1c of 12.7, on steroids- further adjusted diabetic regimen. [place] resumed, pain better controlled.Much less anxiety. Objective - Vital Signs Vital signs: Vital Signs Temp 98.5 F 10/27/22 07:54 Pulse 76 10/27/22 09:39 Resp 17 10/27/22 07:54 BP 148/77 10/27/22 07:54 Pulse Ox 95 10/27/22 09:09 FiO2 Intake & Output 10/26/22 10/27/22 10/27/22 18:59 06:59 18:59 Weight 102.058 kg Other: # Voids 3 1 - Exam -GENERAL: Sitting up at side of bed, alert and oriented x3, NAD. HEENT: Normocephalic, atraumatic ,Pupils are round and equal,reacting to light,conjunctival normal, neck supple, no JVD. CARDIOVASCULAR: S1 and S2 present. No murmurs, rubs, or gallops. -PULMONARY: Unlabored, equal air entry, scattered expiratory wheezes and rhonchi throughout ABDOMEN: Soft, nontender, nondistended, normoactive bowel sounds. No guarding, no rigidity. EXTREMITIES: No cyanosis, clubbing, or pedal edema. NEUROLOGICAL: Cranial nerves II through XII grossly intact, no focal deficits. SKIN: No rashes noted, warm and dry. - Labs CBC & Chem 7: 10/26/22 06:20 10/26/22 06:20 Labs: Abnormal Lab Results - Last 24 Hours (Table) 05/01/23 05/01/23 05/01/23 Range/Units 06:20 06:20 12:11 WBC 11.30 H (4.50-10.00) X 10*3/uL Immature Gran # 0.15 H (0.00-0.04) X 10*3/uL Neutrophils # 9.58 H (1.80-7.70) X 10*3/uL Creatinine 0.5 L (0.6-1.5) mg/dL BUN/Creatinine Ratio 31.24 H (12.00-20.00) Ratio Glucose 355 H (70-110) mg/dL POC Glucose (mg/dL) 444 H (70-110) mg/dL 10/26/22 10/26/22 10/27/22 Range/Units 16:03 20:24 05:59 WBC (4.50-10.00) X 10*3/uL Immature Gran # (0.00-0.04) X 10*3/uL Neutrophils # (1.80-7.70) X 10*3/uL Creatinine (0.6-1.5) mg/dL BUN/Creatinine Ratio (12.00-20.00) Ratio Glucose (70-110) mg/dL POC Glucose (mg/dL) 485 H 384 H 474 H (70-110) mg/dL Microbiology - Last 24 Hours (Table) 10/24/22 09:15 Blood Culture - Preliminary Blood 10/24/22 09:30 Blood Culture - Preliminary Blood 10/25/22 10:55 Gram Stain - Final Sputum Sputum Culture - Final Assessment and Plan Assessment: Acute right mid and lower lobe pneumonia, community-acquired Acute hypoxic respiratory failure secondary to the above Diabetes mellitus, uncontrolled, hyperglycemic, multifactorial including steroids. Hemoglobin A1c 12.7, further diabetic education recommended outpatient in clinic with PCP Hypertension History of rheumatoid arthritis, maintained on methotrexate, Orencia History of asthma Anxiety Depression Plan: Continue on current medication regime ,monitoring and symptomatic treatment. Diabetic regimen further increase with close monitoring of Accu- Cheks. Hemoglobin A1c 12.7 and will need further diabetic education including after discharge. Aggressive pulmonary toileting, continue with nebulized bronchodilators, steroids, antibiotics. Discharge planning in progress tentatively for tomorrow, pending continued improvement and clearance from pulmonary. The impression and plan of care has been dictated as directed. : I performed a history and examination of this patient, discussed the same with the dictator. I agree with the dictator's note ,documented as a scribe. Any additional findings or plans will be noted.
[2022-10-27 11:55] LABS: Glucose,Whole Blood 321 mg/dL (70-110)
--- NOTE | 2022-10-27 13:31 | P.PN ---
Subjective Progress Note Date: 10/27/22 Principal diagnosis: Pneumonia. This is a pleasant 67-year-old female patient who has a history of asthma, diabetes mellitus, hypertension, rheumatoid arthritis maintained on methotrexate and Orencia infusions, anxiety/depression. Lifelong nonsmoker. She presented here to the emergency room early this morning with complaints of bilateral rib pain, back pain, cough congestion and pink productive sputum. This started 1-2 days prior. Chest x-ray reveals a consolidative opacity in the right lung base. Computed tomography scan revealed no evidence of pulmonary embolism. There is consolidative infiltrates in the right mid and lower lung kline. Small pleural effusion. Dopplers of the bilateral lower extremities ruled out DVT. White count 9.3. Hemoglobin 13.4. Platelets 143. D-dimer 1.39. Sodium 135. Potassium 4.4. Bicarb 31. BUN 13. Creatinine 0.46. Glucose 288. AST 39. ALT 32. Troponin 0.027. Influenza screen negative. RSV screen negative. COVID-19 screen negative. She's been initiated on ceftriaxone and azithromycin along with bronchodilators and IV Solu-Medrol. Heparin for DVT prophylaxis. We'll saline at 75 ML's per hour. She is seen today in consultation in the emergency department. She is currently resting fairly comfortable on the stretcher. She is maintaining O2 saturation in the 90s on 3 L/m per nasal cannula. She's afebrile. Hemodynamically stable. The patient is seen today 10/25/2022 in follow-up on the regular medical floor. She is awake and alert in no acute distress. She is maintaining O2 saturations in the 90s on 2 L/m per nasal cannula. Follow-up chest x-ray reveals no change in the right lung infiltrate. Prominence of the right hilum adenopathy noted. She has normal saline at 30 MLS per hour. Her pro-calcitonin was 0.10. Blood glucose 360. She is being treated for right mid and lower lung pneumonia. She is continued on ceftriaxone and azithromycin along with bronchodilators and IV Solu-Medrol. Heparin for DVT prophylaxis. Remains on oral diuretics. Progress note dated 10/26/2022. The patient is seen today in room 456. She remains on oxygen at 3 L. She's getting saline at 75 mL an hour. She was admitted with a diagnosis of possible right middle lobe and right lower lobe pneumonia. The patient continues to have a very harsh cough. Her pro-calcitonin level was 0.10. She continues on appropriate medications including Rocephin, azithromycin, and bronchodilators. The patient is admitting to pain in the right chest, when she coughs. Today's labs include a white count of 0.3, hemoglobin 12.5, hematocrit 38.7, and a normal platelet count. Sodium 136, potassium 4.4, chlorides 97, CO2 27, BUN 17, creatinine 0.5. Glucose is 355. Thus far, culture data is negative. X-rays are reviewed. Progress note dated 10/27/2022. The patient is seen today again in room 456. The patient is currently on room air. She's getting saline at 20 mL an hour. Her chest x-ray from today looks better than the previous chest x-ray. Clinically, she feels better. She's doing better on her incentive spirometer. She's not coughing as much. She can take deeper breaths. Labs today only included glucose of 321. Her microbiologic data currently is on negative. As mentioned, her chest x-rays improved. Objective - Vital Signs Vital signs: Vital Signs Temp 98.5 F 10/27/22 07:54 Pulse 76 10/27/22 09:39 Resp 17 10/27/22 07:58 BP 148/77 10/27/22 07:54 Pulse Ox 95 10/27/22 09:09 FiO2 Intake & Output 10/26/22 10/27/22 10/27/22 18:59 06:59 18:59 Weight 102.058 kg Other: # Voids 3 1 - Exam No acute distress, oriented 3. The patient has a very harsh, paroxysmal cough. HEENT examination is grossly unremarkable. Neck supple. Full range of motion. No adenopathy thyromegaly or neck vein distention. Cardiovascular examination reveals regular rhythm rate. S1-S2 normal. No S3 or S4. No discernible murmur noted. Heart sounds are distant. Heart rate 76 bpm. Lungs reveal scattered rhonchi and wheezes, particularly in the right lung, and right lower lobe. No crackles. Left lung is relatively clear. Room air saturation is 95%. Abdomen soft bowel sounds are heard. No masses or tenderness. Extremities are intact. No cyanosis clubbing or edema. Skin is without rash or lesion. Neurologic examination is brief but nonfocal. - Labs CBC & Chem 7: 10/26/22 06:20 10/26/22 06:20 Labs: Abnormal Lab Results - Last 24 Hours (Table) 10/26/22 10/26/22 10/27/22 Range/Units 16:03 20:24 05:59 POC Glucose (mg/dL) 485 H 384 H 474 H (70-110) mg/dL 10/27/22 Range/Units 11:53 POC Glucose (mg/dL) 321 H (70-110) mg/dL Microbiology - Last 24 Hours (Table) 10/24/22 09:15 Blood Culture - Preliminary Blood 10/24/22 09:30 Blood Culture - Preliminary Blood 10/25/22 10:55 Gram Stain - Final Sputum Sputum Culture - Final Assessment and Plan Assessment: Acute hypoxemic respiratory failure secondary to acute community-acquired pneumonia involving the right mid and lower lung. Rheumatoid arthritis maintained on methotrexate and Orencia. Lifelong nonsmoker. History of asthma. History of diabetes mellitus. Hypertension. History of anxiety/depression. Plan: Plan dated 10/26/2022. The patient continues on antibiotics, bronchodilators, and corticosteroids. She remains on 2-3 L of oxygen. The patient complains of pain when she coughs, particularly the right lower chest area. Her adventitious lung sounds are located in the right lower lung area. We will continue to follow, and make recommendations along the way. Prognosis is guarded. She remains on appropriate medications. Plan dated 10/27/2022. The patient appears to be doing much better both clinically and radi ographically. She remains on antibiotics, bronchodilators, corticosteroids. Yesterday, she was on oxygen, and today she is on room air. She's doing better with her incentive spirometer. She can take deep breaths without coughing. We will continue to follow make recommendations along the way. She probably in the hospital for another 2 days or so. No additional recommendations are made. Time with Patient: Less than 30
[2022-10-27 17:00] LABS: Glucose,Whole Blood 408 mg/dL (70-110)
[2022-10-27] MEDS ORDERED: INSULIN DETEMIR (LEVEMIR) 100 UNIT/ML SYR SQ ONE (19:15)
[2022-10-27 20:47] LABS: Glucose,Whole Blood 299 mg/dL (70-110)
[2022-10-27] MEDS: MONTELUKAST 10 MG TAB PO SCH (20:56)
[2022-10-28 06:32] LABS: Glucose,Whole Blood 318 mg/dL (70-110)
[2022-10-28] MEDS: guaiFENesin-DM 100-10MG/5ML 10 ML CUP PO SCH ×2 (06:48→13:11)
[2022-10-28] MEDS: INSULIN DETEMIR (LEVEMIR) 100 UNIT/ML SYR SQ SCH (06:48)
[2022-10-28] MEDS: INSULIN ASPART (NovoLOG) 100 UNIT/ML VIAL SQ SCH ×7 (06:49→20:48)
[2022-10-28] MEDS: HEPARIN SODIUM,PORCINE/PF 5,000 UNIT/0.5 ML SYRINGE SQ SCH ×3 (07:59→23:20)
[2022-10-28] MEDS: MORPHINE SULFATE 4 MG/ML SYRINGE IV PRN ×3 (08:01→16:37)
[2022-10-28] MEDS: CHOLECALCIFEROL 25 MCG (1000 IU) TABLET PO SCH (08:02)
[2022-10-28] MEDS: FAMOTIDINE 20 MG/2 ML VIAL IV SCH ×2 (08:02→20:49)
[2022-10-28] MEDS: GABAPENTIN 400 MG CAP PO SCH ×3 (08:04→20:47)
[2022-10-28] MEDS: HYDROcodone/APAP 10-325MG 1 EACH TAB PO SCH ×3 (08:04→20:48)
[2022-10-28] MEDS: amLODIPine 5 MG TAB PO SCH (08:04)
[2022-10-28] MEDS: FUROSEMIDE 40 MG TAB PO SCH (08:04)
[2022-10-28] MEDS: FERROUS SULFATE 325 MG TAB PO SCH (08:04)
[2022-10-28] MEDS: FOLIC ACID 1 MG TAB PO SCH (08:04)
[2022-10-28] MEDS: ASCORBIC ACID 500 MG TAB PO SCH (08:04)
[2022-10-28] MEDS: methylPREDNISolone SOD SUCCI 40 MG/ML 1 ML VIAL IV SCH (08:05)
[2022-10-28] MEDS: IPRATROPIUM-ALBUTEROL 3 ML NEB INHALATION SCH ×4 (08:34→21:20)
[2022-10-28] MEDS: BUDESONIDE 1 MG/2 ML NEBU INHALATION SCH ×2 (08:34→21:20)
[2022-10-28] MEDS: FORMOTEROL FUMARATE 20 MCG/2 ML NEBU INHALATION SCH ×2 (08:34→21:20)
[2022-10-28] MEDS: carBAMazepine 100 MG TAB.ER.12H PO SCH ×2 (09:05→20:49)
[2022-10-28] MEDS: SODIUM CHLORIDE 0.9% 1,000 ML IV SCH (10:34)
[2022-10-28 11:19] LABS: Glucose,Whole Blood 278 mg/dL (70-110)
[2022-10-28] MEDS: methylPREDNISolone SOD SUCCI 125 MG/2 ML VIAL IV SCH ×3 (13:55→23:20)
--- NOTE | 2022-10-28 14:22 | P.PN ---
Subjective Progress Note Date: 10/28/22 This is a pleasant 67-year-old female patient who has a history of asthma, diabetes mellitus, hypertension, rheumatoid arthritis maintained on methotrexate and Orencia infusions, anxiety/depression. Lifelong nonsmoker. She presented here to the emergency room early this morning with complaints of bilateral rib pain, back pain, cough congestion and pink productive sputum. This started 1-2 days prior. Chest x-ray reveals a consolidative opacity in the right lung base. Computed tomography scan revealed no evidence of pulmonary embolism. There is consolidative infiltrates in the right mid and lower lung kline. Small pleural effusion. Dopplers of the bilateral lower extremities ruled out DVT. White count 9.3. Hemoglobin 13.4. Platelets 143. D-dimer 1.39. Sodium 135. Potassium 4.4. Bicarb 31. BUN 13. Creatinine 0.46. Glucose 288. AST 39. ALT 32. Troponin 0.027. Influenza screen negative. RSV screen negative. COVID-19 screen negative. She's been initiated on ceftriaxone and azithromycin along with bronchodilators and IV Solu-Medrol. Heparin for DVT prophylaxis. We'll saline at 75 ML's per hour. She is seen today in consultation in the emergency department. She is currently resting fairly comfortable on the stretcher. She is maintaining O2 saturation in the 90s on 3 L/m per nasal cannula. She's afebrile. Hemodynamically stable. The patient is seen today 10/25/2022 in follow-up on the regular medical floor. She is awake and alert in no acute distress. She is maintaining O2 saturations in the 90s on 2 L/m per nasal cannula. Follow-up chest x-ray reveals no change in the right lung infiltrate. Prominence of the right hilum adenopathy noted. She has normal saline at 30 MLS per hour. Her pro-calcitonin was 0.10. Blood glucose 360. She is being treated for right mid and lower lung pneumonia. She is continued on ceftriaxone and azithromycin along with bronchodilators and IV Solu-Medrol. Heparin for DVT prophylaxis. Remains on oral diuretics. Progress note dated 10/26/2022. The patient is seen today in room 456. She remains on oxygen at 3 L. She's getting saline at 75 mL an hour. She was admitted with a diagnosis of possible right middle lobe and right lower lobe pneumonia. The patient continues to have a very harsh cough. Her pro-calcitonin level was 0.10. She continues on appropriate medications including Rocephin, azithromycin, and bronchodilators. The patient is admitting to pain in the right chest, when she coughs. Today's labs include a white count of 0.3, hemoglobin 12.5, hematocrit 38.7, and a normal platelet count. Sodium 136, potassium 4.4, chlorides 97, CO2 27, BUN 17, creatinine 0.5. Glucose is 355. Thus far, culture data is negative. X-rays are reviewed. Progress note dated 10/27/2022. The patient is seen today again in room 456. The patient is currently on room air. She's getting saline at 20 mL an hour. Her chest x-ray from today looks better than the previous chest x-ray. Clinically, she feels better. She's doing better on her incentive spirometer. She's not coughing as much. She can take deeper breaths. Labs today only included glucose of 321. Her microbiologic data currently is on negative. As mentioned, her chest x-rays improved. The patient is seen today 10/28/2022 in follow-up on the regular medical floor. She is currently resting comfortably in bed. Awake and alert in no acute distress. She is maintaining good O2 saturations in the 90s on room air. She is still somewhat bronchospastic and wheezing. She has a loose nonproductive cough. Normal saline 20 ML's per hour. She is continued on DuoNeb inhalations, Pulmicort and Perforomist inhalations, IV Solu-Medrol. Completed a course of antibiotics. Heparin for DVT prophylaxis. Remains on oral diuretics. Objective - Vital Signs Vital signs: Vital Signs Temp 98.2 F 10/28/22 07:21 Pulse 80 10/28/22 11:51 Resp 16 10/28/22 11:51 BP 173/89 10/28/22 07:21 Pulse Ox 94 L 10/28/22 08:34 FiO2 Intake & Output 10/27/22 10/28/22 10/28/22 18:59 06:59 18:59 Other: Voiding Method Toilet # Voids 2 3 - Exam GENERAL EXAM: Alert, oriented 67-year-old female, sitting comfortably in bed, on room air, comfortable in no apparent distress. HEAD: Normocephalic. EYES: Normal reaction of pupils, equal size. NOSE: Clear with pink turbinates. THROAT: No erythema or exudates. NECK: No masses, no JVD. CHEST: No chest wall deformity. LUNGS: Equal air entry with crackles in the right lung base CVS: S1 and S2 normal with no audible murmur, regular rhythm. ABDOMEN: No hepatosplenomegaly, normal bowel sounds, no guarding or rigidity. SPINE: No scoliosis or deformity SKIN: No rashes CENTRAL NERVOUS SYSTEM: No focal deficits, tone is normal in all 4 extremities. EXTREMITIES: There is no peripheral edema. No clubbing, no cyanosis. Peripheral pulses are intact. - Labs CBC & Chem 7: 10/26/22 06:20 10/26/22 06:20 Labs: Abnormal Lab Results - Last 24 Hours (Table) 10/27/22 10/27/22 10/28/22 Range/Units 16:58 20:46 06:30 POC Glucose (mg/dL) 408 H 299 H 318 H (70-110) mg/dL 10/28/22 Range/Units 11:17 POC Glucose (mg/dL) 278 H (70-110) mg/dL Microbiology - Last 24 Hours (Table) 10/24/22 09:15 Blood Culture - Preliminary Blood 10/24/22 09:30 Blood Culture - Preliminary Blood Assessment and Plan Assessment: Acute hypoxemic respiratory failure secondary to acute community-acquired pneumonia involving the right mid and lower lung. Pro-calcitonin 0.10. Completed ceftriaxone and azithromycin Rheumatoid arthritis maintained on methotrexate and Orencia Lifelong nonsmoker History of asthma History of diabetes mellitus Hypertension History of anxiety/depression Plan: The patient was seen and evaluated Medications reviewed Completed ceftriaxone and azithromycin Continue bronchodilators Increase Solu-Medrol to 60 mg every 6 hours Increase her activity as tolerate We will continue to follow I have personally seen and examined the patient, performed the documentation and the assessment and plan as written. Number of minutes spent on the visit: 10.
--- NOTE | 2022-10-28 16:07 | P.PN ---
Subjective Progress Note Date: 10/28/22 This is a 67-year-old female with history of rheumatoid arthritis ,admitted with right lower lobe pneumonia, community-acquired, acute hypoxic respiratory failure multiple other medical issues. Maintained on ceftriaxone ,Zithromax, IV steroids. Blood sugars uncontrolled.Breathing improving, oxygen requirements decreased to 2 L nasal cannula maintaining O2 sats in the 90s. Afebrile. 10/27/22 maintained on nebulized medical dilators, IV steroids, antibiotics with breathing improving, but still tight. Reports chest tightness with deep breaths.Nonproductive cough; bronchospasms with deep inspiration. Oxygen requirements have decreased ,maintaining O2 sats of 94-95% on room air. Afebrile. Hyperglycemic, in a patient with hemoglobin A1c of 12.7, on steroids- further adjusted diabetic regimen. [place] resumed, pain better controlled.Much less anxiety. 10/28/2022 maintained on IV steroids, nebulized bronchodilators, perform his, Pulmicort and oral diuretics, maintaining O2 sats in the 90s on room air. Decreasing wheezing and rhonchi ,continues to have significant bronchospasms, nonproductive cough. Reports significant exertional shortness of breath. Denies headache this morning. Completed antibiotic therapy of ceftriaxone and azithromycin. Afebrile. Slept better last night, reports 4 hours. Blood sugars improving with further adjustments. Objective - Vital Signs Vital signs: Vital Signs Temp 98.2 F 10/28/22 13:35 Pulse 80 10/28/22 15:52 Resp 16 10/28/22 13:35 BP 161/85 10/28/22 13:35 Pulse Ox 92 L 10/28/22 13:35 FiO2 Intake & Output 10/27/22 10/28/22 10/28/22 18:59 06:59 18:59 Other: Voiding Method Toilet # Voids 2 3 - Exam -GENERAL: Sitting up at side of bed, alert and oriented x3, NAD. HEENT: Normocephalic, atraumatic ,Pupils are round and equal,reacting to light,conjunctival normal, neck supple, no JVD. CARDIOVASCULAR: S1 and S2 present. No murmurs, rubs, or gallops. -PULMONARY: Unlabored, equal air entry, scattered decreased expiratory wheezes and rhonchi throughout ABDOMEN: Soft, nontender, nondistended, normoactive bowel sounds. No guarding, no rigidity. EXTREMITIES: No cyanosis, clubbing, or pedal edema. NEUROLOGICAL: Cranial nerves II through XII grossly intact, no focal deficits. SKIN: No rashes noted, warm and dry. - Labs CBC & Chem 7: 10/26/22 06:20 10/26/22 06:20 Labs: Abnormal Lab Results - Last 24 Hours (Table) 10/27/22 10/27/22 10/28/22 Range/Units 16:58 20:46 06:30 POC Glucose (mg/dL) 408 H 299 H 318 H (70-110) mg/dL 10/28/22 Range/Units 11:17 POC Glucose (mg/dL) 278 H (70-110) mg/dL Microbiology - Last 24 Hours (Table) 10/25/22 10:56 Legionella Culture - Preliminary Sputum 10/24/22 09:15 Blood Culture - Preliminary Blood 10/24/22 09:30 Blood Culture - Preliminary Blood Assessment and Plan Assessment: Acute right mid and lower lobe pneumonia, community-acquired Acute hypoxic respiratory failure secondary to the above Diabetes mellitus, uncontrolled, hyperglycemic, multifactorial including steroids. Hemoglobin A1c 12.7, further diabetic education recommended outpatient in clinic with PCP Hypertension History of rheumatoid arthritis, maintained on methotrexate, Orencia History of asthma Anxiety Depression Plan: Continue on current medication regime ,monitoring and symptomatic treatment. Further adjustment in diabetic regimen, increased Levemir with close monitoring of Accu-Cheks. Aggressive pulmonary toileting, continue with nebulized bronchodilators, steroids, antibiotics. Discharge planning in progress for the next 24-48 hours pending continued improvement and pulmonary clearance. The impression and plan of care has been dictated as directed. : I performed a history and examination of this patient, discussed the same with the dictator. I agree with the dictator's note ,documented as a scribe. Any additional findings or plans will be noted.
[2022-10-28 16:59] LABS: Glucose,Whole Blood 323 mg/dL (70-110)
[2022-10-28 20:32] LABS: Glucose,Whole Blood 448 mg/dL (70-110)
[2022-10-28] MEDS ORDERED: INSULIN ASPART (NovoLOG) 100 UNIT/ML VIAL SQ ONE (20:37)
[2022-10-28] MEDS: MONTELUKAST 10 MG TAB PO SCH (20:48)
[2022-10-28] MEDS ORDERED: INSULIN DETEMIR (LEVEMIR) 100 UNIT/ML SYR SQ ONE (21:00)
[2022-10-29 05:42] LABS: Glucose,Whole Blood 299 mg/dL (70-110)
[2022-10-29] MEDS: methylPREDNISolone SOD SUCCI 125 MG/2 ML VIAL IV SCH (06:01)
[2022-10-29] MEDS: INSULIN ASPART (NovoLOG) 100 UNIT/ML VIAL SQ SCH ×7 (06:02→21:49)
[2022-10-29] MEDS: MORPHINE SULFATE 4 MG/ML SYRINGE IV PRN ×2 (06:56→18:00)
[2022-10-29] MEDS: INSULIN DETEMIR (LEVEMIR) 100 UNIT/ML SYR SQ SCH (08:22)
[2022-10-29] MEDS: HEPARIN SODIUM,PORCINE/PF 5,000 UNIT/0.5 ML SYRINGE SQ SCH ×3 (08:22→22:35)
[2022-10-29] MEDS: GABAPENTIN 400 MG CAP PO SCH ×3 (08:22→21:50)
[2022-10-29] MEDS: ASCORBIC ACID 500 MG TAB PO SCH (08:22)
[2022-10-29] MEDS: FOLIC ACID 1 MG TAB PO SCH (08:22)
[2022-10-29] MEDS: HYDROcodone/APAP 10-325MG 1 EACH TAB PO SCH ×3 (08:23→21:50)
[2022-10-29] MEDS: CHOLECALCIFEROL 25 MCG (1000 IU) TABLET PO SCH (08:23)
[2022-10-29] MEDS: FERROUS SULFATE 325 MG TAB PO SCH (08:23)
[2022-10-29] MEDS: amLODIPine 5 MG TAB PO SCH (08:23)
[2022-10-29] MEDS: FUROSEMIDE 40 MG TAB PO SCH (08:23)
[2022-10-29] MEDS: carBAMazepine 100 MG TAB.ER.12H PO SCH ×2 (08:24→21:49)
[2022-10-29] MEDS: FAMOTIDINE 20 MG/2 ML VIAL IV SCH ×2 (08:24→22:36)
[2022-10-29] MEDS: FORMOTEROL FUMARATE 20 MCG/2 ML NEBU INHALATION SCH (08:38)
[2022-10-29] MEDS: IPRATROPIUM-ALBUTEROL 3 ML NEB INHALATION SCH ×4 (08:38→21:53)
[2022-10-29] MEDS: BUDESONIDE 1 MG/2 ML NEBU INHALATION SCH (08:38)
[2022-10-29] MEDS: SODIUM CHLORIDE 0.9% 1,000 ML IV SCH (10:22)
[2022-10-29] MEDS: predniSONE 20 MG TAB PO SCH (10:24)
[2022-10-29 11:40] LABS: Glucose,Whole Blood 443 mg/dL (70-110)
--- NOTE | 2022-10-29 12:45 | P.PN ---
Subjective Progress Note Date: 10/29/22 Principal diagnosis: Pneumonia. This is a pleasant 67-year-old female patient who has a history of asthma, diabetes mellitus, hypertension, rheumatoid arthritis maintained on methotrexate and Orencia infusions, anxiety/depression. Lifelong nonsmoker. She presented here to the emergency room early this morning with complaints of bilateral rib pain, back pain, cough congestion and pink productive sputum. This started 1-2 days prior. Chest x-ray reveals a consolidative opacity in the right lung base. Computed tomography scan revealed no evidence of pulmonary embolism. There is consolidative infiltrates in the right mid and lower lung kline. Small pleural effusion. Dopplers of the bilateral lower extremities ruled out DVT. White count 9.3. Hemoglobin 13.4. Platelets 143. D-dimer 1.39. Sodium 135. Potassium 4.4. Bicarb 31. BUN 13. Creatinine 0.46. Glucose 288. AST 39. ALT 32. Troponin 0.027. Influenza screen negative. RSV screen negative. COVID-19 screen negative. She's been initiated on ceftriaxone and azithromycin along with bronchodilators and IV Solu-Medrol. Heparin for DVT prophylaxis. We'll saline at 75 ML's per hour. She is seen today in consultation in the emergency department. She is currently resting fairly comfortable on the stretcher. She is maintaining O2 saturation in the 90s on 3 L/m per nasal cannula. She's afebrile. Hemodynamically stable. The patient is seen today 10/25/2022 in follow-up on the regular medical floor. She is awake and alert in no acute distress. She is maintaining O2 saturations in the 90s on 2 L/m per nasal cannula. Follow-up chest x-ray reveals no change in the right lung infiltrate. Prominence of the right hilum adenopathy noted. She has normal saline at 30 MLS per hour. Her pro-calcitonin was 0.10. Blood glucose 360. She is being treated for right mid and lower lung pneumonia. She is continued on ceftriaxone and azithromycin along with bronchodilators and IV Solu-Medrol. Heparin for DVT prophylaxis. Remains on oral diuretics. Progress note dated 10/26/2022. The patient is seen today in room 456. She remains on oxygen at 3 L. She's getting saline at 75 mL an hour. She was admitted with a diagnosis of possible right middle lobe and right lower lobe pneumonia. The patient continues to have a very harsh cough. Her pro-calcitonin level was 0.10. She continues on appropriate medications including Rocephin, azithromycin, and bronchodilators. The patient is admitting to pain in the right chest, when she coughs. Today's labs include a white count of 0.3, hemoglobin 12.5, hematocrit 38.7, and a normal platelet count. Sodium 136, potassium 4.4, chlorides 97, CO2 27, BUN 17, creatinine 0.5. Glucose is 355. Thus far, culture data is negative. X-rays are reviewed. Progress note dated 10/27/2022. The patient is seen today again in room 456. The patient is currently on room air. She's getting saline at 20 mL an hour. Her chest x-ray from today looks better than the previous chest x-ray. Clinically, she feels better. She's doing better on her incentive spirometer. She's not coughing as much. She can take deeper breaths. Labs today only included glucose of 321. Her microbiologic data currently is on negative. As mentioned, her chest x-rays improved. Progress note dated 10/29/2022. The patient is seen today in room 456. The patient's doing much better. She's on room air. She's not receiving any IV fluids. The patient's Solu-Medrol was changed to prednisone. In addition, the Pulmicort, and formoterol, are converted to Symbicort. The patient is doing much better, and she could be considered for possible discharge. Her is breathing much easier. She isn't coughing as much. She's not near as bronchospastic and she has been. No new labs today. Objective - Vital Signs Vital signs: Vital Signs Temp 98.1 F 10/29/22 07:33 Pulse 82 10/29/22 12:39 Resp 18 10/29/22 12:39 BP 147/81 10/29/22 07:33 Pulse Ox 93 L 10/29/22 08:38 FiO2 Intake & Output 10/28/22 10/29/22 10/29/22 18:59 06:59 18:59 Other: Voiding Method Bedside Commode # Voids 3 2 - Exam No acute distress, oriented 3. HEENT examination is grossly unremarkable. Neck supple. Full range of motion. No adenopathy thyromegaly or neck vein distention. Cardiovascular examination reveals regular rhythm rate. S1-S2 normal. No S3 or S4. No discernible murmur noted. Heart sounds are distant. Heart rate 82 bpm. Lungs reveal improved bilateral breath sounds. Mild scattered rhonchi. The patient can take a deep breath without coughing. No wheezes. No crackles. Saturations are 93-94% on room air. Abdomen soft bowel sounds are heard. No masses or tenderness. Extremities are intact. No cyanosis clubbing or edema. Skin is without rash or lesion. Neurologic examination is brief but nonfocal. - Labs CBC & Chem 7: 10/26/22 06:20 10/26/22 06:20 Labs: Abnormal Lab Results - Last 24 Hours (Table) 10/28/22 10/28/22 10/29/22 Range/Units 16:57 20:31 05:40 POC Glucose (mg/dL) 323 H 448 H 299 H (70-110) mg/dL 10/29/22 Range/Units 11:39 POC Glucose (mg/dL) 443 H (70-110) mg/dL Microbiology - Last 24 Hours (Table) 10/24/22 09:15 Blood Culture - Preliminary Blood 10/24/22 09:30 Blood Culture - Preliminary Blood 10/25/22 10:56 Legionella Culture - Preliminary Sputum Assessment and Plan Assessment: Acute hypoxemic respiratory failure secondary to acute community-acquired pneumonia involving the right mid and lower lung. Rheumatoid arthritis maintained on methotrexate and Orencia. Lifelong nonsmoker. History of asthma. History of diabetes mellitus. Hypertension. History of anxiety/depression. Plan: Plan dated 10/26/2022. The patient continues on antibiotics, bronchodilators, and corticosteroids. She remains on 2-3 L of oxygen. The patient complains of pain when she coughs, particularly the right lower chest area. Her adventitious lung sounds are located in the right lower lung area. We will continue to follow, and make r ecommendations along the way. Prognosis is guarded. She remains on appropriate medications. Plan dated 10/27/2022. The patient appears to be doing much better both clinically and radiographically. She remains on antibiotics, bronchodilators, corticosteroids. Yesterday, she was on oxygen, and today she is on room air. She's doing better with her incentive spirometer. She can take deep breaths without coughing. We will continue to follow make recommendations along the way. She probably in the hospital for another 2 days or so. No additional recommendations are made. Plan dated 10/29/2022. The patient appears to be doing much better. Her cough is much improved. Her breathing is improved. She's not as bronchospastic she has been. The Solu- Medrol is changed to prednisone. In addition, we added Symbicort, in place budesonide and formoterol. The patient could be considered for possible discharge. We will leave that up to the primary service. Time with Patient: Less than 30
[2022-10-29] MEDS ORDERED: guaiFENesin SYRUP 100MG/5ML 200 MG/10 ML CUP PO PRN (15:58)
[2022-10-29 16:30] LABS: Glucose,Whole Blood 496 mg/dL (70-110)
[2022-10-29 20:28] LABS: Glucose,Whole Blood 330 mg/dL (70-110)
--- NOTE | 2022-10-29 21:27 | P.PN ---
Subjective Progress Note Date: 10/29/22 This is a 67-year-old female with history of rheumatoid arthritis ,admitted with right lower lobe pneumonia, community-acquired, acute hypoxic respiratory failure multiple other medical issues. Maintained on ceftriaxone ,Zithromax, IV steroids. Blood sugars uncontrolled.Breathing improving, oxygen requirements decreased to 2 L nasal cannula maintaining O2 sats in the 90s. Afebrile. 10/27/22 maintained on nebulized medical dilators, IV steroids, antibiotics with breathing improving, but still tight. Reports chest tightness with deep breaths.Nonproductive cough; bronchospasms with deep inspiration. Oxygen requirements have decreased ,maintaining O2 sats of 94-95% on room air. Afebrile. Hyperglycemic, in a patient with hemoglobin A1c of 12.7, on steroids- further adjusted diabetic regimen. [place] resumed, pain better controlled.Much less anxiety. 10/28/2022 maintained on IV steroids, nebulized bronchodilators, perform his, Pulmicort and oral diuretics, maintaining O2 sats in the 90s on room air. Decreasing wheezing and rhonchi ,continues to have significant bronchospasms, nonproductive cough. Reports significant exertional shortness of breath. Denies headache this morning. Completed antibiotic therapy of ceftriaxone and azithromycin. Afebrile. Slept better last night, reports 4 hours. Blood sugars improving with further adjustments. 10/29/2022 Patient is seen and evaluated and follow-up with pulmonary following currently maintained on IV steroids along with breathing treatments and inhalers. Patient has completed IV antibiotics in the form of ceftriaxone and Zithromax for community acquired right lower lobe pneumonia. Patient continues to be bronchospastic with improved wheezing and her shortness of breath has improved. Patient reports she does become more short of breath with minimal exertion and encourage the patient increase activity as tolerated. Patient has been transitioned over to oral prednisone and continues to have uncontrolled elevated blood sugars. Will adjust the medications and monitor blood sugars overnight with probable discharge in 24 hours. Patient is on room air and maintaining oxygen saturations above 90%. Patient will need close outpatient follow-up with primary care provider. Patient is currently afebrile denies chest pain or palpitations. Patient is tolerating diet with no reports of nausea or vomiting noted. Review of systems: Constitutional: No reports of fatigue, fever, or chills Cardiovascular: No reports of chest pain or palpitations Respiratory: reports of shortness of breath with exertion and continued cough that is bronchospastic GI: No reports of nausea, vomiting, or diarrhea : No reports of dysuria or retention Neurovascular: No reports of weakness or numbness All medications have been reviewed Physical exam: GENERAL: This is a 67-year-old female Sitting up at side of bed, alert and oriented x3, well-developed, well-nourished HEENT: Normocephalic, atraumatic ,Pupils are round and equal,reacting to light,conjunctival normal, neck supple, no JVD. CARDIOVASCULAR: S1 and S2 present. No murmurs, rubs, or gallops. PULMONARY: Unlabored, equal air entry, scattered rhonchi throughout on forced e xpiratory bronchospasm ABDOMEN: Soft, nontender, nondistended, normoactive bowel sounds. No guarding, no rigidity. EXTREMITIES: No cyanosis, clubbing, or pedal edema. NEUROLOGICAL: Cranial nerves II through XII grossly intact, no focal deficits. SKIN: No rashes noted, warm and dry. Assessment: Acute right mid and lower lobe pneumonia, community-acquired Acute hypoxic respiratory failure secondary to the above Diabetes mellitus, uncontrolled, hyperglycemic, multifactorial including steroid induced. Hemoglobin A1c 12.7, further diabetic education recommended outpatient in clinic with PCP Hypertension History of rheumatoid arthritis, maintained on methotrexate, Orencia History of asthma Anxiety Depression Plan: Patient has transitioned to oral prednisone although continues with extremely elevated uncontrolled blood sugars will adjust medications and monitor overnight Pulmonary following and has adjusted inhalers and recommended to continue on breathing treatments Patient will need close outpatient follow-up with diabetes education and PCP to manage medications Encouraged increased activity as tolerated Probable discharge in 24 hours The impression and plan of care has been dictated by Rayna Rae, Nurse Practitioner as directed. Dr. Vicky MD I have performed a history and examination and MDM of this patient, discussed the same with the dictator, and agree with the dictator's assessment and plan as written ,documented as a scribe. Based on total visit time, I have performed more than 50% of the visit. Objective - Vital Signs Vital signs: Vital Signs Temp 98.1 F 10/29/22 07:33 Pulse 80 10/29/22 09:02 Resp 18 10/29/22 09:02 BP 147/81 10/29/22 07:33 Pulse Ox 93 L 10/29/22 08:38 FiO2 Intake & Output 10/28/22 10/29/22 10/29/22 18:59 06:59 18:59 Other: # Voids 3 2 - Labs CBC & Chem 7: 10/26/22 06:20 10/26/22 06:20 Labs: Abnormal Lab Results - Last 24 Hours (Table) 10/28/22 10/28/22 10/28/22 Range/Units 11:17 16:57 20:31 POC Glucose (mg/dL) 278 H 323 H 448 H (70-110) mg/dL 10/29/22 Range/Units 05:40 POC Glucose (mg/dL) 299 H (70-110) mg/dL Microbiology - Last 24 Hours (Table) 10/24/22 09:15 Blood Culture - Preliminary Blood 10/24/22 09:30 Blood Culture - Preliminary Blood 10/25/22 10:56 Legionella Culture - Preliminary Sputum
[2022-10-29] MEDS ORDERED: INSULIN DETEMIR (LEVEMIR) 100 UNIT/ML SYR SQ SCH (21:45)
[2022-10-29] MEDS: MONTELUKAST 10 MG TAB PO SCH (21:49)
[2022-10-29] MEDS: SYMBICORT 160-4.5 MCG INHALER INHALATION SCH (21:54)
[2022-10-30 06:12] LABS: Glucose,Whole Blood 251 mg/dL (70-110)
[2022-10-30] MEDS: INSULIN ASPART (NovoLOG) 100 UNIT/ML VIAL SQ SCH ×4 (06:32→12:07)
[2022-10-30] MEDS: SYMBICORT 160-4.5 MCG INHALER INHALATION SCH (07:38)
[2022-10-30] MEDS: IPRATROPIUM-ALBUTEROL 3 ML NEB INHALATION SCH ×3 (07:38→16:10)
[2022-10-30] MEDS: MORPHINE SULFATE 4 MG/ML SYRINGE IV PRN (07:38)
[2022-10-30] MEDS: ASCORBIC ACID 500 MG TAB PO SCH (07:40)
[2022-10-30] MEDS: CHOLECALCIFEROL 25 MCG (1000 IU) TABLET PO SCH (07:40)
[2022-10-30] MEDS: FAMOTIDINE 20 MG/2 ML VIAL IV SCH (07:40)
[2022-10-30] MEDS: GABAPENTIN 400 MG CAP PO SCH ×2 (07:41→15:52)
[2022-10-30] MEDS: FUROSEMIDE 40 MG TAB PO SCH (07:41)
[2022-10-30] MEDS: amLODIPine 5 MG TAB PO SCH (07:41)
[2022-10-30] MEDS: predniSONE 20 MG TAB PO SCH (07:41)
[2022-10-30] MEDS: FOLIC ACID 1 MG TAB PO SCH (07:41)
[2022-10-30] MEDS: FERROUS SULFATE 325 MG TAB PO SCH (07:41)
[2022-10-30] MEDS: INSULIN DETEMIR (LEVEMIR) 100 UNIT/ML SYR SQ SCH (07:41)
[2022-10-30] MEDS: carBAMazepine 100 MG TAB.ER.12H PO SCH (07:41)
[2022-10-30] MEDS: HEPARIN SODIUM,PORCINE/PF 5,000 UNIT/0.5 ML SYRINGE SQ SCH ×2 (07:41→15:51)
[2022-10-30] MEDS: HYDROcodone/APAP 10-325MG 1 EACH TAB PO SCH ×2 (07:42→15:52)
[2022-10-30 08:03] LABS: Glucose,Whole Blood 250 mg/dL (70-110)
[2022-10-30] MEDS ORDERED: bisacodyL 10 MG SUPP RECTAL STA (08:23)
[2022-10-30 08:39] VITALS: BP 160/88; RESP 18; TEMP 98.4
--- NOTE | 2022-10-30 09:43 | XR ---
EXAMINATION TYPE: XR abdomen 2V DATE OF EXAM: 10/30/2022 COMPARISON: CT abdomen pelvis 11/25/2020 HISTORY: Abdominal pain TECHNIQUE: Upright and supine views of the abdomen were obtained. FINDINGS: There is no evidence for pneumoperitoneum. Nonobstructive bowel gas pattern. Moderate amount of stool is present throughout the colon. No unusual calcifications. No acute osseous adenopathy. IMPRESSION: Nonobstructive bowel gas pattern with moderate colonic stool burden.
[2022-10-30 11:06] VITALS: PULSE 78
[2022-10-30 11:31] LABS: Glucose,Whole Blood 170 mg/dL (70-110)
--- NOTE | 2022-10-30 12:40 | P.PN ---
Subjective Progress Note Date: 10/30/22 This is a pleasant 67-year-old female patient who has a history of asthma, diabetes mellitus, hypertension, rheumatoid arthritis maintained on methotrexate and Orencia infusions, anxiety/depression. Lifelong nonsmoker. She presented here to the emergency room early this morning with complaints of bilateral rib pain, back pain, cough congestion and pink productive sputum. This started 1-2 days prior. Chest x-ray reveals a consolidative opacity in the right lung base. Computed tomography scan revealed no evidence of pulmonary embolism. There is consolidative infiltrates in the right mid and lower lung kline. Small pleural effusion. Dopplers of the bilateral lower extremities ruled out DVT. White count 9.3. Hemoglobin 13.4. Platelets 143. D-dimer 1.39. Sodium 135. Potassium 4.4. Bicarb 31. BUN 13. Creatinine 0.46. Glucose 288. AST 39. ALT 32. Troponin 0.027. Influenza screen negative. RSV screen negative. COVID-19 screen negative. She's been initiated on ceftriaxone and azithromycin along with bronchodilators and IV Solu-Medrol. Heparin for DVT prophylaxis. We'll saline at 75 ML's per hour. She is seen today in consultation in the emergency department. She is currently resting fairly comfortable on the stretcher. She is maintaining O2 saturation in the 90s on 3 L/m per nasal cannula. She's afebrile. Hemodynamically stable. The patient is seen today 10/25/2022 in follow-up on the regular medical floor. She is awake and alert in no acute distress. She is maintaining O2 saturations in the 90s on 2 L/m per nasal cannula. Follow-up chest x-ray reveals no change in the right lung infiltrate. Prominence of the right hilum adenopathy noted. She has normal saline at 30 MLS per hour. Her pro-calcitonin was 0.10. Blood glucose 360. She is being treated for right mid and lower lung pneumonia. She is continued on ceftriaxone and azithromycin along with bronchodilators and IV Solu-Medrol. Heparin for DVT prophylaxis. Remains on oral diuretics. Progress note dated 10/26/2022. The patient is seen today in room 456. She remains on oxygen at 3 L. She's getting saline at 75 mL an hour. She was admitted with a diagnosis of possible right middle lobe and right lower lobe pneumonia. The patient continues to have a very harsh cough. Her pro-calcitonin level was 0.10. She continues on appropriate medications including Rocephin, azithromycin, and bronchodilators. The patient is admitting to pain in the right chest, when she coughs. Today's labs include a white count of 0.3, hemoglobin 12.5, hematocrit 38.7, and a normal platelet count. Sodium 136, potassium 4.4, chlorides 97, CO2 27, BUN 17, creatinine 0.5. Glucose is 355. Thus far, culture data is negative. X-rays are reviewed. Progress note dated 10/27/2022. The patient is seen today again in room 456. The patient is currently on room air. She's getting saline at 20 mL an hour. Her chest x-ray from today looks better than the previous chest x-ray. Clinically, she feels better. She's doing better on her incentive spirometer. She's not coughing as much. She can take deeper breaths. Labs today only included glucose of 321. Her microbiologic data currently is on negative. As mentioned, her chest x-rays improved. The patient is seen today 10/28/2022 in follow-up on the regular medical floor. She is currently resting comfortably in bed. Awake and alert in no acute distress. She is maintaining good O2 saturations in the 90s on room air. She is still somewhat bronchospastic and wheezing. She has a loose nonproductive cough. Normal saline 20 ML's per hour. She is continued on DuoNeb inhalations, Pulmicort and Perforomist inhalations, IV Solu-Medrol. Completed a course of antibiotics. Heparin for DVT prophylaxis. Remains on oral diuretics. The patient is seen today 10/30/2022 in follow-up on the regular medical floor. She is awake and alert in no acute distress. Resting quite comfortably in bed. No worsening shortness of breath, cough or congestion. She was having some complaints of abdominal discomfort and constipation. Abdominal x-ray reveals a nonobstructive bowel gas pattern with moderate colonic stool burden area being a ddressed by medicine. Blood cultures reveal no growth. Sputum culture revealed no growth. Blood glucose 170. She is continued on DuoNeb inhalations, Pulmicort and Perforomist inhalations, and is on taper. Completed a course of antibiotics. Heparin for DVT prophylaxis. Remains on oral diuretics. Objective - Vital Signs Vital signs: Vital Signs Temp 98.4 F 10/30/22 07:11 Pulse 78 10/30/22 11:13 Resp 18 10/30/22 07:11 BP 160/88 10/30/22 07:11 Pulse Ox 94 L 10/30/22 07:38 FiO2 21 10/30/22 07:38 Intake & Output 10/29/22 10/30/22 10/30/22 18:59 06:59 18:59 Other: Voiding Method Bedside Commode Bedside Commode # Voids 2 4 - Exam GENERAL EXAM: Alert, oriented 67-year-old female, resting in bed, on room air, comfortable in no apparent distress. HEAD: Normocephalic. EYES: Normal reaction of pupils, equal size. NOSE: Clear with pink turbinates. THROAT: No erythema or exudates. NECK: No masses, no JVD. CHEST: No chest wall deformity. LUNGS: Equal air entry with crackles in the right lung base CVS: S1 and S2 normal with no audible murmur, regular rhythm. ABDOMEN: No hepatosplenomegaly, normal bowel sounds, no guarding or rigidity. SPINE: No scoliosis or deformity SKIN: No rashes CENTRAL NERVOUS SYSTEM: No focal deficits, tone is normal in all 4 extremities. EXTREMITIES: There is no peripheral edema. No clubbing, no cyanosis. Perip heral pulses are intact. - Labs CBC & Chem 7: 10/26/22 06:20 10/26/22 06:20 Labs: Abnormal Lab Results - Last 24 Hours (Table) 10/29/22 10/29/22 10/30/22 Range/Units 16:28 20:26 06:10 POC Glucose (mg/dL) 496 H 330 H 251 H (70-110) mg/dL 10/30/22 10/30/22 Range/Units 08:00 11:29 POC Glucose (mg/dL) 250 H 170 H (70-110) mg/dL Microbiology - Last 24 Hours (Table) 10/24/22 09:15 Blood Culture - Final Blood 10/24/22 09:30 Blood Culture - Final Blood Assessment and Plan Assessment: Acute hypoxemic respiratory failure secondary to acute community-acquired pneumonia involving the right mid and lower lung. Pro-calcitonin 0.10. Completed ceftriaxone and azithromycin and recovered and on room air Rheumatoid arthritis maintained on methotrexate and Orencia Lifelong nonsmoker History of asthma History of diabetes mellitus Hypertension History of anxiety/depression Plan: The patient was seen and evaluated Medications reviewed For discharge from the pulmonary standpoint Complete a prednisone taper Continue Symbicort, albuterol HFA, Singulair Follow-up in our office in 1 week I have personally seen and examined the patient, performed the documentation and the assessment and plan as written. Number of minutes spent on the visit: 10.
--- NOTE | 2022-11-01 13:54 | P.DS ---
Providers Date of admission: 10/24/22 07:48 Expected date of discharge: 10/30/22 Attending physician: Edward Love MD Consults: 10/24/22 09:05 Consult Physician Urgent Consulting Provider: Autumn Lock Consult Reason/Comments: pna, possible coughing blood Do you want consulting provider notified?: Yes Primary care physician: Edward Love MD Hospital Course: Final diagnosis Acute right mid and lower lobe pneumonia, community-acquired Acute hypoxic respiratory failure secondary to the above Normal pain, most likely secondary to stool burden, improved Diabetes mellitus, uncontrolled, hyperglycemic, multifactorial including steroid induced. Hemoglobin A1c 12.7, further diabetic education recommended outpatient in clinic with PCP Hypertension History of rheumatoid arthritis, maintained on methotrexate, Orencia History of asthma Anxiety Depression Discharge disposition Patient is being discharged in a stable condition with guarded prognosis to home . Patient will follow-up with Dr. Love in the outpatient setting upon discharge. Patient is to follow-up with pulmonary and continue on prednisone taper outpatient as scheduled. Patient being started on insulins and will need endocrine follow-up outpatient. Total time taken is greater than 35 minutes. Hospital course This is a 67-year-old female who was recently admitted shortness of breath found to have acute right lower lobe pneumonia. Patient did have hypoxic respiratory failure, on admission and has been weaned tolerating well on room air. Patient will continue with inhalers and has been tapered off IV steroids on a prednisone taper recommending outpatient follow-up with pulmonary closely. Patient did have some abdominal pain and underwent x-ray showing stool in as patient reports she did not have a bowel movement and at least 5 days. Patient was given a Dulcolax suppository with large bowel movement noted. Patient has been cleared by consultations for discharge. Please refer to other consultation notes for further HPI. Patient instructed to follow-up with primary care provider this week. Hemoglobin A1c was above 12 and patient needs extensive diabetic training, education, medical management and will refer to endocrine. Currently no reports of chest pain, shortness of breath, or palpitations. Patient is afebrile. No reports of nausea or vomiting and patient is tolerating diet. Patient will be going home today. Physical exam: Gen: [id number] female who is awake, alert and oriented 3, well-developed, well-nourished, morbidly obese HEENT: Head is atraumatic, normocephalic. Pupils equal, round. Sclerae is anicteric. NECK: Supple. No JVD. No lymphadenopathy. No thyromegaly. LUNGS: diminished breath sounds bilaterally with no wheezes , forced rhonchi noted. No intercostal retractions. HEART: Regular rate and rhythm. No murmur. ABDOMEN: Soft. obese. Bowel sounds are present. No masses. No tenderness. EXTREMITIES: No pedal edema. No calf tenderness. NEUROLOGICAL: Patient is awake, alert and oriented x3. Cranial nerves 2 through 12 are grossly intact. Please refer to medication reconciliation sheet for a list of medications. The impression and plan of care has been dictated by Rayna Rae, Nurse Practitioner as directed. Dr. Vicky MD I have performed a history and examination and MDM of this patient, discussed th e with the dictator, and agree with the dictator's assessment and plan as written ,documented as a scribe. Based on total visit time, I have performed more than 50% of the visit. Patient Condition at Discharge: Fair Plan - Discharge Summary Discharge Rx Participant: No New Discharge Prescriptions: New Insulin Detemir (Levemir) [Levemir] 40 unit SQ DAILY@0700 30 Days #5 each amLODIPine [Norvasc] 5 mg PO DAILY #30 tab predniSONE 10 mg PO DIRECTED #30 tab guaiFENesin SYRUP 100MG/5ML [Robitussin] 200 mg PO Q6HR PRN #240 ml PRN Reason: Cough Budesonide-Formot 160-4.5 Mcg [Symbicort 160-4.5 Mcg Inhaler] 2 puff INHALATION RT-BID 30 Days #1 each Lactulose [Cephulac] 10 gm PO DAILY #300 ml Continue Magnesium Oxide [Magox 400] 400 mg PO HS Montelukast [Singulair] 10 mg PO HS Folic Acid 1 mg PO DAILY Ferrous Sulfate [Iron (65 MG Elemental)] 325 mg PO DAILY carBAMazepine [carBAMazepine ER] 100 mg PO BID HYDROcodone/APAP 10-325MG [[place] 10-325] 1 tab PO TID Gabapentin [Neurontin] 400 mg PO TID Ergocalciferol (Vitamin D2) [Drisdol (50,000 Iu)] 1,250 mcg PO WE Furosemide [Lasix] 40 mg PO DAILY Cholecalciferol [Vitamin D3 (25 Mcg = 1000 Iu)] 50 mcg PO DAILY Ascorbic Acid [Vitamin C] 500 mg PO DAILY Discharge Medication List Ferrous Sulfate [Iron (65 MG Elemental)] 325 mg PO DAILY 03/22/19 [History] Folic Acid 1 mg PO DAILY 03/22/19 [History] Magnesium Oxide [Magox 400] 400 mg PO HS 03/22/19 [History] Montelukast [Singulair] 10 mg PO HS 03/22/19 [History] Gabapentin [Neurontin] 400 mg PO TID 11/25/20 [History] Ascorbic Acid [Vitamin C] 500 mg PO DAILY 10/24/22 [History] Cholecalciferol [Vitamin D3 (25 Mcg = 1000 Iu)] 50 mcg PO DAILY 10/24/22 [History] Ergocalciferol (Vitamin D2) [Drisdol (50,000 Iu)] 1,250 mcg PO WE 10/24/22 [History] Furosemide [Lasix] 40 mg PO DAILY 10/24/22 [History] HYDROcodone/APAP 10-325MG [[place] 10-325] 1 tab PO TID 10/24/22 [History] carBAMazepine [carBAMazepine ER] 100 mg PO BID 10/24/22 [History] Budesonide-Formot 160-4.5 Mcg [Symbicort 160-4.5 Mcg Inhaler] 2 puff INHALATION RT-BID 30 Days #1 each 10/30/22 [Rx] Insulin Detemir (Levemir) [Levemir] 40 unit SQ DAILY@0700 30 Days #5 each 10/30/22 [Rx] Lactulose [Cephulac] 10 gm PO DAILY #300 ml 10/30/22 [Rx] amLODIPine [Norvasc] 5 mg PO DAILY #30 tab 10/30/22 [Rx] guaiFENesin SYRUP 100MG/5ML [Robitussin] 200 mg PO Q6HR PRN #240 ml 10/30/22 [Rx] predniSONE 10 mg PO DIRECTED #30 tab 10/30/22 [Rx] Follow up Appointment(s)/Referral(s): Edward Love MD [Primary Care Provider] - 11/11/22 3:00 pm Leonard Franks DO [Doctor of Osteopathic Medicine] - 11/19/22 2:30 pm [facility] Visiting Nurse, [NON-STAFF] - 1-2 Days Patient Instructions/Handouts: Pneumonitis (DC) Activity/Diet/Wound Care/Special Instructions: *Have glucometer delivered to bedside at discharge. It is at [facility] in [facility] Activity Limited until follow-up Follow-up with primary care provider this week Follow-up with pulmonary outpatient Continue to monitor blood sugars and keep a diary of all readings for primary care follow-up Hold insulin if blood sugar is 120 or less May use lactulose as needed for constipation and hold if having loose stools Discharge Disposition: HOME WITH HOME HEALTH SERVICES
== END 2022-10-30 16:45 | disposition home health service (06) | DRG 193 ==
LOC: EC 04:44 → 4SSUR 07:48
PROVIDERS: ADMIT Family Medicine; ATTEND Family Medicine
DX: J18.9 Pneumonia, unspecified organism (principal); J96.01 Acute respiratory failure with hypoxia; I45.2 Bifascicular block; Z68.41 Body mass index [BMI] 40.0-44.9, adult; M06.9 Rheumatoid arthritis, unspecified; J45.909 Unspecified asthma, uncomplicated; E11.65 Type 2 diabetes mellitus with hyperglycemia; F32.A Depression, unspecified; E66.01 Morbid (severe) obesity due to excess calories; I10 Essential (primary) hypertension; M79.89 Other specified soft tissue disorders; T38.0X5A Adverse effect of glucocorticoids and synthetic analogues, initial encounter; R59.0 Localized enlarged lymph nodes; F41.9 Anxiety disorder, unspecified; K59.00 Constipation, unspecified; Z96.653 Presence of artificial knee joint, bilateral; Z20.822 Contact with and (suspected) exposure to COVID-19; Z88.0 Allergy status to penicillin; Z79.891 Long term (current) use of opiate analgesic; Z79.84 Long term (current) use of oral hypoglycemic drugs; Z79.899 Other long term (current) drug therapy; Z28.310 Unvaccinated for COVID-19; Z79.4 Long term (current) use of insulin; Z79.51 Long term (current) use of inhaled steroids
CPT/HCPCS: 36415; 71045; 71046; 71275; 74019; 80048; 80053; 83036; 83605; 83880; 84145; 84484; 85025; 85379; 85610; 85730; 87070; 87205; 87449; 87636; 93005; 93970; 94640; 94760; 96365; 96375; 99285

== ENCOUNTER 2022-12-20 19:43 | Emergency (ER) | payer MEDICARE, OTHER ==
[2022-12-20 19:57] VITALS: RESP 18; TEMP 97.7
[2022-12-20] MEDS ORDERED: FUROSEMIDE 10 MG/ML 2 ML VIAL IV STA (21:44)
[2022-12-20] MEDS ORDERED: MORPHINE SULFATE 4 MG/ML SYRINGE IV STA (21:44)
--- NOTE | 2022-12-20 22:09 | XR ---
EXAMINATION TYPE: XR chest 1V portable DATE OF EXAM: 12/20/2022 COMPARISON: Chest x-ray October 27, 2022 HISTORY: Leg swelling and pain. TECHNIQUE: Single AP portable frontal upright view of the chest is obtained. FINDINGS: Slightly suboptimal secondary to patient's large body habitus. Mild cardiomegaly with perha ps mild central vascular congestion redemonstrated. No pleural effusion or pneumothorax is seen bilat erally. The osseous structures are intact. IMPRESSION: Correlate for mild CHF exacerbation. No significant change from most recent study.
[2022-12-20 22:14] LABS: ALT 27 U/L (4-34); AST 29 U/L (14-36); African American GFR (CKD) >90 (>60 ml/min/1.73 sqM); Albumin 4.4 g/dL (3.5-5.0); Alkaline Phosphatase 101 U/L (38-126); Anion Gap 8 mmol/L; Blood Urea Nitrogen 23 mg/dL (7-17); Calcium 9.5 mg/dL (8.4-10.2); Carbon Dioxide 27 mmol/L (22-30); Chloride 99 mmol/L (98-107); Glucose 228 mg/dL (74-99); Non-African American GFR(CKD) 89 (>60 ml/min/1.73 sqM); Potassium 3.8 mmol/L (3.5-5.1); Sodium 134 mmol/L (137-145); Total Bilirubin 0.7 mg/dL (0.2-1.3); Total Protein 7.4 g/dL (6.3-8.2)
[2022-12-20 22:25] LABS: Basophils % (A) 1 %; Eosinophils # (A) 0.2 k/uL (0-0.7); Eosinophils % (A) 4 %; HCT 41.7 % (34.0-46.0); HGB 13.9 gm/dL (11.4-16.0); Lymphocytes # (A) 1.5 k/uL (1.0-4.8); Lymphocytes % (A) 37 %; MCHC 33.2 g/dL (31.0-37.0); MCV 87.3 fL (80.0-100.0); Mean Platelet Volume 8.7; Monocytes # (A) 0.3 k/uL (0-1.0); Monocytes % (A) 8 %; Neutrophils # (A) 2.1 k/uL (1.3-7.7); Neutrophils % (A) 50 %; Platelet Count 167 k/uL (150-450); RBC 4.78 m/uL (3.80-5.40); WBC 4.1 k/uL (3.8-10.6)
[2022-12-20 22:40] LABS: Prothrombin Time 10.4 sec (9.0-12.0)
[2022-12-21] MEDS ORDERED: MORPHINE SULFATE 4 MG/ML SYRINGE IV STA (01:02)
[2022-12-21 01:18] LABS: Appearance,Urine Clear (Clear); Bilirubin,Urine Negative (Negative); Blood,Urine Negative (Negative); Color,Urine Light Yellow; Glucose,Urine (UA) Negative (Negative); Ketones,Urine Negative (Negative); Leukocyte Esterase,Urine Negative (Negative); Nitrite,Urine Negative (Negative); Protein,Urine Negative (Negative); Urobilinogen,Urine <2.0 mg/dL (<2.0)
[2022-12-21 03:13] VITALS: BP 153/82; PULSE 77
--- NOTE | 2022-12-21 03:39 | US ---
EXAM: US Duplex Left Lower Extremity Veins CLINICAL HISTORY: ITS.REASON US Reason: pain, possible DVT TECHNIQUE: Real-time duplex ultrasound scan of the left lower extremity veins integrating B-mode two-dimensional vascular structure, Doppler spectral analysis, color flow Doppler imaging and compression. COMPARISON: 10/24/2022 FINDINGS: Deep veins: Unremarkable. No DVT in the visualized common femoral, femoral, proximal deep femoral or popliteal veins. The veins demonstrate normal color flow, are normally compressible, with normal phasic flow and/or augmentation response. Superficial veins: Unremarkable. No thrombus in the visualized great saphenous vein. Soft tissues: No acute findings. No popliteal cyst. IMPRESSION: Normal left lower extremity duplex venous ultrasound.
--- NOTE | 2023-02-02 06:58 | ED ---
Extremity Problem HPI - General Chief complaint: Extremity Problem,Nontraumatic Stated complaint: bilateral leg swelling and redness Time Seen by Provider: 12/20/22 21:12 Source: patient Mode of arrival: wheelchair Limitations: no limitations - History of Present Illness Initial comments: This patient is 67-year-old woman who presents to have evaluation of bilateral leg edema which she states is increasing over usual. She does take diuretic, but states she is continuing to have some swelling. She has not noted fever or chills. She does note that her legs seem to be redder than usual. She has not had any chest symptoms, no chest pain, dyspnea, cough, palpitations, lightheadedness or syncope. MD Complaint: extremity swelling -: days(s) Location: left, right, lower extremity Quality: dull Consistency: constant Improves with: nothing Worsens with: nothing - Related Data Home Medications Medication Instructions Recorded Confirmed Ferrous Sulfate [Iron (65 MG 325 mg PO DAILY 03/22/19 10/24/22 Elemental)] Folic Acid 1 mg PO DAILY 03/22/19 10/24/22 Magnesium Oxide [Magox 400] 400 mg PO HS 03/22/19 10/24/22 Montelukast [Singulair] 10 mg PO HS 03/22/19 10/24/22 Gabapentin [Neurontin] 400 mg PO TID 11/25/20 10/24/22 Ascorbic Acid [Vitamin C] 500 mg PO DAILY 10/24/22 10/24/22 Cholecalciferol [Vitamin D3 (25 50 mcg PO DAILY 10/24/22 10/24/22 Mcg = 1000 Iu)] Ergocalciferol (Vitamin D2) 1,250 mcg PO WE 10/24/22 10/24/22 [Drisdol (50,000 Iu)] Furosemide [Lasix] 40 mg PO DAILY 10/24/22 10/24/22 HYDROcodone/APAP 10-325MG [[place] 1 tab PO TID 10/24/22 10/24/22 10-325] carBAMazepine [carBAMazepine ER] 100 mg PO BID 10/24/22 10/24/22 Previous Rx's Medication Instructions Recorded Budesonide-Formot 160-4.5 Mcg 2 puff INHALATION RT-BID 30 Days 10/30/22 [Symbicort 160-4.5 Mcg Inhaler] #1 each Insulin Detemir (Levemir) [Levemir] 40 unit SQ DAILY@0700 30 Days #5 10/30/22 each Lactulose [Cephulac] 10 gm PO DAILY #300 ml 10/30/22 amLODIPine [Norvasc] 5 mg PO DAILY #30 tab 10/30/22 guaiFENesin SYRUP 100MG/5ML 200 mg PO Q6HR PRN #240 ml 10/30/22 [Robitussin] predniSONE 10 mg PO DIRECTED #30 tab 10/30/22 Furosemide [Lasix] 20 mg PO DAILY #7 tab 12/21/22 Sulfamethox-Tmp 800-160Mg [Bactrim 1 each PO Q12HR #14 tab 12/21/22 Ds] Allergies Allergy/AdvReac Type Severity Reaction Status Date / Time Penicillins Allergy Rash/Hives/ Verified 10/24/22 11:27 Itching Review of Systems ROS Statement: Those systems with pertinent positive or pertinent negative responses have been documented in the HPI. ROS Other: All systems not noted in ROS Statement are negative. Constitutional: Denies: fever, chills, weakness Respiratory: Denies: cough, dyspnea Cardiovascular: Reports: edema. Denies: chest pain, palpitations, orthopnea, syncope Gastrointestinal: Denies: abdominal pain, vomiting, melena, hematochezia Genitourinary: Denies: dysuria, hematuria Musculoskeletal: Denies: back pain Skin: Denies: rash Neurological: Denies: headache, weakness, numbness, paresthesias Past Medical History Past Medical History: Asthma, Diabetes Mellitus, Hypertension, Rheumatoid Arthritis (RA) Additional Past Medical History / Comment(s): COVID Mar 2022, increasing falls History of Any Multi-Drug Resistant Organisms: None Reported Past Surgical History: Section, Joint Replacement, Orthopedic Surgery Additional Past Surgical History / Comment(s): carpel tunnel, bilat knee replacement Past Anesthesia/Blood Transfusion Reactions: No Reported Reaction Additional Past Anesthesia/Blood Transfusion Reaction / Comment(s): slow to wake up Past Psychological History: Anxiety, Depression Smoking Status: Never smoker Past Alcohol Use History: None Reported Past Drug Use History: None Reported - Past Family History Mother Family Medical History: CVA/TIA, Dementia General Exam Limitations: no limitations General appearance: alert, in no apparent distress Head exam: Present: atraumatic, normocephalic Eye exam: Present: normal appearance. Absent: scleral icterus, conjunctival injection Respiratory exam: Present: normal lung sounds bilaterally. Absent: respiratory distress, wheezes, rales, rhonchi, stridor Cardiovascular Exam: Present: regular rate, normal rhythm, normal heart sounds. Absent: systolic murmur, diastolic murmur, rubs, gallop GI/Abdominal exam: Present: soft. Absent: distended, tenderness, guarding, rebound, rigid, mass Extremities exam: Present: normal inspection, normal capillary refill, pedal edema. Absent: tenderness, calf tenderness Back exam: Present: normal inspection Neurological exam: Present: alert. Absent: motor sensory deficit Skin exam: Present: warm, dry, intact, normal color. Absent: rash Course Vital Signs 12/20/22 12/20/22 12/21/22 19:53 23:40 03:11 Temperature 97.7 F Pulse Rate 88 82 77 Respiratory 18 18 18 Rate Blood Pressure 166/83 142/82 153/82 O2 Sat by Pulse 97 99 Oximetry Medical Decision Making - Medical Decision Making This patient is 67-year-old woman presenting with bilateral leg edema that is greater than usual for her. No fever or chills. No ulcer or drainage. The patient's physical exam not suggestive of cellulitis. There is no warmth. The patient does not have leukocytosis. The d-dimer is mildly elevated and therefore patient had duplex Doppler which is negative. Will increase patient's Lasix and have her follow with primary physician. Discussed appropriate further care and follow-up as well as return parameters. The patient had chest x-ray which I interpreted as being negative for acute infiltrate, pneumothorax, acute bony injury Was pt. sent in by a medical professional or institution (, PA, BODY CORPORATE MANAGER, urgent care, hospital, or snf...) When possible be specific @ -[No] Did you speak to anyone other than the patient for history (EMS, parent, family, police, friend...)? What history was obtained from this source @ -[No] Did you review nursing and triage notes (agree or disagree)? Why? @ -[I reviewed and agree with nursing and triage notes] Were old charts reviewed (outside hosp., previous admission, EMS record, old EKG, old radiological studies, urgent care reports/EKG's, snf records)? Report findings @ -[No old charts were reviewed] Differential Diagnosis (chest pain, altered mental status, abdominal pain women, abdominal pain men, vaginal bleeding, weakness, fever, dyspnea, syncope, headache, dizziness, GI bleed, back pain, seizure, CVA, palpatations, mental health, musculoskeletal)? @ -[Differential diagnosis for edema includes congestive heart failure, kidney disease, liver disease, cellulitis or other infection, DVT, lymphedema, anemia, other causes of decreased osmolality, amongst other conditions EKG interpreted by me (3pts min.). @ -[As above] X-rays interpreted by me (1pt min.). @ -[As above CT interpreted by me (1pt min.). @ -[None done] U/S interpreted by me (1pt. min.). @ -[None done] What testing was considered but not performed or refused? (CT, X-rays, U/S, la bs)? Why? @ -[None] What meds were considered but not given or refused? Why? @ -[None] Did you discuss the management of the patient with other professionals (professionals i.e. , PA, BODY CORPORATE MANAGER, lab, RT, psych nurse, social worker aide, cake wringer, teacher, pharmaceutical officer, home health care case manager)? Give summary @ -[No] Was smoking cessation discussed for >3mins.? @ -[No] Was critical care preformed (if so, how long)? @ -[No] Were there social determinants of health that impacted care today? How? (Homelessness, low income, unemployed, alcoholism, drug addiction, transportation, low edu. Level, literacy, decrease access to med. care, [facility], rehab)? @ -[No] Was there de-escalation of care discussed even if they declined (Discuss DNR or withdrawal of care, Hospice)? DNR status @ -[No] What co-morbidities impacted this encounter? (DM, HTN, Smoking, COPD, CAD, Cancer, CVA, ARF, Chemo, Hep., AIDS, mental health diagnosis, sleep apnea, morbid obesity)? @ -[None] Was patient admitted / discharged? Hospital course, mention meds given and route, prescriptions, significant lab abnormalities, going to OR and other pe rtinent info. @ -Discharged, as above Undiagnosed new problem with uncertain prognosis? @ -[No] Drug Therapy requiring intensive monitoring for toxicity (Heparin, Nitro, Insulin, Cardizem)? @ -[No] Were any procedures done? @ -[No] Diagnosis/symptom? @ -[default] Acute, or Chronic, or Acute on Chronic? @ -[Acute on chronic bilateral leg edema Uncomplicated (without systemic symptoms) or Complicated (systemic symptoms)? @ -[Uncomplicated Side effects of treatment? @ -[No] Exacerbation, Progression, or Severe Exacerbation? @ -[No] Poses a threat to life or bodily function? How? (Chest pain, [place], NE, pneumonia, PE, COPD, DKA, ARF, appy, cholecystitis, CVA, Diverticulitis, Homicidal, Suicidal, threat to staff... and all critical care pts) @ -[No] - Lab Data Result diagrams: 12/20/22 21:04 12/20/22 21:04 Lab Results 12/20/22 12/20/22 12/20/22 Range/Units 21:04 21:04 21:04 WBC 4.1 (3.8-10.6) k/uL RBC 4.78 (3.80-5.40) m/uL Hgb 13.9 (11.4-16.0) gm/dL Hct 41.7 (34.0-46.0) % MCV 87.3 (80.0-100.0) fL MCH 29.0 (25.0-35.0) pg MCHC 33.2 (31.0-37.0) g/dL RDW 14.0 (11.5-15.5) % Plt Count 167 (150-450) k/uL MPV 8.7 Neutrophils % 50 % Lymphocytes % 37 % Monocytes % 8 % Eosinophils % 4 % Basophils % 1 % Neutrophils # 2.1 (1.3-7.7) k/uL Lymphocytes # 1.5 (1.0-4.8) k/uL Monocytes # 0.3 (0-1.0) k/uL Eosinophils # 0.2 (0-0.7) k/uL Basophils # 0.0 (0-0.2) k/uL PT 10.4 (9.0-12.0) sec INR 1.0 (<1.2) APTT 21.0 L (22.0-30.0) sec D-Dimer (<0.60) mg/L FEU Sodium 134 L (137-145) mmol/L Potassium 3.8 (3.5-5.1) mmol/L Chloride 99 (98-107) mmol/L Carbon Dioxide 27 (22-30) mmol/L Anion Gap 8 mmol/L BUN 23 H (7-17) mg/dL Creatinine 0.70 (0.52-1.04) mg/dL Est GFR (CKD-EPI)AfAm >90 (>60 ml/min/1.73 sqM) Est GFR (CKD-EPI)NonAf 89 (>60 ml/min/1.73 sqM) Glucose 228 H (74-99) mg/dL Plasma Lactic Acid Bill (0.7-2.0) mmol/L Calcium 9.5 (8.4-10.2) mg/dL Magnesium 2.0 (1.6-2.3) mg/dL Total Bilirubin 0.7 (0.2-1.3) mg/dL AST 29 (14-36) U/L ALT 27 (4-34) U/L Alkaline Phosphatase 101 (38-126) U/L Troponin I (0.000-0.034) ng/mL NT-Pro-B Natriuret Pep pg/mL Total Protein 7.4 (6.3-8.2) g/dL Albumin 4.4 (3.5-5.0) g/dL Urine Color Urine Appearance (Clear) Urine pH (5.0-8.0) Ur Specific [place] (1.001-1.035) Urine Protein (Negative) Urine Glucose (UA) (Negative) Urine Ketones (Negative) Urine Blood (Negative) Urine Nitrite (Negative) Urine Bilirubin (Negative) Urine Urobilinogen (<2.0) mg/dL Ur Leukocyte Esterase (Negative) 12/20/22 12/20/22 12/20/22 Range/Units 21:04 21:04 21:04 WBC (3.8-10.6) k/uL RBC (3.80-5.40) m/uL Hgb (11.4-16.0) gm/dL Hct (34.0-46.0) % MCV (80.0-100.0) fL MCH (25.0-35.0) pg MCHC (31.0-37.0) g/dL RDW (11.5-15.5) % Plt Count (150-450) k/uL MPV Neutrophils % % Lymphocytes % % Monocytes % % Eosinophils % % Basophils % % Neutrophils # (1.3-7.7) k/uL Lymphocytes # (1.0-4.8) k/uL Monocytes # (0-1.0) k/uL Eosinophils # (0-0.7) k/uL Basophils # (0-0.2) k/uL PT (9.0-12.0) sec INR (<1.2) APTT (22.0-30.0) sec D-Dimer 0.64 H (<0.60) mg/L FEU Sodium (137-145) mmol/L Potassium (3.5-5.1) mmol/L Chloride (98-107) mmol/L Carbon Dioxide (22-30) mmol/L Anion Gap mmol/L BUN (7-17) mg/dL Creatinine (0.52-1.04) mg/dL Est GFR (CKD-EPI)AfAm (>60 ml/min/1.73 sqM) Est GFR (CKD-EPI)NonAf (>60 ml/min/1.73 sqM) Glucose (74-99) mg/dL Plasma Lactic Acid Bill (0.7-2.0) mmol/L Calcium (8.4-10.2) mg/dL Magnesium (1.6-2.3) mg/dL Total Bilirubin (0.2-1.3) mg/dL AST (14-36) U/L ALT (4-34) U/L Alkaline Phosphatase (38-126) U/L Troponin I <0.012 (0.000-0.034) ng/mL NT-Pro-B Natriuret Pep 31 pg/mL Total Protein (6.3-8.2) g/dL Albumin (3.5-5.0) g/dL Urine Color Urine Appearance (Clear) Urine pH (5.0-8.0) Ur Specific [place] (1.001-1.035) Urine Protein (Negative) Urine Glucose (UA) (Negative) Urine Ketones (Negative) Urine Blood (Negative) Urine Nitrite (Negative) Urine Bilirubin (Negative) Urine Urobilinogen (<2.0) mg/dL Ur Leukocyte Esterase (Negative) 12/20/22 12/21/22 Range/Units 21:43 00:52 WBC (3.8-10.6) k/uL RBC (3.80-5.40) m/uL Hgb (11.4-16.0) gm/dL Hct (34.0-46.0) % MCV (80.0-100.0) fL MCH (25.0-35.0) pg MCHC (31.0-37.0) g/dL RDW (11.5-15.5) % Plt Count (150-450) k/uL MPV Neutrophils % % Lymphocytes % % Monocytes % % Eosinophils % % Basophils % % Neutrophils # (1.3-7.7) k/uL Lymphocytes # (1.0-4.8) k/uL Monocytes # (0-1.0) k/uL Eosinophils # (0-0.7) k/uL Basophils # (0-0.2) k/uL PT (9.0-12.0) sec INR (<1.2) APTT (22.0-30.0) sec D-Dimer (<0.60) mg/L FEU Sodium (137-145) mmol/L Potassium (3.5-5.1) mmol/L Chloride (98-107) mmol/L Carbon Dioxide (22-30) mmol/L Anion Gap mmol/L BUN (7-17) mg/dL Creatinine (0.52-1.04) mg/dL Est GFR (CKD-EPI)AfAm (>60 ml/min/1.73 sqM) Est GFR (CKD-EPI)NonAf (>60 ml/min/1.73 sqM) Glucose (74-99) mg/dL Plasma Lactic Acid Bill 0.9 (0.7-2.0) mmol/L Calcium (8.4-10.2) mg/dL Magnesium (1.6-2.3) mg/dL Total Bilirubin (0.2-1.3) mg/dL AST (14-36) U/L ALT (4-34) U/L Alkaline Phosphatase (38-126) U/L Troponin I (0.000-0.034) ng/mL NT-Pro-B Natriuret Pep pg/mL Total Protein (6.3-8.2) g/dL Albumin (3.5-5.0) g/dL Urine Color Light Yellow Urine Appearance Clear (Clear) Urine pH 5.0 (5.0-8.0) Ur Specific [place] 1.010 (1.001-1.035) Urine Protein Negative (Negative) Urine Glucose (UA) Negative (Negative) Urine Ketones Negative (Negative) Urine Blood Negative (Negative) Urine Nitrite Negative (Negative) Urine Bilirubin Negative (Negative) Urine Urobilinogen <2.0 (<2.0) mg/dL Ur Leukocyte Esterase Negative (Negative) - EKG Data -: EKG Interpreted by Ma EKG shows normal: sinus rhythm, intervals (There is increased QRS duration at 133 ms, consistent with an intraventricular conduction delay), QRS complexes (Old inferolateral NE) Rate: normal (Rate 78 bpm) Disposition Clinical Impression: Leg edema Disposition: HOME SELF-CARE Condition: Good Prescriptions: Sulfamethox-Tmp 800-160Mg [Bactrim Ds] 1 each PO Q12HR #14 tab Furosemide [Lasix] 20 mg PO DAILY #7 tab Is patient prescribed a controlled substance at d/c from ED?: No Referrals: Edward Love MD [Primary Care Provider] - 1-2 days
== END 2022-12-21 03:12 | disposition home or self-care (01) ==
LOC: EC 19:43
DX: R60.0 Localized edema (principal); J45.909 Unspecified asthma, uncomplicated; E11.9 Type 2 diabetes mellitus without complications; I10 Essential (primary) hypertension; Z86.59 Personal history of other mental and behavioral disorders; Z79.899 Other long term (current) drug therapy; Z88.0 Allergy status to penicillin
CPT/HCPCS: 36415; 93005; 85379; 83880; 80053; 83605; 83735; 84484; 85025; 85610; 85730; 81003; 71045; 93971; 99284; 96374; 96375; 96376; J2270 ×2; J1940

== ENCOUNTER 2023-06-10 11:21 | Emergency (ER) | payer MEDICARE, OTHER ==
[2023-06-10] MEDS ORDERED: ONDANSETRON 4 MG/2 ML VIAL IVP STA (11:40)
[2023-06-10] MEDS ORDERED: SODIUM CHLORIDE 0.9% 1,000 ML IV ONE (11:40)
[2023-06-10 11:44] VITALS: RESP 18
--- NOTE | 2023-06-10 11:47 | ED ---
Nausea/Vomiting/Diarrhea HPI - General Chief complaint: Nausea/Vomiting/Diarrhea Stated complaint: nausea vomiting Time Seen by Provider: 06/10/23 11:25 Source: EMS Mode of arrival: EMS Limitations: no limitations - History of Present Illness Initial comments: Patient is a 68-year-old female with a history of hypertension, hyperlipidemia, diabetes presents emergency room for abrupt onset of nausea and vomiting. States it started at 4 AM this morning. It woke her up out of her sleep. She has some right lower abdominal pain as well. Denies he diarrhea. Patient has a cough, congestion, fever, chest pain or shortness breath. Patient denies any r ecent travel, recent antibiotics or sick contacts. - Related Data Home Medications Medication Instructions Recorded Confirmed Ferrous Sulfate [Iron (65 MG 325 mg PO DAILY 03/22/19 10/24/22 Elemental)] Folic Acid 1 mg PO DAILY 03/22/19 10/24/22 Magnesium Oxide [Magox 400] 400 mg PO HS 03/22/19 10/24/22 Montelukast [Singulair] 10 mg PO HS 03/22/19 10/24/22 Gabapentin [Neurontin] 400 mg PO TID 11/25/20 10/24/22 Ascorbic Acid [Vitamin C] 500 mg PO DAILY 10/24/22 10/24/22 Cholecalciferol [Vitamin D3 (25 50 mcg PO DAILY 10/24/22 10/24/22 Mcg = 1000 Iu)] Ergocalciferol (Vitamin D2) 1,250 mcg PO WE 10/24/22 10/24/22 [Drisdol (50,000 Iu)] Furosemide [Lasix] 40 mg PO DAILY 10/24/22 10/24/22 HYDROcodone/APAP 10-325MG [[place] 1 tab PO TID 10/24/22 10/24/22 10-325] carBAMazepine [carBAMazepine ER] 100 mg PO BID 10/24/22 10/24/22 Previous Rx's Medication Instructions Recorded Budesonide-Formot 160-4.5 Mcg 2 puff INHALATION RT-BID 30 Days 10/30/22 [Symbicort 160-4.5 Mcg Inhaler] #1 each Insulin Detemir (Levemir) [Levemir] 40 unit SQ DAILY@0700 30 Days #5 10/30/22 each Lactulose [Cephulac] 10 gm PO DAILY #300 ml 05/05/23 amLODIPine [Norvasc] 5 mg PO DAILY #30 tab 10/30/22 guaiFENesin SYRUP 100MG/5ML 200 mg PO Q6HR PRN #240 ml 10/30/22 [Robitussin] predniSONE 10 mg PO DIRECTED #30 tab 10/30/22 Furosemide [Lasix] 20 mg PO DAILY #7 tab 12/21/22 Sulfamethox-Tmp 800-160Mg [Bactrim 1 each PO Q12HR #14 tab 12/21/22 Ds] Dicyclomine [Bentyl] 20 mg PO TID #21 tablet 06/10/23 Famotidine [Pepcid] 20 mg PO BID #28 tablet 06/10/23 Ondansetron Odt [Zofran Odt] 4 mg PO Q8HR PRN #20 tab 06/10/23 Allergies Allergy/AdvReac Type Severity Reaction Status Date / Time Penicillins Allergy Rash/Hives/ Verified 10/24/22 11:27 Itching Review of Systems ROS Statement: Those systems with pertinent positive or pertinent negative responses have been documented in the HPI. ROS Other: All systems not noted in ROS Statement are negative. Past Medical History Past Medical History: Asthma, Diabetes Mellitus, Hypertension, Rheumatoid Arthritis (RA) Additional Past Medical History / Comment(s): COVID Mar 2022, increasing falls History of Any Multi-Drug Resistant Organisms: None Reported Past Surgical History: Section, Joint Replacement, Orthopedic Surgery Additional Past Surgical History / Comment(s): carpel tunnel, bilat knee replacement Past Anesthesia/Blood Transfusion Reactions: No Reported Reaction Additional Past Anesthesia/Blood Transfusion Reaction / Comment(s): slow to wake up Past Psychological History: Anxiety, Depression Smoking Status: Never smoker Past Alcohol Use History: None Reported Past Drug Use History: None Reported - Past Family History Mother Family Medical History: CVA/TIA, Dementia General Exam Limitations: no limitations General appearance: alert, other (Diaphoretic) Head exam: Present: atraumatic Eye exam: Present: normal appearance, PERRL ENT exam: Present: normal exam Neck exam: Present: normal inspection Respiratory exam: Present: normal lung sounds bilaterally, respiratory distress Cardiovascular Exam: Present: regular rate GI/Abdominal exam: Present: soft, tenderness (Right lower quadrant pain, mid lower abdominal pain, no guarding no rebound tenderness) Extremities exam: Present: full ROM Neurological exam: Present: alert, oriented X3 Psychiatric exam: Present: normal affect, normal mood Skin exam: Present: warm, diaphoretic. Absent: dry Course Vital Signs 06/10/23 06/10/23 06/10/23 11:27 14:35 16:00 Temperature 98.4 F Pulse Rate 72 85 84 Respiratory 18 18 18 Rate Blood Pressure 129/62 145/66 139/64 O2 Sat by Pulse 97 95 93 L Oximetry - Reevaluation(s) Reevaluation #1: 06/10/23 16:55 Patient has not had any vomiting emergency room. Still has some nausea. I discussed with her early give her another dose of nausea medicine however at this time her labs and imaging are stable and she may be discharged. She has some possible inflammation indicating some colitis on the computed tomography scan. She is slightly dehydrated. She was given IV fluids emergency room as as well as oral potassium chloride to replenish the mild hypokalemia. Discussed following up with GI specialist. Medical Decision Making - Medical Decision Making Was pt. sent in by a medical professional or institution (, PA, ROTARY DRILLER HELPER, urgent care, hospital, or group home...) When possible be specific @ -[No] Did you speak to anyone other than the patient for history (EMS, parent, family, police, friend...)? What history was obtained from this source @ -[No] Did you review nursing and triage notes (agree or disagree)? Why? @ -[I reviewed and agree with nursing and triage notes] Were old charts reviewed (outside hosp., previous admission, EMS record, old EKG, old radiological studies, urgent care reports/EKG's, group home records)? Report findings @ -[No old charts were reviewed] Differential Diagnosis (chest pain, altered mental status, abdominal pain women, abdominal pain men, vaginal bleeding, weakness, fever, dyspnea, syncope, headache, dizziness, GI bleed, back pain, seizure, CVA, palpatations, mental health, musculoskeletal)? @ -Covid, gastroenteritis, colitis, diverticulitis, appendicitis EKG interpreted by me (3pts min.). @ -EKG shows sinus rhythm at a rate of 71 bpm, nonspecific T-wave changes X-rays interpreted by me (1pt min.). @ -Chest x-ray is negative for any pneumothorax pneumonia, cardiomegaly or other acute changes CT interpreted by me (1pt min.). @ -CT shows mild thickening of the cecum. No obvious obstruction. U/S interpreted by me (1pt. min.). @ -[None done] What testing was considered but not performed or refused? (CT, X-rays, U/S, labs)? Why? @ -[None] What meds were considered but not given or refused? Why? @ -[None] Did you discuss the management of the patient with other professionals (professionals i.e. , PA, ROTARY DRILLER HELPER, lab, RT, psych nurse, social psychologist, filterer, teacher, chief environmental commitment officer, pillowcase folder)? Give summary @ -[No] Was smoking cessation discussed for >3mins.? @ -[No] Was critical care preformed (if so, how long)? @ -[No] Were there social determinants of health that impacted care today? How? (Homelessness, low income, unemployed, alcoholism, drug addiction, transportation, low edu. Level, literacy, decrease access to med. care, shelter, rehab)? @ -[No] Was there de-escalation of care discussed even if they declined (Discuss DNR or withdrawal of care, Hospice)? DNR status @ -[No] What co-morbidities impacted this encounter? (DM, HTN, Smoking, COPD, CAD, Cancer, CVA, ARF, Chemo, Hep., AIDS, mental health diagnosis, sleep apnea, morbid obesity)? @ -[None] Was patient admitted / discharged? Hospital course, mention meds given and route, prescriptions, significant lab abnormalities, going to OR and other pertinent info. @ -Patient is mildly dehydrated. She was given IV fluids emergency room as well as oral potassium chloride for the mild hypokalemia. The computed tomography scan shows mild thickening of the colon with possible mild colitis. Patient's white count is normal. She's not been on any antibiotics. His treatment plan including but denies he medications and follow up with GI specialist for possible outpatient colonoscopy. I discussed treatment plan and signs return to emergency room. Patient understands reasons to this plan. She feels comfortable with medications for at home for the antinausea. Undiagnosed new problem with uncertain prognosis? @ -[No] Drug Therapy requiring intensive monitoring for toxicity (Heparin, Nitro, Insulin, Cardizem)? @ -[No] Were any procedures done? @ -[No] Diagnosis/symptom? @ Colitis, vomiting Acute, or Chronic, or Acute on Chronic? @ -Acute Uncomplicated (without systemic symptoms) or Complicated (systemic symptoms)? @ -[default] Side effects of treatment? @ -[No] Exacerbation, Progression, or Severe Exacerbation? @ -[No] Poses a threat to life or bodily function? How? (Chest pain, USA, AR, pneumonia, PE, COPD, DKA, ARF, appy, cholecystitis, CVA, Diverticulitis, Homicidal, Suicidal, threat to staff... and all critical care pts) @ -[No] - Lab Data Result diagrams: 06/10/23 12:55 06/10/23 12:55 Lab Results 06/10/23 06/10/23 06/10/23 Range/Units 12:55 12:55 12:55 WBC 6.6 (3.8-10.6) k/uL RBC 4.94 (3.80-5.40) m/uL Hgb 15.2 (11.4-16.0) gm/dL Hct 46.8 H (34.0-46.0) % MCV 94.8 (80.0-100.0) fL MCH 30.9 (25.0-35.0) pg MCHC 32.5 (31.0-37.0) g/dL RDW 13.4 (11.5-15.5) % Plt Count 131 L (150-450) k/uL MPV 8.3 Neutrophils % 89 % Lymphocytes % 7 % Monocytes % 4 % Eosinophils % 0 % Basophils % 0 % Neutrophils # 5.9 (1.3-7.7) k/uL Lymphocytes # 0.4 L (1.0-4.8) k/uL Monocytes # 0.3 (0-1.0) k/uL Eosinophils # 0.0 (0-0.7) k/uL Basophils # 0.0 (0-0.2) k/uL Sodium 140 (137-145) mmol/L Potassium 3.2 L (3.5-5.1) mmol/L Chloride 100 (98-107) mmol/L Carbon Dioxide 32 H (22-30) mmol/L Anion Gap 8 mmol/L BUN 19 H (7-17) mg/dL Creatinine 0.51 L (0.52-1.04) mg/dL Est GFR (CKD-EPI)AfAm >90 (>60 ml/min/1.73 sqM) Est GFR (CKD-EPI)NonAf >90 (>60 ml/min/1.73 sqM) Glucose 252 H (74-99) mg/dL Calcium 8.2 L (8.4-10.2) mg/dL Total Bilirubin 0.6 (0.2-1.3) mg/dL AST 30 (14-36) U/L ALT 33 (4-34) U/L Alkaline Phosphatase 88 (38-126) U/L Troponin I (0.000-0.034) ng/mL Total Protein 6.8 (6.3-8.2) g/dL Albumin 4.1 (3.5-5.0) g/dL Lipase 404 H (23-300) U/L Urine Color Dark Yellow Urine Appearance Clear (Clear) Urine pH 7.5 (5.0-8.0) Ur Specific [place] 1.010 (1.001-1.035) Urine Protein Negative (Negative) Urine Glucose (UA) 3+ (Negative) Urine Ketones Negative (Negative) Urine Blood Negative (Negative) Urine Nitrite Negative (Negative) Urine Bilirubin Negative (Negative) Urine Urobilinogen <2.0 (<2.0) mg/dL Ur Leukocyte Esterase Negative (Negative) Urine WBC <1 (0-5) /hpf Ur Squamous Epith Cells 1 (0-4) /hpf Urine Mucus Rare H (None) /hpf Acetone, Qual Negative (Negative) Influenza Type A (PCR) (Not Detectd) Influenza Type B (PCR) (Not Detectd) RSV (PCR) (Not Detectd) SARS-CoV-2 (PCR) (Not Detectd) 06/10/23 06/10/23 Range/Units 12:55 12:55 WBC (3.8-10.6) k/uL RBC (3.80-5.40) m/uL Hgb (11.4-16.0) gm/dL Hct (34.0-46.0) % MCV (80.0-100.0) fL MCH (25.0-35.0) pg MCHC (31.0-37.0) g/dL RDW (11.5-15.5) % Plt Count (150-450) k/uL MPV Neutrophils % % Lymphocytes % % Monocytes % % Eosinophils % % Basophils % % Neutrophils # (1.3-7.7) k/uL Lymphocytes # (1.0-4.8) k/uL Monocytes # (0-1.0) k/uL Eosinophils # (0-0.7) k/uL Basophils # (0-0.2) k/uL Sodium (137-145) mmol/L Potassium (3.5-5.1) mmol/L Chloride (98-107) mmol/L Carbon Dioxide (22-30) mmol/L Anion Gap mmol/L BUN (7-17) mg/dL Creatinine (0.52-1.04) mg/dL Est GFR (CKD-EPI)AfAm (>60 ml/min/1.73 sqM) Est GFR (CKD-EPI)NonAf (>60 ml/min/1.73 sqM) Glucose (74-99) mg/dL Calcium (8.4-10.2) mg/dL Total Bilirubin (0.2-1.3) mg/dL AST (14-36) U/L ALT (4-34) U/L Alkaline Phosphatase (38-126) U/L Troponin I 0.012 (0.000-0.034) ng/mL Total Protein (6.3-8.2) g/dL Albumin (3.5-5.0) g/dL Lipase (23-300) U/L Urine Color Urine Appearance (Clear) Urine pH (5.0-8.0) Ur Specific [place] (1.001-1.035) Urine Protein (Negative) Urine Glucose (UA) (Negative) Urine Ketones (Negative) Urine Blood (Negative) Urine Nitrite (Negative) Urine Bilirubin (Negative) Urine Urobilinogen (<2.0) mg/dL Ur Leukocyte Esterase (Negative) Urine WBC (0-5) /hpf Ur Squamous Epith Cells (0-4) /hpf Urine Mucus (None) /hpf Acetone, Qual (Negative) Influenza Type A (PCR) Not Detected (Not Detectd) Influenza Type B (PCR) Not Detected (Not Detectd) RSV (PCR) Not Detected (Not Detectd) SARS-CoV-2 (PCR) Not Detected (Not Detectd) - Radiology Data Radiology results: report reviewed, image reviewed Disposition Clinical Impression: Nausea & vomiting, Colitis, Hypokalemia, Dehydration Disposition: HOME SELF-CARE Condition: Good Instructions (If sedation given, give patient instructions): Dehydration (ED), Acute Nausea and Vomiting (ED), Colitis (ED) Additional Instructions: FOLLOW UP WITH GI SPECIALIST FOR POSSIBLE OUTPATIENT COLONOSCOPY. INCREASE FLUID INTAKE RETURN FOR UNCONTROLLED PAIN, FEVERS OR NEW CONCERNING SYMPTOMS. Prescriptions: Dicyclomine [Bentyl] 20 mg PO TID #21 tablet Famotidine [Pepcid] 20 mg PO BID #28 tablet Ondansetron Odt [Zofran Odt] 4 mg PO Q8HR PRN #20 tab PRN Reason: Nausea Is patient prescribed a controlled substance at d/c from ED?: No If prescribed controlled substance>3 days was MAPS reviewed?: No Referrals: Edward Love MD [Primary Care Provider] - 1-2 days Becky Ndiaye MD [STAFF PHYSICIAN] - 1-2 days Time of Disposition: 17:04
[2023-06-10 13:19] LABS: Basophils % (A) 0 %; Eosinophils % (A) 0 %; HCT 46.8 % (34.0-46.0); HGB 15.2 gm/dL (11.4-16.0); Lymphocytes # (A) 0.4 k/uL (1.0-4.8); Lymphocytes % (A) 7 %; MCH 30.9 pg (25.0-35.0); MCHC 32.5 g/dL (31.0-37.0); MCV 94.8 fL (80.0-100.0); Mean Platelet Volume 8.3; Monocytes # (A) 0.3 k/uL (0-1.0); Monocytes % (A) 4 %; Neutrophils # (A) 5.9 k/uL (1.3-7.7); Neutrophils % (A) 89 %; Platelet Count 131 k/uL (150-450); RBC 4.94 m/uL (3.80-5.40); RDW 13.4 % (11.5-15.5); WBC 6.6 k/uL (3.8-10.6)
[2023-06-10 13:35] LABS: ALT 33 U/L (4-34); AST 30 U/L (14-36); African American GFR (CKD) >90 (>60 ml/min/1.73 sqM); Albumin 4.1 g/dL (3.5-5.0); Alkaline Phosphatase 88 U/L (38-126); Anion Gap 8 mmol/L; Blood Urea Nitrogen 19 mg/dL (7-17); Calcium 8.2 mg/dL (8.4-10.2); Carbon Dioxide 32 mmol/L (22-30); Chloride 100 mmol/L (98-107); Glucose 252 mg/dL (74-99); Lipase 404 U/L (23-300); Non-African American GFR(CKD) >90 (>60 ml/min/1.73 sqM); Potassium 3.2 mmol/L (3.5-5.1); Sodium 140 mmol/L (137-145); Total Bilirubin 0.6 mg/dL (0.2-1.3); Total Protein 6.8 g/dL (6.3-8.2)
--- NOTE | 2023-06-10 14:35 | CT ---
EXAMINATION TYPE: CT abdomen pelvis w con CT DLP: 1567.9 mGycm, Automated exposure control for dose reduction was used. DATE OF EXAM: 06/10/2023 2:08 PM COMPARISON: 11/25/2020. CLINICAL INDICATION:Female, 68 years old with history of RLQ abdominal pain, vomiting; RLQ pain, vomi ting TECHNIQUE: Axial CT of the ;CT abdomen pelvis w con;Sagittal and coronal reformats were created on a separate workstation. Contrast used:100 mL of Isovue 300 with IV Contrast, (none if empty) Oral contrast used: without Oral Contrast (none if empty) FINDINGS: LOWER CHEST: Unremarkable ABDOMEN LIVER: Subtle appearing hepatic cyst. GALLBLADDER AND BILE DUCTS: Unremarkable. PANCREAS: Unremarkable. SPLEEN: Unremarkable. ADRENAL GLANDS: Unremarkable. KIDNEYS AND URETERS: No evidence of hydronephrosis or renal calculus. The ureters are unremarkable. Left simple appearing renal cyst. PELVIS BLADDER: Unremarkable REPRODUCTIVE: Unremarkable. ABDOMEN & PELVIS STOMACH AND BOWEL: Mild wall thickening of the cecum measuring up to 7 mm. Wall thickening is somewha t circumferential and extends approximately 8.1 cm in length. No Evidence of bowel obstruction. Small hiatal hernia. PERITONEUM/RETROPERITONEUM: No evidence of pneumoperitoneum or free fluid. VASCULATURE: No evidence of aortic aneurysm. MUSCULOSKELETAL: No acute osseous abnormalities LYMPH NODES: No gross evidence for lymphadenopathy. SOFT TISSUE/ABDOMINAL WALL: Unremarkable IMPRESSION: Mild wall thickening of the cecum correlate for colitis. Consider colonoscopy if not recently perform ed to rule out underlying neoplasm. The appendix is normal. No obstructive uropathy or renal calculus .
[2023-06-10 15:02] LABS: Appearance,Urine Clear (Clear); Color,Urine Dark Yellow; Glucose,Urine (UA) 3+ (Negative); Ketones,Urine Negative (Negative); PH, Urine 7.5 (5.0-8.0); Protein,Urine Negative (Negative)
[2023-06-10 15:03] LABS: Bilirubin,Urine Negative (Negative); Blood,Urine Negative (Negative); Leukocyte Esterase,Urine Negative (Negative); Nitrite,Urine Negative (Negative); Urobilinogen,Urine <2.0 mg/dL (<2.0)
[2023-06-10 15:08] LABS: Mucus,Urine Rare /hpf; Squamous Epithelial Cell,Urine 1 /hpf (0-4); WBC,Urine <1 /hpf (0-5)
--- NOTE | 2023-06-10 15:08 | XR ---
EXAMINATION TYPE: XR chest 2V DATE OF EXAM: 06/10/2023 2:56 PM CLINICAL INDICATION:Female, 68 years old with history of diaphoretic, vomiting; COMPARISON: Chest radiographs from 12/20/2022 TECHNIQUE: XR chest 2V Frontal and lateral views of the chest. FINDINGS: Lungs/Pleura: There is no evidence of pleural effusion, focal consolidation, or pneumothorax. Pulmonary vascularity: Unremarkable. Heart/mediastinum: Cardiomediastinal silhouette is enlarged and stable. Musculoskeletal: No acute osseous pathology. IMPRESSION: No acute cardiopulmonary disease/process.
[2023-06-10] MEDS ORDERED: MORPHINE SULFATE 4 MG/ML SYRINGE IVP STA (15:28)
[2023-06-10] MEDS ORDERED: METOCLOPRAMIDE 5 MG/ML 2 ML VIAL IVP STA (15:29)
[2023-06-10] MEDS ORDERED: PROCHLORPERAZINE INJ 10 MG/2 ML VIAL IVP STA (16:20)
[2023-06-10] MEDS ORDERED: POTASSIUM CHLORIDE ER 20 MEQ TAB.ER PO STA (16:21)
[2023-06-10 19:07] VITALS: BP 140/65; PULSE 88; TEMP 99.1
== END 2023-06-10 19:15 | disposition home or self-care (01) ==
LOC: EC 11:21
DX: K52.9 Noninfective gastroenteritis and colitis, unspecified (principal); E87.6 Hypokalemia; E86.0 Dehydration; I45.10 Unspecified right bundle-branch block; J45.909 Unspecified asthma, uncomplicated; E11.9 Type 2 diabetes mellitus without complications; I10 Essential (primary) hypertension; Z86.59 Personal history of other mental and behavioral disorders; Z79.899 Other long term (current) drug therapy; Z88.0 Allergy status to penicillin; Z20.822 Contact with and (suspected) exposure to COVID-19
CPT/HCPCS: 36415; 93005; 80053; 82009; 83690; 84484; 85025; 81003; 87636; 71046; 74177; 99285; 96374; 96375 ×3; 96361; J2270; J0780; J2765; J2405; Q9967

== ENCOUNTER 2023-06-11 13:15 | Inpatient (IN) | payer MEDICARE, OTHER ==
[2023-06-11] MEDS ORDERED: SODIUM CHLORIDE 0.9% 500 ML 500 ML IV STA (14:05)
[2023-06-11] MEDS ORDERED: PANTOPRAZOLE 40 MG/10 ML VIAL IVP STA (14:05)
[2023-06-11] MEDS ORDERED: ONDANSETRON 4 MG/2 ML VIAL IVP STA (14:05)
[2023-06-11] MEDS ORDERED: SODIUM CHLORIDE 0.9% 1,000 ML IV STA ×2 (14:05)
--- NOTE | 2023-06-11 14:10 | ED ---
Recheck HPI - General Chief Complaint: Nausea/Vomiting/Diarrhea Stated Complaint: NVD-revisit Time Seen by Provider: 06/11/23 14:05 Source: patient, RN notes reviewed, old records reviewed Mode of arrival: ambulatory Limitations: no limitations - History of Present Illness Initial Comments: This is a 68-year-old female to the ER today. Patient presents for evaluation regards to nausea vomiting and diarrhea. She was in our emergency room yesterday with similar symptoms also complaining of abdominal pain had lab tests and imaging done but symptoms are progressively worsened. Patient is significantly weaker unable to get around and unable to take care of her activities of daily living MD Complaint: other (Nausea vomiting diarrhea, worsening symptoms some yesterday) -: days(s) Returns Today for: persistent/worsening pain related to initial visit Symptoms Since Prior Visit: worsening pain Associated Symptoms: fever, chest pain, malaise, nausea, abdominal pain Treatments Prior to Arrival: Given Pain Meds on - Related Data Home Medications Medication Instructions Recorded Confirmed Ferrous Sulfate [Iron (65 MG 325 mg PO DAILY 03/22/19 06/11/23 Elemental)] Magnesium Oxide [Magox 400] 400 mg PO HS 03/22/19 06/11/23 Montelukast [Singulair] 10 mg PO HS 03/22/19 06/11/23 Ergocalciferol (Vitamin D2) 1,250 mcg PO WE 10/24/22 06/11/23 [Drisdol (50,000 Iu)] Furosemide [Lasix] 40 mg PO DAILY 10/24/22 06/11/23 DULoxetine HCL [Cymbalta] 30 mg PO BID 06/11/23 06/11/23 Erythromycin Ophth Oint (1 gm) 1 applic BOTH EYES HS 06/11/23 06/11/23 [Ilotycin Ophth Oint (1 gm)] Glimepiride [Amaryl] 4 mg PO BID 06/11/23 06/11/23 Insulin Glargine,Hum.rec.anlog 20 units SQ DAILY 06/11/23 06/11/23 [Lantus Solostar Pen] Neomycin/Polymyxin B/Dexametha 1 applic BOTH EYES BID 06/11/23 06/11/23 [Neomycin/Polymyxin B/Dexametha Ophth Ointment] OXcarbazepine [Trileptal] 300 mg PO BID 06/11/23 06/11/23 predniSONE [Deltasone] 60 mg PO DAILY 06/11/23 06/11/23 Previous Rx's Medication Instructions Recorded amLODIPine [Norvasc] 5 mg PO DAILY #30 tab 10/30/22 Dicyclomine [Bentyl] 20 mg PO TID #21 tablet 06/10/23 Famotidine [Pepcid] 20 mg PO BID #28 tablet 06/10/23 Ondansetron Odt [Zofran ODT] 4 mg PO Q8HR PRN #20 tab 06/10/23 Gabapentin [Neurontin] 400 mg PO TID #9 cap 06/16/23 HYDROcodone/APAP 10-325MG [[place] 1 tab PO TID PRN #9 tab 06/16/23 10-325] Lactobacillus Acidophilus 1 each PO DAILY #30 capsule 06/16/23 [Acidophilus Probiotic] Allergies Allergy/AdvReac Type Severity Reaction Status Date / Time Penicillins Allergy Rash/Hives/ Verified 06/11/23 18:29 Itching Review of Systems ROS Statement: Those systems with pertinent positive or pertinent negative responses have been documented in the HPI. ROS Other: All systems not noted in ROS Statement are negative. Past Medical History Past Medical History: Asthma, Diabetes Mellitus, Hypertension, Rheumatoid Arthritis (RA) Additional Past Medical History / Comment(s): COVID Mar 2022, increasing falls History of Any Multi-Drug Resistant Organisms: None Reported Past Surgical History: Section, Joint Replacement, Orthopedic Surgery Additional Past Surgical History / Comment(s): carpel tunnel, bilat knee replacement Past Anesthesia/Blood Transfusion Reactions: No Reported Reaction Additional Past Anesthesia/Blood Transfusion Reaction / Comment(s): slow to wake up Past Psychological History: Anxiety, Depression Smoking Status: Never smoker Past Alcohol Use History: None Reported Past Drug Use History: None Reported - Past Family History Mother Family Medical History: CVA/TIA, Dementia General Exam Limitations: no limitations General appearance: alert, in no apparent distress Head exam: Present: atraumatic, normocephalic, normal inspection Eye exam: Present: normal appearance, PERRL, EOMI. Absent: scleral icterus, conjunctival injection, periorbital swelling ENT exam: Present: normal exam, mucous membranes moist Neck exam: Present: normal inspection. Absent: tenderness, meningismus, lymphadenopathy Respiratory exam: Present: normal lung sounds bilaterally. Absent: respiratory distress, wheezes, rales, rhonchi, stridor Cardiovascular Exam: Present: regular rate, normal rhythm, normal heart sounds. Absent: systolic murmur, diastolic murmur, rubs, gallop, clicks GI/Abdominal exam: Present: soft, normal bowel sounds. Absent: distended, tenderness, guarding, rebound, rigid Extremities exam: Present: normal inspection, full ROM, normal capillary refill. Absent: tenderness, pedal edema, joint swelling, calf tenderness Back exam: Present: normal inspection Neurological exam: Present: alert, oriented X3, CN II-XII intact Psychiatric exam: Present: normal affect, normal mood Skin exam: Present: warm, dry, intact, normal color. Absent: rash Course Vital Signs 06/11/23 06/11/23 13:39 17:26 Temperature 99.0 F 98.1 F Pulse Rate 103 H 91 Respiratory 20 20 Rate Blood Pressure 170/84 177/78 O2 Sat by Pulse 98 99 Oximetry - Reevaluation(s) Reevaluation #1: 06/11/23 19:14 Records reviewed Reevaluation #2: 06/11/23 19:14 Patient symptoms are unchanged Reevaluation #3: 06/11/23 19:14 Patient informed results questions answered Reevaluation #4: 06/11/23 19:14 Was pt. sent in by a medical professional or institution (Dr. PA, BOAT CAPTAIN, urgent care, hospital, or penitentiary...) When possible be specific @ -no Did you speak to anyone other than the patient for history (EMS, parent, family, police, friend...)? What history was obtained from this source @ -no Did you review nursing and triage notes (agree or disagree)? Why? @ -agree Are old charts reviewed (outside hosp., previous admission, EMS record, old EKG, old radiological studies, urgent care reports/EKG's, penitentiary records)? Report findings @ -yes Differential Diagnosis (chest pain, altered mental status, abdominal pain women, abdominal pain men, vaginal bleeding, weakness, fever, dyspnea, syncope, headache, dizziness, GI bleed, back pain, seizure, CVA, palpatations, mental health, musculoskeletal)? @ -prior EKG interpreted by me (3pts min.). @ -yes X-rays interpreted by me (1pt min.). @ -no CT interpreted by me (1pt min.). @ -no U/S interpreted by me (1pt. min.). @ -no What testing was considered but not performed or refused? (CT, X-rays, U/S, labs)? Why? @ -none What meds were considered but not given or refused? Why? @ -none Did you discuss the management of the patient with other professionals (professionals i.e. , PA, BOAT CAPTAIN, lab, RT, psych nurse, older adult social work specialist, electrical plumbing supervisor, teacher, associate loan officer, case reviewer)? Give summary @ -no Was smoking cessation discussed for >3mins.? @ -no Was critical care preformed (if so, how long)? @ -no Were there social determinants of health that impacted care today? How? (Homelessness, low income, unemployed, alcoholism, drug addiction, transportation, low edu. Level, literacy, decrease access to med. care, fdc, rehab)? @ -none Was there de-escalation of care discussed even if they declined (Discuss DNR or withdrawal of care, Hospice)? DNR status @ -no What co-morbidities impacted this encounter? (DM, HTN, Smoking, COPD, CAD, Ca ncer, CVA, ARF, Chemo, Hep., AIDS, mental health diagnosis, sleep apnea, morbid obesity)? @ -none Was patient admitted / discharged? Hospital course, mention meds given and route, prescriptions, significant lab abnormalities, going to OR and other pertinent info. @ - 68 female will be admitted for persistent nausea vomiting and diarrhea, patient fell outpatient treatment of nausea vomiting diarrhea, weakness increasing weakness and will be admitted for supportive care Admitted Undiagnosed new problem with uncertain prognosis? @ -no Drug Therapy requiring intensive monitoring for toxicity (Heparin, Nitro, Insulin, Cardizem)? @ -no Were any procedures done? @ -no Diagnosis/symptom? @ -Nausea vomiting diarrhea weakness Acute, or Chronic, or Acute on Chronic? @ -Acute Uncomplicated (without systemic symptoms) or Complicated (systemic symptoms)? @ -Complicated Side effects of treatment? @ -no Exacerbation, Progression, or Severe Exacerbation? @ -exacerbation Poses a threat to life or bodily function? How? (Chest pain, USA, NM, pneumonia, PE, COPD, DKA, ARF, appy, cholecystitis, CVA, Diverticulitis, Homicidal, Suicidal, threat to staff... and all critical care pts) @ -yes with extremes of age Reevaluation #5: 06/11/23 19:14 Differential Weakness: Hypoglycemia, shock, sepsis, hyponatremia, anemia, infection, NM, ETOH, adverse medicine reaction, overdose, stroke, this is not meant to be an all-inclusive list. - Consultations Consultation #1: spoke with the admitting physicians who will admit this patient Medical Decision Making - Medical Decision Making 68 female will be admitted for persistent nausea vomiting and diarrhea, patient fell outpatient treatment of nausea vomiting diarrhea, weakness increasing weakness and will be admitted for supportive care - Lab Data Result diagrams: 06/15/23 05:31 06/16/23 06:15 Lab Results 06/11/23 06/11/23 06/11/23 Range/Units 14:15 14:15 14:15 WBC 6.7 (3.8-10.6) k/uL RBC 5.01 (3.80-5.40) m/uL Hgb 15.6 (11.4-16.0) gm/dL Hct 46.3 H (34.0-46.0) % MCV 92.3 (80.0-100.0) fL MCH 31.2 (25.0-35.0) pg MCHC 33.8 (31.0-37.0) g/dL RDW 13.2 (11.5-15.5) % Plt Count 149 L (150-450) k/uL MPV 8.2 Immature Gran % (Auto) % Absolute Nucleated RBC % Neutrophils % 79 % Lymphocytes % 12 % Monocytes % 5 % Eosinophils % 2 % Basophils % 0 % Immature Gran # (0.00-0.04) X 10*3/uL Neutrophils # 5.2 (1.3-7.7) k/uL Lymphocytes # 0.8 L (1.0-4.8) k/uL Monocytes # 0.4 (0-1.0) k/uL Eosinophils # 0.1 (0-0.7) k/uL Basophils # 0.0 (0-0.2) k/uL NRBC/100 WBC Diff (0.00-0.01) X 10*3/uL Sodium 136 L (137-145) mmol/L Potassium 4.1 (3.5-5.1) mmol/L Chloride 95 L (98-107) mmol/L Carbon Dioxide 32 H (22-30) mmol/L Anion Gap 9 mmol/L BUN 9 (7-17) mg/dL Creatinine 0.56 (0.52-1.04) mg/dL Est GFR (CKD-EPI) (>=60) Est GFR (CKD-EPI)AfAm >90 (>60 ml/min/1.73 sqM) Est GFR (CKD-EPI)NonAf >90 (>60 ml/min/1.73 sqM) BUN/Creatinine Ratio (12.00-20.00) Ratio Glucose 207 H (74-99) mg/dL POC Glucose (mg/dL) (70-110) mg/dL POC Glu Nursing Home Admissions Director ID Calcium 9.3 (8.4-10.2) mg/dL Phosphorus (2.4-5.1) mg/dL Magnesium (1.5-2.4) mg/dL Total Bilirubin 0.9 (0.2-1.3) mg/dL AST 43 H (14-36) U/L ALT 35 H (4-34) U/L Alkaline Phosphatase 85 (38-126) U/L Total Protein 7.4 (6.3-8.2) g/dL Albumin 4.5 (3.5-5.0) g/dL Globulin (1.6-3.3) g/dL Albumin/Globulin Ratio (1.60-3.17) Ratio Amylase 37 (30-110) U/L Lipase 24 (23-300) U/L Urine Color Colorless Urine Appearance Clear (Clear) Urine pH 7.5 (5.0-8.0) Ur Specific Lares 1.009 (1.001-1.035) Urine Protein Negative (Negative) Urine Glucose (UA) 1+ H (Negative) Urine Ketones Negative (Negative) Urine Blood Negative (Negative) Urine Nitrite Negative (Negative) Urine Bilirubin Negative (Negative) Urine Urobilinogen <2.0 (<2.0) mg/dL Ur Leukocyte Esterase Negative (Negative) Urine RBC (0-5) /hpf Urine WBC (0-5) /hpf Ur Squamous Epith Cells (0-4) /hpf Urine Bacteria (None) /hpf Hyaline Casts (0-2) /lpf Urine Mucus (None) /hpf 06/11/23 06/12/23 06/12/23 Range/Units 21:23 04:01 04:01 WBC 6.15 (3.8-10.6) k/uL RBC 4.91 (3.80-5.40) m/uL Hgb 14.7 (11.4-16.0) gm/dL Hct 45.2 (34.0-46.0) % MCV 92.1 (80.0-100.0) fL MCH 29.9 (25.0-35.0) pg MCHC 32.5 (31.0-37.0) g/dL RDW 13.2 (11.5-15.5) % Plt Count 168 (150-450) k/uL MPV 10.9 Immature Gran % (Auto) 0.30 % Absolute Nucleated RBC 0 % Neutrophils % 76.6 % Lymphocytes % 11.9 % Monocytes % 9.4 % Eosinophils % 1.5 % Basophils % 0.3 % Immature Gran # 0.02 (0.00-0.04) X 10*3/uL Neutrophils # 4.71 (1.3-7.7) k/uL Lymphocytes # 0.73 L (1.0-4.8) k/uL Monocytes # 0.58 (0-1.0) k/uL Eosinophils # 0.09 (0-0.7) k/uL Basophils # 0.02 (0-0.2) k/uL NRBC/100 WBC Diff 0 (0.00-0.01) X 10*3/uL Sodium 140 (137-145) mmol/L Potassium 3.4 L (3.5-5.1) mmol/L Chloride 102 (98-107) mmol/L Carbon Dioxide 24.9 (22-30) mmol/L Anion Gap 13.10 H mmol/L BUN 7.1 L (7-17) mg/dL Creatinine 0.7 (0.52-1.04) mg/dL Est GFR (CKD-EPI) 94 (>=60) Est GFR (CKD-EPI)AfAm (>60 ml/min/1.73 sqM) Est GFR (CKD-EPI)NonAf (>60 ml/min/1.73 sqM) BUN/Creatinine Ratio 10.14 L (12.00-20.00) Ratio Glucose 203 H (74-99) mg/dL POC Glucose (mg/dL) 205 H (70-110) mg/dL POC Glu Nursing Home Admissions Director ID Joana Tyler Calcium 9.2 (8.4-10.2) mg/dL Phosphorus 2.7 (2.4-5.1) mg/dL Magnesium 2.0 (1.5-2.4) mg/dL Total Bilirubin 0.4 (0.2-1.3) mg/dL AST 28 (14-36) U/L ALT 30 (4-34) U/L Alkaline Phosphatase 74 (38-126) U/L Total Protein 6.4 (6.3-8.2) g/dL Albumin 4.3 (3.5-5.0) g/dL Globulin 2.1 (1.6-3.3) g/dL Albumin/Globulin Ratio 2.05 (1.60-3.17) Ratio Amylase (30-110) U/L Lipase (23-300) U/L Urine Color Urine Appearance (Clear) Urine pH (5.0-8.0) Ur Specific Lares (1.001-1.035) Urine Protein (Negative) Urine Glucose (UA) (Negative) Urine Ketones (Negative) Urine Blood (Negative) Urine Nitrite (Negative) Urine Bilirubin (Negative) Urine Urobilinogen (<2.0) mg/dL Ur Leukocyte Esterase (Negative) Urine RBC (0-5) /hpf Urine WBC (0-5) /hpf Ur Squamous Epith Cells (0-4) /hpf Urine Bacteria (None) /hpf Hyaline Casts (0-2) /lpf Urine Mucus (None) /hpf 06/12/23 06/13/23 Range/Units 05:59 04:48 WBC (3.8-10.6) k/uL RBC (3.80-5.40) m/uL Hgb (11.4-16.0) gm/dL Hct (34.0-46.0) % MCV (80.0-100.0) fL MCH (25.0-35.0) pg MCHC (31.0-37.0) g/dL RDW (11.5-15.5) % Plt Count (150-450) k/uL MPV Immature Gran % (Auto) % Absolute Nucleated RBC % Neutrophils % % Lymphocytes % % Monocytes % % Eosinophils % % Basophils % % Immature Gran # (0.00-0.04) X 10*3/uL Neutrophils # (1.3-7.7) k/uL Lymphocytes # (1.0-4.8) k/uL Monocytes # (0-1.0) k/uL Eosinophils # (0-0.7) k/uL Basophils # (0-0.2) k/uL NRBC/100 WBC Diff (0.00-0.01) X 10*3/uL Sodium (137-145) mmol/L Potassium (3.5-5.1) mmol/L Chloride (98-107) mmol/L Carbon Dioxide (22-30) mmol/L Anion Gap mmol/L BUN (7-17) mg/dL Creatinine (0.52-1.04) mg/dL Est GFR (CKD-EPI) (>=60) Est GFR (CKD-EPI)AfAm (>60 ml/min/1.73 sqM) Est GFR (CKD-EPI)NonAf (>60 ml/min/1.73 sqM) BUN/Creatinine Ratio (12.00-20.00) Ratio Glucose (74-99) mg/dL POC Glucose (mg/dL) 201 H (70-110) mg/dL POC Glu Nursing Home Admissions Director ID Joana Tyler Calcium (8.4-10.2) mg/dL Phosphorus (2.4-5.1) mg/dL Magnesium (1.5-2.4) mg/dL Total Bilirubin (0.2-1.3) mg/dL AST (14-36) U/L ALT (4-34) U/L Alkaline Phosphatase (38-126) U/L Total Protein (6.3-8.2) g/dL Albumin (3.5-5.0) g/dL Globulin (1.6-3.3) g/dL Albumin/Globulin Ratio (1.60-3.17) Ratio Amylase (30-110) U/L Lipase (23-300) U/L Urine Color Yellow Urine Appearance Clear (Clear) Urine pH 5.5 (5.0-8.0) Ur Specific [place] 1.022 (1.001-1.035) Urine Protein 1+ H (Negative) Urine Glucose (UA) Negative (Negative) Urine Ketones Negative (Negative) Urine Blood Negative (Negative) Urine Nitrite Negative (Negative) Urine Bilirubin Negative (Negative) Urine Urobilinogen <2.0 (<2.0) mg/dL Ur Leukocyte Esterase Negative (Negative) Urine RBC 1 (0-5) /hpf Urine WBC 7 H (0-5) /hpf Ur Squamous Epith Cells 2 (0-4) /hpf Urine Bacteria Occasional H (None) /hpf Hyaline Casts 65 H (0-2) /lpf Urine Mucus Many H (None) /hpf Disposition Clinical Impression: Dehydration, Nausea and vomiting Disposition: ADMITTED IP TO THIS HOSP Condition: Stable Is patient prescribed a controlled substance at d/c from ED?: No Time of Disposition: 16:30
[2023-06-11 15:13] LABS: Basophils % (A) 0 %; Eosinophils # (A) 0.1 k/uL (0-0.7); Eosinophils % (A) 2 %; HCT 46.3 % (34.0-46.0); HGB 15.6 gm/dL (11.4-16.0); Lymphocytes # (A) 0.8 k/uL (1.0-4.8); Lymphocytes % (A) 12 %; MCH 31.2 pg (25.0-35.0); MCHC 33.8 g/dL (31.0-37.0); MCV 92.3 fL (80.0-100.0); Mean Platelet Volume 8.2; Monocytes # (A) 0.4 k/uL (0-1.0); Monocytes % (A) 5 %; Neutrophils # (A) 5.2 k/uL (1.3-7.7); Neutrophils % (A) 79 %; Platelet Count 149 k/uL (150-450); RBC 5.01 m/uL (3.80-5.40); RDW 13.2 % (11.5-15.5); WBC 6.7 k/uL (3.8-10.6)
[2023-06-11 15:30] LABS: ALT 35 U/L (4-34); AST 43 U/L (14-36); African American GFR (CKD) >90 (>60 ml/min/1.73 sqM); Albumin 4.5 g/dL (3.5-5.0); Alkaline Phosphatase 85 U/L (38-126); Amylase 37 U/L (30-110); Anion Gap 9 mmol/L; Blood Urea Nitrogen 9 mg/dL (7-17); Calcium 9.3 mg/dL (8.4-10.2); Carbon Dioxide 32 mmol/L (22-30); Chloride 95 mmol/L (98-107); Glucose 207 mg/dL (74-99); Lipase 24 U/L (23-300); Non-African American GFR(CKD) >90 (>60 ml/min/1.73 sqM); Sodium 136 mmol/L (137-145); Total Bilirubin 0.9 mg/dL (0.2-1.3); Total Protein 7.4 g/dL (6.3-8.2)
[2023-06-11 15:39] LABS: Potassium 4.1 mmol/L (3.5-5.1)
[2023-06-11 16:36] LABS: Appearance,Urine Clear (Clear); Bilirubin,Urine Negative (Negative); Blood,Urine Negative (Negative); Color,Urine Colorless; Glucose,Urine (UA) 1+ (Negative); Ketones,Urine Negative (Negative); Leukocyte Esterase,Urine Negative (Negative); Nitrite,Urine Negative (Negative); PH, Urine 7.5 (5.0-8.0); Protein,Urine Negative (Negative); Specific Gravity,Urine 1.009 (1.001-1.035); Urobilinogen,Urine <2.0 mg/dL (<2.0)
[2023-06-11] MEDS ORDERED: NALOXONE 0.4 MG/ML 1 ML VIAL IV PRN (16:36)
[2023-06-11] MEDS ORDERED: ONDANSETRON 4 MG/2 ML VIAL IVP PRN (16:36)
[2023-06-11] MEDS ORDERED: MORPHINE SULFATE 4 MG/ML SYRINGE IV PRN (16:36)
[2023-06-11] MEDS ORDERED: LORazepam 2 MG/ML INJ IV STA (18:11)
[2023-06-11] MEDS: SODIUM CHLORIDE 0.9% 1,000 ML IV SCH (18:25)
[2023-06-11 21:25] LABS: Glucose,Whole Blood 205 mg/dL (70-110)
[2023-06-12] MEDS: SODIUM CHLORIDE 0.9% 1,000 ML IV SCH ×3 (02:27→16:48)
[2023-06-12 06:01] LABS: Glucose,Whole Blood 201 mg/dL (70-110)
[2023-06-12] MEDS: GABAPENTIN 400 MG CAP PO SCH ×3 (08:27→20:22)
[2023-06-12] MEDS: amLODIPine 5 MG TAB PO SCH (08:27)
[2023-06-12] MEDS: DULoxetine HCL 30 MG CAPSULE.DR PO SCH ×2 (08:27→20:22)
[2023-06-12] MEDS: PANTOPRAZOLE 40 MG/10 ML VIAL IVP SCH (08:28)
[2023-06-12] MEDS: NEOMYCIN-POLYMYXIN-DEXAMETH OINT 3.5 GM TUBE BOTH EYES SCH ×2 (08:29→20:22)
[2023-06-12] MEDS: HEPARIN SODIUM,PORCINE 5,000 UNIT/ML 1 ML VIAL SQ SCH ×2 (08:29→20:22)
[2023-06-12] MEDS: HYDROcodone/APAP 10-325MG 1 EACH TAB PO PRN (08:44)
[2023-06-12 09:23] LABS: Basophils # (A) 0.02 X 10*3/uL (0.00-0.10); Basophils % (A) 0.3 %; Eosinophils # (A) 0.09 X 10*3/uL (0.04-0.35); Eosinophils % (A) 1.5 %; HCT 45.2 % (37.2-46.3); HGB 14.7 g/dL (12.0-15.0); Lymphocytes # (A) 0.73 X 10*3/uL (0.90-5.00); Lymphocytes % (A) 11.9 %; MCH 29.9 pg (27.0-32.0); MCHC 32.5 g/dL (32.0-37.0); MCV 92.1 FL (80.0-97.0); Mean Platelet Volume 10.9 FL (9.5-12.2); Monocytes # (A) 0.58 X 10*3/uL (0.20-1.00); Monocytes % (A) 9.4 %; NRBC Per 100 WBC 0 X 10*3/uL (0.00-0.01); Neutrophils # (A) 4.71 X 10*3/uL (1.80-7.70); Neutrophils % (A) 76.6 %; Platelet Count 168 X 10*3/uL (140-440); RBC 4.91 X 10*6/uL (4.10-5.20); RDW 13.2 % (11.5-14.5); WBC 6.15 X 10*3/uL (4.50-10.00)
[2023-06-12 09:39] LABS: ALT 30 U/L (8-44); AST 28 U/L (13-35); Albumin 4.3 g/dL (3.8-4.9); Albumin/Globulin Ratio 2.05 Ratio (1.60-3.17); Alkaline Phosphatase 74 U/L (41-126); BUN/Creat Ratio 10.14 Ratio (12.00-20.00); Blood Urea Nitrogen 7.1 mg/dL (9.0-27.0); Calcium 9.2 mg/dL (8.7-10.3); Carbon Dioxide 24.9 mmol/L (21.6-31.8); Chloride 102 mmol/L (96-109); Globulin 2.1 g/dL (1.6-3.3); Glucose 203 mg/dL (70-110); Phosphorus 2.7 mg/dL (2.4-5.1); Potassium 3.4 mmol/L (3.5-5.5); Sodium 140 mmol/L (135-145); Total Bilirubin 0.4 mg/dL (0.3-1.2); Total Protein 6.4 g/dL (6.2-8.2)
[2023-06-12] MEDS ORDERED: ALPRAZolam 0.5 MG TAB PO STA (10:15)
--- NOTE | 2023-06-12 10:50 | P.CON ---
Consult Note - . Consult date: 06/12/23 Abdominal Pain HPI - General Source: patient (This is a 68 year old female that presents with Nausea, Vomiting, and Diarrhea. She states she is currently more comfortable but is still having some nausea. She denies any blood in her stool currently. She has had a Colonoscopy in the past. She does not appear toxic. ), RN notes reviewed, old records reviewed Mode of arrival: ambulatory Limitations: no limitations - Related Data Home Medications Medication Instructions Recorded Confirmed Ferrous Sulfate [Iron (65 MG 325 mg PO DAILY 03/22/19 06/11/23 Elemental)] Magnesium Oxide [Magox 400] 400 mg PO HS 03/22/19 06/11/23 Montelukast [Singulair] 10 mg PO HS 03/22/19 06/11/23 Gabapentin [Neurontin] 400 mg PO TID 11/25/20 06/11/23 Ergocalciferol (Vitamin D2) 1,250 mcg PO WE 10/24/22 06/11/23 [Drisdol (50,000 Iu)] Furosemide [Lasix] 40 mg PO DAILY 10/24/22 06/11/23 HYDROcodone/APAP 10-325MG [[place] 1 tab PO TID 10/24/22 06/11/23 10-325] DULoxetine HCL [Cymbalta] 30 mg PO BID 06/11/23 06/11/23 Erythromycin Ophth Oint (1 gm) 1 applic BOTH EYES HS 06/11/23 06/11/23 [Ilotycin Ophth Oint (1 gm)] Glimepiride [Amaryl] 4 mg PO BID 06/11/23 06/11/23 Insulin Glargine,Hum.rec.anlog 20 units SQ DAILY 06/11/23 06/11/23 [Lantus Solostar Pen] Neomycin/Polymyxin B/Dexametha 1 applic BOTH EYES BID 06/11/23 06/11/23 [Neomycin/Polymyxin B/Dexametha Ophth Ointment] OXcarbazepine [Trileptal] 300 mg PO BID 06/11/23 06/11/23 predniSONE [Deltasone] 60 mg PO DAILY 06/11/23 06/11/23 Previous Rx's Medication Instructions Recorded amLODIPine [Norvasc] 5 mg PO DAILY #30 tab 10/30/22 Dicyclomine [Bentyl] 20 mg PO TID #21 tablet 06/10/23 Famotidine [Pepcid] 20 mg PO BID #28 tablet 06/10/23 Ondansetron Odt [Zofran Odt] 4 mg PO Q8HR PRN #20 tab 06/10/23 Allergies Allergy/AdvReac Type Severity Reaction Status Date / Time Penicillins Allergy Rash/Hives/ Verified 06/11/23 18:29 Itching Review of Systems - Review of Systems EENTM: Reports: no symptoms reported Cardiac (ROS): Reports: no symptoms reported ABD/GI: Reports: abdominal pain : Reports: no symptoms reported Musculoskeletal: Reports: no symptoms reported Skin: Reports: no symptoms reported Neurological: Reports: no symptoms reported Hematologic/Lymphatic: Reports: no symptoms reported All Other Systems: Reviewed and Negative Physical Exam - Physical Exam Eyes, Ears, Nose, Throat Exam: PERRL/EOMI Neck: Neck, full range of motion Respiratory: chest non-tender, lungs clear, normal breath sounds Cardiovascular/Chest: normal peripheral pulses, regular rate, rhythm Gastrointestinal/Abdominal: non tender, soft, no pulsatile mass Extremity: normal range of motion Neurological: alert, altered, oriented X3 Skin Exam: normal color Assessment and Plan (1) Dehydration Narrative/Plan: 1. IV fluids 2.Pain and Nausea Control 3. Ok for diet from surgery standpoint 4. No acute surgical intervention Current Visit: Yes Status: Acute Code(s): E86.0 - DEHYDRATION SNOMED Code(s): 23754941 (2) Nausea and vomiting Current Visit: Yes Status: Acute Code(s): R11.2 - NAUSEA WITH VOMITING, UNSPECIFIED SNOMED Code(s): 61170853 (3) Colitis Current Visit: No Status: Acute Code(s): K52.9 - NONINFECTIVE GASTROENTERITIS AND COLITIS, UNSPECIFIED SNOMED Code(s): 36391201
--- NOTE | 2023-06-12 13:40 | P.HPIM ---
History of Present Illness This is a pleasant 68 years old -Martiniquais female who presents with nausea vomiting and diarrhea 3 days duration. She had diarrhea on the first day but stopped yesterday and today, she does not have bowel movement but she passing gases. She's been vomiting a lot yesterday about 3 times with no blood but today she is only having dry heaves. No vomiting today. She's been complaining of from periumbilical abdominal pain and tenderness for the last 3 days, its about 10/10 on admission, currently is much milder felt like sharp that comes with movement and relieved with pain medication Patient denies chest pain or dyspnea, no headache dizziness or weakness but she's been complaining of from some dysuria and increased frequency of urination. Urinalysis was unremarkable on admission, going to repeat urinalysis and bladder scan. Fell 3 times last time about 2 months ago and since then she has pain between her legs, her PCP Dr. Love is aware about her and sent her to a neurosurgeon for he suspect pinched nerves. Currently patient feels hungry and she wants to start diet. Alcohol all orders trucks. On admission she had low-grade fever of 99. Rest of Vitas looks stable. Labs reviewed showing unremarkable CBC and BMP Urine analysis is negative. CT of the abdomen showing mild wall thickening of the cecum and suspicious for colitis. Recommend colonoscopy to rule out to plasm. Per radiologist. Patient states that her last colonoscopy was about 2 years ago at [facility] where showed polyp which was of no concerns are per patient and family Patient and daughter said that she has ALLERGY to penicillin which causes hives and they agreed to try and Rocephin Review of Systems Review of systems CONSTITUTIONAL: No fever, no malaise, no fatigue. HEENT: No recent visual problems or hearing problems. Denied any sore throat. CARDIOVASCULAR: No orthopnea, PND, no palpitations, no syncope. PULMONARY: No shortness of breath, no cough, no hemoptysis. GASTROINTESTINAL: Normoactive bowel sounds. No hiccups NEUROLOGICAL: No headaches, no weakness, no numbness. HEMATOLOGICAL: Denies any bleeding or petechiae. GENITOURINARY: Denies any burning micturition, frequency, or urgency. MUSCULOSKELETAL/RHEUMATOLOGICAL: Denies any joint pain, swelling, or any muscle pain. ENDOCRINE: Denies any polyuria or polydipsia. Past Medical History Past Medical History: Asthma, Diabetes Mellitus, Hypertension, Rheumatoid Arthritis (RA) Additional Past Medical History / Comment(s): COVID Mar 2022, increasing falls History of Any Multi-Drug Resistant Organisms: None Reported Past Surgical History: Section, Joint Replacement, Orthopedic Surgery Additional Past Surgical History / Comment(s): carpel tunnel, bilat knee replacement Past Anesthesia/Blood Transfusion Reactions: No Reported Reaction Additional Past Anesthesia/Blood Transfusion Reaction / Comment(s): slow to wake up Past Psychological History: Anxiety, Depression Smoking Status: Never smoker Past Alcohol Use History: None Reported Past Drug Use History: None Reported - Past Family History Mother Family Medical History: CVA/TIA, Dementia Medications and Allergies Home Medications Medication Instructions Recorded Confirmed Type Ferrous Sulfate [Iron (65 MG 325 mg PO DAILY 03/22/19 06/11/23 History Elemental)] Magnesium Oxide [Magox 400] 400 mg PO HS 03/22/19 06/11/23 History Montelukast [Singulair] 10 mg PO HS 03/22/19 06/11/23 History Gabapentin [Neurontin] 400 mg PO TID 11/25/20 06/11/23 History Ergocalciferol (Vitamin D2) 1,250 mcg PO WE 10/24/22 06/11/23 History [Drisdol (50,000 Iu)] Furosemide [Lasix] 40 mg PO DAILY 10/24/22 06/11/23 History HYDROcodone/APAP 10-325MG [Collins 1 tab PO TID 10/24/22 06/11/23 History 10-325] amLODIPine [Norvasc] 5 mg PO DAILY #30 tab 10/30/22 06/11/23 Rx Dicyclomine [Bentyl] 20 mg PO TID #21 tablet 06/10/23 06/11/23 Rx Famotidine [Pepcid] 20 mg PO BID #28 tablet 06/10/23 06/11/23 Rx Ondansetron Odt [Zofran Odt] 4 mg PO Q8HR PRN #20 tab 06/10/23 06/11/23 Rx DULoxetine HCL [Cymbalta] 30 mg PO BID 06/11/23 06/11/23 History Erythromycin Ophth Oint (1 gm) 1 applic BOTH EYES HS 06/11/23 06/11/23 History [Ilotycin Ophth Oint (1 gm)] Glimepiride [Amaryl] 4 mg PO BID 06/11/23 06/11/23 History Insulin Glargine,Hum.rec.anlog 20 units SQ DAILY 06/11/23 06/11/23 History [Lantus Solostar Pen] Neomycin/Polymyxin B/Dexametha 1 applic BOTH EYES BID 06/11/23 06/11/23 History [Neomycin/Polymyxin B/Dexametha Ophth Ointment] OXcarbazepine [Trileptal] 300 mg PO BID 06/11/23 06/11/23 History predniSONE [Deltasone] 60 mg PO DAILY 06/11/23 06/11/23 History Allergies Allergy/AdvReac Type Severity Reaction Status Date / Time Penicillins Allergy Rash/Hives/ Verified 06/11/23 18:29 Itching Physical Exam Vitals: Vital Signs Temp Pulse Pulse Resp BP BP Pulse Ox 06/12/23 07:00 98.3 F 100 16 183/95 97 06/12/23 02:00 98.3 F 99 19 146/74 99 06/11/23 17:26 98.1 F 91 20 177/78 99 06/11/23 13:39 99.0 F 103 H 20 170/84 98 Intake and Output 06/11/23 06/12/23 06/12/23 22:59 06:59 14:59 Other: Voiding Method Bedside Commode Bedside Commode # Voids 1 3 Weight 102.058 kg GENERAL: The patient is alert and oriented x3, not in any acute distress. Well developed, well nourished. HEENT: Pupils are round and equally reacting to light. EOMI. No scleral icterus. No conjunctival pallor. Normocephalic, atraumatic. No pharyngeal erythema. No thyromegaly. CARDIOVASCULAR: S1 and S2 present. No murmurs, rubs, or gallops. PULMONARY: Chest is clear to auscultation, no wheezing , no crackles. -ABDOMEN: Soft, periumbilical tenderness, nondistended, normoactive bowel sounds. No palpable organomegaly. MUSCULOSKELETAL: No joint swelling or deformity. EXTREMITIES: No cyanosis, clubbing, or pedal edema. NEUROLOGICAL: Gross neurological examination did not reveal any focal deficits. SKIN: No rashes. no petechiae. Results CBC & Chem 7: 06/12/23 04:01 06/12/23 04:01 Labs: Abnormal Lab Results - Last 24 Hours (Table) 06/11/23 06/11/23 06/11/23 Range/Units 14:15 14:15 14:15 Hct 46.3 H (34.0-46.0) % Plt Count 149 L (150-450) k/uL Lymphocytes # 0.8 L (1.0-4.8) k/uL Sodium 136 L (137-145) mmol/L Chloride 95 L (98-107) mmol/L Carbon Dioxide 32 H (22-30) mmol/L Glucose 207 H (74-99) mg/dL POC Glucose (mg/dL) (70-110) mg/dL AST 43 H (14-36) U/L ALT 35 H (4-34) U/L Urine Glucose (UA) 1+ H (Negative) 06/11/23 06/12/23 Range/Units 21:23 05:59 Hct (34.0-46.0) % Plt Count (150-450) k/uL Lymphocytes # (1.0-4.8) k/uL Sodium (137-145) mmol/L Chloride (98-107) mmol/L Carbon Dioxide (22-30) mmol/L Glucose (74-99) mg/dL POC Glucose (mg/dL) 205 H 201 H (70-110) mg/dL AST (14-36) U/L ALT (4-34) U/L Urine Glucose (UA) (Negative) Assessment and Plan Assessment: Acute colitis with nausea vomiting and diarrhea Dehydration secondary to above Obesity with BMI of 36.3. Recent History of fall and possible pinched nerve with pain between her legs as she describes. She is following up with her PCP who referred her to neurosurgeon. Plan: Ceftriaxone and Flagyl Stool Studies, C. diff and [place] Less Likely but We Will Test for It Gentle hydration Continue with normal saline at 75 mL/h Continue the Protonix General surgery team on the case Labs and medication were reviewed.. Continue same treatment. Continue with symptomatic treatment. Resume home medication. Monitor labs and vitals. DVT and GI prophylaxis. Further recommendations as per clinical course of the patient DVT prophylaxis: Subcutaneous heparin GI Prophylaxis: Ppi PT/OT: Pending Prognosis is guarded
[2023-06-12] MEDS: metroNIDAZOLE-NS PMX 500 MG in SALINE 1 100ML.BAG IVPB SCH (15:20)
[2023-06-12] MEDS: ERYTHROMYCIN 5 MG/GM OPHTH OINT 1 GM TUBE BOTH EYES SCH (20:22)
[2023-06-13] MEDS: metroNIDAZOLE-NS PMX 500 MG in SALINE 1 100ML.BAG IVPB SCH ×3 (00:16→17:52)
[2023-06-13] MEDS: HYDROcodone/APAP 10-325MG 1 EACH TAB PO PRN ×3 (04:45→21:44)
[2023-06-13] MEDS: SODIUM CHLORIDE 0.9% 1,000 ML IV SCH ×2 (06:20→21:38)
[2023-06-13 08:10] LABS: Appearance,Urine Clear (Clear); Bacteria,Urine Occasional /hpf; Bilirubin,Urine Negative (Negative); Blood,Urine Negative (Negative); Color,Urine Yellow; Glucose,Urine (UA) Negative (Negative); Hyaline Casts,Urine 65 /lpf (0-2); Ketones,Urine Negative (Negative); Leukocyte Esterase,Urine Negative (Negative); Mucus,Urine Many /hpf; Nitrite,Urine Negative (Negative); PH, Urine 5.5 (5.0-8.0); Protein,Urine 1+ (Negative); RBC,Urine 1 /hpf (0-5); Specific Gravity,Urine 1.022 (1.001-1.035); Squamous Epithelial Cell,Urine 2 /hpf (0-4); Urobilinogen,Urine <2.0 mg/dL (<2.0); WBC,Urine 7 /hpf (0-5)
[2023-06-13] MEDS: PANTOPRAZOLE 40 MG/10 ML VIAL IVP SCH (08:26)
[2023-06-13] MEDS: DULoxetine HCL 30 MG CAPSULE.DR PO SCH ×2 (08:26→21:38)
[2023-06-13] MEDS: HEPARIN SODIUM,PORCINE 5,000 UNIT/ML 1 ML VIAL SQ SCH ×2 (08:26→21:38)
[2023-06-13] MEDS: amLODIPine 5 MG TAB PO SCH (08:26)
[2023-06-13] MEDS: GABAPENTIN 400 MG CAP PO SCH ×3 (08:26→21:38)
[2023-06-13] MEDS: NEOMYCIN-POLYMYXIN-DEXAMETH OINT 3.5 GM TUBE BOTH EYES SCH ×2 (09:00→21:38)
--- NOTE | 2023-06-13 11:42 | P.PN ---
Subjective Progress Note Date: 06/13/23 Principal diagnosis: Colitis Patient admitted yesterday with abdominal pain and diarrhea. Mild nausea. Nausea persists. Pain is improved. Mostly in the lower abdomen. She had a CAT scan performed 2-3 days ago showing possible colitis involving the cecum. Underlying neoplasm not excluded. She has history of Giardia in the past. Objective - Vital Signs Vital signs: Vital Signs Temp 97.5 F L 06/13/23 07:00 Pulse 53 L 06/13/23 07:00 Resp 18 06/13/23 07:00 BP 116/64 06/13/23 07:00 Pulse Ox 97 06/13/23 07:00 FiO2 Intake & Output 06/12/23 06/13/23 06/13/23 18:59 06:59 18:59 Other: Voiding Method Bedside Commode Bedside Commode Bedside Commode # Voids 2 1 - Exam Abdomen: Soft, mild lower abdominal tenderness, nondistended - Labs CBC & Chem 7: 06/12/23 04:01 06/12/23 04:01 Labs: Abnormal Lab Results - Last 24 Hours (Table) 06/13/23 Range/Units 04:48 Urine Protein 1+ H (Negative) Urine WBC 7 H (0-5) /hpf Urine Bacteria Occasional H (None) /hpf Hyaline Casts 65 H (0-2) /lpf Urine Mucus Many H (None) /hpf Assessment and Plan (1) Colitis Narrative/Plan: 68-year-old female with nausea vomiting and diarrhea. Await stool studies. May require endoscopy. We'll follow. Current Visit: No Status: Acute Code(s): K52.9 - NONINFECTIVE GASTROENTERITIS AND COLITIS, UNSPECIFIED SNOMED Code(s): 64570708
--- NOTE | 2023-06-13 12:14 | P.PN ---
Subjective This is a pleasant 68 years old -Australian female who presents with nausea vomiting and diarrhea 3 days duration. She had diarrhea on the first day but stopped yesterday and today, she does not have bowel movement but she passing gases. She's been vomiting a lot yesterday about 3 times with no blood but today she is only having dry heaves. No vomiting today. She's been complaining of from periumbilical abdominal pain and tenderness for t he last 3 days, its about 10/10 on admission, currently is much milder felt like sharp that comes with movement and relieved with pain medication Patient denies chest pain or dyspnea, no headache dizziness or weakness but she's been complaining of from some dysuria and increased frequency of urinati on. Urinalysis was unremarkable on admission, going to repeat urinalysis and bladder scan. Fell 3 times last time about 2 months ago and since then she has pain between her legs, her PCP Dr. Love is aware about her and sent her to a neurosurgeon for he suspect pinched nerves. Currently patient feels hungry and she wants to start diet. Alcohol all orders trucks. On admission she had low-grade fever of 99. Rest of Vitas looks stable. Labs reviewed showing unremarkable CBC and BMP Urine analysis is negative. CT of the abdomen showing mild wall thickening of the cecum and suspicious for colitis. Recommend colonoscopy to rule out to plasm. Per radiologist. Patient states that her last colonoscopy was about 2 years ago at [facility] where showed polyp which was of no concerns are per patient and family Patient and daughter said that she has ALLERGY to penicillin which causes hives and they agreed to try and Rocephin 06/13/2023 1723 Patient still feels the same with nausea but no vomiting She has abdominal pain about 10/10 She feels more pain in her lower back when she fell 2 days ago, topical lidocaine added. She has no bowel movement for the last 3 days No basal crepitation or leg edema, she is currently on normal saline 75 mL/h Surgery team recommended endoscopy which is pending now. Review of systems CONSTITUTIONAL: No fever, no malaise, no fatigue. HEENT: No recent visual problems or hearing problems. Denied any sore throat. CARDIOVASCULAR: No orthopnea, PND, no palpitations, no syncope. PULMONARY: No shortness of breath, no cough, no hemoptysis. NEUROLOGICAL: No headaches, no weakness, no numbness. Active Medications Generic Name Dose Route Start Last Admin Trade Name Freq PRN Reason Stop Dose Admin Hydrocodone Bitart/Acetaminophen 1 each 06/12/23 07:09 06/13/23 12:04 Hydrocodone/Apap 10-325mg 1 Each Tab PO 1 each TID PRN Administration Pain Amlodipine Besylate 5 mg 06/12/23 09:00 06/13/23 08:26 Amlodipine 5 Mg Tab PO 5 mg DAILY ETIENNE Administration Duloxetine HCl 30 mg 06/12/23 09:00 06/13/23 08:26 Duloxetine Hcl 30 Mg Capsule.Dr PO 30 mg BID ETIENNE Administration Erythromycin 1 applic 06/12/23 21:00 06/12/23 20:22 Erythromycin 5 Mg/Gm Ophth Oint 1 Gm Tube BOTH EYES 1 applic HS ETIENNE Administration Gabapentin 400 mg 06/12/23 09:00 06/13/23 08:26 Gabapentin 400 Mg Cap PO 400 mg TID ETIENNE Administration Heparin Sodium (Porcine) 5,000 unit 06/12/23 09:00 06/13/23 08:26 Heparin Sodium,Porcine 5,000 Unit/Ml 1 Ml Vial SQ 5,000 unit Q12HR ETIENNE Administration Sodium Chloride 1,000 mls @ 75 mls/hr 06/11/23 16:45 06/13/23 06:20 Saline 0.9% IV Not Given .[id number] ETIENNE Metronidazole 500 mg/ IV 100 mls @ 100 mls/hr 06/12/23 16:00 06/13/23 08:24 Solution IVPB 100 mls/hr Q8HR ETIENNE Administration Protocol Ceftriaxone Sodium 1 gm/ 50 mls @ 100 mls/hr 06/12/23 14:00 06/12/23 15:20 Sodium Chloride IVPB 100 mls/hr Q24H ETIENNE Administration Protocol Lidocaine HCl 1 applic 06/13/23 12:15 Lidocaine 4% Cream 5 Gm Tube TOPICAL 06/16/23 12:16 BID ETIENNE Protocol Morphine Sulfate 4 mg 06/11/23 16:36 06/12/23 05:41 Morphine Sulfate 4 Mg/Ml Syringe IV 4 mg Q4HR PRN Administration Severe Pain (Scale 7 to 10) Naloxone HCl 0.2 mg 06/11/23 16:36 Naloxone 0.4 Mg/Ml 1 Ml Vial IV Q2M PRN Opioid Reversal Neomycin/Polymyxin/Dexamethasone 1 applic 06/12/23 09:00 06/13/23 09:00 Vtvfwicj-Rozdjojni-Mhwhppow Oint 3.5 Gm Tube BOTH EYES 1 applic BID ETIENNE Administration Ondansetron HCl 4 mg 06/11/23 16:36 06/12/23 02:12 Ondansetron 4 Mg/2 Ml Vial IVP 4 mg Q8HR PRN Administration Nausea And Vomiting Pantoprazole Sodium 40 mg 06/12/23 09:00 06/13/23 08:26 Pantoprazole 40 Mg/10 Ml Vial IVP 40 mg DAILY ETIENNE Administration Objective - Vital Signs Vital signs: Vital Signs Temp 97.5 F L 06/13/23 07:00 Pulse 53 L 06/13/23 07:00 Resp 18 06/13/23 07:00 BP 116/64 06/13/23 07:00 Pulse Ox 97 06/13/23 07:00 FiO2 Intake & Output 06/12/23 06/13/23 06/13/23 18:59 06:59 18:59 Other: Voiding Method Bedside Commode Bedside Commode Bedside Commode # Voids 2 1 - Exam GENERAL: The patient is alert and oriented x3, not in any acute distress. Well developed, well nourished. HEENT: Pupils are round and equally reacting to light. EOMI. No scleral icterus. No conjunctival pallor. Normocephalic, atraumatic. No pharyngeal erythema. No thyromegaly. CARDIOVASCULAR: S1 and S2 present. No murmurs, rubs, or gallops. PULMONARY: Chest is clear to auscultation, no wheezing , no crackles. -ABDOMEN: Soft, periumbilical tenderness, nondistended, normoactive bowel sounds. No palpable organomegaly. MUSCULOSKELETAL: No joint swelling or deformity. EXTREMITIES: No cyanosis, clubbing, or pedal edema. NEUROLOGICAL: Gross neurological examination did not reveal any focal deficits. SKIN: No rashes. no petechiae. - Labs CBC & Chem 7: 06/12/23 04:01 06/12/23 04:01 Labs: Abnormal Lab Results - Last 24 Hours (Table) 06/13/23 Range/Units 04:48 Urine Protein 1+ H (Negative) Urine WBC 7 H (0-5) /hpf Urine Bacteria Occasional H (None) /hpf Hyaline Casts 65 H (0-2) /lpf Urine Mucus Many H (None) /hpf Assessment and Plan Assessment: Acute colitis with nausea vomiting and diarrhea Dehydration secondary to above Obesity with BMI of 36.3. Recent History of fall and possible pinched nerve with pain between her legs as she describes. She is following up with her PCP who referred her to neurosurgeon. Plan: Ceftriaxone and Flagyl Stool Studies, C. diff and [place] Less Likely but We Will Test for It Gentle hydration Continue with normal saline at 75 mL/h Continue the Protonix General surgery team on the case. Patient required endoscopy for recommendation Labs and medication were reviewed.. Continue same treatment. Continue with symptomatic treatment. Resume home medication. Monitor labs and vitals. DVT and GI prophylaxis. Further recommendations as per clinical course of the patient DVT prophylaxis: Subcutaneous heparin GI Prophylaxis: Ppi PT/OT: Pending Prognosis is guarded
[2023-06-13 12:28] LABS: Glucose,Whole Blood 156 mg/dL (70-110)
[2023-06-13] MEDS: LIDOCAINE 4% CREAM 5 GM TUBE TOPICAL SCH ×2 (14:51→21:38)
[2023-06-13 17:35] LABS: Glucose,Whole Blood 128 mg/dL (70-110)
[2023-06-13] MEDS: ERYTHROMYCIN 5 MG/GM OPHTH OINT 1 GM TUBE BOTH EYES SCH (21:38)
[2023-06-14] MEDS: metroNIDAZOLE-NS PMX 500 MG in SALINE 1 100ML.BAG IVPB SCH ×4 (00:23→23:52)
[2023-06-14] MEDS: DULoxetine HCL 30 MG CAPSULE.DR PO SCH ×2 (08:49→20:45)
[2023-06-14] MEDS: amLODIPine 5 MG TAB PO SCH (08:49)
[2023-06-14] MEDS: GABAPENTIN 400 MG CAP PO SCH ×3 (08:49→20:45)
[2023-06-14] MEDS: PANTOPRAZOLE 40 MG/10 ML VIAL IVP SCH (08:50)
[2023-06-14] MEDS: NEOMYCIN-POLYMYXIN-DEXAMETH OINT 3.5 GM TUBE BOTH EYES SCH ×2 (08:51→20:47)
[2023-06-14] MEDS: HEPARIN SODIUM,PORCINE 5,000 UNIT/ML 1 ML VIAL SQ SCH ×2 (08:52→20:45)
[2023-06-14] MEDS: SODIUM CHLORIDE 0.9% 1,000 ML IV SCH ×2 (08:53→20:48)
[2023-06-14] MEDS: HYDROcodone/APAP 10-325MG 1 EACH TAB PO PRN ×2 (09:05→17:45)
[2023-06-14 09:50] LABS: African American GFR (CKD) >90 (>60 ml/min/1.73 sqM); Anion Gap 6 mmol/L; Blood Urea Nitrogen 10 mg/dL (7-17); Calcium 8.8 mg/dL (8.4-10.2); Carbon Dioxide 27 mmol/L (22-30); Chloride 106 mmol/L (98-107); Glucose 198 mg/dL (74-99); Non-African American GFR(CKD) >90 (>60 ml/min/1.73 sqM); Potassium 3.4 mmol/L (3.5-5.1); Sodium 139 mmol/L (137-145)
[2023-06-14] MEDS: LIDOCAINE 4% CREAM 5 GM TUBE TOPICAL SCH ×2 (10:12→20:48)
[2023-06-14] MEDS ORDERED: POTASSIUM CHLORIDE ER 20 MEQ TAB.ER PO STA (11:37)
--- NOTE | 2023-06-14 11:37 | P.PN ---
Subjective Progress Note Date: 06/14/23 CHIEF COMPLAINT: Colitis HISTORY OF PRESENT ILLNESS: Patient presented with nausea vomiting diarrhea. Th is has resolved. She does continue to have some mild lower abdominal pain. She reports decreased appetite. They were unable to collect any stool cultures because diarrhea has resolved. Afebrile. Na 139 K 3.4 PHYSICAL EXAM: VITAL SIGNS: Reviewed. GENERAL: Well-developed in no acute distress. ABDOMEN: Soft. Nondistended. mild tenderness across lower abdomen with palpation NEUROLOGIC: Alert and oriented. Cranial nerves II through XII grossly intact. ASSESSMENT: 1. Colitis 2. Nausea, vomiting and diarrhea improved 3. Past history of Giardia 4. Hypokalemia PLAN: -Further recommendations forthcoming per surgeon regarding endoscopy -Continue low fiber diet -Continue antibiotics -Encouraged patient to increase activity level -Replace potassium Physician Can Tender note has been reviewed by physician. Signing provider agrees with the documented findings, assessment, and plan of care. I have personally seen and examined the patient, reviewed the [employer] /PAs history, exam and MDM and agree with the assessment and plan as written. Based on total visit time, I have performed more than 50% of the visit. As above: Patient has no further diarrhea. Still having lower abdominal pain. Given the recent CAT scan findings and the persistent pain and nausea with intermittent vomiting will proceed with upper and lower endoscopy tomorrow. Patient is agreeable. Objective - Vital Signs Vital signs: Vital Signs Temp 98 F 06/14/23 07:00 Pulse 71 06/14/23 07:00 Resp 16 06/14/23 07:00 BP 132/63 06/14/23 07:00 Pulse Ox 98 06/14/23 07:00 FiO2 Intake & Output 06/13/23 06/14/23 06/14/23 18:59 06:59 18:59 Intake Total 118 Balance 118 Intake: Oral 118 Other: Voiding Method Bedside Commode Bedside Commode # Voids 2 1 - Labs CBC & Chem 7: 06/12/23 04:01 06/14/23 09:00 Labs: Abnormal Lab Results - Last 24 Hours (Table) 06/13/23 06/13/23 06/14/23 Range/Units 12:26 17:33 09:00 Potassium 3.4 L (3.5-5.1) mmol/L Glucose 198 H (74-99) mg/dL POC Glucose (mg/dL) 156 H 128 H (70-110) mg/dL
[2023-06-14] MEDS ORDERED: Potassium Replacement Protocol 1 EACH MISC MISCELLANE PRN (12:09)
--- NOTE | 2023-06-14 12:24 | P.PN ---
Subjective Progress Note Date: 06/14/23 This is a 68-year-old female admitted with nausea, vomiting, diarrhea, bilateral lower quadrant abdominal pain, possible colitis and multiple other medical issues. No further emesis or diarrhea. Last bowel movement 06/09/23. Passing flatus. Attempted a bite of breakfast, developed nausea. On going bilateral lower quadrant abdominal pain, rating it currently at an "8/10". Afebrile. Potassium 3.4. Maintained on ceftriaxone, Flagyl. Objective - Vital Signs Vital signs: Vital Signs Temp 98 F 06/14/23 07:00 Pulse 71 06/14/23 07:00 Resp 16 06/14/23 07:00 BP 132/63 06/14/23 07:00 Pulse Ox 98 06/14/23 07:00 FiO2 Intake & Output 06/13/23 06/14/23 06/14/23 18:59 06:59 18:59 Intake Total 118 Balance 118 Intake: Oral 118 Other: Voiding Method Bedside Commode Bedside Commode # Voids 2 1 - Exam PHYSICAL EXAM: VITAL SIGNS: As above GENERAL: Sitting up in bed, no acute distress HEENT: Normocephalic, Conjunctivae normal. eyes normal. NECK: Supple, No JVD. CARDIOVASCULAR: S1, S2 regular.. No murmur RESPIRATION: Unlabored, equal air entry, CTA.Breath sounds diminished in the bases. ABDOMEN: Soft, nondistended, bilateral lower quadrant tenderness. No guarding.+BS LEGS: No edema. no swelling PSYCHIATRY: Alert and oriented X3, mood and affect normal. NERVOUS SYSTEM: Cranial N 2-12 grossly normal. No focal deficits. Strength and sensation grossly intact. Skin: Warm and dry, no rash. - Labs CBC & Chem 7: 06/12/23 04:01 06/14/23 09:00 Labs: Abnormal Lab Results - Last 24 Hours (Table) 06/13/23 06/13/23 06/14/23 Range/Units 12:26 17:33 09:00 Potassium 3.4 L (3.5-5.1) mmol/L Glucose 198 H (74-99) mg/dL POC Glucose (mg/dL) 156 H 128 H (70-110) mg/dL Assessment and Plan Assessment: Acute Colitis with nausea, vomiting and diarrhea. Dehydration secondary to the above Past history of Giardi Hypokalemia Morbid obesity, BMI 36 Recent history of fall, following up with neurosurgeon outpatient Plan: Continue on current medication regime ,monitoring and symptomatic treatment. Potassium replacement protocol ordered. Maintain on gentle IV fluid hydration, ceftriaxone and Flagyl. GI prophylaxis with PPI. Potential endoscopy being discussed by general surgery. Pain management. The impression and plan of care has been dictated as directed. : I performed a history and examination of this patient, discussed the same with the dictator. I agree with the dictator's note ,documented as a scribe. Any additional findings or plans will be noted.
[2023-06-14] MEDS ORDERED: LACTULOSE 20 GM/30 ML CUP PO ONE (13:06)
[2023-06-14] MEDS ORDERED: PEG 3350 (236 GM/BTL) + LYTES 4,000 ML BOTTLE PO ONE (13:06)
[2023-06-14] MEDS: ERYTHROMYCIN 5 MG/GM OPHTH OINT 1 GM TUBE BOTH EYES SCH (20:47)
[2023-06-14 20:51] LABS: Glucose,Whole Blood 157 mg/dL (70-110)
[2023-06-15] MEDS: HYDROcodone/APAP 10-325MG 1 EACH TAB PO PRN ×2 (01:27→16:25)
[2023-06-15 06:33] LABS: Glucose,Whole Blood 159 mg/dL (70-110)
[2023-06-15 06:35] LABS: HCT 38.2 % (34.0-46.0); HGB 12.9 gm/dL (11.4-16.0); MCH 31.1 pg (25.0-35.0); MCHC 33.7 g/dL (31.0-37.0); MCV 92.3 fL (80.0-100.0); Mean Platelet Volume 8.4; Platelet Count 117 k/uL (150-450); RBC 4.14 m/uL (3.80-5.40); RDW 13.1 % (11.5-15.5); WBC 3.3 k/uL (3.8-10.6)
[2023-06-15 06:38] LABS: African American GFR (CKD) >90 (>60 ml/min/1.73 sqM); Anion Gap 8 mmol/L; Blood Urea Nitrogen 6 mg/dL (7-17); Calcium 8.4 mg/dL (8.4-10.2); Carbon Dioxide 30 mmol/L (22-30); Chloride 103 mmol/L (98-107); Glucose 157 mg/dL (74-99); Non-African American GFR(CKD) >90 (>60 ml/min/1.73 sqM); Potassium 3.5 mmol/L (3.5-5.1); Sodium 141 mmol/L (137-145)
[2023-06-15] MEDS: HEPARIN SODIUM,PORCINE 5,000 UNIT/ML 1 ML VIAL SQ SCH ×2 (08:29→20:34)
[2023-06-15] MEDS: LIDOCAINE 4% CREAM 5 GM TUBE TOPICAL SCH ×2 (08:29→20:34)
[2023-06-15] MEDS: DULoxetine HCL 30 MG CAPSULE.DR PO SCH ×2 (08:29→20:34)
[2023-06-15] MEDS: GABAPENTIN 400 MG CAP PO SCH ×3 (08:29→20:33)
[2023-06-15] MEDS: amLODIPine 5 MG TAB PO SCH (08:29)
[2023-06-15] MEDS: PANTOPRAZOLE 40 MG/10 ML VIAL IVP SCH (08:29)
[2023-06-15] MEDS: NEOMYCIN-POLYMYXIN-DEXAMETH OINT 3.5 GM TUBE BOTH EYES SCH ×2 (08:30→20:34)
[2023-06-15] MEDS: metroNIDAZOLE-NS PMX 500 MG in SALINE 1 100ML.BAG IVPB SCH ×3 (08:30→23:17)
[2023-06-15] MEDS: POTASSIUM CHLORIDE ER 20 MEQ TAB.ER PO SCH ×2 (09:27→09:28)
[2023-06-15] MEDS ORDERED: LIDOCAINE 1% INJ 10MG/ML (20 ML MDV) ONE (11:46)
[2023-06-15] MEDS ORDERED: PROPOFOL 10 MG/ML 20 ML VIAL IV ONE (11:46)
[2023-06-15] MEDS ORDERED: SODIUM CHLORIDE 0.9% 1,000 ML IV ONE ×2 (11:47)
--- NOTE | 2023-06-15 12:17 | P.PCN ---
Date of Procedure: 06/15/23 Procedure(s) Performed: PREOPERATIVE DIAGNOSIS: Abdominal pain, change in bowel habits, abnormal CAT scan POSTOPERATIVE DIAGNOSIS: Mild gastritis, small hiatal hernia, sigmoid colon polyp, diverticulosis PROCEDURE: 1. EGD with biopsy 2. Colonoscopy with snare polypectomy ANESTHESIA: [facility] – [place] SURGEON: Mark Zarate M.D. SPECIMENS: Antrum, polyp ENDOSCOPIC PROCEDURE: The patient was on the endoscopy table in the left decubitus position. The Olympus gastroscope was inserted into the oropharynx and passed under direct visualization to the region of the third portion of the duodenum. From that point the scope was slowly withdrawn inspecting all surfaces carefully. There were no neoplastic inflammatory or polypoid lesions throughout the duodenum. The pylorus was widely patent. The stomach was carefully inspected. There was mild gastritis. A biopsy of the antrum took place to rule out H. pylori. Retroflexion revealed a small sliding hiatal hernia. The esophagus appeared normal. The patient was kept on the endoscopy table in the left decubitus position. The Olympus colonoscope was inserted into the anus and passed under direct visualization to the base of the cecum. The appendiceal orifice was visualized. From that point the scope was slowly withdrawn inspecting all surfaces ca refully. There were no neoplastic inflammatory or polypoid lesions throughout the cecum, ascending, transverse, and descending colon. In the sigmoid colon a small polyp was seen and removed using the snare with cautery technique. The remainder of the sigmoid and rectum appeared normal. The patient's prep was slightly suboptimal. The patient had mild scattered diverticulosis. Digital rectal examination was normal. The patient was taken to the recovery room in stable condition per anesthesia guidelines. RECOMMENDATIONS: Cultures were taken during a colonoscopy. Await stool cultures given patient's history of diarrhea. No upper or lower endoscopy findings to explain the patient's discomfort. Her pain has improved. Resume diet. May discharge from our point of view.
[2023-06-15] MEDS: SODIUM CHLORIDE 0.9% 1,000 ML IV SCH (12:39)
[2023-06-15 12:49] LABS: Glucose,Whole Blood 155 mg/dL (70-110)
--- NOTE | 2023-06-15 15:45 | P.PN ---
Subjective Progress Note Date: 06/15/23 06/14/23 This is a 68-year-old female admitted with nausea, vomiting, diarrhea, bilateral lower quadrant abdominal pain, possible colitis and multiple other medical issues. No further emesis or diarrhea. Last bowel movement 06/09/23. Passing flatus. Attempted a bite of breakfast, developed nausea. Ongoing bilateral lower quadrant abdominal pain, rating it currently at an "8/10". Afebrile. Potassium 3.4. Maintained on ceftriaxone, Flagyl. 06/15/2023 NPO, completed prep. Reports bilateral lower quadrant abdominal pain unchanged. Scheduled for EGD and colonoscopy today. Denies chest pain, palpitations or shortness of breath. Potassium 3.5, supplementation ordered. Afebrile. Objective - Vital Signs Vital signs: Vital Signs Temp 98.0 F 06/15/23 14:00 Pulse 65 06/15/23 14:00 Resp 18 06/15/23 14:00 BP 138/74 06/15/23 14:00 Pulse Ox 97 06/15/23 14:00 FiO2 Intake & Output 06/14/23 06/15/23 06/15/23 18:59 06:59 18:59 Intake Total 118 518 Balance 118 518 Intake: IV 400 Oral 118 118 Other: # Voids 3 1 # Bowel Movements 5 - Exam PHYSICAL EXAM: VITAL SIGNS: As above GENERAL: Alert and oriented 3, Sitting up at side of bed, no acute distress HEENT: Normocephalic, Conjunctivae normal. eyes normal. NECK: Supple, No JVD. CARDIOVASCULAR: S1, S2 regular.. No murmur RESPIRATION: Unlabored, equal air entry, CTA.Breath sounds diminished in the bases. ABDOMEN: Soft, nondistended, bilateral lower quadrant tenderness. No guarding.+BS LEGS: No edema. no swelling NERVOUS SYSTEM: Cranial N 2-12 grossly normal. No focal deficits. Strength and sensation grossly intact. Skin: Warm and dry, no rash. - Labs CBC & Chem 7: 06/15/23 05:31 06/15/23 05:31 Labs: Abnormal Lab Results - Last 24 Hours (Table) 06/14/23 06/15/23 06/15/23 Range/Units 20:50 05:31 05:31 WBC 3.3 L (3.8-10.6) k/uL Plt Count 117 L (150-450) k/uL BUN 6 L (7-17) mg/dL Glucose 157 H (74-99) mg/dL POC Glucose (mg/dL) 157 H (70-110) mg/dL 06/15/23 06/15/23 Range/Units 06:31 12:38 WBC (3.8-10.6) k/uL Plt Count (150-450) k/uL BUN (7-17) mg/dL Glucose (74-99) mg/dL POC Glucose (mg/dL) 159 H 155 H (70-110) mg/dL Assessment and Plan Assessment: Acute Colitis with nausea, vomiting and diarrhea. Dehydration secondary to the above Past history of Giardi Hypokalemia Morbid obesity, BMI 36 Recent history of fall, following up with neurosurgeon outpatient Plan: Continue on current medication regime ,monitoring and symptomatic temitope tment. Potassium replacement ordered. NPO, Maintain gentle IV fluid hydration, ceftriaxone and Flagyl. Pain management.NPO, EGD, colonoscopy pending. The impression and plan of care has been dictated as directed. : I performed a history and examination of this patient, discussed the same with the dictator. I agree with the dictator's note ,documented as a scribe. Any additional findings or plans will be noted.
[2023-06-15 17:40] LABS: Glucose,Whole Blood 250 mg/dL (70-110)
[2023-06-15] MEDS: ERYTHROMYCIN 5 MG/GM OPHTH OINT 1 GM TUBE BOTH EYES SCH (20:34)
[2023-06-15 20:38] LABS: Glucose,Whole Blood 210 mg/dL (70-110)
[2023-06-16] MEDS: SODIUM CHLORIDE 0.9% 1,000 ML IV SCH (03:47)
[2023-06-16 06:05] LABS: Glucose,Whole Blood 161 mg/dL (70-110)
[2023-06-16] MEDS: HYDROcodone/APAP 10-325MG 1 EACH TAB PO PRN (08:22)
[2023-06-16] MEDS: DULoxetine HCL 30 MG CAPSULE.DR PO SCH (08:23)
[2023-06-16] MEDS: PANTOPRAZOLE 40 MG/10 ML VIAL IVP SCH (08:23)
[2023-06-16] MEDS: amLODIPine 5 MG TAB PO SCH (08:23)
[2023-06-16] MEDS: HEPARIN SODIUM,PORCINE 5,000 UNIT/ML 1 ML VIAL SQ SCH (08:23)
[2023-06-16] MEDS: metroNIDAZOLE-NS PMX 500 MG in SALINE 1 100ML.BAG IVPB SCH (08:23)
[2023-06-16] MEDS: GABAPENTIN 400 MG CAP PO SCH (08:24)
[2023-06-16] MEDS: LIDOCAINE 4% CREAM 5 GM TUBE TOPICAL SCH (08:24)
[2023-06-16 08:25] VITALS: BP 162/96; PULSE 87; RESP 16; TEMP 98.4
[2023-06-16] MEDS: NEOMYCIN-POLYMYXIN-DEXAMETH OINT 3.5 GM TUBE BOTH EYES SCH (08:27)
[2023-06-16] MEDS ORDERED: LACTOBACILLUS ACIDOPHILUS/PECT 1 EACH CAPSULE PO SCH (09:00)
[2023-06-16 09:27] LABS: BUN/Creat Ratio 11.29 Ratio (12.00-20.00); Blood Urea Nitrogen 7.9 mg/dL (9.0-27.0); Calcium 9.1 mg/dL (8.7-10.3); Carbon Dioxide 28.9 mmol/L (21.6-31.8); Chloride 105 mmol/L (96-109); Glucose 188 mg/dL (70-110); Magnesium 1.7 mg/dL (1.5-2.4); Potassium 4.2 mmol/L (3.5-5.5); Sodium 143 mmol/L (135-145)
[2023-06-16 12:17] LABS: Glucose,Whole Blood 214 mg/dL (70-110)
--- NOTE | 2023-06-16 12:32 | P.PN ---
Subjective Progress Note Date: 06/16/23 CHIEF COMPLAINT: Colitis HISTORY OF PRESENT ILLNESS: Patient presented with nausea vomiting diarrhea. Tom koehler status post EGD and colonoscopy with results showing mild gastritis, small hiatal hernia, sigmoid colon polyp and diverticulosis. Final cultures are pending. On Giardia was negative. Stool for C. diff negative. Afebrile. Patient did report diarrhea this morning. Does complain of pain across the lower abdomen but does report that it's better than admission. No blood in stools. PHYSICAL EXAM: VITAL SIGNS: Reviewed. GENERAL: Well-developed in no acute distress. ABDOMEN: Soft. Nondistended. mild tenderness across lower abdomen with palpation NEUROLOGIC: Alert and oriented. Cranial nerves II through XII grossly intact. ASSESSMENT: 1. Possible Colitis. Status post EGD and colonoscopy results showing mild gastritis, small hiatal hernia, sigmoid colon polyp and diverticulosis 2. Nausea, vomiting and diarrhea improved 3. Past history of Giardia PLAN: -Patient can be discharged surgical standpoint -No further antibiotics recommended after discharge -Continue regular diet Physician Disintegrator Operator note has been reviewed by physician. Signing provider agrees with the documented findings, assessment, and plan of care. Objective - Vital Signs Vital signs: Vital Signs Temp 98.4 F 06/16/23 08:00 Pulse 87 06/16/23 08:00 Resp 16 06/16/23 08:00 BP 162/96 06/16/23 08:00 Pulse Ox 96 06/16/23 08:00 FiO2 Intake & Output 06/15/23 06/16/23 06/16/23 18:59 06:59 18:59 Intake Total 518 Balance 518 Intake: IV 400 Oral 118 Other: Voiding Method Bedside Commode # Voids 2 # Bowel Movements 0 - Labs CBC & Chem 7: 06/15/23 05:31 06/16/23 06:15 Labs: Abnormal Lab Results - Last 24 Hours (Table) 06/15/23 06/15/23 06/15/23 Range/Units 12:38 17:36 20:36 BUN (9.0-27.0) mg/dL BUN/Creatinine Ratio (12.00-20.00) Ratio Glucose (70-110) mg/dL POC Glucose (mg/dL) 155 H 250 H 210 H (70-110) mg/dL 06/16/23 06/16/23 Range/Units 06:03 06:15 BUN 7.9 L (9.0-27.0) mg/dL BUN/Creatinine Ratio 11.29 L (12.00-20.00) Ratio Glucose 188 H (70-110) mg/dL POC Glucose (mg/dL) 161 H (70-110) mg/dL
--- NOTE | 2023-06-16 13:14 | P.DS ---
Providers Date of admission: 06/13/23 12:14 Expected date of discharge: 06/16/23 Attending physician: Edward Love MD Consults: 06/12/23 07:16 Consult Physician Routine Consulting Provider: Mark Zarate Consult Reason/Comments: COLITID , CAN NOT RULE OUT NEOPLASM Do you want consulting provider notified?: Yes, Notify in am Primary care physician: Edward Love MD Hospital Course: Final Diagnoses: Possible Acute Colitis with nausea, vomiting and diarrhea.Status post EGD and colonoscopy results showing mild gastritis, small hiatal hernia, sigmoid colon polyp and diverticulosis Dehydration secondary to the above Past history of Giardi Hypokalemia Morbid obesity, BMI 36 Recent history of fall, following up with neurosurgeon outpatient Hospital course:06/14/23 This is a 68-year-old female admitted with nausea, vomiting, diarrhea, bilateral lower quadrant abdominal pain, possible colitis and multiple other medical issues. No further emesis or diarrhea. Last bowel movement 06/09/23. Passing flatus. Attempted a bite of breakfast, developed nausea. Ongoing bilateral lower quadrant abdominal pain, rating it currently at an "8/10". Afebrile. Potassium 3.4. Maintained on ceftriaxone, Flagyl. 06/15/2023 NPO, completed prep. Reports bilateral lower quadrant abdominal pain unchanged. Scheduled for EGD and colonoscopy today. Denies chest pain, palpitations or shortness of breath. Potassium 3.5, supplementation ordered. Afebrile. status post EGD and colonoscopy with results showing mild gastritis, small hiatal hernia, sigmoid colon polyp and diverticulosis. Biopsies obtained, final cultures pending . Diarrhea improving. Positive bowel movement, denies black stools or blood in stools. Tested negative for C. difficile colitis, Giardia. Lower abdominal pain decreased, improved. Significant clinical improvement. No further antibiotics recommended at discharge as per general surgery. Patient has been cleared by surgery for discharge. Patient will be discharged home today in a stable condition with guarded prognosis. The impression and plan of care has been dictated as directed. : I performed a history and examination of this patient, discussed the same with the dictator. I agree with the dictator's note ,documented as a scribe. Any additional findings or plans will be noted. Patient Condition at Discharge: Stable Plan - Discharge Summary New Discharge Prescriptions: New Lactobacillus Acidophilus [Acidophilus Probiotic] 1 each PO DAILY #30 capsule Continue Magnesium Oxide [Magox 400] 400 mg PO HS Montelukast [Singulair] 10 mg PO HS Ferrous Sulfate [Iron (65 MG Elemental)] 325 mg PO DAILY Ondansetron Odt [Zofran ODT] 4 mg PO Q8HR PRN #20 tab PRN Reason: Nausea OXcarbazepine [Trileptal] 300 mg PO BID predniSONE [Deltasone] 60 mg PO DAILY Erythromycin Ophth Oint (1 gm) [Ilotycin Ophth Oint (1 gm)] 1 applic BOTH EYES HS Neomycin/Polymyxin B/Dexametha [Neomycin/Polymyxin B/Dexametha Ophth Ointment] 1 applic BOTH EYES BID Ergocalciferol (Vitamin D2) [Drisdol (50,000 Iu)] 1,250 mcg PO WE Furosemide [Lasix] 40 mg PO DAILY amLODIPine [Norvasc] 5 mg PO DAILY #30 tab Dicyclomine [Bentyl] 20 mg PO TID #21 tablet Famotidine [Pepcid] 20 mg PO BID #28 tablet Glimepiride [Amaryl] 4 mg PO BID DULoxetine HCL [Cymbalta] 30 mg PO BID Insulin Glargine,Hum.rec.anlog [Lantus Solostar Pen] 20 units SQ DAILY Gabapentin [Neurontin] 400 mg PO TID #9 cap Changed HYDROcodone/APAP 10-325MG [[place] 10-325] 1 tab PO TID PRN #9 tab PRN Reason: Pain Discharge Medication List Ferrous Sulfate [Iron (65 MG Elemental)] 325 mg PO DAILY 03/22/19 [History] Magnesium Oxide [Magox 400] 400 mg PO HS 03/22/19 [History] Montelukast [Singulair] 10 mg PO HS 03/22/19 [History] Ergocalciferol (Vitamin D2) [Drisdol (50,000 Iu)] 1,250 mcg PO WE 10/24/22 [History] Furosemide [Lasix] 40 mg PO DAILY 10/24/22 [History] amLODIPine [Norvasc] 5 mg PO DAILY #30 tab 10/30/22 [Rx] Dicyclomine [Bentyl] 20 mg PO TID #21 tablet 06/10/23 [Rx] Famotidine [Pepcid] 20 mg PO BID #28 tablet 06/10/23 [Rx] Ondansetron Odt [Zofran ODT] 4 mg PO Q8HR PRN #20 tab 06/10/23 [Rx] DULoxetine HCL [Cymbalta] 30 mg PO BID 06/11/23 [History] Erythromycin Ophth Oint (1 gm) [Ilotycin Ophth Oint (1 gm)] 1 applic BOTH EYES HS 06/11/23 [History] Glimepiride [Amaryl] 4 mg PO BID 06/11/23 [History] Insulin Glargine,Hum.rec.anlog [Lantus Solostar Pen] 20 units SQ DAILY 06/11/23 [History] Neomycin/Polymyxin B/Dexametha [Neomycin/Polymyxin B/Dexametha Ophth Ointment] 1 applic BOTH EYES BID 06/11/23 [History] OXcarbazepine [Trileptal] 300 mg PO BID 06/11/23 [History] predniSONE [Deltasone] 60 mg PO DAILY 06/11/23 [History] Gabapentin [Neurontin] 400 mg PO TID #9 cap 06/16/23 [Rx] HYDROcodone/APAP 10-325MG [[place] 10-325] 1 tab PO TID PRN #9 tab 06/16/23 [Rx] Lactobacillus Acidophilus [Acidophilus Probiotic] 1 each PO DAILY #30 capsule 06/16/23 [Rx] Follow up Appointment(s)/Referral(s): Edward Love MD [Primary Care Provider] - 3 Days Patient Instructions/Handouts: Gastritis (DC), Diverticulosis (DC), Diverticulosis Diet (GEN) Activity/Diet/Wound Care/Special Instructions: No further antibiotics-antibiotic treatment completed as per general surgery,
== END 2023-06-16 13:50 | disposition home or self-care (01) | DRG 392 ==
LOC: EC 13:15 → 6NMEDSUR 16:36 → OBSVTOIN 06-13 12:14
PROVIDERS: ADMIT Family Medicine; ATTEND Family Medicine
PROC: 0DBN8ZX Excision of Sigmoid Colon, Via Natural or Artificial Opening Endoscopic, Diagnostic (ICD-10-PCS; principal; 2023-06-15 13:55)
PROC: 0DB78ZX Excision of Stomach, Pylorus, Via Natural or Artificial Opening Endoscopic, Diagnostic (ICD-10-PCS; principal; 2023-06-15 13:55)
DX: K52.9 Noninfective gastroenteritis and colitis, unspecified (principal); E66.01 Morbid (severe) obesity due to excess calories; Z68.36 Body mass index [BMI] 36.0-36.9, adult; E86.0 Dehydration; E87.6 Hypokalemia; E11.9 Type 2 diabetes mellitus without complications; Z86.16 Personal history of COVID-19; M06.9 Rheumatoid arthritis, unspecified; Z91.81 History of falling; R29.6 Repeated falls; F32.A Depression, unspecified; F41.9 Anxiety disorder, unspecified; I10 Essential (primary) hypertension; J45.909 Unspecified asthma, uncomplicated; K29.70 Gastritis, unspecified, without bleeding; K44.9 Diaphragmatic hernia without obstruction or gangrene; K63.5 Polyp of colon; Z79.4 Long term (current) use of insulin; Z79.51 Long term (current) use of inhaled steroids; Z79.84 Long term (current) use of oral hypoglycemic drugs; Z79.899 Other long term (current) drug therapy; Z87.19 Personal history of other diseases of the digestive system; Z96.653 Presence of artificial knee joint, bilateral; K57.30 Diverticulosis of large intestine without perforation or abscess without bleeding; Z88.0 Allergy status to penicillin
CPT/HCPCS: 36415; 43239; 45385; 80048; 80053; 81001; 81003; 82150; 83690; 83735; 84100; 85025; 85027; 87045; 87046; 87324; 87329; 88305; 88342; 96374; 96375; 99285

== ENCOUNTER 2023-11-02 15:11 | Emergency (ER) | payer MEDICARE, OTHER ==
--- NOTE | 2023-11-02 16:36 | ED ---
General Adult HPI - General Chief complaint: Fall Stated complaint: fall Time Seen by Provider: 11/02/23 15:50 Source: patient, RN notes reviewed, old records reviewed Limitations: no limitations - History of Present Illness Initial comments: This is a 68-year-old female who states she fell tripping over a curb on Wednesday. Patient states she hurt her right hand the right side of her chest right abdomen hurts as well as her left leg and ankle. Patient also states she has a large bruise on her right breast. Patient denies hitting her head or neck patient has numbness or weakness. Patient is any back pain. Patient states she has a cut on the palmar surface of her right hand at the base of the fifth metacarpal. Patient states she does not know when her last tetanus was - Related Data Home Medications Medication Instructions Recorded Confirmed Ferrous Sulfate [Iron (65 MG 325 mg PO DAILY 03/22/19 11/02/23 Elemental)] Magnesium Oxide [Magox 400] 400 mg PO HS 03/22/19 11/02/23 Montelukast [Singulair] 10 mg PO HS 03/22/19 11/02/23 Ergocalciferol (Vitamin D2) 1,250 mcg PO TH 10/24/22 11/02/23 [Drisdol (50,000 Iu)] Furosemide [Lasix] 40 mg PO DAILY 10/24/22 11/02/23 DULoxetine HCL [Cymbalta] 30 mg PO BID 06/11/23 11/02/23 Glimepiride [Amaryl] 4 mg PO PC-BID 06/11/23 11/02/23 Neomycin/Polymyxin B/Dexametha 1 applic BOTH EYES TID 06/11/23 11/02/23 [Neomycin/Polymyxin B/Dexametha Ophth Ointment] Albuterol Inhaler [Ventolin Hfa 2 puff INHALATION RT-Q4H PRN 11/02/23 11/02/23 Inhaler] Carboxymethylcellulose Sodium 1 drop BOTH EYES BID 11/02/23 11/02/23 [Refresh Tears] Gabapentin 600 mg PO TID 11/02/23 11/02/23 HYDROcodone/APAP 10-325MG [[place] 1 tab PO TID 11/02/23 11/02/23 10-325] Ketorolac 0.5% Ophth Soln [Acular 1 drop RIGHT EYE TID 11/02/23 11/02/23 0.5%] Ofloxacin 0.3% Ophth Soln [Ocuflox 1 drop RIGHT EYE QID 11/02/23 11/02/23 Ophth Soln] Promethazine 6.25MG/5Ml [Phenergan 6.25 mg PO Q6H PRN 11/02/23 11/02/23 Syrup] Tolterodine ER [Detrol LA] 2 mg PO DAILY 11/02/23 11/02/23 amLODIPine [Norvasc] 10 mg PO DAILY 11/02/23 11/02/23 prednisoLONE ACETATE 1% OPHTH 1 drop BOTH EYES QID 11/02/23 11/02/23 [Pred Forte 1%] Previous Rx's Medication Instructions Recorded Ketorolac [Toradol] 10 mg PO Q6HR #15 tab 11/02/23 Allergies Allergy/AdvReac Type Severity Reaction Status Date / Time Penicillins Allergy Rash/Hives/ Verified 11/02/23 20:12 Itching Review of Systems ROS Statement: Those systems with pertinent positive or pertinent negative responses have been documented in the HPI. ROS Other: All systems not noted in ROS Statement are negative. Past Medical History Past Medical History: Asthma, Diabetes Mellitus, Hypertension, Rheumatoid Arthritis (RA) Additional Past Medical History / Comment(s): COVID Mar 2022, increasing falls History of Any Multi-Drug Resistant Organisms: None Reported Past Surgical History: Section, Joint Replacement, Orthopedic Surgery Additional Past Surgical History / Comment(s): carpel tunnel, bilat knee replac ement Past Anesthesia/Blood Transfusion Reactions: No Reported Reaction Additional Past Anesthesia/Blood Transfusion Reaction / Comment(s): slow to wake up Past Psychological History: Anxiety, Depression Smoking Status: Never smoker Past Alcohol Use History: None Reported Past Drug Use History: None Reported - Past Family History Mother Family Medical History: CVA/TIA, Dementia General Exam - General Exam Comments Initial Comments: GENERAL: Patient is well-developed and well-nourished. Patient is nontoxic and well-hydrated and is in moderate distress. ENT: Neck is soft and supple. No significant lymphadenopathy is noted. Oropharynx is clear. Moist mucous membranes. Neck has full range of motion without eliciting any pain. EYES: The sclera were anicteric and conjunctiva were pink and moist. Extraocular mov ements were intact and pupils were equal round and reactive to light. Eyelids were unremarkable. PULMONARY: Unlabored respirations. Good breath sounds bilaterally. No audible rales rhonchi or wheezing was noted. CARDIOVASCULAR: There is a regular rate and rhythm without any murmurs gallops or rubs. Patient has right-sided chest wall pain. Patient's right breast is ecchymotic. ABDOMEN: Soft and nontender with normal bowel sounds. SKIN: Skin is clear with no lesPatient is right upper quadrant abdominal pain. UROLOGIC: Patient is alert and oriented x3. Cranial nerves II through XII are grossly intact. Motor and sensory are also intact. Normal speech, volume and content. Symmetrical smile. MUSCULOSKELETAL: Patient is right hand and wrist are very tender and swollen. Patient's left ankle is tender medially and the proximal tibia is tender as well LYMPHATICS: No significant lymphadenopathy is noted PSYCHIATRIC: Normal psychiatric evaluation. Limitations: no limitations Course Vital Signs 11/02/23 15:13 Temperature 98.4 F Pulse Rate 102 H Respiratory 18 Rate Blood Pressure 178/90 O2 Sat by Pulse 97 Oximetry Medical Decision Making - Medical Decision Making EKG is interpreted by myself. EKG shows a sinus rhythm at 80 bpm parables 202 QRS is 142 QT interval 446 QTc is 482. Patient's EKG shows right bundle branch block. Was pt. sent in by a medical professional or institution (, PA, SCHOOL LIBRARY MEDIA SPECIALIST, urgent care, hospital, or senior living...) When possible be specific @ -No Did you speak to anyone other than the patient for history (EMS, parent, family, police, friend...)? What history was obtained from this source @ -No Did you review nursing and triage notes (agree or disagree)? Why? @ -I reviewed and agree with nursing and triage notes Were old charts reviewed (outside hosp., previous admission, EMS record, old E KG, old radiological studies, urgent care reports/EKG's, senior living records)? Report findings @ -No old charts were reviewed Differential Diagnosis (chest pain, altered mental status, abdominal pain women, abdominal pain men, vaginal bleeding, weakness, fever, dyspnea, syncope, headache, dizziness, GI bleed, back pain, seizure, CVA, palpatations, mental health, musculoskeletal)? @ -Rib fractures, pneumothorax, hemothorax, liver laceration, fractures of the hand or wrist, fracture of the foot and ankle, this is not an all-inclusive list EKG interpreted by me (3pts min.). @ -As above X-rays interpreted by me (1pt min.). @ -X-ray of the hand wrist showed no acute normality. X-ray of the tib-fib ankle and foot show no acute abnormality. CT interpreted by me (1pt min.). @ -CT of the chest abdomen pelvis shows no acute abnormality. U/S interpreted by me (1pt. min.). @ -None done What testing was considered but not performed or refused? (CT, X-rays, U/S, labs)? Why? @ -None What meds were considered but not given or refused? Why? @ -None Did you discuss the management of the patient with other professionals (professionals i.e. , PA, SCHOOL LIBRARY MEDIA SPECIALIST, lab, RT, psych nurse, certified social workers in health care, health care attorney, teacher, staff weapons officer, test case developer)? Give summary @ -No Was smoking cessation discussed for >3mins.? @ -No Was critical care preformed (if so, how long)? @ -No Were there social determinants of health that impacted care today? How? (Homelessness, low income, unemployed, alcoholism, drug addiction, transportation, low edu. Level, literacy, decrease access to med. care, half-way, rehab)? @ -No Was there de-escalation of care discussed even if they declined (Discuss DNR or withdrawal of care, Hospice)? DNR status @ -No What co-morbidities impacted this encounter? (DM, HTN, Smoking, COPD, CAD, Can cer, CVA, ARF, Chemo, Hep., AIDS, mental health diagnosis, sleep apnea, morbid obesity)? @ -None Was patient admitted / discharged? Hospital course, mention meds given and route, prescriptions, significant lab abnormalities, going to OR and other pertinent info. @ -Patient was given Dilaudid 0.5 help with the pain a little and then she was given Toradol after that and she felt considerably better. Patient was going to get 0.5 of Dilaudid before she went home so she could get some sleep. Patient will follow-up with the primary medical care doctor or return if there is any new symptoms. Undiagnosed new problem with uncertain prognosis? @ -No Drug Therapy requiring intensive monitoring for toxicity (Heparin, Nitro, Insulin, Cardizem)? @ -No Were any procedures done? @ -No Diagnosis/symptom? @ -Contusion chest Acute, or Chronic, or Acute on Chronic? @ -Acute Uncomplicated (without systemic symptoms) or Complicated (systemic symptoms)? @ -Complicated Side effects of treatment? @ -No Exacerbation, Progression, or Severe Exacerbation? @ -No Poses a threat to life or bodily function? How? (Chest pain, [place], [place], pneumonia, PE, COPD, DKA, ARF, appy, cholecystitis, CVA, Diverticulitis, Homicidal, Suicidal, threat to staff... and all critical care pts) @ -No Diagnosis/symptom? @ -Contusion hand Acute, or Chronic, or Acute on Chronic? @ -Acute Uncomplicated (without systemic symptoms) or Complicated (systemic symptoms)? @ -Uncomplicated Side effects of treatment? @ -None Exacerbation, Progression, or Severe Exacerbation] @ -No Poses a threat to life or bodily function? @ -No Diagnosis/symptom? @ -Ankle sprain Acute, or Chronic, or Acute on Chronic? @ -Acute Uncomplicated (without systemic symptoms) or Complicated (systemic symptoms)? @ -Uncomplicated Side effects of treatment? @ -None Exacerbation, Progression, or Severe Exacerbation] @ -No Poses a threat to life or bodily function? @ -No - Lab Data Result diagrams: 11/02/23 17:08 11/02/23 17:45 Lab Results 11/02/23 11/02/23 Range/Units 17:08 17:45 WBC 4.6 (3.8-10.6) k/uL RBC 4.55 (3.80-5.40) m/uL Hgb 14.0 (11.4-16.0) gm/dL Hct 42.1 (34.0-46.0) % MCV 92.5 (80.0-100.0) fL MCH 30.8 (25.0-35.0) pg MCHC 33.3 (31.0-37.0) g/dL RDW 13.5 (11.5-15.5) % Plt Count 128 L (150-450) k/uL MPV 9.3 Neutrophils % 56 % Lymphocytes % 31 % Monocytes % 6 % Eosinophils % 5 % Basophils % 0 % Neutrophils # 2.6 (1.3-7.7) k/uL Lymphocytes # 1.4 (1.0-4.8) k/uL Monocytes # 0.3 (0-1.0) k/uL Eosinophils # 0.3 (0-0.7) k/uL Basophils # 0.0 (0-0.2) k/uL Sodium 139 (137-145) mmol/L Potassium 4.8 (3.5-5.1) mmol/L Chloride 102 (98-107) mmol/L Carbon Dioxide 34 H (22-30) mmol/L Anion Gap 3 mmol/L BUN 9 (7-17) mg/dL Creatinine 0.46 L (0.52-1.04) mg/dL Est GFR (CKD-EPI)AfAm >90 (>60 ml/min/1.73 sqM) Est GFR (CKD-EPI)NonAf >90 (>60 ml/min/1.73 sqM) Glucose 139 H (74-99) mg/dL Calcium 8.9 (8.4-10.2) mg/dL Total Bilirubin 1.4 H (0.2-1.3) mg/dL AST 59 H (14-36) U/L ALT 47 H (4-34) U/L Alkaline Phosphatase 74 (38-126) U/L Total Protein 7.3 (6.3-8.2) g/dL Albumin 4.3 (3.5-5.0) g/dL Disposition Clinical Impression: Fall, Contusion, chest wall, Ankle sprain Disposition: HOME SELF-CARE Condition: Good Instructions (If sedation given, give patient instructions): Fall Prevention for Older Adults (ED), Ankle Sprain (ED) Prescriptions: Ketorolac [Toradol] 10 mg PO Q6HR #15 tab Is patient prescribed a controlled substance at d/c from ED?: No Referrals: Edward Love MD [Primary Care Provider] - 1-2 days Time of Disposition: 20:33
[2023-11-02] MEDS: HYDROmorphone 0.5 MG/0.5 ML SYRINGE IVP STA ×2 (17:09→20:39)
[2023-11-02] MEDS: DIPH,PERTUS(ACELL)TETVAC-LF 0.5 ML VIAL IM ONE (17:12)
[2023-11-02 17:36] LABS: Basophils % (A) 0 %; Eosinophils # (A) 0.3 k/uL (0-0.7); Eosinophils % (A) 5 %; HCT 42.1 % (34.0-46.0); Lymphocytes # (A) 1.4 k/uL (1.0-4.8); Lymphocytes % (A) 31 %; MCH 30.8 pg (25.0-35.0); MCHC 33.3 g/dL (31.0-37.0); MCV 92.5 fL (80.0-100.0); Mean Platelet Volume 9.3; Monocytes # (A) 0.3 k/uL (0-1.0); Monocytes % (A) 6 %; Neutrophils # (A) 2.6 k/uL (1.3-7.7); Neutrophils % (A) 56 %; Platelet Count 128 k/uL (150-450); RBC 4.55 m/uL (3.80-5.40); RDW 13.5 % (11.5-15.5); WBC 4.6 k/uL (3.8-10.6)
[2023-11-02 17:58] LABS: ALT 47 U/L (4-34); African American GFR (CKD) >90 (>60 ml/min/1.73 sqM); Anion Gap 3 mmol/L; Blood Urea Nitrogen 9 mg/dL (7-17); Calcium 8.9 mg/dL (8.4-10.2); Carbon Dioxide 34 mmol/L (22-30); Chloride 102 mmol/L (98-107); Non-African American GFR(CKD) >90 (>60 ml/min/1.73 sqM); Sodium 139 mmol/L (137-145)
[2023-11-02 18:05] LABS: Glucose 139 mg/dL (74-99); Potassium 4.8 mmol/L (3.5-5.1)
[2023-11-02 18:06] LABS: AST 59 U/L (14-36); Albumin 4.3 g/dL (3.5-5.0); Alkaline Phosphatase 74 U/L (38-126); Total Bilirubin 1.4 mg/dL (0.2-1.3); Total Protein 7.3 g/dL (6.3-8.2)
--- NOTE | 2023-11-02 18:59 | CT ---
EXAMINATION TYPE: CT ChestAbdPelvis w con CT DLP: 2122 mGycm, Automated exposure control for dose reduction was used. DATE OF EXAM: 11/02/2023 6:36 PM COMPARISON: None. CLINICAL INDICATION:Female, 68 years old with history of Trauma; Technique: CT ChestAbdPelvis w con; Multiple axial images were obtained. Two-dimensional coronal and sagittal reconstructions were obtained. Contrast used: mL of , Oral contrast used: Findings: CHEST: LUNGS/ PLEURA: Mild centrilobular emphysema changes. No focal consolidation, pneumothorax or pleural effusion. AIRWAY: Patent and unremarkable. HEART: Size within normal limits. Moderate coronary artery calcifications. MEDIASTINUM: No gross evidence of adenopathy. VASCULATURE: No aortic aneurysm. MUSCULOSKELETAL: No acute osseous abnormalities. SOFT TISSUES/LYMPH NODES: Unremarkable. LOWER NECK: No significant findings. ABDOMEN: ABDOMEN LIVER: Diffusely hypoattenuating parenchyma. GALLBLADDER AND BILE DUCTS: Unremarkable. PANCREAS: Unremarkable. SPLEEN: Unremarkable. ADRENAL GLANDS: Unremarkable. KIDNEYS AND URETERS: No evidence of hydronephrosis or renal calculus. The ureters are unremarkable. Left renal cortical cyst. PELVIS BLADDER: Unremarkable REPRODUCTIVE: Unremarkable. ABDOMEN & PELVIS STOMACH AND BOWEL: No evidence of bowel obstruction. The appendix is normal. PERITONEUM: No evidence of pneumoperitoneum or free fluid. VASCULATURE: Mild atherosclerotic calcifications are present throughout the abdominal aorta and its b ranches. MUSCULOSKELETAL: No acute osseous abnormalities. Mild disc degeneration changes are present throughou t the thoracolumbar spine. Grade 1 anterolisthesis of L4 and L5 without spondylolysis. LYMPH NODES: No gross evidence for lymphadenopathy. SOFT TISSUE/ABDOMINAL WALL: Unremarkable IMPRESSION: 1. No evidence for acute process. 2. Hepatic steatosis. 3. Simple appearing left renal cyst. 4. Moderate coronary artery calcifications.
--- NOTE | 2023-11-02 19:23 | XR ---
EXAMINATION TYPE: XR wrist complete RT DATE OF EXAM: 11/02/2023 7:02 PM CLINICAL INDICATION:Female, 68 years old with history of Trauma; [facility] COMPARISON: None. TECHNIQUE: 4 views of the right wrist. FINDINGS: Generalized osseous demineralization. Severe degenerative changes throughout the thumb and triscaphe joints, moderate degenerative changes elsewhere. No evidence of acute fracture or dislocation. Modera tely heavy arterial vascular calcifications. IMPRESSION: As above.
--- NOTE | 2023-11-02 19:38 | XR ---
EXAMINATION TYPE: XR ankle complete LT, XR foot complete LT, XR tibia fibula LT DATE OF EXAM: 11/02/2023 7:02 PM CLINICAL INDICATION:Female, 68 years old with history of Trauma; [facility] COMPARISON: None TECHNIQUE: XR ankle complete LT, XR foot complete LT, XR tibia fibula LT; ankle is imaged in frontal , lateral and oblique projections. Frontal and lateral views of the tibia and fibula. FINDINGS: Flattened appearance of the arch with severe degeneration changes throughout the joints of the midfoo t with osteophyte formation and transfer joint. There is calcaneal plantar spurring. There is severe atherosclerotic arteriovascular. Diffuse soft tissue edema is noted. There is medial subluxation of t he first digit metatarsophalangeal joint. Moderate degeneration changes are also seen throughout the interphalangeal joints throughout the foot. The tibia and fibula are intact. There is total knee arthroplasty changes with hardware intact. Psoas portions of the femur are intact. IMPRESSION: 1. No evidence of fracture with diffuse soft tissue swelling. Correlate for etiologies of disc spaci ng of fluid. 2. Moderate to severe degeneration changes throughout the joints of the foot worse at the first digi t metatarsophalangeal joint and joints of the midfoot. No evidence for fracture. 3. Pes planus suggested. 4. Severe atherosclerosis of the arterial vasculature.
[2023-11-02] MEDS: KETOROLAC 15 MG/ML 1 ML VIAL IVP STA (19:59)
--- NOTE | 2023-11-02 20:13 | XR ---
EXAMINATION TYPE: XR hand complete RT DATE OF EXAM: 11/02/2023 7:56 PM CLINICAL INDICATION:Female, 68 years old with history of trauma; H COMPARISON: None TECHNIQUE: 3 views right hand. FINDINGS: Generalized osseous demineralization. Severe degenerative changes throughout the thumb and triscaphe joints, moderate degenerative changes elsewhere. No evidence of acute fracture or dislocation. Modera tely heavy arterial vascular calcifications. No discrete soft tissue abnormality. IMPRESSION: As above.
[2023-11-02] MEDS: ACET/COD 300 MG/30 MG STARTER PACK 6 TAB BTL PO STA (20:43)
[2023-11-02 21:22] VITALS: BP 132/78; PULSE 72; RESP 18; TEMP 98
== END 2023-11-02 21:14 | disposition home or self-care (01) ==
LOC: EC 15:11
DX: S93.402A Sprain of unspecified ligament of left ankle, initial encounter (principal); S20.01XA Contusion of right breast, initial encounter; S60.222A Contusion of left hand, initial encounter; M79.662 Pain in left lower leg; I45.10 Unspecified right bundle-branch block; Z23 Encounter for immunization; Z88.0 Allergy status to penicillin; Z86.16 Personal history of COVID-19; W01.0XXA Fall on same level from slipping, tripping and stumbling without subsequent striking against object, initial encounter
CPT/HCPCS: 36415; 93005; 80053; 85025; 73110; 73130; 73590; 73610; 73630; 71260; 74177; 90715; 99284; 96374; 96375; 96376; 90471; J1885; J1170; Q9967

== ENCOUNTER 2023-12-31 09:08 | Inpatient (IN) | payer MEDICARE, OTHER ==
--- NOTE | 2023-12-31 09:38 | ED ---
General Adult HPI - General Chief complaint: Nausea/Vomiting/Diarrhea Stated complaint: N/V/D Time Seen by Provider: 12/31/23 09:15 Source: patient, family, RN notes reviewed, old records reviewed Mode of arrival: wheelchair Limitations: no limitations - History of Present Illness Initial comments: This is a 68-year-old female who comes in complaining of nausea and vomiting and diarrhea since Wednesday. Patient states she has a history of colitis and maybe it is ulcerative colitis. Patient states it has been nonstop and she has been unable to tolerate even fluids. Patient states she has quite a bit of upper abdominal pain and no lower abdominal pain. Patient denies any back pain chest pain difficulty breathing or shortness of breath. Patient states she does not believe she has had any fever. Patient denies any dysuria hematuria urinary f requency. - Related Data Home Medications Medication Instructions Recorded Confirmed Ferrous Sulfate [Iron (65 MG 325 mg PO DAILY 03/22/19 11/02/23 Elemental)] Magnesium Oxide [Magox 400] 400 mg PO HS 03/22/19 11/02/23 Montelukast [Singulair] 10 mg PO HS 03/22/19 11/02/23 Ergocalciferol (Vitamin D2) 1,250 mcg PO TH 10/24/22 11/02/23 [Drisdol (50,000 Iu)] Furosemide [Lasix] 40 mg PO DAILY 10/24/22 11/02/23 DULoxetine HCL [Cymbalta] 30 mg PO BID 06/11/23 11/02/23 Glimepiride [Amaryl] 4 mg PO PC-BID 06/11/23 11/02/23 Neomycin/Polymyxin B/Dexametha 1 applic BOTH EYES TID 06/11/23 11/02/23 [Neomycin/Polymyxin B/Dexametha Ophth Ointment] Albuterol Inhaler [Ventolin Hfa 2 puff INHALATION RT-Q4H PRN 11/02/23 11/02/23 Inhaler] Carboxymethylcellulose Sodium 1 drop BOTH EYES BID 11/02/23 11/02/23 [Refresh Tears] Gabapentin 600 mg PO TID 11/02/23 11/02/23 HYDROcodone/APAP 10-325MG [[place] 1 tab PO TID 11/02/23 11/02/23 10-325] Ketorolac 0.5% Ophth Soln [Acular 1 drop RIGHT EYE TID 11/02/23 11/02/23 0.5%] Ofloxacin 0.3% Ophth Soln [Ocuflox 1 drop RIGHT EYE QID 11/02/23 11/02/23 Ophth Soln] Promethazine 6.25MG/5Ml [Phenergan 6.25 mg PO Q6H PRN 11/02/23 11/02/23 Syrup] Tolterodine ER [Detrol LA] 2 mg PO DAILY 11/02/23 11/02/23 amLODIPine [Norvasc] 10 mg PO DAILY 11/02/23 11/02/23 prednisoLONE ACETATE 1% OPHTH 1 drop BOTH EYES QID 11/02/23 11/02/23 [Pred Forte 1%] Previous Rx's Medication Instructions Recorded Ketorolac [Toradol] 10 mg PO Q6HR #15 tab 11/02/23 Allergies Allergy/AdvReac Type Severity Reaction Status Date / Time Penicillins Allergy Rash/Hives/ Verified 12/31/23 09:12 Itching Review of Systems ROS Statement: Those systems with pertinent positive or pertinent negative responses have been documented in the HPI. ROS Other: All systems not noted in ROS Statement are negative. Past Medical History Past Medical History: Asthma, Diabetes Mellitus, Hypertension, Rheumatoid Arth ritis (RA) Additional Past Medical History / Comment(s): COVID Mar 2022, increasing falls History of Any Multi-Drug Resistant Organisms: None Reported Past Surgical History: Section, Joint Replacement, Orthopedic Surgery Additional Past Surgical History / Comment(s): carpel tunnel, bilat knee replacement Past Anesthesia/Blood Transfusion Reactions: No Reported Reaction Additional Past Anesthesia/Blood Transfusion Reaction / Comment(s): slow to wake up Past Psychological History: Anxiety, Depression Smoking Status: Never smoker Past Alcohol Use History: None Reported Past Drug Use History: None Reported - Past Family History Mother Family Medical History: CVA/TIA, Dementia General Exam - General Exam Comments Initial Comments: GENERAL: Patient is well-developed and well-nourished. Patient is nontoxic and well- hydrated and is in mild distress. ENT: Neck is soft and supple. No significant lymphadenopathy is noted. Oropharynx is clear. Moist mucous membranes. Neck has full range of motion without silvia citing any pain. EYES: The sclera were anicteric and conjunctiva were pink and moist. Extraocular movements were intact and pupils were equal round and reactive to light. Eyelids were unremarkable. PULMONARY: Unlabored respirations. Good breath sounds bilaterally. No audible rales rhonchi or wheezing was noted. CARDIOVASCULAR: There is a regular rate and rhythm without any murmurs gallops or rubs. ABDOMEN: Upper abdomen seems mildly distended and tender both on the right and left upper quadrant SKIN: Skin is clear with no lesions or rashes and otherwise unremarkable. NEUROLOGIC: Patient is alert and oriented x3. Cranial nerves II through XII are grossly intact. Motor and sensory are also intact. Normal speech, volume and content. Symmetrical smile. MUSCULOSKELETAL: Normal extremities with adequate strength and full range of motion. No lower extremity swelling or edema. No calf tenderness. LYMPHATICS: No significant lymphadenopathy is noted PSYCHIATRIC: Normal psychiatric evaluation. Limitations: no limitations Course Vital Signs 12/31/23 12/31/23 12/31/23 09:10 09:35 10:30 Temperature 99.5 F 98.3 F Pulse Rate 103 H 91 92 Respiratory 20 18 18 Rate Blood Pressure 158/118 106/85 163/87 O2 Sat by Pulse 95 94 L 94 L Oximetry 12/31/23 11:28 Temperature Pulse Rate 80 Respiratory 16 Rate Blood Pressure 142/73 O2 Sat by Pulse 95 Oximetry Medical Decision Making - Medical Decision Making EKG is interpreted by myself. EKG shows a sinus rhythm at 94 bpm SD interval 175 QRS 151 QT interval 384 QTc is 435. Patient's EKG shows right bundle branch block. Was pt. sent in by a medical professional or institution (, PA, PARTY PLAN DEMONSTRATOR, urgent care, hospital, or shelter...) When possible be specific @ -No Did you speak to anyone other than the patient for history (EMS, parent, family, police, friend...)? What history was obtained from this source @ -No Did you review nursing and triage notes (agree or disagree)? Why? @ -I reviewed and agree with nursing and triage notes Were old charts reviewed (outside hosp., previous admission, EMS record, old EKG, old radiological studies, urgent care reports/EKG's, shelter records)? Report findings @ -No old charts were reviewed Differential Diagnosis? @ -Differential Abdominal Pain Women: Appendicitis, Cholecystitis, diverticulosis, ischemic bowel, pancreatitis, hepatitis, UTI, gastroenteritis, AAA, incarcerated hernia, bowel obstruction, constipation, inflammatory bowel, hepatitis, peptic ulcer disease, splenic infarction, perforated viscus, vulvitis, ovarian torsion, PID, kidney stone, placenta abruption, this is not meant to be an all-inclusive list EKG interpreted by me (3pts min.). @ -As above X-rays interpreted by me (1pt min.). @ -None done CT interpreted by me (1pt min.). @ -CT scan shows circumferential thickening of the colon from the eighth ending to the descending colon. U/S interpreted by me (1pt. min.). @ -None done What testing was considered but not performed or refused? (CT, X-rays, U/S, labs)? Why? @ -None What meds were considered but not given or refused? Why? @ -None Did you discuss the management of the patient with other professionals (professionals i.e. , PA, PARTY PLAN DEMONSTRATOR, lab, RT, psych nurse, older adult social work specialist, title lawyer, teacher, health promotion officer, complex case manager)? Give summary @ -I spoke with [facility] hospitalist and they agreed to admit the patient admit the patient wrote admitting orders Was smoking cessation discussed for >3mins.? @ -No Was critical care preformed (if so, how long)? @ -No Were there social determinants of health that impacted care today? How? (Homelessness, low income, unemployed, alcoholism, drug addiction, transportation, low edu. Level, literacy, decrease access to med. care, [place] [facility], rehab)? @ -No Was there de-escalation of care discussed even if they declined (Discuss DNR or withdrawal of care, Hospice)? DNR status @ -No What co-morbidities impacted this encounter? (DM, HTN, Smoking, COPD, CAD, Cancer, CVA, ARF, Chemo, Hep., AIDS, mental health diagnosis, sleep apnea, morbid obesity)? @ -None Was patient admitted / discharged? Hospital course, mention meds given and route, prescriptions, significant lab abnormalities, going to OR and other pertinent info. @ -Patient's CAT scan showed circumferential colitis from the ascending to the descending colon patient was in significant pain and was given multiple doses of Dilaudid. Patient was given fluid as well as nausea medication. Undiagnosed new problem with uncertain prognosis? @ -No Drug Therapy requiring intensive monitoring for toxicity (Heparin, Nitro, Insulin, Cardizem)? @ -No Were any procedures done? @ -No Diagnosis/symptom? @ -Colitis Acute, or Chronic, or Acute on Chronic? @ -Acute Uncomplicated (without systemic symptoms) or Complicated (systemic symptoms)? @ -Complicated Side effects of treatment? @ -No Exacerbation, Progression, or Severe Exacerbation? @ -No Poses a threat to life or bodily function? How? (Chest pain, [place], [place], pneumonia, PE, COPD, DKA, ARF, appy, cholecystitis, CVA, Diverticulitis, Homicidal, Suicidal, threat to staff... and all critical care pts) @ -No - Lab Data Result diagrams: 12/31/23 09:35 12/31/23 09:35 Lab Results 12/31/23 12/31/23 12/31/23 Range/Units 09:35 09:35 09:35 WBC 8.1 (3.8-10.6) k/uL RBC 5.29 (3.80-5.40) m/uL Hgb 15.6 (11.4-16.0) gm/dL Hct 48.7 H (34.0-46.0) % MCV 91.9 (80.0-100.0) fL MCH 29.5 (25.0-35.0) pg MCHC 32.1 (31.0-37.0) g/dL RDW 13.6 (11.5-15.5) % Plt Count 160 (150-450) k/uL MPV 9.2 Neutrophils % 72 % Lymphocytes % 17 % Monocytes % 5 % Eosinophils % 3 % Basophils % 0 % Neutrophils # 5.8 (1.3-7.7) k/uL Lymphocytes # 1.4 (1.0-4.8) k/uL Monocytes # 0.4 (0-1.0) k/uL Eosinophils # 0.2 (0-0.7) k/uL Basophils # 0.0 (0-0.2) k/uL Sodium 140 (137-145) mmol/L Potassium 4.1 (3.5-5.1) mmol/L Chloride 101 (98-107) mmol/L Carbon Dioxide 33 H (22-30) mmol/L Anion Gap 6 mmol/L BUN 11 (7-17) mg/dL Creatinine 0.60 (0.52-1.04) mg/dL Est GFR (CKD-EPI)AfAm >90 (>60 ml/min/1.73 sqM) Est GFR (CKD-EPI)NonAf >90 (>60 ml/min/1.73 sqM) Glucose 229 H (74-99) mg/dL Plasma Lactic Acid Bill 1.6 (0.7-2.0) mmol/L Calcium 9.2 (8.4-10.2) mg/dL Total Bilirubin 0.8 (0.2-1.3) mg/dL AST 37 H (14-36) U/L ALT 35 H (4-34) U/L Alkaline Phosphatase 72 (38-126) U/L Total Protein 7.2 (6.3-8.2) g/dL Albumin 4.5 (3.5-5.0) g/dL Amylase 40 (30-110) U/L Blood Type Blood Type Recheck Bld Type Recheck Status Antibody Screen Direct Antiglob Test Spec Expiration Date 12/31/23 Range/Units 10:15 WBC (3.8-10.6) k/uL RBC (3.80-5.40) m/uL Hgb (11.4-16.0) gm/dL Hct (34.0-46.0) % MCV (80.0-100.0) fL MCH (25.0-35.0) pg MCHC (31.0-37.0) g/dL RDW (11.5-15.5) % Plt Count (150-450) k/uL MPV Neutrophils % % Lymphocytes % % Monocytes % % Eosinophils % % Basophils % % Neutrophils # (1.3-7.7) k/uL Lymphocytes # (1.0-4.8) k/uL Monocytes # (0-1.0) k/uL Eosinophils # (0-0.7) k/uL Basophils # (0-0.2) k/uL Sodium (137-145) mmol/L Potassium (3.5-5.1) mmol/L Chloride (98-107) mmol/L Carbon Dioxide (22-30) mmol/L Anion Gap mmol/L BUN (7-17) mg/dL Creatinine (0.52-1.04) mg/dL Est GFR (CKD-EPI)AfAm (>60 ml/min/1.73 sqM) Est GFR (CKD-EPI)NonAf (>60 ml/min/1.73 sqM) Glucose (74-99) mg/dL Plasma Lactic Acid Bill (0.7-2.0) mmol/L Calcium (8.4-10.2) mg/dL Total Bilirubin (0.2-1.3) mg/dL AST (14-36) U/L ALT (4-34) U/L Alkaline Phosphatase (38-126) U/L Total Protein (6.3-8.2) g/dL Albumin (3.5-5.0) g/dL Amylase (30-110) U/L Blood Type O Positive Blood Type Recheck O Pos Bld Type Recheck Status No Antibody Screen POSITIVE Direct Antiglob Test Negative Spec Expiration Date 01/03/20242334 Disposition Clinical Impression: Colitis Disposition: ADMITTED IP TO THIS HOSP Referrals: Edward Love MD [Primary Care Provider] - 1-2 days Time of Disposition: 12:10
[2023-12-31] MEDS: SODIUM CHLORIDE 0.9% 1,000 ML IV STA (09:59)
[2023-12-31] MEDS: ONDANSETRON 4 MG/2 ML VIAL IVP STA (10:00)
[2023-12-31 10:06] LABS: Basophils % (A) 0 %; Eosinophils # (A) 0.2 k/uL (0-0.7); Eosinophils % (A) 3 %; HCT 48.7 % (34.0-46.0); HGB 15.6 gm/dL (11.4-16.0); Lymphocytes # (A) 1.4 k/uL (1.0-4.8); Lymphocytes % (A) 17 %; MCH 29.5 pg (25.0-35.0); MCHC 32.1 g/dL (31.0-37.0); MCV 91.9 fL (80.0-100.0); Mean Platelet Volume 9.2; Monocytes # (A) 0.4 k/uL (0-1.0); Monocytes % (A) 5 %; Neutrophils # (A) 5.8 k/uL (1.3-7.7); Neutrophils % (A) 72 %; Platelet Count 160 k/uL (150-450); RBC 5.29 m/uL (3.80-5.40); RDW 13.6 % (11.5-15.5); WBC 8.1 k/uL (3.8-10.6)
[2023-12-31 10:19] LABS: ALT 35 U/L (4-34); AST 37 U/L (14-36); African American GFR (CKD) >90 (>60 ml/min/1.73 sqM); Albumin 4.5 g/dL (3.5-5.0); Alkaline Phosphatase 72 U/L (38-126); Amylase 40 U/L (30-110); Anion Gap 6 mmol/L; Blood Urea Nitrogen 11 mg/dL (7-17); Calcium 9.2 mg/dL (8.4-10.2); Carbon Dioxide 33 mmol/L (22-30); Chloride 101 mmol/L (98-107); Glucose 229 mg/dL (74-99); Non-African American GFR(CKD) >90 (>60 ml/min/1.73 sqM); Potassium 4.1 mmol/L (3.5-5.1); Sodium 140 mmol/L (137-145); Total Bilirubin 0.8 mg/dL (0.2-1.3); Total Protein 7.2 g/dL (6.3-8.2)
[2023-12-31] MEDS: HYDROmorphone 0.5 MG/0.5 ML SYRINGE IVP STA ×2 (10:32→12:34)
[2023-12-31] MEDS: SODIUM CHLORIDE 0.9% 500 ML 500 ML IV STA (11:10)
--- NOTE | 2023-12-31 11:45 | CT ---
EXAMINATION TYPE: CT abdomen pelvis w con CT DLP: 1803.1 mGycm, Automated exposure control for dose reduction was used. DATE OF EXAM: 12/31/2023 10:56 AM COMPARISON: CT abdomen pelvis most recent from 11/02/2023 CLINICAL INDICATION:Female, 68 years old with history of abdominal pain; abd pain TECHNIQUE: Axial CT abdomen pelvis w con;Sagittal and coronal reformats were created on a separate w orkstation. Contrast used:100 mL of Isovue 300 with IV Contrast, (none if empty) Oral contrast used: without Oral Contrast (none if empty) FINDINGS: LOWER CHEST: Unremarkable ABDOMEN LIVER: Simple appearing cysts. Diffuse low-attenuation. GALLBLADDER AND BILE DUCTS: Unremarkable. PANCREAS: Unremarkable. SPLEEN: Unremarkable. ADRENAL GLANDS: Unremarkable. KIDNEYS AND URETERS: No evidence of hydronephrosis or renal calculus. The ureters are unremarkable. Bilateral probable cysts. PELVIS BLADDER: Unremarkable REPRODUCTIVE: The uterus is surgically absent. ABDOMEN & PELVIS STOMACH AND BOWEL: No evidence of bowel obstruction. Circumferential wall thickening of the colon ext ending from the ascending colon to the descending colon. PERITONEUM/RETROPERITONEUM: No evidence of pneumoperitoneum or free fluid. VASCULATURE: No evidence of aortic aneurysm. MUSCULOSKELETAL: No acute osseous abnormalities. Moderate disc degeneration changes are present throu ghout the thoracolumbar spine., grade 1 anterolisthesis of L4 and L5. LYMPH NODES: No gross evidence for lymphadenopathy. SOFT TISSUE/ABDOMINAL WALL: Fat-containing umbilical hernia. IMPRESSION: Circumferential wall thickening of the colon compatible with colitis involving the ascending colon to the descending colon, new from 11/02/2023.
[2023-12-31] MEDS: SODIUM CHLORIDE 0.9% 1,000 ML IV ONE (12:33)
[2023-12-31 12:52] LABS: Lipase 24 U/L (23-300)
[2023-12-31] MEDS ORDERED: ONDANSETRON 4 MG in SODIUM CHLORIDE 0.9% 50 ML IVPB PRN (14:58)
[2023-12-31] MEDS ORDERED: DEXTROSE 50% SYRINGE 50 ML IVP PRN ×2 (14:59)
[2023-12-31] MEDS: HYDROmorphone 0.5 MG/0.5 ML SYRINGE IVP PRN (15:21)
[2023-12-31] MEDS: PANTOPRAZOLE 40 MG/10 ML VIAL IVP SCH (15:21)
[2023-12-31] MEDS: metroNIDAZOLE-NS PMX 500 MG in SALINE 1 100ML.BAG IVPB SCH (15:59)
[2023-12-31 17:26] LABS: Glucose,Whole Blood 149 mg/dL (70-110)
[2023-12-31] MEDS: OFLOXACIN 0.3% OPHTH DROPS 5 ML BOTTLE BOTH EYES SCH (18:07)
[2023-12-31 20:13] LABS: Glucose,Whole Blood 153 mg/dL (70-110)
[2023-12-31] MEDS: HEPARIN SODIUM,PORCINE 5,000 UNIT/ML 1 ML VIAL SQ SCH (20:33)
[2024-01-01] MEDS: ONDANSETRON 4 MG/2 ML VIAL IVP PRN (04:29)
[2024-01-01 07:00] LABS: Glucose,Whole Blood 170 mg/dL (70-110)
--- NOTE | 2024-01-01 08:02 | P.GSCN ---
History of Present Illness Consult date: 12/31/23 History of present illness: Patient seen and evaluated. She reports new rectal bleeding with diffuse abdominal pain. No prior event. Last colonoscopy 8 months ago with finding of polyp. She denies any known history of diverticulitis. Patient reports intractable nausea and vomiting for 3 days. Patient presented to the hospital. She is on antibiotics. Recommend NPO. No acute endoscopy at this time. Full dictation in progress. Past Medical History Past Medical History: Asthma, Diabetes Mellitus, Hypertension, Rheumatoid Arthritis (RA) Additional Past Medical History / Comment(s): COVID Mar 2022, increasing falls History of Any Multi-Drug Resistant Organisms: None Reported Past Surgical History: Section, Joint Replacement, Orthopedic Surgery Additional Past Surgical History / Comment(s): carpel tunnel, bilat knee replacement Past Anesthesia/Blood Transfusion Reactions: No Reported Reaction Additional Past Anesthesia/Blood Transfusion Reaction / Comm: slow to wake up Past Psychological History: Anxiety, Depression Smoking Status: Never smoker Past Alcohol Use History: None Reported Past Drug Use History: None Reported - Past Family History Mother Family Medical History: CVA/TIA, Dementia Medications and Allergies Home Medications Medication Instructions Recorded Confirmed Type Ferrous Sulfate [Iron (65 MG 325 mg PO DAILY 03/22/19 12/31/23 History Elemental)] Magnesium Oxide [Magox 400] 400 mg PO HS 03/22/19 12/31/23 History Montelukast [Singulair] 10 mg PO HS 03/22/19 12/31/23 History Ergocalciferol (Vitamin D2) 1,250 mcg PO DIA 10/24/22 12/31/23 History [Drisdol (50,000 Iu)] Furosemide [Lasix] 40 mg PO DAILY 10/24/22 12/31/23 History DULoxetine HCL [Cymbalta] 30 mg PO DAILY 06/11/23 12/31/23 History Glimepiride [Amaryl] 4 mg PO PC-BID 06/11/23 12/31/23 History Albuterol Inhaler [Ventolin Hfa 2 puff INHALATION RT-Q4H PRN 11/02/23 12/31/23 History Inhaler] Carboxymethylcellulose Sodium 1 drop BOTH EYES BID 11/02/23 12/31/23 History [Refresh Tears] Gabapentin 600 mg PO TID 11/02/23 12/31/23 History HYDROcodone/APAP 10-325MG [[place] 1 tab PO TID 11/02/23 12/31/23 History 10-325] Ketorolac 0.5% Ophth Soln [Acular 1 drop BOTH EYES QID 11/02/23 12/31/23 History 0.5%] Ofloxacin 0.3% Ophth Soln [Ocuflox 1 drop BOTH EYES QID 11/02/23 12/31/23 History Ophth Soln] Promethazine 6.25MG/5Ml [Phenergan 6.25 mg PO Q6H PRN 11/02/23 12/31/23 History Syrup] Tolterodine ER [Detrol LA] 2 mg PO DAILY 11/02/23 12/31/23 History amLODIPine [Norvasc] 10 mg PO DAILY 11/02/23 12/31/23 History prednisoLONE ACETATE 1% OPHTH 1 drop BOTH EYES QID 11/02/23 12/31/23 History [Pred Forte 1%] Atorvastatin [Lipitor] 10 mg PO HS 12/31/23 12/31/23 History Loratadine 10 mg PO DAILY 12/31/23 12/31/23 History Ondansetron Odt [Zofran Odt] 4 mg PO Q8HR PRN 12/31/23 12/31/23 History Ondansetron [Zofran] 4 mg PO Q8HR PRN 12/31/23 12/31/23 History Allergies Allergy/AdvReac Type Severity Reaction Status Date / Time Penicillins Allergy Rash/Hives/ Verified 12/31/23 12:32 Itching Surgical - Exam Vital Signs Temp Pulse Resp BP Pulse Ox 99.5 F 103 H 20 158/118 95 12/31/23 09:10 12/31/23 09:10 12/31/23 09:10 12/31/23 09:10 12/31/23 09:10 Results - Labs 12/31/23 09:35 12/31/23 09:35 Abnormal Lab Results - Last 24 Hours (Table) 12/31/23 12/31/23 12/31/23 Range/Units 09:35 09:35 17:23 Hct 48.7 H (34.0-46.0) % Carbon Dioxide 33 H (22-30) mmol/L Glucose 229 H (74-99) mg/dL POC Glucose (mg/dL) 149 H (70-110) mg/dL AST 37 H (14-36) U/L ALT 35 H (4-34) U/L 12/31/23 Range/Units 20:12 Hct (34.0-46.0) % Carbon Dioxide (22-30) mmol/L Glucose (74-99) mg/dL POC Glucose (mg/dL) 153 H (70-110) mg/dL AST (14-36) U/L ALT (4-34) U/L Diabetes panel 12/31/23 Range/Units 09:35 Sodium 140 (137-145) mmol/L Potassium 4.1 (3.5-5.1) mmol/L Chloride 101 (98-107) mmol/L Carbon Dioxide 33 H (22-30) mmol/L BUN 11 (7-17) mg/dL Creatinine 0.60 (0.52-1.04) mg/dL Glucose 229 H (74-99) mg/dL Calcium 9.2 (8.4-10.2) mg/dL AST 37 H (14-36) U/L ALT 35 H (4-34) U/L Alkaline Phosphatase 72 (38-126) U/L Total Protein 7.2 (6.3-8.2) g/dL Albumin 4.5 (3.5-5.0) g/dL Calcium panel 12/31/23 Range/Units 09:35 Calcium 9.2 (8.4-10.2) mg/dL Albumin 4.5 (3.5-5.0) g/dL Pituitary panel 12/31/23 Range/Units 09:35 Sodium 140 (137-145) mmol/L Potassium 4.1 (3.5-5.1) mmol/L Chloride 101 (98-107) mmol/L Carbon Dioxide 33 H (22-30) mmol/L BUN 11 (7-17) mg/dL Creatinine 0.60 (0.52-1.04) mg/dL Glucose 229 H (74-99) mg/dL Calcium 9.2 (8.4-10.2) mg/dL Adrenal panel 12/31/23 Range/Units 09:35 Sodium 140 (137-145) mmol/L Potassium 4.1 (3.5-5.1) mmol/L Chloride 101 (98-107) mmol/L Carbon Dioxide 33 H (22-30) mmol/L BUN 11 (7-17) mg/dL Creatinine 0.60 (0.52-1.04) mg/dL Glucose 229 H (74-99) mg/dL Calcium 9.2 (8.4-10.2) mg/dL Total Bilirubin 0.8 (0.2-1.3) mg/dL AST 37 H (14-36) U/L ALT 35 H (4-34) U/L Alkaline Phosphatase 72 (38-126) U/L Total Protein 7.2 (6.3-8.2) g/dL Albumin 4.5 (3.5-5.0) g/dL
[2024-01-01 08:28] LABS: Basophils % (A) 1 %; Eosinophils # (A) 0.6 k/uL (0-0.7); Eosinophils % (A) 10 %; HCT 45.7 % (34.0-46.0); HGB 14.4 gm/dL (11.4-16.0); Lymphocytes # (A) 1.5 k/uL (1.0-4.8); Lymphocytes % (A) 25 %; MCH 29.5 pg (25.0-35.0); MCHC 31.4 g/dL (31.0-37.0); MCV 93.8 fL (80.0-100.0); Monocytes # (A) 0.4 k/uL (0-1.0); Monocytes % (A) 7 %; Neutrophils # (A) 3.3 k/uL (1.3-7.7); Neutrophils % (A) 56 %; Platelet Count 142 k/uL (150-450); RBC 4.87 m/uL (3.80-5.40); RDW 13.6 % (11.5-15.5); WBC 5.9 k/uL (3.8-10.6)
[2024-01-01 09:23] LABS: African American GFR (CKD) >90 (>60 ml/min/1.73 sqM); Anion Gap 6 mmol/L; Blood Urea Nitrogen 11 mg/dL (7-17); C Reactive Protein <0.5 mg/dL (<1.0); Calcium 8.5 mg/dL (8.4-10.2); Carbon Dioxide 28 mmol/L (22-30); Chloride 107 mmol/L (98-107); Glucose 174 mg/dL (74-99); Non-African American GFR(CKD) >90 (>60 ml/min/1.73 sqM); Potassium 3.5 mmol/L (3.5-5.1); Sodium 141 mmol/L (137-145)
[2024-01-01] MEDS ORDERED: PROCHLORPERAZINE 10 MG TAB PO PRN (09:29)
--- NOTE | 2024-01-01 09:41 | P.GSCN ---
History of Present Illness Consult date: 12/31/23 History of present illness: CHIEF COMPLAINT: Abdominal pain HISTORY OF PRESENT ILLNESS: The patient is a 68 year old female who presents with 2 to 3-day history of intractable nausea and vomiting, generalized abdominal pain and new rectal bleeding. Last colonoscopy was 8 months ago which she states a polyp was removed. No previous history of similar episodes. No exposure to sick contacts. She reports generalized weakness and malaise. General surgery is consulted due to colitis. PAST MEDICAL HISTORY: See list and reviewed PAST SURGICAL HISTORY: See list and reviewed MEDICATIONS: See list and reviewed ALLERGIES: See list and reviewed SOCIAL HISTORY: See list and reviewed FAMILY HISTORY: See list and reviewed REVIEW OF ORGAN SYSTEMS: CONSTITUTIONAL: No fevers or chills. No recent weight loss. Has morbid obesity, BMI 36.3 EYES: Denies any trouble with vision. No glasses. HEENT: No difficulties with hearing. No nosebleeds. No difficulty swallowing. RESPIRATORY: Has asthma. CARDIOVASCULAR: Denies any chest pain, palpitations, or recent heart attacks. Has hyperlipidemia. Has hypertensive heart disease. GASTROINTESTINAL: Denies fatty food intolerance. Denies change in bowel habits and gas bloat. Has chronic nausea. GENITOURINARY: Has bladder urgency. NEUROLOGICAL: Has chronic pain. MUSCULOSKELETAL: Reports back pain, stiffness or joint arthritis. Rheumatoid arthritis. SKIN: No current skin cancer. No rash. PSYCHIATRIC: Has depressive disorder. Has generalized anxiety. ENDOCRINE: Denies current thyroid disorders. Has diabetes type 2. HEME/LYMPHATIC: Denies any lumps and bumps around the neck. No recent deep venous thrombosis. Iron deficiency. ALLERGY/IMMUNOLOGY: No immunoglobulin therapy. No immune deficiencies. BREAST: Denies current breast lumps, pain or nipple discharge. PHYSICAL EXAM: VITALS: Reviewed CONSTITUTIONAL: Well developed and in no acute distress. EYES: Conjuctivae without sclera icterus. Extraocular movements grossly intact. HEAD, EARS, NOSE, THROAT: Moist buccal mucosa. Head is atraumatic, normocephalic. Hears conversational speech. No nasal drainage. NECK: Supple. No JV distention. No thyroidomegaly. RESPIRATORY: Non-labored respirations and equal bilateral excursions. No gross wheezes. CARDIOVASCULAR: Palpable 2+ radial pulses. ABDOMEN: No peritonitis. Generalized tenderness. LYMPH: No neck lymphadenopathy. MUSCULOSKELETAL: No clubbing cyanosis or edema SKIN: Warm and well perfused with good skin turgor. NEUROLOGIC: Cranial nerves II through XII grossly intact. No focal or lateralizing signs. PSYCH: Appropriate affect. Alert and oriented to person, place and time. Displays appropriate insight. CLINCAL LABS: Reviewed. WBC on admission 7.5, normal. Hemoglobin on admission 15.6, normal. Creatinine 0.60, normal. AST and ALT elevated. Blood sugars elevated to 29 on admission IMAGING: Independently reviewed. CT of the abdomen pelvis independently randell gautam demonstrates fatty liver disease. Small 2 cm liver cyst along the right lobe of the liver gallbladder within normal limits. Left renal simple cyst. Moderate inflammation and thickening along the hepatic flexure and proximal transverse colon to mid transverse colon. Moderate sigmoid diverticulosis with localized inflammation. No free air. No bowel obstruction. This is my independent interpretation. RADIOLOGY: Report reviewed. CT of the abdomen pelvis report demonstrates circumferential wall thickening affecting the ascending to descending colon. Findings of colitis. EKG: Abnormal demonstrates right bundle branch block RECORDS: previous old records reviewed. EGD colonoscopy report from May 2023 demonstrates gastritis, hiatal hernia, sigmoid colon polyp and diverticulos is. ASSESSMENT: 1. Abdominal pain due to diverticulitis 2. Morbid obesity due to excess calories, BMI 36.3 3. Diabetes type 2 with hyperglycemia 4. Rheumatoid arthritis 5. Renal cysts 6. Liver cysts PLAN: 1. IV fluid hydration for intractable nausea and vomiting. Recommend at least 2 L normal saline bolus as patient reports ongoing symptoms for 2 to 3 days with minimal diet. 2. Recommend IV antibiotics for treatment of likely diverticulitis given pre- existing history of diverticulosis on colonoscopy from May 2023. 3. At this time, no need for acute repeat of endoscopy. 4. N.p.o. except ice chips and popsicles in the interim. May advance diet as abdominal pain improved however to low fiber diet for colitis/diverticulitis ADVANCE DIRECTIVE: CODE STATUS in chart Thank you for this kind consultation. Past Medical History Past Medical History: Asthma, Diabetes Mellitus, Hypertension, Rheumatoid Arthritis (RA) Additional Past Medical History / Comment(s): COVID Mar 2022, increasing falls History of Any Multi-Drug Resistant Organisms: None Reported Past Surgical History: Section, Joint Replacement, Orthopedic Surgery Additional Past Surgical History / Comment(s): carpel tunnel, bilat knee replacement Past Anesthesia/Blood Transfusion Reactions: No Reported Reaction Additional Past Anesthesia/Blood Transfusion Reaction / Comm: slow to wake up Past Psychological History: Anxiety, Depression Smoking Status: Never smoker Past Alcohol Use History: None Reported Past Drug Use History: None Reported - Past Family History Mother Family Medical History: CVA/TIA, Dementia Medications and Allergies Home Medications Medication Instructions Recorded Confirmed Type Ferrous Sulfate [Iron (65 MG 325 mg PO DAILY 03/22/19 12/31/23 History Elemental)] Magnesium Oxide [Magox 400] 400 mg PO HS 03/22/19 12/31/23 History Montelukast [Singulair] 10 mg PO HS 03/22/19 12/31/23 History Ergocalciferol (Vitamin D2) 1,250 mcg PO DIA 10/24/22 12/31/23 History [Drisdol (50,000 Iu)] Furosemide [Lasix] 40 mg PO DAILY 10/24/22 12/31/23 History DULoxetine HCL [Cymbalta] 30 mg PO DAILY 06/11/23 12/31/23 History Glimepiride [Amaryl] 4 mg PO PC-BID 06/11/23 12/31/23 History Albuterol Inhaler [Ventolin Hfa 2 puff INHALATION RT-Q4H PRN 11/02/23 12/31/23 History Inhaler] Carboxymethylcellulose Sodium 1 drop BOTH EYES BID 11/02/23 12/31/23 History [Refresh Tears] Gabapentin 600 mg PO TID 11/02/23 12/31/23 History HYDROcodone/APAP 10-325MG [[place] 1 tab PO TID 11/02/23 12/31/23 History 10-325] Ketorolac 0.5% Ophth Soln [Acular 1 drop BOTH EYES QID 11/02/23 12/31/23 History 0.5%] Ofloxacin 0.3% Ophth Soln [Ocuflox 1 drop BOTH EYES QID 11/02/23 12/31/23 History Ophth Soln] Promethazine 6.25MG/5Ml [Phenergan 6.25 mg PO Q6H PRN 11/02/23 12/31/23 History Syrup] Tolterodine ER [Detrol LA] 2 mg PO DAILY 11/02/23 12/31/23 History amLODIPine [Norvasc] 10 mg PO DAILY 11/02/23 12/31/23 History prednisoLONE ACETATE 1% OPHTH 1 drop BOTH EYES QID 11/02/23 12/31/23 History [Pred Forte 1%] Atorvastatin [Lipitor] 10 mg PO HS 12/31/23 12/31/23 History Loratadine 10 mg PO DAILY 12/31/23 12/31/23 History Ondansetron Odt [Zofran Odt] 4 mg PO Q8HR PRN 12/31/23 12/31/23 History Ondansetron [Zofran] 4 mg PO Q8HR PRN 12/31/23 12/31/23 History Allergies Allergy/AdvReac Type Severity Reaction Status Date / Time Penicillins Allergy Rash/Hives/ Verified 12/31/23 12:32 Itching Surgical - Exam Vital Signs Temp Pulse Resp BP Pulse Ox 99.5 F 103 H 20 158/118 95 12/31/23 09:10 12/31/23 09:10 12/31/23 09:10 12/31/23 09:10 12/31/23 09:10 Results - Labs 01/01/24 06:43 01/01/24 06:52 Abnormal Lab Results - Last 24 Hours (Table) 12/31/23 12/31/23 12/31/23 Range/Units 09:35 09:35 17:23 Hct 48.7 H (34.0-46.0) % Plt Count (150-450) k/uL Carbon Dioxide 33 H (22-30) mmol/L Glucose 229 H (74-99) mg/dL POC Glucose (mg/dL) 149 H (70-110) mg/dL AST 37 H (14-36) U/L ALT 35 H (4-34) U/L 12/31/23 01/01/24 01/01/24 Range/Units 20:12 06:43 06:52 Hct (34.0-46.0) % Plt Count 142 L (150-450) k/uL Carbon Dioxide (22-30) mmol/L Glucose 174 H (74-99) mg/dL POC Glucose (mg/dL) 153 H (70-110) mg/dL AST (14-36) U/L ALT (4-34) U/L 01/01/24 Range/Units 06:59 Hct (34.0-46.0) % Plt Count (150-450) k/uL Carbon Dioxide (22-30) mmol/L Glucose (74-99) mg/dL POC Glucose (mg/dL) 170 H (70-110) mg/dL AST (14-36) U/L ALT (4-34) U/L Diabetes panel 12/31/23 01/01/24 Range/Units 09:35 06:52 Sodium 140 141 (137-145) mmol/L Potassium 4.1 3.5 (3.5-5.1) mmol/L Chloride 101 107 (98-107) mmol/L Carbon Dioxide 33 H 28 (22-30) mmol/L BUN 11 11 (7-17) mg/dL Creatinine 0.60 0.53 (0.52-1.04) mg/dL Glucose 229 H 174 H (74-99) mg/dL Calcium 9.2 8.5 (8.4-10.2) mg/dL AST 37 H (14-36) U/L ALT 35 H (4-34) U/L Alkaline Phosphatase 72 (38-126) U/L Total Protein 7.2 (6.3-8.2) g/dL Albumin 4.5 (3.5-5.0) g/dL Calcium panel 12/31/23 01/01/24 Range/Units 09:35 06:52 Calcium 9.2 8.5 (8.4-10.2) mg/dL Albumin 4.5 (3.5-5.0) g/dL Pituitary panel 12/31/23 01/01/24 Range/Units 09:35 06:52 Sodium 140 141 (137-145) mmol/L Potassium 4.1 3.5 (3.5-5.1) mmol/L Chloride 101 107 (98-107) mmol/L Carbon Dioxide 33 H 28 (22-30) mmol/L BUN 11 11 (7-17) mg/dL Creatinine 0.60 0.53 (0.52-1.04) mg/dL Glucose 229 H 174 H (74-99) mg/dL Calcium 9.2 8.5 (8.4-10.2) mg/dL Adrenal panel 12/31/23 01/01/24 Range/Units 09:35 06:52 Sodium 140 141 (137-145) mmol/L Potassium 4.1 3.5 (3.5-5.1) mmol/L Chloride 101 107 (98-107) mmol/L Carbon Dioxide 33 H 28 (22-30) mmol/L BUN 11 11 (7-17) mg/dL Creatinine 0.60 0.53 (0.52-1.04) mg/dL Glucose 229 H 174 H (74-99) mg/dL Calcium 9.2 8.5 (8.4-10.2) mg/dL Total Bilirubin 0.8 (0.2-1.3) mg/dL AST 37 H (14-36) U/L ALT 35 H (4-34) U/L Alkaline Phosphatase 72 (38-126) U/L Total Protein 7.2 (6.3-8.2) g/dL Albumin 4.5 (3.5-5.0) g/dL
--- NOTE | 2024-01-01 09:44 | P.HPIM ---
History of Present Illness This is a pleasant 68 years old female who presents initially because of blood in the stool. She has history of multiple medical problems including hypertension. Patient states she came because of her abdominal problems, her last bowel movement was 4 days ago. Over the last 3 days she had also difficulty walking because of his abdominal symptoms. Over the longer the last 3 days also she had recurrent vomiting, mostly bile with no blood or coffee-ground. Patient states she cannot keep anything down and she spit it up. Patient states Although her last bowel movement was 4 days ago but she noticed some blood in the stool about 4 times yesterday she says is moderate amount however her hemoglobin is not low, but there is element of hemoconcentration as well She denies chest pain or dyspnea. No urinary complaints. No headache or dizziness She is non-smoker nonalcoholic. No illicit drugs Patient is afebrile and hemodynamically stable. Patient had low-grade temperature on admission 99.5 She had mildly elevated LFTs but other labs were unremarkable including CBC, BMP, lipase CT of the abdomen and pelvis showing circumferential wall thickening of ascending transverse and proximal EKG showing sinus rhythm at [address]-T changes Review of Systems Review of systems CONSTITUTIONAL: No fever, no malaise, no fatigue. HEENT: No recent visual problems or hearing problems. Denied any sore throat. CARDIOVASCULAR: No orthopnea, PND, no palpitations, no syncope. PULMONARY: No shortness of breath, no cough, no hemoptysis. GASTROINTESTINAL: As above NEUROLOGICAL: No headaches, no weakness, no numbness. HEMATOLOGICAL: Denies any bleeding or petechiae. GENITOURINARY: Denies any burning micturition, frequency, or urgency. MUSCULOSKELETAL/RHEUMATOLOGICAL: Denies any joint pain, swelling, or any muscle pain. ENDOCRINE: Denies any polyuria or polydipsia. Past Medical History Past Medical History: Asthma, Diabetes Mellitus, Hypertension, Rheumatoid Arthritis (RA) Additional Past Medical History / Comment(s): COVID Mar 2022, increasing falls History of Any Multi-Drug Resistant Organisms: None Reported Past Surgical History: Section, Joint Replacement, Orthopedic Surgery Additional Past Surgical History / Comment(s): carpel tunnel, bilat knee replacement Past Anesthesia/Blood Transfusion Reactions: No Reported Reaction Additional Past Anesthesia/Blood Transfusion Reaction / Comment(s): slow to wake up Past Psychological History: Anxiety, Depression Smoking Status: Never smoker Past Alcohol Use History: None Reported Past Drug Use History: None Reported - Past Family History Mother Family Medical History: CVA/TIA, Dementia Medications and Allergies Home Medications Medication Instructions Recorded Confirmed Type Ferrous Sulfate [Iron (65 MG 325 mg PO DAILY 03/22/19 12/31/23 History Elemental)] Magnesium Oxide [Magox 400] 400 mg PO HS 03/22/19 12/31/23 History Montelukast [Singulair] 10 mg PO HS 03/22/19 12/31/23 History Ergocalciferol (Vitamin D2) 1,250 mcg PO DIA 10/24/22 12/31/23 History [Drisdol (50,000 Iu)] Furosemide [Lasix] 40 mg PO DAILY 10/24/22 12/31/23 History DULoxetine HCL [Cymbalta] 30 mg PO DAILY 06/11/23 12/31/23 History Glimepiride [Amaryl] 4 mg PO PC-BID 06/11/23 12/31/23 History Albuterol Inhaler [Ventolin Hfa 2 puff INHALATION RT-Q4H PRN 11/02/23 12/31/23 History Inhaler] Carboxymethylcellulose Sodium 1 drop BOTH EYES BID 11/02/23 12/31/23 History [Refresh Tears] Gabapentin 600 mg PO TID 11/02/23 12/31/23 History HYDROcodone/APAP 10-325MG [[place] 1 tab PO TID 11/02/23 12/31/23 History 10-325] Ketorolac 0.5% Ophth Soln [Acular 1 drop BOTH EYES QID 11/02/23 12/31/23 History 0.5%] Ofloxacin 0.3% Ophth Soln [Ocuflox 1 drop BOTH EYES QID 11/02/23 12/31/23 History Ophth Soln] Promethazine 6.25MG/5Ml [Phenergan 6.25 mg PO Q6H PRN 11/02/23 12/31/23 History Syrup] Tolterodine ER [Detrol LA] 2 mg PO DAILY 11/02/23 12/31/23 History amLODIPine [Norvasc] 10 mg PO DAILY 11/02/23 12/31/23 History prednisoLONE ACETATE 1% OPHTH 1 drop BOTH EYES QID 11/02/23 12/31/23 History [Pred Forte 1%] Atorvastatin [Lipitor] 10 mg PO HS 12/31/23 12/31/23 History Loratadine 10 mg PO DAILY 12/31/23 12/31/23 History Ondansetron Odt [Zofran Odt] 4 mg PO Q8HR PRN 12/31/23 12/31/23 History Ondansetron [Zofran] 4 mg PO Q8HR PRN 12/31/23 12/31/23 History Allergies Allergy/AdvReac Type Severity Reaction Status Date / Time Penicillins Allergy Rash/Hives/ Verified 12/31/23 12:32 Itching Physical Exam Vitals: Vital Signs Temp Pulse Resp BP Pulse Ox 12/31/23 13:24 82 16 140/72 93 L 12/31/23 12:20 93 18 156/82 92 L 12/31/23 11:28 80 16 142/73 95 12/31/23 10:30 92 18 163/87 94 L 12/31/23 09:35 98.3 F 91 18 106/85 94 L 12/31/23 09:10 99.5 F 103 H 20 158/118 95 Intake and Output 12/31/23 12/31/23 12/31/23 06:59 14:59 22:59 Other: Weight 102.058 kg -GENERAL: The patient is alert and oriented x3, not in any acute distress. Well developed, well nourished. Morbidly obese HEENT: Pupils are round and equally reacting to light. EOMI. No scleral icterus. No conjunctival pallor. Normocephalic, atraumatic. No pharyngeal erythema. No thyromegaly. CARDIOVASCULAR: S1 and S2 present. No murmurs, rubs, or gallops. PULMONARY: Chest is clear to auscultation, no wheezing , no crackles. -ABDOMEN: Soft, periumbilical abdominal tenderness, with no guarding or rebound tenderness, nondistended, normoactive bowel sounds. No palpable organomegaly. MUSCULOSKELETAL: No joint swelling or deformity. EXTREMITIES: No cyanosis, clubbing, or pedal edema. NEUROLOGICAL: Gross neurological examination did not reveal any focal deficits. SKIN: No rashes. no petechiae. Results CBC & Chem 7: 01/01/24 06:43 01/01/24 06:52 Labs: Abnormal Lab Results - Last 24 Hours (Table) 12/31/23 12/31/23 Range/Units 09:35 09:35 Hct 48.7 H (34.0-46.0) % Carbon Dioxide 33 H (22-30) mmol/L Glucose 229 H (74-99) mg/dL AST 37 H (14-36) U/L ALT 35 H (4-34) U/L Assessment and Plan Assessment: Acute colitis involving ascending transverse and proximal descending colon Hypertension Diabetes mellitus History of asthma, not an active issue History of rheumatoid arthritis Anxiety and depression, not active issue Plan: Start ceftriaxone and Flagyl Check for C. difficile, check for stool studies Surgery team consulted Bowel rest IV hydration normal saline 75 mL/h Pain management Labs and medication were reviewed.. Continue same treatment. Continue with symptomatic treatment. Resume home medication. Monitor labs and vitals. DVT and GI prophylaxis. Further recommendations as per clinical course of the loyd koehler DVT prophylaxis: Subcutaneous heparin GI Prophylaxis: Ppi Prognosis is guarded
--- NOTE | 2024-01-01 09:51 | P.PN ---
Subjective This is a pleasant 68 years old female who presents initially because of blood in the stool. She has history of multiple medical problems including hypertension. Patient states she came because of her abdominal problems, her last bowel movement was 4 days ago. Over the last 3 days she had also difficulty walking because of his abdominal symptoms. Over the longer the last 3 days also she had recurrent vomiting, mostly bile with no blood or coffee-ground. Patient states she cannot keep anything down and she spit it up. Patient states Although her last bowel movement was 4 days ago but she noticed some blood in the stool about 4 times yesterday she says is moderate amount however her hemoglobin is not low, but there is element of hemoconcentration as well She denies chest pain or dyspnea. No urinary complaints. No headache or dizziness She is non-smoker nonalcoholic. No illicit drugs Patient is afebrile and hemodynamically stable. Patient had low-grade temperature on admission 99.5 She had mildly elevated LFTs but other labs were unremarkable including CBC, BMP, lipase CT of the abdomen and pelvis showing circumferential wall thickening of ascending transverse and proximal EKG showing sinus rhythm at [address]-T changes 7624 01/01/2024 Patient still complaining from periumbilical abdominal pain but the rate going down from 9 down to 6 She vomited 3 times today mainly bile No bowel movement, no more blood in the stool Continue with normal saline She is on ceftriaxone and Flagyl Stool studies and C. difficile test are requested and pending, patient does not have bowel movement yet Review of systems CONSTITUTIONAL: No fever, no malaise, no fatigue. HEENT: No recent visual problems or hearing problems. Denied any sore throat. CARDIOVASCULAR: No orthopnea, PND, no palpitations, no syncope. PULMONARY: No shortness of breath, no cough, no hemoptysis. MUSCULOSKELETAL/RHEUMATOLOGICAL: Denies any joint pain, swelling, or any muscle pain. ENDOCRINE: Denies any polyuria or polydipsia. Active Medications Generic Name Dose Route Start Last Admin Trade Name Freq PRN Reason Stop Dose Admin Dextrose/Water 25 ml 12/31/23 14:59 Dextrose 50% Syringe 50 Ml IVP PER PROTOCOL PRN Hypoglycemia Protocol Dextrose/Water 50 ml 12/31/23 14:59 Dextrose 50% Syringe 50 Ml IVP PER PROTOCOL PRN Hypoglycemia Protocol Heparin Sodium (Porcine) 5,000 unit 12/31/23 21:00 01/01/24 08:49 Heparin Sodium,Porcine 5,000 Unit/Ml 1 Ml Vial SQ 5,000 unit Q12HR ETIENNE Administration Metronidazole 500 mg/ IV 100 mls @ 100 mls/hr 12/31/23 16:00 01/01/24 08:46 Solution IVPB 100 mls/hr Q8HR ETIENNE Administration Protocol Ceftriaxone Sodium 2 gm/ 50 mls @ 100 mls/hr 01/02/24 09:00 Sodium Chloride IVPB Q24HR ETIENNE Protocol Sodium Chloride 1,000 mls @ 999 mls/hr 01/01/24 09:42 Saline 0.9% IV 01/01/24 10:42 .Q1H1M ONE Insulin Aspart 0 unit 12/31/23 14:59 Insulin Aspart (Novolog) 100 Unit/Ml Vial SQ Q6HR PRN Blood Sugar - High Protocol Morphine Sulfate 2 mg 01/01/24 09:46 Morphine Sulfate 2 Mg/Ml Syringe IVP Q6HR PRN Pain/Discomfort Ofloxacin 1 drops 12/31/23 18:00 01/01/24 08:51 Ofloxacin 0.3% Ophth Drops 5 Ml Bottle BOTH EYES 1 drops QID ETIENNE Administration Pantoprazole Sodium 40 mg 12/31/23 15:00 01/01/24 08:47 Pantoprazole 40 Mg/10 Ml Vial IVP 40 mg DAILY ETIENNE Administration Prochlorperazine Maleate 10 mg 01/01/24 09:29 Prochlorperazine 10 Mg Tab PO Q6HR PRN Nausea And Vomiting Objective - Vital Signs Vital signs: Vital Signs Temp 98.7 F 01/01/24 07:01 Pulse 86 01/01/24 07:01 Resp 18 01/01/24 07:01 BP 127/75 01/01/24 07:01 Pulse Ox 91 L 01/01/24 07:01 FiO2 Intake & Output 12/31/23 01/01/24 01/01/24 18:59 06:59 18:59 Output Total 400 0 Balance -400 0 Weight 102.058 kg Output: Urine 400 Stool 0 Other: Voiding Method Toilet # Bowel Movements 0 # Emes[place] 1 - Exam -GENERAL: The patient is alert and oriented x3, not in any acute distress. Well developed, well nourished. Obese HEENT: Pupils are round and equally reacting to light. EOMI. No scleral icterus. No conjunctival pallor. Normocephalic, atraumatic. No pharyngeal erythema. No thyromegaly. CARDIOVASCULAR: S1 and S2 present. No murmurs, rubs, or gallops. PULMONARY: Chest is clear to auscultation, no wheezing , no crackles. -ABDOMEN: Soft, periumbilical tenderness r, nondistended, normoactive bowel so unds. No palpable organomegaly. MUSCULOSKELETAL: No joint swelling or deformity. EXTREMITIES: No cyanosis, clubbing, or pedal edema. NEUROLOGICAL: Gross neurological examination did not reveal any focal deficits. SKIN: No rashes. no petechiae. - Labs CBC & Chem 7: 01/01/24 06:43 01/01/24 06:52 Labs: Abnormal Lab Results - Last 24 Hours (Table) 12/31/23 12/31/23 12/31/23 Range/Units 09:35 09:35 17:23 Hct 48.7 H (34.0-46.0) % Plt Count (150-450) k/uL Carbon Dioxide 33 H (22-30) mmol/L Glucose 229 H (74-99) mg/dL POC Glucose (mg/dL) 149 H (70-110) mg/dL AST 37 H (14-36) U/L ALT 35 H (4-34) U/L 12/31/23 01/01/24 01/01/24 Range/Units 20:12 06:43 06:52 Hct (34.0-46.0) % Plt Count 142 L (150-450) k/uL Carbon Dioxide (22-30) mmol/L Glucose 174 H (74-99) mg/dL POC Glucose (mg/dL) 153 H (70-110) mg/dL AST (14-36) U/L ALT (4-34) U/L 01/01/24 Range/Units 06:59 Hct (34.0-46.0) % Plt Count (150-450) k/uL Carbon Dioxide (22-30) mmol/L Glucose (74-99) mg/dL POC Glucose (mg/dL) 170 H (70-110) mg/dL AST (14-36) U/L ALT (4-34) U/L Assessment and Plan Assessment: Acute colitis involving ascending transverse and proximal descending colon Hypertension Diabetes mellitus History of asthma, not an active issue History of rheumatoid arthritis Anxiety and depression, not active issue Plan: Start ceftriaxone and Flagyl Check for C. difficile, check for stool studies Surgery team consulted Bowel rest IV hydration normal saline 75 mL/h Pain management Labs and medication were reviewed.. Continue same treatment. Continue with symptomatic treatment. Resume home medication. Monitor labs and vitals. DVT and GI prophylaxis. Further recommendations as per clinical course of the patient DVT prophylaxis: Subcutaneous heparin GI Prophylaxis: Ppi Prognosis is guarded
[2024-01-01] MEDS: MORPHINE SULFATE 2 MG/ML SYRINGE IVP PRN (11:46)
[2024-01-01] MEDS: SODIUM CHLORIDE 0.9% 1,000 ML IV ONE (11:47)
[2024-01-01 12:31] LABS: Glucose,Whole Blood 154 mg/dL (70-110)
[2024-01-01] MEDS: INSULIN ASPART (NovoLOG) 100 UNIT/ML VIAL SQ PRN (12:41)
[2024-01-01 17:24] LABS: Glucose,Whole Blood 134 mg/dL (70-110)
--- NOTE | 2024-01-01 18:03 | P.PN ---
Progress Note - Text Progress Note Date: 01/01/24 CHIEF COMPLAINT: Abdominal Pain HISTORY OF PRESENT ILLNESS: Abdominal Pain somewhat improved. REVIEW OF ORGAN SYSTEMS: CONSTITUTIONAL: No fevers or chills. EYES: Denies any trouble with vision. No glasses. HEENT: No difficulties with hearing. No nosebleeds. No difficulty swallowing. RESPIRATORY: No difficulty Breathing CARDIOVASCULAR: Denies any chest pain, palpitations GASTROINTESTINAL: Distention, Abdominal Pain PHYSICAL EXAM: VITALS: Reviewed CONSTITUTIONAL: Well developed and in no acute distress. EYES: Conjuctivae without sclera icterus. Extraocular movements grossly intact. HEAD, EARS, NOSE, THROAT: Moist buccal mucosa. Head is atraumatic, normocephalic. Hears conversational speech. No nasal drainage. RESPIRATORY: Non-labored respirations and equal bilateral excursions. No gross wheezes. CARDIOVASCULAR: Palpable 2+ radial pulses. ABDOMEN: slightly distended, minimal TTP. MUSCULOSKELETAL: No clubbing cyanosis or edema SKIN: Warm and well perfused with good skin turgor. NEUROLOGIC: Cranial nerves II through XII grossly intact. No focal or lateralizing signs. PSYCH: Appropriate affect. Alert and oriented to person, place and time. Displays appropriate insight. ASSESSMENT: 1. Abdominal pain due to diverticulitis 2. Morbid obesity due to excess calories, BMI 36.3 3. Diabetes type 2 with hyperglycemia 4. Rheumatoid arthritis 5. Renal cysts 6. Liver cysts PLAN: 1. IV fluid hydration for intractable nausea and vomiting. 2. Rocephin/Flagyl 3. At this time, no need for acute repeat of endoscopy. 4. Clear Liquid Diet Started
[2024-01-01 20:44] LABS: Glucose,Whole Blood 114 mg/dL (70-110)
[2024-01-01 23:19] LABS: Erythrocyte Sedimentation Rate 1 mm/Hr (0-30)
[2024-01-02 07:11] LABS: Glucose,Whole Blood 146 mg/dL (70-110)
[2024-01-02 09:58] LABS: ALT 39 U/L (8-44); AST 36 U/L (13-35); Albumin/Globulin Ratio 2.35 Ratio (1.60-3.17); Alkaline Phosphatase 61 U/L (41-126); BUN/Creat Ratio 10.57 Ratio (12.00-20.00); Bilirubin, Conjugated <0.20 mg/dL (0.20-0.40); Bilirubin,Unconjugated >0.10 mg/dL (0.20-1.00); Blood Urea Nitrogen 7.4 mg/dL (9.0-27.0); Calcium 8.6 mg/dL (8.7-10.3); Carbon Dioxide 26.4 mmol/L (21.6-31.8); Chloride 105 mmol/L (96-109); Globulin 1.7 g/dL (1.6-3.3); Glucose 166 mg/dL (70-110); Sodium 146 mmol/L (135-145); Total Bilirubin 0.3 mg/dL (0.3-1.2); Total Protein 5.7 g/dL (6.2-8.2)
[2024-01-02 11:52] LABS: Glucose,Whole Blood 144 mg/dL (70-110)
--- NOTE | 2024-01-02 12:57 | P.PN ---
Subjective Progress Note Date: 01/02/24 CHIEF COMPLAINT: Abdominal pain HISTORY OF PRESENT ILLNESS: The patient is a 68 year old female admitted for colitis. Since admission, she is resting comfortably. No new complaints overnight. She is on a clear liquid diet. Patient is fast asleep at time of my assessment. REVIEW OF ORGAN SYSTEMS: CONSTITUTIONAL: No fevers or chills. No recent weight loss. Has morbid obesity, BMI 36.3 NEUROLOGICAL: Has chronic pain. MUSCULOSKELETAL: Reports back pain, stiffness or joint arthritis. Rheumatoid arthritis. ENDOCRINE: Denies current thyroid disorders. Has diabetes type 2. PHYSICAL EXAM: VITALS: Reviewed CONSTITUTIONAL: Well developed and in no acute distress. EYES: Conjuctivae without sclera icterus. Extraocular movements grossly intact. HEAD, EARS, NOSE, THROAT: Moist buccal mucosa. Head is atraumatic, normocephalic. Hears conversational speech. No nasal drainage. RESPIRATORY: Non-labored respirations and equal bilateral excursions. No gross wheezes. CARDIOVASCULAR: Palpable 2+ radial pulses. ABDOMEN: Obese no peritonitis. MUSCULOSKELETAL: No clubbing cyanosis or edema SKIN: Warm and well perfused with good skin turgor. NEUROLOGIC: Cranial nerves II through XII grossly intact. No focal or lateralizing signs. PSYCH: Appropriate affect. Alert and oriented to person, place and time. Displays appropriate insight. CLINCAL LABS: Reviewed. WBC normal. ASSESSMENT: 1. Abdominal pain due to diverticulitis 2. Morbid obesity due to excess calories, BMI 36.3 3. Diabetes type 2 with hyperglycemia 4. Rheumatoid arthritis 5. Renal cysts 6. Liver cysts PLAN: 1. Clinical symptoms consistent with diverticulitis. Continue antibiotic management. 2. May advance to low fiber diet. Objective - Vital Signs Vital signs: Vital Signs Temp 100.0 F H 01/02/24 07:05 Pulse 84 01/02/24 07:05 Resp 16 01/02/24 07:05 BP 147/77 01/02/24 07:05 Pulse Ox 93 L 01/02/24 07:05 FiO2 Intake & Output 01/01/24 01/02/24 01/02/24 18:59 06:59 18:59 Output Total 0 0 Balance 0 0 Output: Stool 0 0 Other: Voiding Method Toilet Toilet # Voids 3 2 - Labs CBC & Chem 7: 01/01/24 06:43 01/02/24 06:15 Labs: Abnormal Lab Results - Last 24 Hours (Table) 01/01/24 01/01/24 01/02/24 Range/Units 17:22 20:42 06:15 Sodium 146 H (135-145) mmol/L Potassium 3.0 L (3.5-5.5) mmol/L Anion Gap 14.60 H (4.00-12.00) mmol/L BUN 7.4 L (9.0-27.0) mg/dL BUN/Creatinine Ratio 10.57 L (12.00-20.00) Ratio Glucose 166 H (70-110) mg/dL POC Glucose (mg/dL) 134 H 114 H (70-110) mg/dL Calcium 8.6 L (8.7-10.3) mg/dL Unconjugated Bilirubin >0.10 L (0.20-1.00) mg/dL AST 36 H (13-35) U/L Total Protein 5.7 L (6.2-8.2) g/dL 01/02/24 01/02/24 Range/Units 07:09 11:40 Sodium (135-145) mmol/L Potassium (3.5-5.5) mmol/L Anion Gap (4.00-12.00) mmol/L BUN (9.0-27.0) mg/dL BUN/Creatinine Ratio (12.00-20.00) Ratio Glucose (70-110) mg/dL POC Glucose (mg/dL) 146 H 144 H (70-110) mg/dL Calcium (8.7-10.3) mg/dL Unconjugated Bilirubin (0.20-1.00) mg/dL AST (13-35) U/L Total Protein (6.2-8.2) g/dL
[2024-01-02 17:21] LABS: Glucose,Whole Blood 195 mg/dL (70-110)
[2024-01-02 20:06] LABS: Glucose,Whole Blood 183 mg/dL (70-110)
[2024-01-03] MEDS ORDERED: Potassium Replacement Protocol 1 EACH MISC MISCELLANE PRN ×2 (04:09→05:19)
[2024-01-03] MEDS ORDERED: Magnesium Replacement Protocol 1 EACH MISC MISCELLANE PRN (04:09)
--- NOTE | 2024-01-03 04:12 | P.PN ---
Subjective This is a pleasant 68 years old female who presents initially because of blood in the stool. She has history of multiple medical problems including hypertension. Patient states she came because of her abdominal problems, her last bowel movement was 4 days ago. Over the last 3 days she had also difficulty walking because of his abdominal symptoms. Over the longer the last 3 days also she had recurrent vomiting, mostly bile with no blood or coffee-ground. Patient states she cannot keep anything down and she spit it up. Patient states Although her last bowel movement was 4 days ago but she noticed some blood in the stool about 4 times yesterday she says is moderate amount however her hemoglobin is not low, but there is element of hemoconcentration as well She denies chest pain or dyspnea. No urinary complaints. No headache or dizziness She is non-smoker nonalcoholic. No illicit drugs Patient is afebrile and hemodynamically stable. Patient had low-grade temperature on admission 99.5 She had mildly elevated LFTs but other labs were unremarkable including CBC, BMP, lipase CT of the abdomen and pelvis showing circumferential wall thickening of ascending transverse and proximal EKG showing sinus rhythm at [address]-T changes 01/01/24 01/01/2024 Patient still complaining from periumbilical abdominal pain but the rate going down from 9 DOWN to 6 She vomited 3 times today mainly bile No bowel movement, no more blood in the stool Continue with normal saline She is on ceftriaxone and Flagyl Stool studies and C. difficile test are requested and pending, patient does not have bowel movement yet 01/02/24 Patient is clinically is improving No abdominal pain which is improving No bowel movement but no blood per rectum tolerates liquid diet C. difficile negative Replace electrolytes with close monitoring Objective - Vital Signs Vital signs: Vital Signs Temp 100.0 F H 01/02/24 07:05 Pulse 74 01/02/24 11:38 Resp 16 01/02/24 11:38 BP 160/75 01/02/24 11:38 Pulse Ox 93 L 01/02/24 07:05 FiO2 Intake & Output 01/01/24 01/02/24 01/02/24 18:59 06:59 18:59 Output Total 0 0 Balance 0 0 Output: Stool 0 0 Other: Voiding Method Toilet Toilet # Voids 3 2 1 # Bowel Movements 1 - Exam -GENERAL: The patient is alert and oriented x3, not in any acute distress. Well developed, well nourished. Obese HEENT: Pupils are round and equally reacting to light. EOMI. No scleral icterus. No conjunctival pallor. Normocephalic, atraumatic. No pharyngeal erythema. No thyromegaly. CARDIOVASCULAR: S1 and S2 present. No murmurs, rubs, or gallops. PULMONARY: Chest is clear to auscultation, no wheezing , no crackles. -ABDOMEN: Soft, periumbilical tenderness r, nondistended, normoactive bowel sounds. No palpable organomegaly. MUSCULOSKELETAL: No joint swelling or deformity. EXTREMITIES: No cyanosis, clubbing, or pedal edema. NEUROLOGICAL: Gross neurological examination did not reveal any focal deficits. SKIN: No rashes. no petechiae. - Labs CBC & Chem 7: 01/01/24 06:43 01/02/24 06:15 Labs: Abnormal Lab Results - Last 24 Hours (Table) 01/01/24 01/01/24 01/02/24 Range/Units 17:22 20:42 06:15 Sodium 146 H (135-145) mmol/L Potassium 3.0 L (3.5-5.5) mmol/L Anion Gap 14.60 H (4.00-12.00) mmol/L BUN 7.4 L (9.0-27.0) mg/dL BUN/Creatinine Ratio 10.57 L (12.00-20.00) Ratio Glucose 166 H (70-110) mg/dL POC Glucose (mg/dL) 134 H 114 H (70-110) mg/dL Calcium 8.6 L (8.7-10.3) mg/dL Unconjugated Bilirubin >0.10 L (0.20-1.00) mg/dL AST 36 H (13-35) U/L Total Protein 5.7 L (6.2-8.2) g/dL 01/02/24 01/02/24 Range/Units 07:09 11:40 Sodium (135-145) mmol/L Potassium (3.5-5.5) mmol/L Anion Gap (4.00-12.00) mmol/L BUN (9.0-27.0) mg/dL BUN/Creatinine Ratio (12.00-20.00) Ratio Glucose (70-110) mg/dL POC Glucose (mg/dL) 146 H 144 H (70-110) mg/dL Calcium (8.7-10.3) mg/dL Unconjugated Bilirubin (0.20-1.00) mg/dL AST (13-35) U/L Total Protein (6.2-8.2) g/dL Assessment and Plan Assessment: Acute colitis involving ascending transverse and proximal descending colon Hypertension Diabetes mellitus History of asthma, not an active issue History of rheumatoid arthritis Anxiety and depression, not active issue Plan: Start ceftriaxone and Flagyl Check for C. difficile negative check for stool studies Surgery team consulted Advance diet per surgery team IV hydration normal saline 75 mL/h Pain management Labs and medication were reviewed.. Continue same treatment. Continue with symptomatic treatment. Resume home medication. Monitor labs and vitals. DVT and GI prophylaxis. Further recommendations as per clinical course of the patient DVT prophylaxis: Subcutaneous heparin GI Prophylaxis: Ppi Prognosis is guarded
[2024-01-03 05:17] LABS: African American GFR (CKD) >90 (>60 ml/min/1.73 sqM); Anion Gap 6 mmol/L; Blood Urea Nitrogen 5 mg/dL (7-17); Calcium 8.9 mg/dL (8.4-10.2); Carbon Dioxide 29 mmol/L (22-30); Chloride 103 mmol/L (98-107); Glucose 161 mg/dL (74-99); Non-African American GFR(CKD) >90 (>60 ml/min/1.73 sqM); Sodium 138 mmol/L (137-145)
[2024-01-03] MEDS: POTASSIUM CHLORIDE ER 20 MEQ TAB.ER PO SCH ×2 (05:27→09:52)
[2024-01-03 07:09] LABS: Glucose,Whole Blood 179 mg/dL (70-110)
[2024-01-03 08:46] LABS: Basophils # (A) 0.04 X 10*3/uL (0.00-0.10); Eosinophils # (A) 0.26 X 10*3/uL (0.04-0.35); Eosinophils % (A) 6.2 %; HCT 40.4 % (37.2-46.3); HGB 13.8 g/dL (12.0-15.0); Lymphocytes # (A) 1.66 X 10*3/uL (0.90-5.00); Lymphocytes % (A) 39.7 %; MCH 30.3 pg (27.0-32.0); MCHC 34.2 g/dL (32.0-37.0); MCV 88.6 FL (80.0-97.0); Mean Platelet Volume 11.9 FL (9.5-12.2); Monocytes # (A) 0.44 X 10*3/uL (0.20-1.00); Monocytes % (A) 10.5 %; NRBC Per 100 WBC 0 X 10*3/uL (0.00-0.01); Neutrophils # (A) 1.76 X 10*3/uL (1.80-7.70); Neutrophils % (A) 42.1 %; Platelet Count 124 X 10*3/uL (140-440); RBC 4.56 X 10*6/uL (4.10-5.20); WBC 4.18 X 10*3/uL (4.50-10.00)
[2024-01-03] MEDS: MAGNESIUM SULFATE-D5W PMX 1 GM in DEXTROSE/WATER 1 100ML.BAG IVPB SCH ×2 (10:36→12:42)
[2024-01-03 12:32] LABS: Glucose,Whole Blood 231 mg/dL (70-110)
[2024-01-03] MEDS: LORATADINE 10 MG TAB PO SCH (13:11)
[2024-01-03] MEDS: HYDROcodone/APAP 10-325MG 1 EACH TAB PO SCH (13:11)
[2024-01-03] MEDS: DULoxetine HCL 30 MG CAPSULE.DR PO SCH (13:34)
[2024-01-03] MEDS: FERROUS SULFATE 325 MG TAB PO SCH (13:34)
[2024-01-03] MEDS: amLODIPine 10 MG TAB PO SCH (13:34)
[2024-01-03] MEDS: ARTIFICIAL TEARS-HYPROMELLOSE DROPS 15 ML BTL BOTH EYES SCH (13:34)
[2024-01-03] MEDS: OXYBUTYNIN XL 5 MG TAB.ER.24 PO SCH (13:34)
[2024-01-03] MEDS: KETOROLAC 0.5% OPHTH DROPS 5 ML BTL BOTH EYES SCH (13:35)
[2024-01-03] MEDS: prednisoLONE ACETATE 1% OPHTH DROPS 5 ML BTL BOTH EYES SCH (13:36)
[2024-01-03] MEDS: GABAPENTIN 300 MG CAP PO SCH (15:54)
--- NOTE | 2024-01-03 16:50 | P.PN ---
Subjective Progress Note Date: 01/03/24 CHIEF COMPLAINT: Abdominal pain HISTORY OF PRESENT ILLNESS: The patient is a 68 year old female admitted for colitis. Her abdominal pain has improved however she continues to have multiple watery bowel movements. Patient reports she is not able to tolerate anything by mouth. She reports nausea with regular diet. REVIEW OF ORGAN SYSTEMS: CONSTITUTIONAL: No fevers or chills. No recent weight loss. Has morbid obesity, BMI 36.3 NEUROLOGICAL: Has chronic pain. MUSCULOSKELETAL: Reports back pain, stiffness or joint arthritis. Rheumatoid arthritis. ENDOCRINE: Denies current thyroid disorders. Has diabetes type 2. PHYSICAL EXAM: VITALS: Reviewed CONSTITUTIONAL: Well developed and in no acute distress. EYES: Conjuctivae without sclera icterus. Extraocular movements grossly intact. HEAD, EARS, NOSE, THROAT: Moist buccal mucosa. Head is atraumatic, normocephalic. Hears conversational speech. No nasal drainage. RESPIRATORY: Non-labored respirations and equal bilateral excursions. No gross wheezes. CARDIOVASCULAR: Palpable 2+ radial pulses. ABDOMEN: Obese. No diffuse peritonitis. MUSCULOSKELETAL: No clubbing cyanosis or edema SKIN: Warm and well perfused with good skin turgor. NEUROLOGIC: Cranial nerves II through XII grossly intact. No focal or lateralizing signs. PSYCH: Appropriate affect. Alert and oriented to person, place and time. Displays appropriate insight. CLINCAL LABS: Reviewed. WBC normal. C. difficile is negative. ASSESSMENT: 1. Abdominal pain due to diverticulitis 2. Morbid obesity due to excess calories, BMI 36.3 3. Diabetes type 2 with hyperglycemia 4. Rheumatoid arthritis 5. Renal cysts 6. Liver cysts 7. Chronic diarrhea PLAN: 1. As she reports limited desire for hospital food, patient encouraged to have outside food with the exception of seeds or nuts. She does confirm eating almonds prior to her abdominal pain. 2. Hold discharge until discharge has improved. 3. May add Lomotil for symptoms as she C. difficile negative Objective - Vital Signs Vital signs: Vital Signs Temp 98.1 F 01/03/24 13:13 Pulse 66 01/03/24 13:13 Resp 18 01/03/24 13:13 BP 147/81 01/03/24 13:13 Pulse Ox 96 01/03/24 13:13 FiO2 Intake & Output 01/02/24 01/03/24 01/03/24 18:59 06:59 18:59 Intake Total 360 Balance 360 Intake: Oral 360 Other: Voiding Method Toilet Toilet # Voids 2 1 # Bowel Movements 1 1 - Labs CBC & Chem 7: 01/03/24 04:31 01/03/24 15:02 Labs: Abnormal Lab Results - Last 24 Hours (Table) 01/02/24 01/02/24 01/02/24 Range/Units 17:07 20:00 20:05 WBC (4.50-10.00) X 10*3/uL Plt Count (140-440) X 10*3/uL Neutrophils # (1.80-7.70) X 10*3/uL Potassium (3.5-5.1) mmol/L BUN (7-17) mg/dL Creatinine (0.52-1.04) mg/dL Glucose (74-99) mg/dL POC Glucose (mg/dL) 195 H 183 H (70-110) mg/dL Stool Lactoferrin Positive A (Negative) 01/03/24 01/03/24 01/03/24 Range/Units 04:31 04:31 07:00 WBC 4.18 L (4.50-10.00) X 10*3/uL Plt Count 124 L (140-440) X 10*3/uL Neutrophils # 1.76 L (1.80-7.70) X 10*3/uL Potassium 3.0 L (3.5-5.1) mmol/L BUN 5 L (7-17) mg/dL Creatinine 0.43 L (0.52-1.04) mg/dL Glucose 161 H (74-99) mg/dL POC Glucose (mg/dL) 179 H (70-110) mg/dL Stool Lactoferrin (Negative) 01/03/24 01/03/24 Range/Units 07:35 12:29 WBC (4.50-10.00) X 10*3/uL Plt Count (140-440) X 10*3/uL Neutrophils # (1.80-7.70) X 10*3/uL Potassium 3.3 L (3.5-5.1) mmol/L BUN (7-17) mg/dL Creatinine (0.52-1.04) mg/dL Glucose (74-99) mg/dL POC Glucose (mg/dL) 231 H (70-110) mg/dL Stool Lactoferrin (Negative)
[2024-01-03 17:05] LABS: Glucose,Whole Blood 219 mg/dL (70-110)
[2024-01-03] MEDS: GLIMEPIRIDE 4 MG TAB PO SCH (17:35)
--- NOTE | 2024-01-03 17:57 | P.DS ---
Providers Date of admission: 01/02/24 06:31 Expected date of discharge: 01/03/24 Attending physician: Edward Love MD Consults: 12/31/23 14:57 Consult Physician Urgent Consulting Provider: Sudha Ramirez Consult Reason/Comments: colitits Do you want consulting provider notified?: Yes Primary care physician: Edward Love MD Hospital Course: Final Diagnosis: Acute diverticulitis Hypertension Diabetes mellitus type II, A1c 8 Chronic asthma, stable History of rheumatoid arthritis Anxiety,depression Morbid obesity, BMI 36 Hospital course: This is a 68-year-old female admitted with abdominal pain, diarrhea and multiple other medical issues. Evaluated by general surgery. Maintained on ceftriaxone and Flagyl. Watery, nonbloody diarrhea through the night, none this morning. Tolerating low fiber diet. denies nausea, vomiting. Denies abdominal pain. Denies chills or sweats. Tested negative for C. difficile and positive A for stool lactoferrin. afebrile, normal WBC. Hemoglobin 13.8, platelets 124 .sodium 138 .potassium supplemented yesterday currently 3.9 , magnesium 2.1.renal function stable .blood sugars 160s to 170s . denies chest pain, palpitations or shortness of breath. Maintaining O2 sats in the high 90s on room air. Significant clinical improvement. Patient will be discharged home later this afternoon pending continued improvement, final DC recommendations and clearance for discharge as per general surgery. The impression and plan of care has been dictated as directed. : I performed a history and examination of this patient, discussed the same with the dictator. I agree with the dictator's note ,documented as a scribe. Any additional findings or plans will be noted. Patient Condition at Discharge: Stable Plan - Discharge Summary New Discharge Prescriptions: New Ciprofloxacin HCl [Cipro] 500 mg PO BID 7 Days #14 tab metroNIDAZOLE [Flagyl] 500 mg PO TID 7 Days #21 tab No Action Magnesium Oxide [Magox 400] 400 mg PO HS Montelukast [Singulair] 10 mg PO HS Ferrous Sulfate [Iron (65 MG Elemental)] 325 mg PO DAILY amLODIPine [Norvasc] 10 mg PO DAILY Gabapentin 600 mg PO TID Ofloxacin 0.3% Ophth Soln [Ocuflox Ophth Soln] 1 drop BOTH EYES QID prednisoLONE ACETATE 1% OPHTH [Pred Forte 1%] 1 drop BOTH EYES QID Carboxymethylcellulose Sodium [Refresh Tears] 1 drop BOTH EYES BID Loratadine 10 mg PO DAILY Ondansetron Odt [Zofran Odt] 4 mg PO Q8HR PRN PRN Reason: Nausea Ergocalciferol (Vitamin D2) [Drisdol (50,000 Iu)] 1,250 mcg PO DIA Furosemide [Lasix] 40 mg PO DAILY Glimepiride [Amaryl] 4 mg PO PC-BID DULoxetine HCL [Cymbalta] 30 mg PO DAILY Albuterol Inhaler [Ventolin Hfa Inhaler] 2 puff INHALATION RT-Q4H PRN PRN Reason: Shortness Of Breath HYDROcodone/APAP 10-325MG [Dumas 10-325] 1 tab PO TID Ketorolac 0.5% Ophth Soln [Acular 0.5%] 1 drop BOTH EYES QID Promethazine 6.25MG/5Ml [Phenergan Syrup] 6.25 mg PO Q6H PRN PRN Reason: Cough Tolterodine ER [Detrol LA] 2 mg PO DAILY Atorvastatin [Lipitor] 10 mg PO HS Ondansetron [Zofran] 4 mg PO Q8HR PRN PRN Reason: Nausea Discharge Medication List Ferrous Sulfate [Iron (65 MG Elemental)] 325 mg PO DAILY 03/22/19 [History] Magnesium Oxide [Magox 400] 400 mg PO HS 03/22/19 [History] Montelukast [Singulair] 10 mg PO HS 03/22/19 [History] Ergocalciferol (Vitamin D2) [Drisdol (50,000 Iu)] 1,250 mcg PO DIA 10/24/22 [History] Furosemide [Lasix] 40 mg PO DAILY 10/24/22 [History] DULoxetine HCL [Cymbalta] 30 mg PO DAILY 06/11/23 [History] Glimepiride [Amaryl] 4 mg PO PC-BID 06/11/23 [History] Albuterol Inhaler [Ventolin Hfa Inhaler] 2 puff INHALATION RT-Q4H PRN 11/02/23 [History] Carboxymethylcellulose Sodium [Refresh Tears] 1 drop BOTH EYES BID 11/02/23 [History] Gabapentin 600 mg PO TID 11/02/23 [History] HYDROcodone/APAP 10-325MG [Dumas 10-325] 1 tab PO TID 11/02/23 [History] Ketorolac 0.5% Ophth Soln [Acular 0.5%] 1 drop BOTH EYES QID 11/02/23 [History] Ofloxacin 0.3% Ophth Soln [Ocuflox Ophth Soln] 1 drop BOTH EYES QID 11/02/23 [History] Promethazine 6.25MG/5Ml [Phenergan Syrup] 6.25 mg PO Q6H PRN 11/02/23 [History] Tolterodine ER [Detrol LA] 2 mg PO DAILY 11/02/23 [History] amLODIPine [Norvasc] 10 mg PO DAILY 11/02/23 [History] prednisoLONE ACETATE 1% OPHTH [Pred Forte 1%] 1 drop BOTH EYES QID 11/02/23 [History] Atorvastatin [Lipitor] 10 mg PO HS 12/31/23 [History] Loratadine 10 mg PO DAILY 12/31/23 [History] Ondansetron Odt [Zofran Odt] 4 mg PO Q8HR PRN 12/31/23 [History] Ondansetron [Zofran] 4 mg PO Q8HR PRN 12/31/23 [History] Ciprofloxacin HCl [Cipro] 500 mg PO BID 7 Days #14 tab 01/03/24 [Rx] metroNIDAZOLE [Flagyl] 500 mg PO TID 7 Days #21 tab 01/03/24 [Rx] Follow up Appointment(s)/Referral(s): Edward Love MD [Primary Care Provider] - 3 Days (The office is closed for l unch please call and make follow up appointment.) Sudha Ramirez MD [STAFF PHYSICIAN] - 01/11/24 4:00 pm Patient Instructions/Handouts: Ciprofloxacin (By mouth), Metronidazole (By mouth), Low Fiber Diet (DC), Colitis (ED) Activity/Diet/Wound Care/Special Instructions: low fiber diet
[2024-01-03 20:11] LABS: Glucose,Whole Blood 206 mg/dL (70-110)
[2024-01-03] MEDS: MAGNESIUM OXIDE 400 MG TAB PO SCH (20:52)
[2024-01-03] MEDS: ATORVASTATIN 10 MG TAB PO SCH (20:52)
[2024-01-03] MEDS: MONTELUKAST 10 MG TAB PO SCH (20:52)
[2024-01-04 07:12] LABS: Glucose,Whole Blood 164 mg/dL (70-110)
[2024-01-04] MEDS ORDERED: DIPHENOX-ATROP 2.5-0.025 MG 1 EACH TAB PO PRN (08:43)
[2024-01-04 12:24] LABS: Glucose,Whole Blood 210 mg/dL (70-110)
[2024-01-04] MEDS: MAGNESIUM SULFATE-D5W PMX 1 GM in DEXTROSE/WATER 1 100ML.BAG IVPB ONE (12:58)
[2024-01-04] MEDS: LACTOBACILLUS ACIDOPHILUS/PECT 1 EACH CAPSULE PO SCH (15:21)
[2024-01-04] MEDS: POTASSIUM CHLORIDE ER 20 MEQ TAB.ER PO SCH (15:21)
[2024-01-04 17:15] LABS: Glucose,Whole Blood 161 mg/dL (70-110)
[2024-01-04 20:15] LABS: Glucose,Whole Blood 208 mg/dL (70-110)
[2024-01-05 06:00] LABS: Glucose,Whole Blood 119 mg/dL (70-110)
[2024-01-05] MEDS: MAGNESIUM SULFATE-D5W PMX 1 GM in DEXTROSE/WATER 1 100ML.BAG IVPB ONE (11:59)
[2024-01-05 12:02] LABS: Glucose,Whole Blood 229 mg/dL (70-110)
--- NOTE | 2024-01-05 12:46 | P.PN ---
Subjective Progress Note Date: 01/05/24 CHIEF COMPLAINT: Abdominal pain HISTORY OF PRESENT ILLNESS: The patient is a 68 year old female admitted for colitis. She still reports abdominal pain. She still reports moderate diarrhea. Despite antibiotics, symptoms are still persistent. REVIEW OF ORGAN SYSTEMS: CONSTITUTIONAL: No fevers or chills. No recent weight loss. Has morbid obesity, BMI 36.3 NEUROLOGICAL: Has chronic pain. MUSCULOSKELETAL: Reports back pain, stiffness or joint arthritis. Rheumatoid arthritis. ENDOCRINE: Denies current thyroid disorders. Has diabetes type 2. PHYSICAL EXAM: VITALS: Reviewed CONSTITUTIONAL: Well developed and in no acute distress. EYES: Conjuctivae without sclera icterus. Extraocular movements grossly intact. HEAD, EARS, NOSE, THROAT: Moist buccal mucosa. Head is atraumatic, normocephal ic. Hears conversational speech. No nasal drainage. RESPIRATORY: Non-labored respirations and equal bilateral excursions. No gross wheezes. CARDIOVASCULAR: Palpable 2+ radial pulses. ABDOMEN: Obese. Generalized tenderness. MUSCULOSKELETAL: No clubbing cyanosis or edema SKIN: Warm and well perfused with good skin turgor. NEUROLOGIC: Cranial nerves II through XII grossly intact. No focal or lateralizing signs. PSYCH: Appropriate affect. Alert and oriented to person, place and time. Dis plays appropriate insight. CLINCAL LABS: Reviewed. MICRO: Stool cultures consistent with yeast. ASSESSMENT: 1. Abdominal pain due to colitis 2. Morbid obesity due to excess calories, BMI 36.3 3. Diabetes type 2 with hyperglycemia 4. Rheumatoid arthritis 5. Renal cysts 6. Liver cysts 7. Chronic diarrhea PLAN: 1. Her symptoms has not resolved despite treating her for antibiotics and diverticulitis. She may have collagenous colitis which colonoscopy and tissue biopsies are needed. 2. As patient has severe diarrhea despite antibiotic treatment and C. difficile negative, will proceed with colonoscopy with biopsies. 3. Shared decision making performed regarding care plan for which she wanted to proceed with colonoscopy and biopsies. 4. Continue inpatient hospitalization due to persistent symptoms Objective - Vital Signs Vital signs: Vital Signs Temp 98.5 F 01/05/24 11:57 Pulse 83 01/05/24 11:57 Resp 16 01/05/24 11:57 BP 116/73 01/05/24 11:57 Pulse Ox 96 01/05/24 11:57 FiO2 Intake & Output 01/04/24 01/05/24 01/05/24 18:59 06:59 18:59 Intake Total 1370 Output Total 0 Balance 1370 0 Intake: Intake, IV Titration 350 Amount Magnesium Sulfate-D5w Pmx 100 1 gm In Dextrose/Water 1 100ml.bag @ 100 mls/hr IVPB ONCE ONE Rx#: [id number] cefTRIAXone 2 gm In 50 Sodium Chloride 0.9% 50 ml @ 100 mls/hr IVPB Q24HR [facility] Rx#:[id number] metroNIDAZOLE-NS PMX 500 200 mg In Saline 1 100ml.bag @ 100 mls/hr IVPB Q8HR [facility] Rx#:[id number] Oral 1020 Output: Stool 0 Other: Voiding Method Toilet # Voids 2 0 # Bowel Movements 0 - Labs CBC & Chem 7: 01/03/24 04:31 01/04/24 07:41 Labs: Abnormal Lab Results - Last 24 Hours (Table) 01/02/24 01/04/24 01/04/24 Range/Units 20:00 17:13 20:10 POC Glucose (mg/dL) 161 H 208 H (70-110) mg/dL Stool Calprotectin 432.0 H (<50) mcg/g 01/05/24 01/05/24 Range/Units 06:00 12:01 POC Glucose (mg/dL) 119 H 229 H (70-110) mg/dL Stool Calprotectin (<50) mcg/g Microbiology - Last 24 Hours (Table) 01/02/24 20:00 Stool Culture - Preliminary Stool Jazzmine albicans
[2024-01-05] MEDS: ACETAMINOPHEN IV (For NPO) 1,000 MG in EMPTY BAG 1 BAG IVPB STA (13:25)
[2024-01-05 13:46] LABS: Magnesium 2.4 mg/dL (1.6-2.3)
[2024-01-05 13:52] LABS: Potassium 3.8 mmol/L (3.5-5.1)
--- NOTE | 2024-01-05 15:23 | P.CONS ---
History of Present Illness - Reason for Consult Consult date: 01/05/24 Possible collagenous colitis Requesting physician: Jaki Herrera - Chief Complaint Abdominal pain and diarrhea - History of Present Illness This is a pleasant 68-year-old -[place] female who was admitted to the hospital on 12/31/2023 when she presented to the emergency department for complaints of abdominal pain, nausea vomiting and diarrhea that started 2 days prior to coming to the emergency department. Patient has a history of similar symptoms in the past and was hospitalized back in May for about 11 days. States she was told she had colitis. She had a EGD and colonoscopy at that time with Dr. Brumfield done in May 2023 EGD reported gastritis and colonoscopy diverticulosis and colon polyp status post polypectomy. She was started on Rocephin and Flagyl on admission. Prior to admission she was having multiple bowel movementswith blood for 3 days. Diarrhea has been associated with some lower abdominal pain more so on the left lower quadrant. States diarrhea has improved. She had 1 loose bowel movement today with no bleeding. She has not had any bleeding since coming into the hospital. She had C. difficile stool testing which was negative, stool lactoferrin was positive and stool calprotectin 432. She remains on IV antibiotics. States she still have some lower abdominal pain. She has been eating a regular diet with no nausea or vomiting. She has been afebrile. Review of Systems REVIEW OF SYSTEMS: CARDIOPULMONARY: No chest pain or shortness of breath. Gastrointestinal: Lower abdominal pain, improved. No nausea or vomiting. No hematemesis, coffee-ground emesis. No rectal bleeding, or melena. Loose stools, improving. GENITOURINARY: No dysuria or hematuria. MUSCULOSKELETAL: Reports normal range of motion. SKIN: No rashes. No jaundice. ENDOCRINE: No chills, fevers. No excessive weight gain or loss. No polydipsia or polyuria. PSYCHIATRIC: Unremarkable. NEUROLOGY: No change in mental status. Denies dizziness, headache. ENT: Vision unremarkable. CONSTITUTIONAL: No recent weight loss. No fever, chills, night sweats. Past Medical History Past Medical History: Asthma, Diabetes Mellitus, Hypertension, Rheumatoid Arthritis (RA) Additional Past Medical History / Comment(s): COVID Mar 2022, increasing falls History of Any Multi-Drug Resistant Organisms: None Reported Past Surgical History: Section, Joint Replacement, Orthopedic Surgery Additional Past Surgical History / Comment(s): carpel tunnel, bilat knee rep lacement Past Anesthesia/Blood Transfusion Reactions: No Reported Reaction Additional Past Anesthesia/Blood Transfusion Reaction / Comm: slow to wake up Past Psychological History: Anxiety, Depression Smoking Status: Never smoker Past Alcohol Use History: None Reported Past Drug Use History: None Reported - Past Family History Mother Family Medical History: CVA/TIA, Dementia Medications and Allergies Home Medications Medication Instructions Recorded Confirmed Type Ferrous Sulfate [Iron (65 MG 325 mg PO DAILY 03/22/19 12/31/23 History Elemental)] Magnesium Oxide [Magox 400] 400 mg PO HS 03/22/19 12/31/23 History Montelukast [Singulair] 10 mg PO HS 03/22/19 12/31/23 History Ergocalciferol (Vitamin D2) 1,250 mcg PO DIA 10/24/22 12/31/23 History [Drisdol (50,000 Iu)] DULoxetine HCL [Cymbalta] 30 mg PO DAILY 06/11/23 12/31/23 History Glimepiride [Amaryl] 4 mg PO PC-BID 06/11/23 12/31/23 History Albuterol Inhaler [Ventolin Hfa 2 puff INHALATION RT-Q4H PRN 11/02/23 12/31/23 History Inhaler] Carboxymethylcellulose Sodium 1 drop BOTH EYES BID 11/02/23 12/31/23 History [Refresh Tears] Gabapentin 600 mg PO TID 11/02/23 12/31/23 History HYDROcodone/APAP 10-325MG [Sperry 1 tab PO TID 11/02/23 12/31/23 History 10-325] Ketorolac 0.5% Ophth Soln [Acular 1 drop BOTH EYES QID 11/02/23 12/31/23 History 0.5%] Ofloxacin 0.3% Ophth Soln [Ocuflox 1 drop BOTH EYES QID 11/02/23 12/31/23 History Ophth Soln] Promethazine 6.25MG/5Ml [Phenergan 6.25 mg PO Q6H PRN 11/02/23 12/31/23 History Syrup] Tolterodine ER [Detrol LA] 2 mg PO DAILY 11/02/23 12/31/23 History amLODIPine [Norvasc] 10 mg PO DAILY 11/02/23 12/31/23 History prednisoLONE ACETATE 1% OPHTH 1 drop BOTH EYES QID 11/02/23 12/31/23 History [Pred Forte 1%] Atorvastatin [Lipitor] 10 mg PO HS 12/31/23 12/31/23 History Loratadine 10 mg PO DAILY 12/31/23 12/31/23 History Ondansetron Odt [Zofran ODT] 4 mg PO Q8HR PRN 12/31/23 12/31/23 History Ciprofloxacin HCl [Cipro] 500 mg PO BID 7 Days #14 tab 01/03/24 Rx metroNIDAZOLE [Flagyl] 500 mg PO TID 7 Days #21 tab 01/03/24 Rx Furosemide [Lasix] 40 mg PO DAILY #0 01/04/24 12/31/23 Rx Lactobacillus Acidophilus 1 each PO BID #60 capsule 01/04/24 Rx [Acidophilus Probiotic] Allergies Allergy/AdvReac Type Severity Reaction Status Date / Time Penicillins Allergy Rash/Hives/ Verified 12/31/23 12:32 Itching Physical Exam Vitals: Vital Signs Temp Pulse Resp BP BP Pulse Ox 01/05/24 11:57 98.5 F 83 16 116/73 96 01/05/24 07:27 99.1 F 98 16 128/79 97 01/05/24 02:00 98.5 F 76 16 108/69 98 01/04/24 20:00 97.9 F 87 16 142/83 95 Intake and Output 01/04/24 01/05/24 01/05/24 22:59 06:59 14:59 Intake Total 1250 Output Total 0 Balance 1250 Intake: Intake, IV Titration 350 Amount Magnesium Sulfate-D5w Pmx 100 1 gm In Dextrose/Water 1 100ml.bag @ 100 mls/hr IVPB ONCE ONE Rx#: [id number] cefTRIAXone 2 gm In 50 Sodium Chloride 0.9% 50 ml @ 100 mls/hr IVPB Q24HR [facility] Rx#:[id number] metroNIDAZOLE-NS PMX 500 200 mg In Saline 1 100ml.bag @ 100 mls/hr IVPB Q8HR [facility] Rx#:[id number] Oral 900 Output: Stool 0 Other: Voiding Method Toilet Toilet # Voids 2 0 # Bowel Movements 0 General appearance: The patient is alert, oriented, appears in no acute distress. HET: Head is normocephalic and atraumatic. Conjunctiva pink. Sclera anicteric. Neck: Supple without lymphadenopathy. Trachea midline. Heart: Regular. Lungs: Equal expansion, normal respiratory effort. Abdomen: Soft, morbidly obese, left lower quadrant tenderness, nondistended. Skin: No rashes. No jaundice. Extremities: Normal skin color and turgor. No pedal edema. Neurological: No focal deficits. Alert and oriented x3. Results CBC & Chem 7: 01/03/24 04:31 01/05/24 13:05 Labs: Abnormal Lab Results - Last 24 Hours (Table) 01/04/24 01/04/24 01/05/24 Range/Units 17:13 20:10 06:00 POC Glucose (mg/dL) 161 H 208 H 119 H (70-110) mg/dL Magnesium (1.6-2.3) mg/dL 01/05/24 01/05/24 Range/Units 12:01 13:05 POC Glucose (mg/dL) 229 H (70-110) mg/dL Magnesium 2.4 H (1.6-2.3) mg/dL Microbiology - Last 24 Hours (Table) 01/02/24 20:00 Stool Culture - Preliminary Stool Jazzmine albicans Comments: CT abdomen pelvis with contrast Reports circumferential wall thickening of the colon compatible with colitis involving the ascending colon to the descending colon, new from 11/02/2023 Assessment and Plan (1) Abdominal pain Narrative/Plan: 68-year-old female admitted with abdominal pain nausea vomiting and diarrhea with hematochezia. Patient continues to have some lower abdominal pain diarrhea has improved significantly with only 1 episode of loose stool today. No further bleeding. CT abdomen pelvis with circumferential wall thickening of colon involving ascending colon and descending colon, possibly secondary to infectious versus inflammatory or ischemic. Patient had no leukocytosis on admission and hip was afebrile. She was started on IV antibiotics and has remained on them. Residual diarrhea could also be secondary from IV antibiotics. C. difficile stool studies negative, stool culture positive for Jazzmine albicans. Continue with current management, patient had recent colonoscopy 6 months ago, would not recommend repeat colonoscopy. Current Visit: No Status: Acute Code(s): R10.9 - UNSPECIFIED ABDOMINAL PAIN SNOMED Code(s): 25275355 (2) Diarrhea Current Visit: No Status: Acute Code(s): R19.7 - DIARRHEA, UNSPECIFIED SNOMED Code(s): 12098659 Plan: 1. Continue symptomatic and supportive care 2. Recommend low fiber diet 3. Stool studies reviewed 4. Continue with Lomotil as needed 5. Continue probiotics 6. No plans on colonoscopy patient had colonoscopy about 7 months ago 7. Patient's symptoms continue to improve. No further workup indicated by gastroenterology. Thank you for this consultation, we will continue to follow. Dr. Sven Ndiaye I agree with the dictator's note, documented as a scribe by Mariluz Bobo.
[2024-01-05 17:08] LABS: Glucose,Whole Blood 142 mg/dL (70-110)
[2024-01-05 20:24] LABS: Glucose,Whole Blood 180 mg/dL (70-110)
[2024-01-06 07:14] LABS: Glucose,Whole Blood 128 mg/dL (70-110)
--- NOTE | 2024-01-06 10:47 | P.PN ---
Subjective Progress Note Date: 01/06/24 Principal diagnosis: Abdominal pain, diarrhea This is a pleasant 68-year-old -[place] female who was admitted to the hospital on 12/31/2023 when she presented to the emergency department for complaints of abdominal pain, nausea vomiting and diarrhea that started 2 days prior to coming to the emergency department. Patient has a history of similar symptoms in the past and was hospitalized back in May [facility] for about 11 days. States she was told she had colitis. She had a EGD and colonoscopy at that time with Dr. Brumfield done in May 2023 EGD reported gastritis and colonoscopy diverticulosis and colon polyp status post polypectomy. She was started on Rocephin and Flagyl on admission. Prior to admission she was having multiple bowel movementswith blood for 3 days. Diarrhea has been associated with some lower abdominal pain more so on the left lower quadrant. States diarrhea has improved. She had 1 loose bowel movement today with no bleeding. She has not had any bleeding since coming into the hospital. She had C. difficile stool testing which was negative, stool lactoferrin was positive and stool calprotectin 432. She remains on IV antibiotics. States she still have some lower abdominal pain. She has been eating a regular diet with no nausea or vomiting. She has been afebrile. 01/06/2024 Patient seen and examined sitting up at the bedside. States abdominal pain is improving. He has a little bit of a lower abdominal cramping but much better. No bowel movement today. States she only had 1 loose bowel movement yesterday nonbloody. No nausea or vomiting. Tolerating her regular diet. She has been afebrile. Objective - Vital Signs Vital signs: Vital Signs Temp 98.4 F 01/06/24 07:08 Pulse 78 01/06/24 07:08 Resp 18 01/06/24 07:08 BP 120/74 01/06/24 07:08 Pulse Ox 97 01/06/24 07:08 FiO2 Intake & Output 01/05/24 01/06/24 01/06/24 18:59 06:59 18:59 Intake Total 1050 Output Total 0 Balance 1050 0 Intake: Intake, IV Titration 450 Amount ACETAMINOPHEN IV (For NPO 100 ) 1,000 mg In Empty Bag 1 bag @ 400 mls/hr IVPB ONCE STA Rx#:[id number] Magnesium Sulfate-D5w Pmx 100 1 gm In Dextrose/Water 1 100ml.bag @ 100 mls/hr IVPB ONCE ONE Rx#: [id number] cefTRIAXone 2 gm In 50 Sodium Chloride 0.9% 50 ml @ 100 mls/hr IVPB Q24HR [facility] Rx#:[id number] metroNIDAZOLE-NS PMX 500 200 mg In Saline 1 100ml.bag @ 100 mls/hr IVPB Q8HR [facility] Rx#:[id number] Oral 600 Output: Stool 0 Other: Voiding Method Toilet Toilet Toilet # Voids 1 1 # Bowel Movements 1 - Exam General appearance: The patient is alert, oriented, appears in no acute distress. HET: Head is normocephalic and atraumatic. Conjunctiva pink. Sclera anicteric. Neck: Supple without lymphadenopathy. Abdomen: Soft, morbidly obese, mild lower abdominal tenderness, nondistended. Extremities: Normal skin color and turgor. No pedal edema Skin: No rashes, no jaundice Neurological: No focal deficits. Alert and oriented. - Labs CBC & Chem 7: 01/03/24 04:31 01/05/24 13:05 Labs: Abnormal Lab Results - Last 24 Hours (Table) 01/05/24 01/05/24 01/05/24 Range/Units 12:01 13:05 17:02 POC Glucose (mg/dL) 229 H 142 H (70-110) mg/dL Magnesium 2.4 H (1.6-2.3) mg/dL 01/05/24 01/06/24 Range/Units 20:23 07:13 POC Glucose (mg/dL) 180 H 128 H (70-110) mg/dL Magnesium (1.6-2.3) mg/dL Microbiology - Last 24 Hours (Table) 01/02/24 20:00 Stool Culture - Final Stool Jazzmine albicans Assessment and Plan (1) Abdominal pain Narrative/Plan: 68-year-old female admitted with abdominal pain nausea vomiting and diarrhea with hematochezia. Patient continues to have some lower abdominal pain diarrhea has improved significantly with only 1 episode of loose stool today. No further bleeding. CT abdomen pelvis with circumferential wall thickening of colon involving ascending colon and descending colon, possibly secondary to infectious versus inflammatory or ischemic. Patient had no leukocytosis on admission and hip was afebrile. She was started on IV antibiotics and has remained on them. Residual diarrhea could also be secondary from IV antibiotics. C. difficile stool studies negative, stool culture positive for Jazzmine albicans. Continue with current management, patient had recent colonoscopy 6 months ago, would not recommend repeat colonoscopy. Current Visit: No Status: Acute Code(s): R10.9 - UNSPECIFIED ABDOMINAL PAIN SNOMED Code(s): 52003512 (2) Diarrhea Current Visit: No Status: Acute Code(s): R19.7 - DIARRHEA, UNSPECIFIED SNOMED Code(s): 26594255 Plan: 1. Continue symptomatic and supportive care 2. Recommend low fiber diet 3. Stool studies reviewed 4. Continue with Lomotil as needed 5. Continue probiotics 6. No plans on colonoscopy patient had colonoscopy about 7 months ago 7. Patient's symptoms continue to improve. No further workup indicated by gastroenterology. Thank you for this consultation, patient is cleared for discharge by gastroen terology. She can follow-up in [address] Sven Ndiaye I agree with the dictator's note, documented as a scribe by Mariluz Bobo.
[2024-01-06] MEDS: ALBUTEROL NEBULIZED 2.5 MG/3 ML INHALATION PRN (11:30)
[2024-01-06 12:39] LABS: Glucose,Whole Blood 182 mg/dL (70-110)
[2024-01-06 12:53] VITALS: BP 148/81; PULSE 104; RESP 16; TEMP 98.9
--- NOTE | 2024-01-11 09:47 | CDI ---
Documentation Clarification Form Date: 01/10/2024 01:42:00 PM From: Maria Ines Tolentino RN, CCDS Phone: [phone] Admit Date: 01/02/2024 06:31:00 AM Patient Name: Eileen Ribeiro Visit Number: [id number] Discharge Date: 01/06/2024 02:00:00 PM ATTENTION: The Clinical Documentation Specialists (CDI) and [facility] Coding Staff appreciate your assistance in clarifying documentation. Please respond to the clarification below the line at the bottom and electronically sign. The CDI & [facility] Coding staff will review the response and follow-up if needed. Please note: Queries are made part of the Legal Health Record. If you have any questions, please contact the author of this message via ITS. Dr. Edward Love The patient had an abnormal bicarbonate level. Please clarify if there is an additional diagnosis and/or clinical significance related to this value. History/Risk Factors: asthma, DM, HTN and diverticulitis and colitis. Presented with N/V/D. Admitted with acute diverticulitis. Clinical indicators: 12/30-01/02 Bicarbonate level: 33-28-26-29 ED: "Nausea/Vomiting/Diarrhea. Patient states it has been nonstop and she has been unable to tolerate even fluids." 12/30 Surgery Consult: "Abdominal pain due to diverticulitis. IV fluid hydration for intractable nausea and vomiting." Treatment: 2L 0.9 NS IV bolus on 12/30; 1L 0.9 NS IV bolus on 12/31; 0.9 NS @ 75mL/hr 12/30-12/31 Is there an additional diagnosis and/or clinical significance related to the above lab result/information? [ X ] Alkalosis [ ] No additional diagnosis/Not clinically significant [ ] Other, please specify [ ] Unable to determine MTDD
== END 2024-01-06 14:00 | disposition home or self-care (01) | DRG 378 ==
LOC: EC 09:08 → 5NMEDONC 12:11 → OBSVTOIN 01-02 06:31 → 5NMEDONC 01-05 23:42
PROVIDERS: ADMIT Family Medicine; ATTEND Family Medicine
DX: K57.33 Diverticulitis of large intestine without perforation or abscess with bleeding (principal); B37.89 Other sites of candidiasis; E87.3 Alkalosis; I10 Essential (primary) hypertension; F32.A Depression, unspecified; R29.6 Repeated falls; K52.9 Noninfective gastroenteritis and colitis, unspecified; F41.9 Anxiety disorder, unspecified; G89.29 Other chronic pain; M06.9 Rheumatoid arthritis, unspecified; E66.01 Morbid (severe) obesity due to excess calories; N28.1 Cyst of kidney, acquired; K76.89 Other specified diseases of liver; Z68.36 Body mass index [BMI] 36.0-36.9, adult; Z88.0 Allergy status to penicillin; Z91.81 History of falling; M19.09 Primary osteoarthritis, other specified site; I45.10 Unspecified right bundle-branch block; K29.70 Gastritis, unspecified, without bleeding; Z79.84 Long term (current) use of oral hypoglycemic drugs; Z79.899 Other long term (current) drug therapy; Z86.16 Personal history of COVID-19; Z96.653 Presence of artificial knee joint, bilateral
CPT/HCPCS: 36415; 74177; 80048; 80053; 80076; 82150; 83036; 83605; 83630; 83690; 83735; 83993; 84132; 84145; 85025; 85652; 86140; 86850; 86870; 86880; 86900; 86901; 87045; 87046; 87324; 93005; 94640; 96361; 96374; 96375; 96376; 99285